=== PATIENT | male | born 1965 | race Caucasian/White ===

== ENCOUNTER 2025-07-06 07:21 | Inpatient (IN) | payer MEDICARE, MEDICAID, SELFPAY ==
[2025-07-06] VITALS (23 sets, daily range): BP systolic 91–143; BP diastolic 48–92; PULSE 93–140; RESP 16–22; TEMP 36.4–37.4; O2SAT 95–99; BMI 28.3
--- NOTE | 2025-07-06 07:43 | PD.EDABDPN ---
ED Abdominal Pain RME/HPI General Chief Complaint: Abdominal Pain Stated complaint: ABD PAIN Time seen by provider: 07/06/25 07:45 Arrival date/time: 07/06/25 07:21 RME / HPI RME / HPI narrative: DR. BROWN MAIN ED EVALUATION: 60 y/o male with Hx of Schizophrenia and Developmental Delay LUCILA from home presents to ED c/o sharp abdominal pain and constipation x 3 day. Per EMS, patient was tachycardic with BPM in the 140's. Denies nausea and vomiting. Patient is able to ambulate on his own, but starts breathing hard after a brief moment. Spoke with tufting creeler, Celia, and she reports patient began feeling unwell last night reporting one stool with fresh blood, but denying hematemesis. Patient is normally very vocal. Denies Hx of colonoscopy or history of abdominal surgeries. Patient is currently taking Zocor, Klonopin, Resperidone, Loratadine, and dulcolax. No allergies to medication reported. Patient also has a history of Lomas's Palsy, in addition to Schizophrenia and Developemental Delay. Per caregiver patient is at his baseline. Related Data Allergies Allergy/AdvReac Type Severity Reaction Status Date / Time No Known Allergies Allergy Verified 07/06/25 08:38 Review of Systems Review of Systems Systems Reviewed: All systems reviewed, normal except as documented ROS Unobtainable: unobtainable due to mental status Past Medical History Past Medical History PSYCHO/SOCIAL: Positive Schizophrenia OTHER HISTORY: Positive Developmental Delay Social History SMOKING STATUS: Never smoker ED Exam Narrative Physical exam: GEN. APPEARANCE: The patient is alert awake in no distress, lying down comfortably, does not look ill/toxic. Patient has good eye contact. Mentating at baseline. VITALS: All vitals were reviewed and the pulse ox is 97% on room air which is normal according to my interpretation. HEENT: Normocephalic, atraumatic. Pupils are equal and reactive. Oral mucosa is moist. Patent Nares NECK: Supple, nontender, no thyromegaly, no meningismus, no JVD CHEST: Symmetrical, atraumatic, and with equal expansion , Nontender on palpation no deformity and no crepitus. CARDIOVASCULAR: Heart regular rhythm no murmur or gallop rub or extra beats. LUNGS: Clear to auscultation bilaterally with symmetrical chest rise. No laboring tachypnea or wheezing. No intercostal subcostal retraction. No rales and no rhonchi. ABDOMEN: Soft, minimal distention, mild tenderness to palpation in all 4 quadrants, no rebound no guarding there are no abnormal masses palpated EXTREMITIES: Nontender. No edema. No cyanosis. Patient is able to move all 4 extremities well, with full ROM and good CSM. SKIN: Warm and dry, no jaundice or rashes noted. NEURO: Patient is alert, interactive, mentating at his baseline per his caregiver. Patient answers questions however inappropriately however does follow commands. This is his baseline. Moves all extremities. No cranial nerve deficits. PSYCHIATRIC: Patient is in normal mood and affect. Course Course Course Narrative: Sepsis alert initiated. Orders made at this time are congruent with ED Adult Sepsis Order List. Re-evaluation is to be completed. Quality Measures Possible source: GI tract/intra-abdominal Blood cultures ordered: yes Antibiotic ordered: Yes Pertinent labs: 07/06/25 07/06/25 10:11 14:09 Lactic Acid 7.3 H* mMol/L 5.5 H* mMol/L (0.4-2.0) (0.4-2.0) Procalcitonin 0.22 ng/ml (0.0-0.49) sepsis Orders Category Date Time Status Bedside Blood Glucose NOW Care 07/06/25 09:[address] Screening NOW Care 07/06/25 07:[address] Screening NOW Care 07/06/25 09:12 Completed Equity Structurer Q4H START 00 Care 07/06/25 09:14 Active EKG (ED ONLY) *Do not use* NOW Care 07/06/25 07:46 Completed Insert IV NOW Care 07/06/25 09:14 Active Strict Intake and Output Routine Care 07/06/25 09:14 Ordered Transfuse,blood/blood products NOW Care 07/06/25 09:13 Active Consult to Gastroenterology Stat Cons 07/06/25 14:[address] angio abdomen pelvis Stat Exams 07/06/25 09:12 Completed CXR [XR chest 1V] Stat Exams 07/06/25 07:46 Completed EKG (ED Only) Stat Exams 07/06/25 07:46 Draft Blood Culture (Lab) Stat Lab 07/06/25 10:11 Received CBC Stat Lab 07/06/25 08:31 Completed CMP [Comprehensive Metabolic Panel] Stat Lab 07/06/25 08:31 Completed Drug Screen,Urine Stat Lab 07/06/25 10:30 Completed Lactate (Lactic Acid) Stat Lab 07/06/25 10:11 Completed Lactic Acid, 3 HR Stat Lab 07/06/25 14:09 Completed Lipase Stat Lab 07/06/25 08:31 Completed Partial Thromboplastin Time Stat Lab 07/06/25 08:31 Completed Path Review Blood Smear Stat Lab 07/06/25 08:31 Completed Procalcitonin Stat Lab 07/06/25 10:11 Completed Prothrombin Time with INR Stat Lab 07/06/25 08:31 Completed Troponin I Stat Lab 07/06/25 08:31 Completed Type and Screen Stat Lab 07/06/25 10:11 Results UA, C/S IF [Urinalysis, C/S if Indicated] Stat Lab 07/06/25 10:30 Completed prbc [Red Blood Cells] Stat Lab 07/06/25 10:11 Results NA HERNANDEZ/NAHCO3/JOSE/PEG (Golytely) [Golytely] Med 07/06/25 14:26 Discontinued 4,000 ml PO X1 ONE Piper/Tazo Inj [Zosyn Inj] 4.5 gm Med 07/06/25 09:16 Discontinued Sodium Chloride 0.9% (Pop) [NS 0.9% mini bag] 100 ml IV X1 Ringers Lactated 1000 ml [Lactated Ringers] 1,000 ml Med 07/06/25 07:45 Discontinued IV 999 mls/hr Ringers Lactated 1000 ml [Lactated Ringers] 1,000 ml Med 07/06/25 14:29 Active IV 999 mls/hr Oxygen Delivery NOW RT 07/06/25 09:14 Active Vital Signs Vital signs: Vital Signs Temperature 98.7 F 07/06/25 07:33 Pulse Rate 129 H 07/06/25 07:33 Respiratory Rate 18 07/06/25 07:33 Blood Pressure 119/72 07/06/25 07:33 Pulse Oximetry (%) 99 07/06/25 07:33 Oxygen Delivery Method Room Air 07/06/25 07:33 Abdominal Pain MDM MDM Narrative MDM Narrative:: Scribe Attestation: I, Mariia Balderrama, am scribing for and in the presence of Dr. Brown. Provider Notation: Although this document has been carefully reviewed, there may still be some phonetic and other typographical errors. These errors are purely grammatical due to imperfections in the software program and should not be construed in any way to compromise the substance of the patient's medical care during this visit. Patient is a 60-year-old male with medical history notable for developmental delay, schizophrenia that send emergency department brought in by EMS for concerns for abdominal pain. Vital signs and exam as listed. Concern for ACS, arrhythmia, obstruction, perforation among others. Ordered labs, CT abdomen pelvis with contrast, EKG chest x-ray after medication for symptom relief. Labs with evidence of leukocytosis 28.9. Ordered sepsis order set, and broad-spectrum antibiotics. Concern for bacteremia. Also ordered a liter of fluid. Patient hemoglobin is 5.8. Concern that patient is bleeding do not have a prior hemoglobin for comparison. Ordered 2 units of blood. Will hold off on further IV crystalloid fluid resuscitation at this time given patient's low hemoglobin and concern for dilution. No significant acute electrolyte abnormalities. Patient lactic acid is 7.3 no transaminitis. Troponin not elevated. EKG with sinus tachycardia. Nonspecific T wave changes, not a cardiac alert. Chest x-ray unremarkable. I spoke with patient's caregiver at bedside, states that the patient had a couple episodes of bright red blood per rectum. This has never happened before. Patient is not take any blood thinners. CT abdomen and pelvis without any acute abnormalities, no evidence of bleed, bowel ischemia, abscess or other abnormalities. Patient lactic acid down trended however remains elevated, and findings. Ordered an additional liter of fluid until blood arrives. Discussed case with television production clerk Dr. Benavides, agrees with management, will consult on the patient. Requests that we start the patient on GoLytely. Discussed case with hospitalist service, kindly accepted patient for admission. Patient data External records reviewed:: [facility] previous records (No prior ED records available for review.) and EMS form Clinical information provided by:: EMS Social determinants that could affect healthcare access:: none Patient has the following chronic illnesses:: Schizophrenia, Developmental Delay How is presenting disease/condition affected by chronic disease/condition?: uneffected by Evaluation data The following diagnostics were reviewed and interpreted by me:: lab results, radiology exam(s) and EKG tracing(s) (EKG done at 0749, 134 bpm, normal intervals, non-specific T-wave changes, not a cardiac alert. - Interpreted by Dr. Iwona Brown.) Lab and/or radiology exams considered but not ordered:: None Interpretation Summary: RADIOLOGY Chest X-Ray: Findings: Mild prominence left ventricle Moderate elevation right hemidiaphragm. No pneumonia or pulmonary edema. The osseous structures are intact Impression: No pneumonia or pulmonary edema Abdomen/Pelvis CTA: Findings: No focal liver or splenic lesions. No gallstones. No pancreatic mass or peripancreatic edema. No extra hepatic biliary tract dilatation. No adrenal mass lesion. Significant scarring lateral margin right kidney No hydronephrosis or ureteral calculi. Aorta normal size. No pericecal inflammatory change. No ischemic bowel or diverticulitis. Prostatomegaly, AP dimension 3.8 cm Urinary bladder intact Large fat-containing inguinal hernias. Impression: No abdominal or pelvic abscess. Significant scarring lateral margin right kidney, no hydronephrosis or ureteral calculi. No CT findings of appendicitis bowel obstruction or diverticulitis No findings of ischemic bowel Medications / Prescriptions Medications or Prescriptions considered but not ordered:: None Medication administrations:: Medication Administration History Lactated Ringer's (Lactated Ringers) 1,000 mls @ 999 mls/hr IV .Q1H1M ONE Stop: 07/06/25 15:29 Discontinued Medications Lactated Ringer's (Lactated Ringers) 1,000 mls @ 999 mls/hr IV .Q1H1M ONE Stop: 07/06/25 08:45 Last Infusion: 07/06/25 09:51 Dose: Infused Documented By: Admin: 07/06/25 08:43 Dose: 999 mls/hr Documented By: BY Piperacillin Sod/Tazobactam (Sod 4.5 gm/ Sodium Chloride) 100 mls @ 200 mls/hr IV X1 STA Stop: 07/06/25 09:45 Last Infusion: 07/06/25 10:15 Dose: Infused Documented By: Admin: 07/06/25 09:43 Dose: 200 mls/hr Documented By: KATELYNN Polyethylene Glycol/Electrolytes (Na Hernandez/Nahco3/Jose/Peg (Golytely) 4,000 Ml Btl) 4,000 ml PO X1 ONE Stop: 07/06/25 14:27 See above if any. Consultations Consultation(s) initiated? (list below): Yes Consultation #1 (Physician, Specialty, Details): Dr. Benavides made aware of the patient?s HPI, PMHx, lab and/or radiology results. Discussed treatment plan. Dr. Benavides agrees and will scope the patient. Advises clear liquid diet and that patient is put on GoLYTELY. Will consult an admission to the hospitalist. Time: 14:23 Consultation #2 (Physician, Specialty, Details): Dr. sAh Nuñez made aware of the patient?s HPI, PMHx, lab and/or radiology results. Treatment plan was discussed. Will admit for further evaluation and management. Accepts patient for admission. Time: 14:26 Diagnosis Differential diagnosis abdominal pain: abdominal pain, acute appendicitis, calculus of kidney, constipation, diverticulitis, gastroenteritis, pancreatitis and small bowel obstruction Most likely diagnosis given after review of the tests above:: GI bleed, sepsis, symptomatic anemia Admission Indicated Admission indicated?: indicated Explain why admission is indicated or not indicated:: GI bleed Admission Request Was there a request for admission?: Yes Admission Attestation Admission request attestation: Discussed case with [] from Hospitalist service regarding admission. Discussed patients ED course, exam findings, labs, and radiology results. The Hospitalist [agrees,declines] to accept the patient for admission. Disposition Plan Disposition Plan: Admit Critical Care Time Critical Care Time Critical Care Time: Yes Total Critical Care Time (min.): 65 Attestation: ?I spent 65 minutes of critical care time with this patient not including reportable procedures. There was an acute impairment of an organ system with a high probability of imminent or life threatening deterioration in the patient's condition. Interventions and changes required in the course of therapy are located in the chart. Time involved was spent in direct patient care, reviewing ancillary data, old records, consulting with decision makers, EMS, other doctors, giving orders and documenting. Discharge Plan Plan Patient Disposition: Admit Acute Care w/in Hospital Prescriptions/Referrals Referrals: Delon Herman PA-C [Primary Care Provider] - In 1 week Problem List Clinical Impression: GI (gastrointestinal bleed), Sepsis, Acidosis, lactic Patient/Caregiver Discharge Instructions Print Language: Indonesian Stand Alone Forms: Michelle Award Info., Patient Portal Info Letter
--- NOTE | 2025-07-06 07:46 | EKG_ITS ---
[facility] Test Date: 2025-07-06 Pat Name: MITA GRANADOS Department: Room: - Gender: Male Hydrocrane Operator: : 1965 Requested By: Iwona Niño Order Number: [id number] Reading MD: Iwona Niño Measurements Intervals [place] Rate: 134 P: 89 MA: 141 QRS: 19 QRSD: 95 T: 4 QT: 331 QTc: 495 Interpretive Statements SINUS TACHYCARDIA INCOMPLETE RIGHT BUNDLE BRANCH BLOCK [90+ ms QRS DURATION, TERMINAL R IN V1/V2, 40+ ms S IN I/aVL/V4/V5/V6] NONSPECIFIC T-WAVE ABNORMALITY ABNORMAL RHYTHM ECG No previous ECG available for comparison /store/S0/[id number]/ecg/[id number].pdf
--- NOTE | 2025-07-06 07:46 | XR_ITS ---
Examination: PA chest single view Technique: Upright PA chest single view Date and time: July 06 thousand 25, 0757 hrs. Indications: Shortness of breath beginning 5 days ago. Findings: Mild prominence left ventricle Moderate elevation right hemidiaphragm. No pneumonia or pulmonary edema. The osseous structures are intact Impression: No pneumonia or pulmonary edema
--- NOTE | 2025-07-06 07:46 | PD.EDABDPN ---
ED Abdominal Pain RME/HPI General Chief Complaint: Abdominal Pain Stated complaint: ABD PAIN Time seen by provider: 07/06/25 07:45 Arrival date/time: 07/06/25 07:21 Related Data Allergies Allergy/AdvReac Type Severity Reaction Status Date / Time No Known Allergies Allergy Verified 07/06/25 08:38 Course Orders Category Date Time Status Bedside Blood Glucose NOW Care 07/06/25 09:[address] Screening NOW Care 07/06/25 07:[address] Screening NOW Care 07/06/25 09:12 Completed Telephone Exchange Operator Q4H START 00 Care 07/06/25 09:14 Active EKG (ED ONLY) *Do not use* NOW Care 07/06/25 07:46 Completed Insert IV NOW Care 07/06/25 09:14 Active Strict Intake and Output Routine Care 07/06/25 09:14 Ordered Transfuse,blood/blood products NOW Care 07/06/25 09:[address] angio abdomen pelvis Stat Exams 07/06/25 09:12 Ordered CXR [XR chest 1V] Stat Exams 07/06/25 07:46 Completed EKG (ED Only) Stat Exams 07/06/25 07:46 Draft Blood Culture (Lab) Stat Lab 07/06/25 10:11 Received CBC Stat Lab 07/06/25 08:31 Completed CMP [Comprehensive Metabolic Panel] Stat Lab 07/06/25 08:31 Completed Drug Screen,Urine Stat Lab 07/06/25 07:46 Ordered Lactate (Lactic Acid) Stat Lab 07/06/25 10:11 Results Lipase Stat Lab 07/06/25 08:31 Completed Partial Thromboplastin Time Stat Lab 07/06/25 08:31 Completed Path Review Blood Smear Stat Lab 07/06/25 08:31 Completed Procalcitonin Stat Lab 07/06/25 10:11 Received Prothrombin Time with INR Stat Lab 07/06/25 08:31 Completed Troponin I Stat Lab 07/06/25 08:31 Completed Type and Screen Stat Lab 07/06/25 10:11 Received UA, C/S IF [Urinalysis, C/S if Indicated] Stat Lab 07/06/25 07:46 Ordered prbc [Red Blood Cells] Stat Lab 07/06/25 10:11 Received Piper/Tazo Inj [Zosyn Inj] 4.5 gm Med 07/06/25 09:16 Discontinued Sodium Chloride 0.9% (Pop) [NS 0.9% mini bag] 100 ml IV X1 Ringers Lactated 1000 ml [Lactated Ringers] 1,000 ml Med 07/06/25 07:45 Discontinued IV 999 mls/hr Oxygen Delivery NOW RT 07/06/25 09:14 Active Vital Signs Vital signs: Vital Signs Temperature 98.7 F 07/06/25 07:33 Pulse Rate 129 H 07/06/25 07:33 Respiratory Rate 18 07/06/25 07:33 Blood Pressure 119/72 07/06/25 07:33 Pulse Oximetry (%) 99 07/06/25 07:33 Oxygen Delivery Method Room Air 07/06/25 07:33 Abdominal Pain MDM Medications / Prescriptions Medication administrations:: Medication Administration History Discontinued Medications Lactated Ringer's (Lactated Ringers) 1,000 mls @ 999 mls/hr IV .Q1H1M ONE Stop: 07/06/25 08:45 Last Infusion: 07/06/25 09:51 Dose: Infused Documented By: Admin: 07/06/25 08:43 Dose: 999 mls/hr Documented By: BY Piperacillin Sod/Tazobactam (Sod 4.5 gm/ Sodium Chloride) 100 mls @ 200 mls/hr IV X1 STA Stop: 07/06/25 09:45 Last Admin: 07/06/25 09:43 Dose: 200 mls/hr Documented By: KATELYNN Discharge Plan Prescriptions/Referrals Referrals: Delon Herman PA-C [Primary Care Provider] - In 1 week Patient/Caregiver Discharge Instructions Print Language: Lao
[2025-07-06] MEDS: RINGERS LACTATED 1000 ML 1,000 ML 999 ML IV ×2 (08:43→14:43)
[2025-07-06 08:45] LABS: Basophils # (Auto) 0.1 Thou/mm3 (0.0-0.2); Basophils % (Auto) 0 % (0-2.5); Eosinophils # (Auto) 0.1 Thou/mm3 (0.0-0.5); Eosinophils % (Auto) 0 % (0-10); Immature Granulocytes Auto 0.89 Thou/mm3 (0.00-0.00); Lymphocytes # (Auto) 5.9 Thou/mm3 (1.0-4.8); Lymphocytes % (Auto) 21 % (10-50); Mean Corpuscular HGB Conc 33.0 g/dl (31.0-37.0); Mean Corpuscular Hemoglobin 30.1 pg (25.0-35.0); Mean Corpuscular Volume 91 fL (80-100); Monocytes # (Auto) 2.3 Thou/mm3 (0.0-0.8); Monocytes % (Auto) 8 % (0-12); Neutrophils # (Auto) 19.6 Thou/mm3 (1.8-7.7); Neutrophils % (Auto) 68 % (37-80); Nucleated Red Blood Cell # 0.65 Thou/mm3 (0.00-0.00); Nucleated Red Blood Cell % 2 /100 WBC (0); Platelet Count 188 Thou/mm3 (140-440); RDW Standard Deviation 46.0 fL (35.1-43.9); Red Blood Count 1.93 Miln/mm3 (4.50-5.90); White Blood Count 28.9 Thou/mm3 (3.8-10.6)
[2025-07-06 09:07] LABS: Alanine Aminotransferase 15 U/L (10-49); Albumin, Serum 3.4 gm/dL (3.5-5.0); Albumin/Globulin Ratio 2.0 (1.2-2.2); Alkaline Phosphatase 35 U/L (46-116); Anion Gap 16 (7-16); Aspartate Amino Transferase 13 U/L (0-34); BUN/Creatinine Ratio 23 Ratio (12-20); Bilirubin,Total 0.2 mg/dL (0.3-1.2); Blood Urea Nitrogen 28 mg/dL (9-23); Calcium 8.7 mg/dL (8.3-10.6); Calcium (Corrected) 9.2 mg/dL (8.5-10.1); Carbon Dioxide 21.2 mMol/L (20.0-31.0); Chloride 106 mMol/L (98-107); Creatinine (Component) 1.2 mg/dL (0.6-1.3); Globulin 1.7 gm/dL (2.3-3.5); Glucose 296 mg/dL (74-106); Lipase 26 U/L (12-53); Osmolality,Calculated 301 (275-295); Potassium 4.2 mMol/L (3.4-5.1); Sodium 143 mMol/L (136-145); Total Protein 5.1 gm/dL (5.7-8.2); Troponin I < 0.020 ng/mL (0.0-0.045); eGFR > 60 See Note
[2025-07-06 09:09] LABS: Hematocrit 17.6 % (41.0-53.0); Hemoglobin 5.8 g/dL (13.5-16.0)
--- NOTE | 2025-07-06 09:12 | XR_ITS ---
Examination: CTA abdomen, with intravenous contrast. CTA pelvis, with intravenous contrast. 2-D sagittal and coronal reconstructions. 3-D reconstructions. Date and time of exam: July 06, 2025 11:34 AM Indications: Sepsis alert today with generalized abdominal pain CTDI vol (mgy) 10 DLP (MGycm) : 411 Technique: Multiple CTA images, 2.0 mm slice thickness, obtained chest, abdomen, pelvis, with the high-resolution 64 slice scanner. 100 cc Isovue-370. is administered intravenously. Sagittal and coronal 2-D reconstructions are obtained. 3-D reconstructions, angiographic images are obtained. 3-D postprocessing, including vascular maximum intensity projections. Low dose protocols were performed. One or more of the following dose reduction techniques were used; automated exposure control, adjustment of the mA and/or KV according to patient size, use of iterative reconstruction technique. Findings: No focal liver or splenic lesions. No gallstones. No pancreatic mass or peripancreatic edema. No extra hepatic biliary tract dilatation. No adrenal mass lesion. Significant scarring lateral margin right kidney No hydronephrosis or ureteral calculi. Aorta normal size. No pericecal inflammatory change. No ischemic bowel or diverticulitis. Prostatomegaly, AP dimension 3.8 cm Urinary bladder intact Large fat-containing inguinal hernias. Impression: No abdominal or pelvic abscess. Significant scarring lateral margin right kidney, no hydronephrosis or ureteral calculi. No CT findings of appendicitis bowel obstruction or diverticulitis No findings of ischemic bowel
[2025-07-06 09:23] LABS: Path Review Blood Smear Sent to Pathologist
[2025-07-06] MEDS: PIPER/TAZO INJ 4.5 GM in SODIUM CHLORIDE 0.9% (POP) 100 ML IV (09:43)
[2025-07-06 10:20] LABS: INR 1.1 (0.9-1.3); Partial Thromboplastin Time 20.0 Seconds (22.0-36.0); Prothrombin Time 12.0 Seconds (9.0-12.2)
[2025-07-06 10:31] LABS: Lactate (Lactic Acid) 7.3 mMol/L (0.4-2.0)
--- NOTE | 2025-07-06 10:47 | PC.NURSE ---
patient box printer brought in a copy of a medical / dental consent, copy placed in chart, however states she still needs to make a phone call to make shure if there is any thing else she needs to do before she consents to the blood transfussion
[2025-07-06 10:48] LABS: Collection Type, Urine Clean Catch
--- NOTE | 2025-07-06 10:50 | PC.NURSE ---
notified of patient lactic results '
[2025-07-06 10:54] LABS: Procalcitonin 0.22 ng/ml (0.0-0.49)
[2025-07-06 10:56] LABS: Bilirubin,Urine Negative (Negative); Blood,Urine Negative (Negative); Clarity,Urine Clear (Clear/Hazy); Color,Urine Colorless (Lt Yel-Yel); Culture Indicated,Urine Not Indicated; Glucose, Urine 3+ (Negative); Ketones,Urine Trace (Negative); Leukocyte Esterase,Urine Negative (Negative); Nitrite,Urine Negative (Negative); PH,Urine 5.5 (5.0-7.0); Protein,Urine Negative (Neg - Trace); RBC,Urine 2 /hpf (0-3); Specific Gravity,Urine 1.021 (1.001-1.035); Squamous Epithelial Cell,Urine < 1 /hpf (0-5); Urobilinogen,Urine Negative mg/dL (0.0-1.0); WBC,Urine 2 /hpf (0-5)
--- NOTE | 2025-07-06 12:08 | PC.NURSE ---
patient noted to have tonic clonic seizure @ 1004 patient assisted to left side , suctioned and MD notified , patient placed on oxygen ,
[2025-07-06 12:09] LABS: Amphetamine/Methamp Scrn,U Negative (Negative); Barbiturate Screen,Urine Negative (Negative); Benzodiazepines Screen,Urine Negative (Negative); Benzoylecgonine Screen, Ur Negative (Negative); Fentanyl Screen,Urine Negative (Negative); Opiate Screen,Urine Negative (Negative); THC Screen,Urine Negative (Negative)
[2025-07-06 13:16] LABS: Reflex Lactate? Y
--- NOTE | 2025-07-06 13:27 | PC.NURSE ---
patient is in bed resting , denies any pain , no noted facial grimacing at this time currently recieving blood transfusion
[2025-07-06 14:18] LABS: Lactic Acid, 3 HR 5.5 mMol/L (0.4-2.0)
--- NOTE | 2025-07-06 15:05 | ESHP_ITS ---
<Statement entered by Kaylee Starks MD - 07/11/25 07:15> I reviewed above note and agree with findings and plans. I have also personally examined the patient with medicine team and went over assessment and plan with medical team including audit intern and resident physician. <Statement entered by Florentino Nuñez MD - 07/06/25 17:05> Ton Matias is a 60-year-old male with past medical history of developmental delay who lives at a [facility], schizophrenia, Lomas's palsy, abdominal hernia who is admitted for melanotic stools. GI consulted and will plan for EGD likely tomorrow. Initial hemoglobin of 5.8 and will be transfused 2 units PRBC in the ED. Lactic acidosis improved after IVF but will continue to trend and started on IVF. Also noted to be hyperglycemic, A1c ordered and on SSI with every 6 hours glucose checks. Restarted home medications for schizophrenia and depression/anxiety. ----- Note reviewed and agree with care plan as documented. Please refer to the note below for further details. Plan discussed with attending physician Dr. Tereza Nuñez MD PGY-2 Internal Medicine Documentation for date of: 07/06/25 HPI History of Present Illness Chief complaint: Abdominal pain, Blood in stool History of present illness: 60 year old male with past medical history of schizophrenia, developmental delay, Lomas's palsy and abdominal hernia, BIBA from a [facility] for sharp abdominal pain and constipation for 3 days. Per EMS, patient was tachycardic with HR in the 140s. Per the hide shaker (Celia), patient started feeling unwell yesterday evening and had one stool with melanic stool, denying hematemesis. ED course: - WBC: 28.9 - HgB 5.8, Hc 17.6, transfused 2 units prbc - Lactic acid 7.3 on arrival, post fluids 5.5. - Fingerstick blood glucose - 296 - Blood cultures pending - LR 2L bolus - Zosyn 4.5 gm - Chest xray: No signs of pneumonia or pulmonary edema, mild prominance of left ventricle, moderate elevation right hemidiaphragm - CT angio abdomen/pelvis: No abdominal or pelvic abscess, significant lateral margin right kidney, no signs of appendicitis, bowel obstruction, diverticulitis, or ischemic bowel. PMH: Schizophrenia, developmental delay, Lomas's Palsy, abdominal hernia PSHx: None Medications: Zocor, Klonopin, Resperidone, Loratadine, and dulcolax Allergies: none Social: patient is developmentally delayed, lives at a [facility], caretakers Celia and Mi. Code: Inventory Specialist Mi at the bedside reports the code status to be Full. Exam Vital Signs Temp Pulse Resp BP Pulse Ox O2 Del Method 99.4 F 116 H 18 102/71 95 Room Air 07/06/25 14:00 07/06/25 14:52 07/06/25 14:52 07/06/25 14:52 07/06/25 14:52 07/06/25 14:52 Narrative Exam General: Patient is fully alert and but not fully oriented (but at baseline, patient has developmental delay). In no acute distress. Cardio: RRR, no murmurs, gallops or rubs appreciated. Resp: Normal lung sounds, no rales or wheezing auscultated. MSK/ Extremities: No muscle or joint pain on any movement. No bruising or skin changes visible. No presence of trace or pitting edema in lower extremities bilaterally, dorsalis pedis pulses +2 bilaterally GI: Mild abdominal distension, normal bowel sounds. No abdominal tenderness in any quadrants. Neuro: No focal motor or sensory deficits in the UE or LE bilat Psych: Judgment thought and behavior hindered due to developmental delay. Good affect. Cooperative Results: Labs 07/06/25 08:31 07/06/25 08:31 Labs: Short CBC 07/06/25 Range/Units 08:31 WBC 28.9 H (3.8-10.6) Thou/mm3 Hgb 5.8 L* (13.5-16.0) g/dL Hct 17.6 L* (41.0-53.0) % Plt Count 188 (140-440) Thou/mm3 BMP 07/06/25 08:31 Sodium 143 Potassium 4.2 Chloride 106 Carbon Dioxide 21.2 BUN 28 H Creatinine 1.2 Glucose 296 H Calcium 8.7 Cardiac Enzymes 07/06/25 Range/Units 08:31 Troponin I < 0.020 (0.0-0.045) ng/mL Liver Function 07/06/25 Range/Units 08:31 Total Bilirubin 0.2 L (0.3-1.2) mg/dL AST 13 (0-34) U/L ALT 15 (10-49) U/L Alkaline Phosphatase 35 L (46-116) U/L Albumin 3.4 L (3.5-5.0) gm/dL Urine 07/06/25 Range/Units 10:30 Urine Color Colorless A (Lt Yel-Yel) Urine Clarity Clear (Clear/Hazy) Urine pH 5.5 (5.0-7.0) Ur Specific [place] 1.021 (1.001-1.035) Urine Protein Negative (Neg - Trace) Urine Glucose (UA) 3+ A (Negative) Quality Measures Quality Measures sepsis Current suspected stage: sepsis Possible source: GI tract/intra-abdominal Blood cultures ordered: yes Antibiotic ordered: Yes Medications Home Medications and Allergies Home Medications ?Medication ?Instructions ?Recorded ?Confirmed ?Type clonazepam 1 mg tablet 1 mg PO TID 07/06/25 5 History docusate sodium 250 mg capsule mg PO DAILY 07/06/25 H istory fluvoxamine 100 mg tablet 100 mg PO BID 07/06/2507/06 History loratadine 10 mg tablet (Allergy mg 07/06/25 History Relief (loratadine)) risperidone 1 mg/mL oral solution 1 mg PO BID 07/06/25 07/06/25 History (Risperdal) simvastatin 10 mg tablet 10 mg PO QPM 07/06/25 History Allergies Allergy/AdvReac Type Severity Reaction Status Date / Time No Known Allergies Allergy Verified 07/06/25 08:38 Visit Medications Lactated Ringer's (Lactated Ringers) 1,000 mls @ 999 mls/hr IV .Q1H1M ONE Stop: 07/06/25 15:29 Last Admin: 07/06/25 14:43 Dose: 999 mls/hr Discontinued Medications Lactated Ringer's (Lactated Ringers) 1,000 mls @ 999 mls/hr IV .Q1H1M ONE Stop: 07/06/25 08:45 Last Infusion: 07/06/25 09:51 Dose: Infused Piperacillin Sod/Tazobactam (Sod 4.5 gm/ Sodium Chloride) 100 mls @ 200 mls/hr IV X1 STA Stop: 07/06/25 09:45 Last Infusion: 07/06/25 10:15 Dose: Infused Polyethylene Glycol/Electrolytes (Na Jj/Nahco3/Rio/Peg (Golytely) 4,000 Ml Btl) 4,000 ml PO X1 ONE Stop: 07/06/25 14:27 Assessment & Plan Plan 60 y/o male with Hx of Schizophrenia and Developmental Delay, presented with abdominal pain, constipation, and melena, admitted for acute blood loss anemia secondary to upper GI bleed. #Acute blood loss anemia secondary to upper GI bleed - Patient had one known episode of melena on 07/05/25 - Hgb of 5.8 on arrival - BUN 28 on arrival - Lactic acid 7.3 on arrival -> 5.5 after 2L LR - 2 units prbc transfused Plan: - GI consulted - Pending EGD, patient NPO - Protonix 40 BID - Zofran Q6H PRN - Will check post tranfusion H and H - Monitor daily CBC, transfuse if hemoglobin <7 or if symptoms of anemia develop - Trend lactate - Maintenance fluids LR 75 ml/hr #Leukocytosis - Likely reactive to GI bleed - WBC 28.9 on presentation. - Patient is afebrile, HR 107 Plan - Monitor daily CBC - No signs of infection at this moment, will monitor and start antibiotics if symptoms develop. #Hyperglycemia - Patient presented with fingerstick blood glucose of 296 mg/dL - Urine 3+ glucose - Potential undiagnosed type II diabetes mellitus Plan: - Patient placed on sliding scale - Fingerstick glucose Q6H - A1c ordered. #Schizophrenia - Patient has a history of schizophrenia - Cont home risperidone 1 mg PO BID - Monitor for symptoms #Constipation - 3 day history of constipation - Monitor and PRN miralax #Depression #Anxiety - Cont home medications clonazpam 1mg TID, fluvoxamine 100 mg PO BID Health Maintenance: Code Status: Full DVT Prophylaxis: SCDs GI Prophylaxis: Protonix Diet: NPO, pending EGD Marinelli: None Lines: PIV Supplemental O2: None Disposition: Med Surg, pending workup for GI bleed Patient seen and care discussed with my attending physician, Dr. Starks and my senior resident Dr. Ash Vazquez, OMS-IV
--- NOTE | 2025-07-06 15:51 | PC.NURSE ---
pharmacy called and is requesting fluvoxamine 100mg med from home , due to medication not being available at this time, family informed and will bring bubble pack from home
--- NOTE | 2025-07-06 16:16 | PC.NURSE ---
DR Benavides at bedside @ 0565 speaking to patient and family
--- NOTE | 2025-07-06 16:17 | PC.NURSE ---
recieved a call from ETHAN SAAB that he spoke to DR Moralez and patient is going to have a EGD tomorow , does not need to take the golytly today
[2025-07-06] MEDS: RINGERS LACTATED 1000 ML 1,000 ML 75 ML IV (16:22)
--- NOTE | 2025-07-06 16:43 | PC.NURSE ---
recieved call from DR Benavides , and patient is ok to have clear liquids until midnight , will have EGD tomorow
--- NOTE | 2025-07-06 16:46 | PD.IMCONS ---
HPI Data of Consult Requesting Physician: Kaylee Starks MD Primary Care Provider: Delon Herman PA-C Consult Narrative Reason for consult: Hematochezia History of present illness: 60 years old male came into the emergency room with multiple episodes of hematochezia cc:: cc: Kaylee Starks MD Review of Systems Review of Systems Systems Reviewed: All systems reviewed, normal except as documented Past Medical History Surgical History OTHER SURGICAL HX: Schizoaffective disorder Hyperlipidemia Meds Home Medications and Allergies Home Medications ?Medication ?Instructions ?Recorded ?Confirmed ?Type clonazepam 1 mg tablet 1 mg PO TID 07/06/25 07/06/25 History docusate sodium 250 mg capsule mg PO DAILY 07/06/25 History fluvoxamine 100 mg tablet 100 mg PO BID 07/06/25 07/06/25 History loratadine 10 mg tablet (Allergy mg 07/06/25 History Relief (loratadine)) risperidone 1 mg/mL oral solution 1 mg PO BID 07/06/25 07/06/25 History (Risperdal) simvastatin 10 mg tablet 10 mg PO QPM 07/06/25 07/06/25 History Allergies Allergy/AdvReac Type Severity Reaction Status Date / Time No Known Allergies Allergy Verified 07/06/25 08:38 Exam Vital Signs Temp Pulse Resp BP Pulse Ox O2 Del Method 99.3 F 107 H 18 123/69 98 Room Air 07/06/25 15:43 07/06/25 15:43 07/06/25 15:43 07/06/25 15:43 07/06/25 15:14 07/06/25 15:14 Constitutional Comments: Alert oriented Routine Respiratory Exam Comments: Normal to auscultation Routine Abdominal Exam Comments: Soft nontender Results Labs 07/06/25 08:31 07/06/25 08:31 Labs: Short CBC 07/06/25 Range/Units 08:31 WBC 28.9 H (3.8-10.6) Thou/mm3 Hgb 5.8 L* (13.5-16.0) g/dL Hct 17.6 L* (41.0-53.0) % Plt Count 188 (140-440) Thou/mm3 BMP 07/06/25 08:31 Sodium 143 Potassium 4.2 Chloride 106 Carbon Dioxide 21.2 BUN 28 H Creatinine 1.2 Glucose 296 H Calcium 8.7 Cardiac Enzymes 07/06/25 Range/Units 08:31 Troponin I < 0.020 (0.0-0.045) ng/mL Liver Function 07/06/25 Range/Units 08:31 Total Bilirubin 0.2 L (0.3-1.2) mg/dL AST 13 (0-34) U/L ALT 15 (10-49) U/L Alkaline Phosphatase 35 L (46-116) U/L Albumin 3.4 L (3.5-5.0) gm/dL Urine 07/06/25 Range/Units 10:30 Urine Color Colorless A (Lt Yel-Yel) Urine Clarity Clear (Clear/Hazy) Urine pH 5.5 (5.0-7.0) Ur Specific [place] 1.021 (1.001-1.035) Urine Protein Negative (Neg - Trace) Urine Glucose (UA) 3+ A (Negative) Assessment and Plan Additional Assessment & Plan Additional Plan: Hematochezia Plan clear liquid diet n.p.o. at midnight tonight except p.o. meds Consent for fiberoptic esophagogastroduodenoscopy with possible biopsy possible therapeutic intervention under intravenous moderate sedation If EGD negative we will consider doing a fibrotic colonoscopy prior to discharge Serial CBC IV Protonix Thank you very much for the opportunity to participate in the care of this
--- NOTE | 2025-07-06 17:29 | PC.CC ---
Polly Ton. is a 60-year-old male admitted for GI Bleed. Online Journalist made contact with Pt at bedside to complete initial and discuss discharge disposition. Caregiver Mi Jean [phone] was bedside and provided information.Role and reason for the contact was explained to Pt. Demographic information was verified. Caregiver identify self Mi Jean [phone] and Celia Jaen [phone] as patients surrogate decision maker. Per caregiver Pt is independent with all ADLs. Pt does not utilize no DME. Pt?s choice of pharmacy is [facility] in [place], [place]. PCP is Delon Herman in [facility]. At time of discharge patient will return home with caregivers and caregivers will provide transportation. Discharge Plan: Home with Caregivers Next of Kin: Delon Herman in [facility] PCP:Delon Herman in [facility]
--- NOTE | 2025-07-06 17:46 | PC.NURSE ---
3 days worth of medications given to pharmacist Olivia
--- NOTE | 2025-07-06 18:11 | PC.NURSE ---
medication recived from pharmacist for tonight dose of fluoxamine , medication placed in green box in med room
[2025-07-06] MEDS: FLUVOXAMINE 100 MG PO (20:09)
[2025-07-06 23:14] LABS: Lactate (Lactic Acid) 2.0 mMol/L (0.4-2.0)
[2025-07-07] VITALS (15 sets, daily range): BP systolic 98–135; BP diastolic 72–93; PULSE 79–131; RESP 12–21; TEMP 36.4–37.4; O2SAT 92–100
[2025-07-07 00:06] LABS: Hematocrit 23.2 % (41.0-53.0)
[2025-07-07 00:07] LABS: Hemoglobin 8.0 g/dL (13.5-16.0)
[2025-07-07] MEDS: RINGERS LACTATED 1000 ML 1,000 ML 75 ML IV ×2 (05:46→21:47)
[2025-07-07 06:10] LABS: Basophils # (Auto) 0.1 Thou/mm3 (0.0-0.2); Basophils % (Auto) 0 % (0-2.5); Eosinophils # (Auto) 0.1 Thou/mm3 (0.0-0.5); Eosinophils % (Auto) 0 % (0-10); Hematocrit 22.7 % (41.0-53.0); Immature Granulocytes Auto 0.48 Thou/mm3 (0.00-0.00); Lymphocytes # (Auto) 3.4 Thou/mm3 (1.0-4.8); Lymphocytes % (Auto) 18 % (10-50); Mean Corpuscular HGB Conc 33.9 g/dl (31.0-37.0); Mean Corpuscular Hemoglobin 30.9 pg (25.0-35.0); Mean Corpuscular Volume 91 fL (80-100); Monocytes # (Auto) 1.4 Thou/mm3 (0.0-0.8); Monocytes % (Auto) 7 % (0-12); Neutrophils # (Auto) 14.0 Thou/mm3 (1.8-7.7); Neutrophils % (Auto) 72 % (37-80); Nucleated Red Blood Cell # 0.43 Thou/mm3 (0.00-0.00); Nucleated Red Blood Cell % 2 /100 WBC (0); Platelet Count 143 Thou/mm3 (140-440); RDW Standard Deviation 46.4 fL (35.1-43.9); Red Blood Count 2.49 Miln/mm3 (4.50-5.90); White Blood Count 19.4 Thou/mm3 (3.8-10.6)
[2025-07-07 06:11] LABS: Hemoglobin 7.7 g/dL (13.5-16.0)
[2025-07-07 06:38] LABS: Alanine Aminotransferase 15 U/L (10-49); Albumin, Serum 3.5 gm/dL (3.5-5.0); Albumin/Globulin Ratio 1.9 (1.2-2.2); Alkaline Phosphatase 34 U/L (46-116); Anion Gap 11 (7-16); Aspartate Amino Transferase 20 U/L (0-34); BUN/Creatinine Ratio 22 Ratio (12-20); Bilirubin,Total 0.3 mg/dL (0.3-1.2); Blood Urea Nitrogen 20 mg/dL (9-23); Calcium 8.5 mg/dL (8.3-10.6); Calcium (Corrected) 8.9 mg/dL (8.5-10.1); Carbon Dioxide 25.9 mMol/L (20.0-31.0); Chloride 106 mMol/L (98-107); Creatinine (Component) 0.9 mg/dL (0.6-1.3); Estimated Creatinine Clearance 84.7 mL/min (>60); Globulin 1.8 gm/dL (2.3-3.5); Glucose 144 mg/dL (74-106); Magnesium 1.9 mg/dL (1.6-2.6); Osmolality,Calculated 290 (275-295); Phosphorous 2.4 mg/dL (2.4-5.1); Potassium 3.8 mMol/L (3.4-5.1); Sodium 143 mMol/L (136-145); Total Protein 5.3 gm/dL (5.7-8.2); eGFR > 60 See Note
[2025-07-07] MEDS: FLUVOXAMINE 100 MG PO ×2 (10:00→21:34)
--- NOTE | 2025-07-07 13:36 | ESPR_ITS ---
<Statement entered by Kaylee Starks MD - 07/11/25 14:17> I reviewed above note and agree with findings and plans. I have also personally examined the patient with medicine team and went over assessment and plan with medical team including technical internship and resident physician. <Statement entered by Augustin Freeman MD - 07/08/25 07:57> Patient examined and case discussed with the team including attending physician. Note reviewed, I agree with the care plan as documented. Please refer to the note below for further details. - Augustin Freeman MD, PGY 3 Disclaimer: The document may contain phonetic/typographic errors due to voice recognition software. These errors are purely due to imperfections in the software program. Documentation for date of: 07/07/25 Subjective Subjective Interval history: No overnight events. Patient resting comfortably in bed. Denies any new pain. White count trending downward. H&H stable. Lactic acidosis resolving. BUN downtrending. GI plans for EGD today. Exam Vital Signs Temp Pulse Resp BP Pulse Ox O2 Del Method 97.5 F 112 H 19 129/81 96 Room Air 07/07/25 07:27 07/07/25 07:27 07/07/25 07:27 07/07/25 07:27 07/07/25 07:27 07/07/25 07:27 Narrative Exam General: One-word answers, confused. Awake and in no acute distress. Conversational and non-toxic appearing. Neurologic: GCS 15. Alert and oriented x3, no gross neurological deficit, and patient able to move all 4 extremities. HEENT: Normocephalic, atraumatic, mucous membranes moist. Pupils reactive to light. Heart: Tachycardic, regular rhythm, normal S1 and S2, no murmurs. Lungs: Clear to auscultation bilaterally with no wheezing or crackles. Abdomen: Soft, nondistended, nontender, positive bowel sounds. No guarding or rebound tenderness. Extremities: No edema. 2+ radial and dorsalis pedis pulses bilaterally. Skin: Warm. Dry. No rash or ecchymoses. Objective Labs 07/07/25 05:35 07/07/25 05:35 Labs: Laboratory Results - last 24 hr 07/06/25 07/06/25 07/06/25 10:11 14:09 23:06 WBC RBC Hgb 8.0 L D Hct 23.2 L MCV MCH MCHC RDW Std Deviation Plt Count Neut % (Auto) Lymph % (Auto) Lam[place] % (Auto) Eos % (Auto) Baso % (Auto) Neut # (Auto) Lymph # (Auto) Lamar # (Auto) Eos # (Auto) Baso # (Auto) Immature Gran # (Auto) Absolute Nucleated RBC Immature Gran % Nucleated RBC % Sodium Potassium Chloride Carbon Dioxide Anion Gap BUN Creatinine Estim Creat Clear Calc eGFR BUN/Creatinine Ratio Glucose Estimated Ave Glu mg/dL Cancelled Hemoglobin A1c Cancelled Calculated Osmolality Lactic Acid 5.5 H* 2.0 Calcium Corrected Calcium Phosphorus Magnesium Total Bilirubin AST ALT Alkaline Phosphatase Total Protein Albumin Globulin Albumin/Globulin Ratio Blood Type A Positive Antibody Screen NEGATIVE Crossmatch See Detail Blood Bank Wristband ID Yes 07/07/25 05:35 WBC 19.4 H D RBC 2.49 L Hgb 7.7 L Hct 22.7 L MCV 91 MCH 30.9 MCHC 33.9 RDW Std Deviation 46.4 H Plt Count 143 D Neut % (Auto) 72 Lymph % (Auto) 18 Lamar % (Auto) 7 Eos % (Auto) 0 Baso % (Auto) 0 Neut # (Auto) 14.0 H Lymph # (Auto) 3.4 Lamar # (Auto) 1.4 H Eos # (Auto) 0.1 Baso # (Auto) 0.1 Immature Gran # (Auto) 0.48 H Absolute Nucleated RBC 0.43 H Immature Gran % 3 H Nucleated RBC % 2 H Sodium 143 Potassium 3.8 Chloride 106 Carbon Dioxide 25.9 Anion Gap 11 BUN 20 Creatinine 0.9 Estim Creat Clear Calc 84.7 eGFR > 60 BUN/Creatinine Ratio 22 H Glucose [address] Glu mg/dL Hemoglobin A1c Calculated Osmolality 290 Lactic Acid Calcium 8.5 Corrected Calcium 8.9 Phosphorus 2.4 Magnesium 1.9 Total Bilirubin 0.3 AST 20 ALT 15 Alkaline Phosphatase 34 L Total Protein 5.3 L Albumin 3.5 Globulin 1.8 L Albumin/Globulin Ratio 1.9 Blood Type Antibody Screen Crossmatch Blood Bank Wristband ID Quality Measures Quality Measures sepsis Current suspected stage: ruled out Possible source: GI tract/intra- abdominal Blood cultures ordered: no Antibiotic ordered: No Assessment & Plan Assessment Current Active Medications: Generic Name Dose Route Start Last Admin Trade Name Freq PRN Reason Stop Dose Admin Acetaminophen 650 mg 07/06/25 15:40 Acetaminophen 325 Mg Tablet PO 08/05/25 15:39 Q6H PRN PAIN OR FEVER > 100.4 Clonazepam 1 mg 07/07/25 06:00 07/07/25 05:35 Clonazepam 0.5 Mg Tablet PO 07/12/25 05:59 1 mg TID RHINA Administration Fluvoxamine 100 Mg 0 ea 07/06/25 21:00 07/07/25 10:00 Tablet PO 08/05/25 20:59 1 tablet BID RHINA Administration Dextrose 25 ml 07/06/25 15:47 Dextrose 50%-Water Inj 50 Ml Syringe IV 08/05/25 15:46 Q15MIN PRN BG 50-70 responsive npo pt Dextrose 50 ml 07/06/25 15:47 Dextrose 50%-Water Inj 50 Ml Syringe IV 08/05/25 15:46 Q15MIN PRN BG <50 OR BG <70 & pt unresponsive Glucagon 1 mg 07/06/25 15:47 Glucagon Inj 1 Mg Vial IM Q15MIN PRN BG <70, and no IV access Lactated Ringer's 1,000 mls @ 75 mls/hr 07/06/25 15:45 07/07/25 05:46 Lactated Ringers IV 08/05/25 15:44 75 mls/hr .[id number] RHINA Administration Insulin Human Lispro 0 unit 07/06/25 18:00 07/07/25 11:57 Insulin Lispro (Admelog) 1 Unit/0.01 Ml Unit SC 08/05/25 17:59 Not Given Q6HR RHINA Protocol Ondansetron HCl 4 mg 07/06/25 15:40 Ondansetron Inj 2 Mg/Ml Inj 2 Ml IVP 08/05/25 15:39 Q6H PRN NAUSEA OR VOMITING Protocol Pantoprazole Sodium 40 mg 07/06/25 21:00 07/07/25 08:31 Pantoprazole Inj 40 Mg Vial IVP 08/05/25 20:59 40 mg Q12HR RHINA Administration Risperidone 1 mg 07/06/25 21:00 07/07/25 08:32 Risperidone 1 Mg Tablet PO 08/05/25 20:59 1 mg BID RHINA Administration Plan 60 y/o male with Hx of Schizophrenia and Developmental Delay, presented with abdominal pain, constipation, and melena, admitted for acute blood loss anemia secondary to upper GI bleed. #Acute blood loss anemia secondary to upper GI bleed * Patient had one known episode of melena on 07/05/25 * Hgb of 5.8 on arrival received 2 units of PRBCs, posttransfusion hemoglobin 8.0, most recently 7.7 * BUN 28 on arrival, down trended to 20 * Lactic acid 7.3 on arrival -> 5.5 after 2L LR, downtrended to 2.0 Plan: * GI consulted, EGD planned for 07/07/2025 * Continue Protonix 40 BID * Continue Zofran Q6H PRN * Trend H&H * Monitor daily CBC, transfuse if hemoglobin <7 or if symptoms of anemia develop * Maintenance fluids LR 75 ml/hr #Reactive leukocytosis #Reflex tachycardia secondary to anemia * Sepsis ruled out * Likely reactive to GI bleed * WBC 28.9 on presentation, downtrending, 19.4 on 07/07/2025 * Patient is afebrile, HR 112 * Tachycardia likely in the presence of acute anemia due to GI bleed * Hemoglobin was 5.8, up trended to 8.0, down trended to 7.7 Plan * Monitor daily CBC * No signs of infection at this moment, will monitor and start antibiotics if symptoms develop. #Hyperglycemia * Patient presented with fingerstick blood glucose of 296 mg/dL * Urine 3+ glucose * Potential undiagnosed type II diabetes mellitus Plan: * Continue sliding scale * Fingerstick glucose Q6H * A1c ordered. #Schizophrenia * Patient has a history of schizophrenia Plan: * Cont home risperidone 1 mg PO BID * Monitor for symptoms #Constipation * 4 day history of no bowel movement * Consider due to n.p.o. status Plan: * Monitor and PRN miralax #Depression #Anxiety * Per patient history Plan: * Cont home medications clonazpam 1mg TID, fluvoxamine 100 mg PO BID Health Maintenance: Code Status: Full DVT Prophylaxis: SCDs GI Prophylaxis: Protonix Diet: NPO with meds allowed, pending EGD Marinelli: None Lines: PIV Supplemental O2: None Disposition: EGD today with GI. Patient was seen and discussed with my attending physician Dr. Tereza BUTCHER and my senior resident Dr. Augustin Freeman MD PGY-3. Connor Loco DO PGY-1.
--- NOTE | 2025-07-07 15:35 | SUR.PHASEI ---
1535 Patient arrived to recovery sleeping comfortably in [facility] able to arouse with verbal prompting then drifts back to sleep, on oxygen 2L via nasal cannula, breathing unlabored, vital signs stable, denies pain and nausea, report received Ny GONZALES
--- NOTE | 2025-07-07 16:12 | SUR.PHASEI ---
1611 Report given to Nata GONZALES, patient meets discharge criteria from recovery, awake and alert, breathing unlabored, vital signs stable, denies pain, ate two jello; denies nausea 1612 Patient transported via gurney to room 275 without incident, patient able to ambulate from gurney to bed with stand-by assist, patient had loose black, tarry stool and scant amount of blood noted to pad on bed, Nata GONZALES promptly in patients room stated this has been occurring and MD is aware of stool, assisted with cleaning patient; new gown and pericare provided, patient resting comfortably in bed with call light in reach and Nata RN at bedside when this tech writer left patients room.
[2025-07-07] MEDS: NA SU/NAHCO3/KC/PEG (Golytely) 4,000 ML BTL 4000 ML PO (17:08)
[2025-07-07] MEDS: POLYETHYLENE GLYCOL 17 GM PACKET PO (17:43)
[2025-07-08] VITALS (8 sets, daily range): BP systolic 111–165; BP diastolic 84–102; PULSE 119–130; RESP 13–28; TEMP 36.2–37.6; O2SAT 92–98
[2025-07-08 05:48] LABS: Basophils # (Auto) 0.1 Thou/mm3 (0.0-0.2); Basophils % (Auto) 0 % (0-2.5); Eosinophils # (Auto) 0.1 Thou/mm3 (0.0-0.5); Eosinophils % (Auto) 1 % (0-10); Hematocrit 22.3 % (41.0-53.0); Immature Granulocytes Auto 0.28 Thou/mm3 (0.00-0.00); Lymphocytes # (Auto) 2.1 Thou/mm3 (1.0-4.8); Lymphocytes % (Auto) 14 % (10-50); Mean Corpuscular HGB Conc 33.2 g/dl (31.0-37.0); Mean Corpuscular Hemoglobin 31.1 pg (25.0-35.0); Mean Corpuscular Volume 94 fL (80-100); Monocytes # (Auto) 1.1 Thou/mm3 (0.0-0.8); Monocytes % (Auto) 8 % (0-12); Neutrophils # (Auto) 11.1 Thou/mm3 (1.8-7.7); Neutrophils % (Auto) 75 % (37-80); Nucleated Red Blood Cell # 0.29 Thou/mm3 (0.00-0.00); Nucleated Red Blood Cell % 2 /100 WBC (0); Platelet Count 148 Thou/mm3 (140-440); RDW Standard Deviation 49.3 fL (35.1-43.9); Red Blood Count 2.38 Miln/mm3 (4.50-5.90); White Blood Count 14.7 Thou/mm3 (3.8-10.6)
[2025-07-08 05:59] LABS: Alanine Aminotransferase 16 U/L (10-49); Albumin, Serum 3.5 gm/dL (3.5-5.0); Albumin/Globulin Ratio 2.2 (1.2-2.2); Alkaline Phosphatase 37 U/L (46-116); Anion Gap 13 (7-16); Aspartate Amino Transferase 26 U/L (0-34); BUN/Creatinine Ratio 17 Ratio (12-20); Bilirubin,Total 0.3 mg/dL (0.3-1.2); Blood Urea Nitrogen 17 mg/dL (9-23); Calcium 8.4 mg/dL (8.3-10.6); Calcium (Corrected) 8.8 mg/dL (8.5-10.1); Carbon Dioxide 26.5 mMol/L (20.0-31.0); Chloride 105 mMol/L (98-107); Creatinine (Component) 1.0 mg/dL (0.6-1.3); Estimated Creatinine Clearance 75.2 mL/min (>60); Globulin 1.6 gm/dL (2.3-3.5); Glucose 126 mg/dL (74-106); Osmolality,Calculated 290 (275-295); Potassium 3.4 mMol/L (3.4-5.1); Sodium 144 mMol/L (136-145); Total Protein 5.1 gm/dL (5.7-8.2); eGFR > 60 See Note
[2025-07-08 06:14] LABS: Hemoglobin 7.4 g/dL (13.5-16.0)
[2025-07-08] MEDS: NA SU/NAHCO3/KC/PEG (Golytely) 4,000 ML BTL 4000 ML PO (06:38)
[2025-07-08] MEDS: RINGERS LACTATED 1000 ML 1,000 ML 75 ML IV ×2 (08:22→22:06)
[2025-07-08] MEDS: FLUVOXAMINE 100 MG PO ×2 (10:42→23:42)
--- NOTE | 2025-07-08 11:00 | EKG_ITS ---
[facility] Test Date: 2025-07-08 Pat Name: MITA GRANADOS [facility] Gender: Male Countersinker Balance Screw Hole: KORY : 1965 Requested By: Augustin Freeman Order Number: [id number] Reading MD: Augustin Freeman Measurements Intervals [place] Rate: 115 P: 169 MN: 237 QRS: -2 QRSD: 100 T: -5 QT: 360 QTc: 499 Interpretive Statements ECTOPIC ATRIAL TACHYCARDIA WITH FIRST DEGREE AV BLOCK LOW QRS VOLTAGE IN PRECORDIAL LEADS INCOMPLETE RIGHT BUNDLE BRANCH BLOCK MODERATE ST DEPRESSION Compared to ECG 07/06/2025 07:49:38 First degree AV block now present Low QRS voltage now present ST (T wave) deviation now present Sinus tachycardia no longer present T-wave abnormality no longer present /store/S0/[id number].pdf
[2025-07-08 11:46] LABS: Misc Send Out* See Sep Rpt
[2025-07-08 12:25] LABS: Thyroid Stimulating Hormone 5.97 uIU/mL (0.55-4.78)
[2025-07-08] MEDS: INSULIN LISPRO (AdmeLOG) 1 UNIT/0.01 ML UNIT SC (12:29)
--- NOTE | 2025-07-08 14:41 | EKG_ITS ---
[facility] Test Date: 2025-07-08 Pat Name: MITA GRANADOS [facility] Computer Help Desk Specialist: HUYEN : 1965 Requested By: Connor Loco Order Number: [id number] Reading MD: Connor Loco Measurements Intervals [place] Rate: 130 P: 141 [place]: 188 QRS: 19 QRSD: 104 T: -9 QT: 364 QTc: 537 Interpretive Statements ECTOPIC ATRIAL TACHYCARDIA INCOMPLETE RIGHT BUNDLE BRANCH BLOCK INFERIOR MYOCARDIAL INFARCTION , OF INDETERMINATE AGE MODERATE T-WAVE ABNORMALITY, CONSIDER ANTERIOR ISCHEMIA Compared to ECG 07/08/2025 11:19:28 Myocardial infarct finding now present T-wave abnormality now present Possible ischemia now present First degree AV block no longer present ST (T wave) deviation no longer present /store/S0/[id number].pdf
--- NOTE | 2025-07-08 14:41 | XR_ITS ---
Examination: Abdomen AP single view Technique: AP portable supine abdomen, single view Exam date and time: July 08, 2025 1541 hours INDICATIONS: Post orogastric tube placement FINDINGS: No orogastric tube visualized Moderate colonic ileus, mild small bowel ileus No obstruction No free air IMPRESSION: Moderate colonic ileus, mild small bowel ileus
--- NOTE | 2025-07-08 15:06 | EVENTNT_ITS ---
Documentation for date of: 07/08/25 Event Note Event Note: Rapid response was called at about 1430 for tachypnea, diaphoresis, and increased work of breathing. The patient had a distended and tender abdomen on exam. His last bowel movement was at 10:00 this morning. He is currently p repping for a colonoscopy today with [place]. An NG tube was placed, confirmed on x-ray, and Dr. Benavides is aware. Pending read by radiology. If an SBO is present then will consider bowel series. The patient was seen and discussed with my senior resident Dr. Ash BUTCHER PGY-2. Connor Loco DO PGY-1
--- NOTE | 2025-07-08 16:22 | XR_ITS ---
Examination: AP chest single view Technique: AP portable upright chest single view Date and time: July 08, 2025, 1630 hrs., Comparison July 06, 2025, July 08, 2025 Indications: Post orogastric tube placement Findings: Orogastric tube tip distal stomach satisfactory position Air distended bowel Mild to moderate enlargement left ventricle Prominent elevation right hemidiaphragm Impression: Orogastric tube tip in the stomach satisfactory position
--- NOTE | 2025-07-08 17:05 | ESPR_ITS ---
<Statement entered by Kaylee Starks MD - 07/11/25 14:18> I reviewed above note and agree with findings and plans. I have also personally examined the patient with medicine team and went over assessment and plan with medical team including internal sales engineer and resident physician. <Statement entered by Florentino Nuñez MD - 07/08/25 17:54> No acute overnight events. Howeve, rapid response called in early afternoon for increased work of breathing, diaphoresis, and abdominal pain. BP elevated in 160s and EKG showed sinus tachycardia. Exam was tender to palpation and firm so NG tube was placed and patient had small episode of emesis during placement. KUB ordered for further evaluation and GI informed, appreciate recommendations. Otherwise, pending colonoscopy for further evaluation of GI bleed. ----- Note reviewed and agree with care plan as documented. Please refer to the note below for further details. Plan discussed with attending physician Dr. Tereza Nuñez MD PGY-2 Internal Medicine Documentation for date of: 07/08/25 Subjective Subjective Interval history: Patient had EGD yesterday. Patient on GoLytely prep for colonoscopy today. Patient had a distended and tender abdomen on exam in a.m. Rapid response was called in the afternoon due to tachypnea, diaphoresis. Abdomen was still distended on exam. An NG tube was placed and Gastrografin study ordered for suspicion of SBO. KUB x-ray showed moderate colonic ileus, mild small bowel ileus with no obstruction per radiology. Will follow-up results of Gastrografin. Dr. Benavides is aware. Exam Vital Signs Temp Pulse Resp BP Pulse Ox O2 Del Method O2 Flow Rate 97.7 F 125 H 28 H 161/102 H 98 Nasal Cannula 2 07/08/25 12:00 07/08/25 15:34 07/08/25 15:34 07/08/25 15:34 07/08/25 15:34 07/08/25 12:00 07/08/25 15:34 Narrative Exam General: Confused. Uncomfortable. Tachypneic. Diaphoretic. Neurologic: GCS 15. Alert and oriented x3, no gross neurological deficit, and patient able to move all 4 extremities. HEENT: Normocephalic, atraumatic, mucous membranes moist. Pupils reactive to light. Heart: Tachycardic, regular rhythm, normal S1 and S2, no murmurs. Lungs: Satting at 98% on 2 L nasal cannula. Clear to auscultation bilaterally with no wheezing or crackles. Abdomen: Distended, diffuse tenderness to palpation. Extremities: No edema. 2+ radial and dorsalis pedis pulses bilaterally. Skin: Warm. Dry. No rash or ecchymoses. Objective Labs 07/08/25 04:16 07/08/25 04:16 Labs: Laboratory Results - last 24 hr 07/08/25 04:16 WBC 14.7 H RBC 2.38 L Hgb 7.4 L Hct 22.3 L MCV 94 MCH 31.1 MCHC 33.2 RDW Std Deviation 49.3 H Plt Count 148 Neut % (Auto) 75 Lymph % (Auto) 14 [place] % (Auto) 8 Eos % (Auto) 1 Baso % (Auto) 0 Neut # (Auto) 11.1 H Lymph # (Auto) 2.1 [place] # (Auto) 1.1 H Eos # (Auto) 0.1 Baso # (Auto) 0.1 Immature Gran # (Auto) 0.28 H Absolute Nucleated RBC 0.29 H Immature Gran % 2 H Nucleated RBC % 2 H Sodium 144 Potassium 3.4 Chloride 105 Carbon Dioxide 26.5 Anion Gap 13 BUN 17 Creatinine 1.0 Estim Creat Clear Calc 75.2 eGFR > 60 BUN/Creatinine Ratio 17 Glucose 126 H Calculated Osmolality 290 Calcium 8.4 Corrected Calcium 8.8 Total Bilirubin 0.3 AST 26 ALT 16 Alkaline Phosphatase 37 L Total Protein 5.1 L Albumin 3.5 Globulin 1.6 L Albumin/Globulin Ratio 2.2 TSH 5.97 H Quality Measures Quality Measures sepsis Current suspected stage: ruled out Possible source: GI tract/intra- abdominal Blood cultures ordered: no Antibiotic ordered: No Assessment & Plan Assessment Current Active Medications: Generic Name Dose Route Start Last Admin Trade Name Freq PRN Reason Stop Dose Admin Acetaminophen 1,000 mg 07/07/25 15:20 Acetaminophen 500 Mg Tablet PO 08/05/25 15:39 Q6H PRN PAIN OR FEVER > 99.9 Clonazepam 1 mg 07/07/25 06:00 07/08/25 14:17 Clonazepam 0.5 Mg Tablet PO 07/12/25 05:59 1 mg TID RHINA Administration Fluvoxamine 100 Mg 0 ea 07/06/25 21:00 07/08/25 10:42 Tablet PO 08/05/25 20:59 1 tablet BID RHINA Administration Dextrose 50 ml 07/06/25 15:47 Dextrose 50%-Water Inj 50 Ml Syringe IV 08/05/25 15:46 Q15MIN PRN BG <50 OR BG <70 & pt unresponsive Glucagon 1 mg 07/06/25 15:47 Glucagon Inj 1 Mg Vial IM Q15MIN PRN BG <70, and no IV access Lactated Ringer's 1,000 mls @ 75 mls/hr 07/06/25 15:45 07/08/25 08:22 Lactated Ringers IV 08/05/25 15:44 75 mls/hr .[id number] RHINA Administration Insulin Human Lispro 0 unit 07/06/25 18:00 07/08/25 12:29 Insulin Lispro (Admelog) 1 Unit/0.01 Ml Unit SC 08/05/25 17:59 1 unit Q6HR RHINA Administration Protocol Ondansetron HCl 4 mg 07/06/25 15:40 Ondansetron Inj 2 Mg/Ml Inj 2 Ml IVP 08/05/25 15:39 Q6H PRN NAUSEA OR VOMITING Protocol Pantoprazole Sodium 40 mg 07/06/25 21:00 07/08/25 08:18 Pantoprazole Inj 40 Mg Vial IVP 08/05/25 20:59 40 mg Q12HR RHINA Administration Polyethylene Glycol/Electrolytes 4,000 ml 07/07/25 15:31 07/08/25 06:38 Na Jj/Nahco3/Rio/Peg (Golytely) 4,000 Ml Btl PO 08/06/25 15:30 4,000 ml PRN PRN Administration SEE COMMENTS Risperidone 1 mg 07/06/25 21:00 07/08/25 08:18 Risperidone 1 Mg Tablet PO 08/05/25 20:59 1 mg On Hold: 07/08/25 14:57 BID RHINA Administration Comment: PER MD CHAZ Madrigal 60 y/o male with Hx of Schizophrenia and Developmental Delay, presented with abdominal pain, constipation, and melena, admitted for acute blood loss anemia secondary to upper GI bleed. #Acute blood loss anemia secondary to upper GI bleed * Patient had one known episode of melena on 07/05/25 * Hgb of 5.8 on arrival received 2 units of PRBCs, posttransfusion hemoglobin 8.0, most recently 7.4, stable * BUN 28 on arrival, down trended * Lactic acid 7.3 on arrival -> 5.5 after 2L LR, downtrended to 2.0 * EGD on 07/08/2025 showed a few small nonbleeding erosions at the gastroesophageal junction, there was patchy mildly erythematous mucosa without bleeding in the gastric antrum, the duodenum was normal Plan: * GI consulted, patient on GoLytely, colonoscopy planned for 07/08/2025 * Continue Protonix 40 BID * Continue Zofran Q6H PRN * Trend H&H * Monitor daily CBC, transfuse if hemoglobin <7 or if symptoms of anemia develop * Maintenance fluids LR 75 ml/hr #Small bowel obstruction * Rapid response called at about 2:30 PM on 07/08/2025 due to tachypnea, diaphoresis, and distended bowel * The patient's last bowel movement was at 10:00 this morning * He was prepping for colonoscopy today with GoLytely * An NG tube was placed and set to intermittent suction * KUB x-ray showed moderate colonic ileus, mild small bowel ileus, no obstruction, and no free air Plan: * Gastrografin study ordered * Follow-up with GI #Reactive leukocytosis #Reflex tachycardia secondary to anemia * Sepsis ruled out * Likely reactive to GI bleed * WBC 28.9 on presentation, downtrending * Patient is afebrile * Tachycardia likely in the presence of acute anemia due to GI bleed * Hemoglobin in the 7s, stable Plan * Monitor daily CBC * No signs of infection at this moment, will monitor and start antibiotics if symptoms develop. #Hyperglycemia * Patient presented with fingerstick blood glucose of 296 mg/dL * Urine 3+ glucose * Potential undiagnosed type II diabetes mellitus Plan: * Continue sliding scale * Fingerstick glucose Q6H * A1c ordered. #Schizophrenia * Patient has a history of schizophrenia Plan: * Hold home risperidone 1 mg PO BID * Monitor for symptoms #Constipation * 4 day history of no bowel movement * Consider due to n.p.o. status Plan: * Monitor and PRN miralax #Depression #Anxiety * Per patient history Plan: * Cont home clonazpam 1mg TID * Hold fluvoxamine 100 mg PO BID #Elevated TSH * TSH 5.97 Plan: * Follow-up free T4 morning of 07/08/2025 Health Maintenance: Code Status: Full DVT Prophylaxis: SCDs GI Prophylaxis: Protonix Diet: NPO, pending Gastrografin Marinelli: None Lines: PIV, NG tube Supplemental O2: 2 L nasal cannula Disposition: NG tube placed, Gastrografin ordered in the presence of suspicion for small bowel obstruction. Will follow-up with GI. Patient was seen and discussed with my attending physician Dr. Tereza BUTCHER and my senior resident Dr. Savannah BUTCHER PGY-2. Connor Loco DO PGY-1.
[2025-07-08] MEDS: LIDOCAINE 5% 1 PATCH TOP (17:12)
--- NOTE | 2025-07-08 18:18 | ECHO_ITS ---
Transthoracic Echo Report Ht (in): 65 Wt (lb): 165 Exam Location: Echo Lab Status: Inpatient Console Operator: Lashawn Sandoval Indications: Procedure Performed: BP: 128 / 91 HR: 121 MEASUREMENTS (Male / Female) Normal Values 2D ECHO LV Diastolic Diameter PLAX 4.8 cm 4.2 - 5.9 / 3.9 - 5.3 cm LV Systolic Diameter PLAX 3.1 cm IVS Diastolic Thickness 1.0 cm 0.6 - 1.0 / 0.6 - 0.9 cm LVPW Diastolic Thickness 1.1 cm 0.6 - 1.0 / 0.6 - 0.9 cm LV Relative Wall Thickness 0.4 LVOT Diameter 2.0 cm LA Volume Index 18.4 cm?/m? 16 - 28 cm?/m? Ascending Aorta Diameter 2.7 cm DOPPLER AV Peak Velocity 173.0 cm/s AV Peak Gradient 12.0 mmHg AV Mean Gradient 6.0 mmHg AV Velocity Time Integral 24.6 cm LVOT Peak Velocity 142.0 cm/s LVOT Peak Gradient 8.1 mmHg LVOT Velocity Time Integral 23.9 cm LVOT Cardiac Index 4856.5 cm?/min?m? AV Area Cont Eq vti 3.1 cm? AV Area Cont Eq pk 2.6 cm? MV Area PHT 8.8 cm? Mitral E Point Velocity 85.4 cm/s Mitral A Point Velocity 112.0 cm/s Mitral E to A Ratio 0.8 TR Peak Velocity 178.0 cm/s TR Peak Gradient 12.7 mmHg PV Peak Velocity 118.0 cm/s PV Peak Gradient 5.6 mmHg FINDINGS Left Ventricle Heart Rate more than 115 bpm Normal left ventricular size, wall thickness, systolic function with no obvious regional wall motion abnormalities. There is grade I diastolic dysfunction of the left ventricle (impaired relaxation pattern). . The ejection fraction is visually estimated at 55-60%. Right Ventricle The right ventricle is normal in size and systolic function. Left Atrium The left atrium is normal by two-dimensional, color flow and Doppler imaging with no structural abnormalities, no thrombus formation present. Right Atrium The right atrium is normal by two-dimensional imaging, color flow and Doppler imaging with no structural abnormalities, no thrombus formation present. Atrial Septum The interatrial septum appears normal with no evidence of a shunt. Aorta The aorta is normal by two-dimensional, color flow and Doppler interrogation. Mitral Valve The mitral valve is normal by two-dimensional, color flow and Doppler interrogation.trace to mild mitral regurgitation. Aortic Valve The aortic valve is trileaflet and normal by two-dimensional, color flow and Doppler interrogation. There is no significant aortic valve regurgitation. Tricuspid Valve The tricuspid valve is normal by two-dimensional, color flow and Doppler interrogation. There is mild tricuspid valve regurgitation. Pulmonic Valve The pulmonic valve is not well visualized. There is no significant pulmonic valve regurgitation. Vessels The pulmonary artery appears normal. The inferior vena cava NWV Pericardium The pericardium is normal by two-dimensional imaging. There is no significant pericardial effusion. CONCLUSIONS Indication: Abnormal EKG, tachycardia-Q waves on EKG. tachycardia-and IVC not well-visualized heart Rate more than 115 bpm. Normal left ventricular size and function. Grade I diastolic dysfunction. EF estimated at 55-60% The right ventricle is normal in size and systolic function. Normal RVSP. Mild MR and TR. no pericardial effusion Subcostal view NWV or IVC Diego Rosas (Electronically Signed) Final Date: 10 July 2025 04:05
--- NOTE | 2025-07-08 19:09 | PD.RESCONSUL ---
HPI Data of Consult Requesting Physician: Kaylee Starks MD Admitting Provider: Kaylee Starks MD Attending Provider: Kaylee Starks MD Primary Care Provider: Delon Herman PA-C Consult Narrative Reason for consult: Tachycardia History of present illness: HPI: 60-year-old male patient known case of schizophrenia, hyperlipidemia, developmental delay, was brought from nursing home facility after he was started to experience abdominal pain few hours before presentation. Patient was unable to provide accurate history due to his chronic mental status, most of the history was taken from the caregiver Charu Jean. Patient pain continued to worsen over time after that he developed 1 episode of black tarry stool which was liquid. At the nursing home facility they checked his pulse oximeter and they noticed that his heart rate was elevated in the 140s. She reported that she noticed also he was tachypneic, however she denied any fever, chills, cough, sick contact, or seizures. At the ED patient was found to have heart rate of 129, blood pressure of 119/72 WBC of 28.9, hemoglobin 5.8, lactic acid 7.3, blood glucose of 296, patient was resuscitated with 2 L of fluid, and was given 2 units of blood. Chest x-ray was positive for prominent left ventricle with moderate elevation of the right Heema diaphragm, CT angio of the abdomen and pelvis was significant for Significant scarring lateral margin right kidney, no hydronephrosis or ureteral calculi. Today rapid response was called due to increased heart rate, diaphoresis and increased work of breathing. His last bowel movement was at 10 this morning as he was getting prepared for GoLytely. However it was stopped, abdominal x-ray was negative for SBO except for mild colonic and small intestine ileus. Primary team decided to keep the patient n.p.o. insert NG tube and put the patient on low intermittent suction. Cardiology team was consulted due to increased heart rate. EKG showed sinus tachycardia. No arrhythmia, no ischemic changes, and no signs of pericarditis PMH: As above Social hx: No drinking, smoking or drug Allergies: No known allergies cc:: cc: Kaylee Starks MD Exam Vital Signs Temp Pulse Resp BP Pulse Ox O2 Del Method O2 Flow Rate 99.7 F 130 H 20 111/86 H 92 L Nasal Cannula 2 07/08/25 16:00 07/08/25 16:00 07/08/25 16:00 07/08/25 16:00 07/08/25 16:00 07/08/25 16:00 07/08/25 16:00 Narrative Exam GEN: AOx0, able to answer small single word with answer HEENT: NC/AC, cerebellum, oral mucosa dry on nasal cannula, neck supple CVS: RRR, S1-S2, S3, no murmurs appreciated RESP: Coarse crepitations bilaterally more on the right GI: Abdomen is firm, distended, decreased bowel sounds MSK: able to move all 4 limbs, trace lower extremity edema SKIN: warm and clammy HOOKMAN: CN II-XII and Sensation grossly intact. Results Labs 07/23/25 04:48 07/23/25 04:48 Labs: Short CBC 07/08/25 Range/Units 04:16 WBC 14.7 H (3.8-10.6) Thou/mm3 Hgb 7.4 L (13.5-16.0) g/dL Hct 22.3 L (41.0-53.0) % Plt Count 148 (140-440) Thou/mm3 BMP 07/08/25 04:16 Sodium 144 Potassium 3.4 Chloride 105 Carbon Dioxide 26.5 BUN 17 Creatinine 1.0 Glucose 126 H Calcium 8.4 Liver Function 07/08/25 Range/Units 04:16 Total Bilirubin 0.3 (0.3-1.2) mg/dL AST 26 (0-34) U/L ALT 16 (10-49) U/L Alkaline Phosphatase 37 L (46-116) U/L Albumin 3.5 (3.5-5.0) gm/dL Quality Measures Quality Measures sepsis Current suspected stage: sepsis Possible source: GI tract/intra-abdominal Blood cultures ordered: no Antibiotic ordered: Yes Medications Home Medications and Allergies Home Medications ?Medication ?Instructions ?Recorded ?Confirmed ?Type clonazepam 1 mg tablet 1 mg PO TID 07/06/25 07/06/25 History docusate sodium 250 mg capsule 250 mg PO DAILY 07/06/25 07/06/25 History fluvoxamine 100 mg tablet 100 mg PO BID 07/06/25 07/06/25 History loratadine 10 mg tablet (Allergy 10 mg PO DAILY 07/06/25 07/07/25 History Relief (loratadine)) risperidone 1 mg/mL oral solution 1 mg PO BID 07/06/25 07/06/25 History (Risperdal) simvastatin 10 mg tablet 10 mg PO QPM 07/06/25 07/06/25 History Allergies Allergy/AdvReac Type Severity Reaction Status Date / Time No Known Allergies Allergy Verified 07/06/25 08:38 Visit Medications Acetaminophen (Acetaminophen 500 Mg Tablet) 1,000 mg PO Q6H PRN PRN Reason: PAIN OR FEVER > 99.9 Stop: 08/05/25 15:39 Clonazepam (Clonazepam 0.5 Mg Tablet) 1 mg PO TID [facility] Stop: 07/12/25 05:59 Last Admin: 07/08/25 14:17 Dose: 1 mg Fluvoxamine 100 Mg (Tablet) 0 ea PO BID [facility] Stop: 08/05/25 20:59 Last Admin: 07/08/25 10:42 Dose: 1 tablet Dextrose (Dextrose 50%-Water Inj 50 Ml Syringe) 50 ml IV Q15MIN PRN PRN Reason: BG <50 OR BG <70 & pt unresponsive Stop: 08/05/25 15:46 Glucagon (Glucagon Inj 1 Mg Vial) 1 mg IM Q15MIN PRN PRN Reason: BG <70, and no IV access Lactated Ringer's (Lactated Ringers) 1,000 mls @ 75 mls/hr IV .[id number] [facility] Stop: 08/05/25 15:44 Last Admin: 07/08/25 08:22 Dose: 75 mls/hr Insulin Human Lispro (Insulin Lispro (Admelog) 1 Unit/0.01 Ml Unit) 0 unit SC Q6HR RHINA; Protocol Stop: 08/05/25 17:59 Last Admin: 07/08/25 18:19 Dose: Not Given Ondansetron HCl (Ondansetron Inj 2 Mg/Ml Inj 2 Ml) 4 mg IVP Q6H PRN; Protocol PRN Reason: NAUSEA OR VOMITING Stop: 08/05/25 15:39 Pantoprazole Sodium (Pantoprazole Inj 40 Mg Vial) 40 mg IVP Q12HR [facility] Stop: 08/05/25 20:59 Last Admin: 07/08/25 08:18 Dose: 40 mg Polyethylene Glycol/Electrolytes (Na Jj/Nahco3/Rio/Peg (Golytely) 4,000 Ml Btl) 4,000 ml PO PRN PRN PRN Reason: SEE COMMENTS Stop: 08/06/25 15:30 Last Admin: 07/08/25 06:38 Dose: 4,000 ml Risperidone (Risperidone 1 Mg Tablet) 1 mg PO BID RHINA On Hold: 07/08/25 14:57 Comment: PER MD WARE Stop: 08/05/25 20:59 Last Admin: 07/08/25 08:18 Dose: 1 mg Discontinued Medications Acetaminophen (Acetaminophen 325 Mg Tablet) 650 mg PO Q6H PRN PRN Reason: PAIN OR FEVER > 100.4 Stop: 08/05/25 15:39 Benzocaine (Benzocaine 20% (Hurricaine) [place] 1 Dose) 0 dose TOP X1 ONE Stop: 07/07/25 15:08 Dextrose (Dextrose 50%-Water Inj 50 Ml Syringe) 25 ml IV Q15MIN PRN PRN Reason: BG 50-70 responsive npo pt Stop: 08/05/25 15:46 Diphenhydramine HCl (Diphenhydramine Inj 50 Mg/Ml Vial) 25 mg IVP [id number] PRN PRN Reason: MODERATE SEDATION Stop: 07/07/25 17:07 Fentanyl Citrate (Fentanyl Cit Inj 50 Mcg/Ml Amp 2ml) 50 mcg IVP Q2M PRN PRN Reason: MODERATE SEDATION Stop: 07/07/25 17:07 Lactated Ringer's (Lactated Ringers) 1,000 mls @ 999 mls/hr IV .Q1H1M ONE Stop: 07/06/25 08:45 Last Infusion: 07/06/25 09:51 Dose: Infused Piperacillin Sod/Tazobactam (Sod 4.5 gm/ Sodium Chloride) 100 mls @ 200 mls/hr IV X1 STA Stop: 07/06/25 09:45 Last Infusion: 07/06/25 10:15 Dose: Infused Lactated Ringer's (Lactated Ringers) 1,000 mls @ 999 mls/hr IV .Q1H1M ONE Stop: 07/06/25 15:29 Last Admin: 07/06/25 14:43 Dose: 999 mls/hr Sodium Chloride (Ns) 500 mls @ 20 mls/hr IV .Q24H ONE Stop: 07/08/25 15:06 Lidocaine (Lidocaine 5% 1 Patch) 1 patch TOP X1 ONE Stop: 07/08/25 14:48 Last Admin: 07/08/25 17:12 Dose: 1 patch Metoclopramide HCl (Metoclopramide Inj 5 Mg/Ml Vial 2 Ml) 10 mg IV Q6HR RHINA; Protocol Stop: 07/09/25 06:01 Midazolam HCl (Midazolam Inj 1 Mg/Ml Vial 2 Ml) 2 mg IVP Q2M PRN PRN Reason: Moderate Sedation Stop: 07/07/25 17:07 Non-Formulary Medication (Fluvoxamine) 100 mg PO BID RHINA Stop: 08/05/25 20:59 Polyethylene Glycol (Polyethylene Glycol 17 Gm Packet) 17 gm PO X1 ONE Stop: 07/07/25 16:07 Last Admin: 07/07/25 17:43 Dose: 17 gm Polyethylene Glycol/Electrolytes (Na Jj/Nahco3/Rio/Peg (Golytely) 4,000 Ml Btl) 4,000 ml PO X1 ONE Stop: 07/06/25 14:27 Polyethylene Glycol/Electrolytes (Na Jj/Nahco3/Rio/Peg (Golytely) 4,000 Ml Btl) 4,000 ml PO X1 ONE Stop: 07/07/25 15:35 Last Admin: 07/07/25 17:08 Dose: 4,000 ml Prochlorperazine Edisylate (Prochlorperazine Inj 5 Mg/Ml Vial 2 Ml) 10 mg IV Q6H PRN; Protocol PRN Reason: NAUSEA OR VOMITING Stop: 08/07/25 11:18 Assessment & Plan Plan Summary: 60-year-old male patient known case of schizophrenia, hyperlipidemia, developmental delay, was brought from nursing home facility after he was started to experience abdominal pain few hours before presentation. Patient was unable to provide accurate history due to his chronic mental status, most of the history was taken from the caregiver Charu Jean. Cardiology team was consulted due to tachycardia #Sinus tachycardia #ACS r/o Patient presented with acute abdominal pain, tachycardia, melena, patient was sweaty, pulse rate was 129, blood pressure was 119/65.on examination found to have S1-S2 and S3 He has trace lower edema, no elevated JVD Hemoglobin was 5.8. TSH was 5.8, Troponin was negative, chest x-ray showed left ventricular prominence, elevated right hemidiaphragm. EKG was done initially showed sinus tachycardia, repeat today during the rapid also showed sinus tachycardia with deep Q-wave on the leads, I, III and AVf. Patient most likely have secondary cause of his sinus tachycardia including but not limited to infection, pain, acute blood loss, less likely medication side effect such as serotonin syndrome Plan ? Free T4 AM draw ? Strict in and out ? Repeat troponin and BNP ? Treat underlying cause, patient may need reinsertion of NG tube output and low intermittent suction. ? Daily potassium and magnesium ? Replete electrolytes to keep potassium and magnesium above 4 and to respectively within normal range. ? Primary team ordered echo, follow-up on the results ? Strict in and out ? Stat BMP, troponin, BNP, H&H ? Reinsert G-tube and connected to low intermittent suction due to high risk of aspiration #Upper versus less likely lower GI bleed #Developmental delay #Questionable SBO #History of schizophrenia #Hyperglycemia #Depression #Acute blood loss Plan ? Follow-up with the primary team recommendation Thank you for your consultation please do not hesitate to reach out if you have any question or concern - Patient's plan and care discussed with my attending, Dr. Diego Santos MD Internal Medicine PGY-3 Attending Provider Attestation/Addendum I have personally seen and examined the patient separately on the above date of service and discussed the plan of care with the resident. I reviewed the resident Dr. Santos consultation progress note and agree with the resident findings and plan in the note above and have also edited the documentation to reflect my findings and plan. Diego Rosas M.D. Interventional Cardiology
--- NOTE | 2025-07-08 20:01 | XR_ITS ---
Examination: AP chest single view Technique one AP portable supine chest single view Date and time: July 08, 2025, 2100 hrs., Comparison 07/08/2025 1630 hrs. Indications: Reposition orogastric tube. Findings: The orogastric tube is coiled in stomach Air distended colon Moderate elevation right hemidiaphragm Moderate enlargement left ventricle Impression: The orogastric tube is coiled in stomach
[2025-07-08 20:29] LABS: Hematocrit 23.2 % (41.0-53.0)
[2025-07-08 20:34] LABS: Hemoglobin 7.9 g/dL (13.5-16.0)
[2025-07-08 20:51] LABS: Anion Gap 13 (7-16); BUN/Creatinine Ratio 17 Ratio (12-20); Blood Urea Nitrogen 17 mg/dL (9-23); Calcium 8.3 mg/dL (8.3-10.6); Carbon Dioxide 28.1 mMol/L (20.0-31.0); Chloride 101 mMol/L (98-107); Creatinine (Component) 1.0 mg/dL (0.6-1.3); Estimated Creatinine Clearance 75.2 mL/min (>60); Glucose 180 mg/dL (74-106); Osmolality,Calculated 289 (275-295); Potassium 3.1 mMol/L (3.4-5.1); Sodium 142 mMol/L (136-145); eGFR > 60 See Note
[2025-07-08 21:04] LABS: B-Type Natriuretic Peptide 40 pg/mL (0-100)
--- NOTE | 2025-07-08 21:10 | PD.IMPROG ---
Documentation for date of: 07/08/25 Subjective Subjective Interval history: Patient evaluated patient was scheduled for colonoscopy today but is not clear additional GoLytely recommended and procedure postponed to tomorrow Exam Vital Signs Temp Pulse Resp BP Pulse Ox O2 Del Method O2 Flow Rate 99.7 F 130 H 20 111/86 H 92 L Nasal Cannula 2 07/08/25 16:00 07/08/25 16:00 07/08/25 16:00 07/08/25 16:00 07/08/25 16:00 07/08/25 16:00 07/08/25 16:00 Objective Labs 07/08/25 20:03 07/08/25 20:03 Labs: Laboratory Results - last 24 hr 07/08/25 07/08/25 04:16 20:03 WBC 14.7 H RBC 2.38 L Hgb 7.4 L 7.9 L Hct 22.3 L 23.2 L MCV 94 MCH 31.1 MCHC 33.2 RDW Std Deviation 49.3 H Plt Count 148 Neut % (Auto) 75 Lymph % (Auto) 14 [place] % (Auto) 8 Eos % (Auto) 1 Baso % (Auto) 0 Neut # (Auto) 11.1 H Lymph # (Auto) 2.1 [place] # (Auto) 1.1 H Eos # (Auto) 0.1 Baso # (Auto) 0.1 Immature Gran # (Auto) 0.28 H Absolute Nucleated RBC 0.29 H Immature Gran % 2 H Nucleated RBC % 2 H Sodium 144 142 Potassium 3.4 3.1 L Chloride 105 101 Carbon Dioxide 26.5 28.1 Anion Gap 13 13 BUN 17 17 Creatinine 1.0 1.0 Estim Creat Clear Calc 75.2 75.2 eGFR > 60 > 60 BUN/Creatinine Ratio 17 17 Glucose 126 H 180 H D Calculated Osmolality 290 289 Calcium 8.4 8.3 Corrected Calcium 8.8 Total Bilirubin 0.3 AST 26 ALT 16 Alkaline Phosphatase 37 L B-Natriuretic Peptide 40 Total Protein 5.1 L Albumin 3.5 Globulin 1.6 L Albumin/Globulin Ratio 2.2 TSH 5.97 H Impressions Impression: Posthemorrhagic anemia Additional GoLytely Colonoscopy postponed to tomorrow Assessment & Plan A&P Narrative Hematochezia Plan clear liquid diet n.p.o. at midnight tonight except p.o. meds Consent for fiberoptic esophagogastroduodenoscopy with possible biopsy possible therapeutic intervention under intravenous moderate sedation If EGD negative we will consider doing a fibrotic colonoscopy prior to discharge Serial CBC IV Protonix Thank you very much for the opportunity to participate in the care of this Time Spent With Patient Time: Total time spent is greater than 50% in coordination of care (as documented) at patient's floor/unit and/or counseling patient:
--- NOTE | 2025-07-08 21:55 | XR_ITS ---
Examination: Abdomen AP single view Technique: AP portable supine abdomen, single view Exam date and time: July 09, 2025 10:10 PM Indications: Abdominal distention today. Findings: Prominent colonic ileus No small bowel obstruction pattern noted No free air identified Suspicious for distended urinary bladder Impression: Prominent colonic ileus
[2025-07-08] MEDS: POTASSIUM CHL 10 mEq IVPB 10 MEQ/100 ML BAG 100 MEQ IV ×2 (22:20→23:26)
[2025-07-08] MEDS: Magnesium Sulfate 2 GM Ivpb 2 GM/50 ML BAG IV (22:20)
[2025-07-09] VITALS (170 sets, daily range): BP systolic 79–214; BP diastolic 50–108; PULSE 48–132; RESP 0–150; TEMP 36.4–38.7; O2SAT 1–100; BMI 27.7
[2025-07-09] MEDS: INSULIN LISPRO (AdmeLOG) 1 UNIT/0.01 ML UNIT SC (00:53)
[2025-07-09] MEDS: POTASSIUM CHL 10 mEq IVPB 10 MEQ/100 ML BAG 100 MEQ IV ×2 (01:01→02:19)
[2025-07-09] MEDS: NA SU/NAHCO3/KC/PEG (Golytely) 4,000 ML BTL 4000 ML PO (03:03)
--- NOTE | 2025-07-09 03:15 | PC.NURSE ---
Patient was receiving oral administration of GolYTELY for bowel preparation. During intake, patient began to desaturate with oxygen saturation declining acutely into the low 40s. Patient?s lung sounds became wet and gurgling. Patient then became diaphoretic and exhibited decreased level of consciousness, though responded to noxious stimuli with palpable femoral pulse. Shortly thereafter, patient vomited a large amount of clear liquid. Rapid response was initiated and patient was promptly transferred to a higher level of care for further management.
[2025-07-09] MEDS: ETOMIDATE INJ 2 MG/ML VIAL 10 ML 22 MG IV (03:20)
[2025-07-09] MEDS: ROCURONIUM INJ 10 MG/ML VIAL 10 ML 75 MG IV (03:20)
--- NOTE | 2025-07-09 03:26 | XR_ITS ---
Examination: AP chest single view Technique: AP portable supine chest single view Date and time: July 09, 2025, 0326 hrs., Comparison 07/08/2025 Indications: Post orogastric tube placement, hypoxic respiratory failure postintubation. Findings: Mild enlargement cardiac contour with prominent vascular congestion. Suspicious for bilateral perihilar pneumonia. Orogastric tube tip body the stomach satisfactory position. Moderate elevation right hemidiaphragm. Endotracheal tube tip 5.7 cm above lucio. Impression: Bilateral perihilar pneumonia. Orogastric tube tip body of the stomach satisfactory position. Endotracheal tube tip 5.7 cm above lucio.
--- NOTE | 2025-07-09 03:29 | PD.RESEVENT ---
Documentation for date of: 07/09/25 Event Note Event Note: 03:08 RR was called for aspiration while administering GOLYTELY. Evidently, he received roughly 1L of Golytely after he suddenly started vomiting. Subsequently, he became unresponsive and was desalting for which RR was called. On arrival, he was being manually bagged, on max oxygen, satting in upper 80s. He was responsive to sternal rubs but not to verbal command. HR briefly decreased in 40s but returned to normal. Rapid sequence intubation was initiated and he was transferred to ICU immediately. Patient maintained a pulse throughout the event. No CPR was initiated. Continued on sedation and MV. ABG were ordered. Evidently he was at his normal baseline while receiving Golytely. Earlier today several attempts for NGT had failed as patient kept coughing up the NGT. He later refused another trial of NGT. Per last discussion, patient denied feeling nauseous. However, we had ordered aspiration precaution and head elevation 30 degrees which were in place. Patient seen and assessed under supervision of attending physician Dr.Alhalaibeh Barbara Phillips MD PGY-1, Internal Medicine Please note: this document was transcribed using voice recognition technology; minor inaccuracies may be present.
[2025-07-09] MEDS: PROPOFOL 1,000 MG IVPB 1,000 MG/100 ML VIAL 2.245 MG IV (03:45)
[2025-07-09] MEDS: fentaNYL 2,500 MCG/250 ML BAG 2,500 MCG/250 ML BAG IV (03:45)
--- NOTE | 2025-07-09 04:01 | PD.RESCONSUL ---
HPI Data of Consult Requesting Physician: Kaylee Starks MD Admitting Provider: Kaylee Starks MD Attending Provider: Kaylee Starks MD Primary Care Provider: Delon Herman PA-C Consult Narrative History of present illness: A 60-year-old male with a known history of schizophrenia, hyperlipidemia, and developmental delay was brought to the ED from his [place] [facility] due to acute abdominal pain that began a few hours prior to arrival. Due to his chronic cognitive and psychiatric baseline, the patient was unable to provide a reliable history. Most of the information was obtained from his caregiver, Charu Jean. According to the caregiver, the patient?s abdominal pain progressively worsened. He then had one episode of black, tarry, liquid stool (melena). Staff at the facility noted an elevated heart rate in the 140s and observed that he appeared tachypneic. She denied any associated fever, chills, cough, sick contacts, or seizures. ED Course: In the emergency department, the patient was found to be: Tachycardic: HR 129 bpm BP: 119/72 mmHg WBC: 28.9 (leukocytosis) Hemoglobin: 5.8 g/dL (significant anemia) Lactic Acid: 7.3 mmol/L (suggestive of tissue hypoperfusion) Blood Glucose: 296 mg/dL The patient was resuscitated with 2 liters of IV fluids and transfused with 2 units of packed red blood cells (PRBCs). Imaging: Chest X-ray: Prominent left ventricular silhouette and moderate elevation of the right hemidiaphragm. CT Angiogram (Abdomen & Pelvis):Significant scarring at the lateral margin of the right kidney.No hydronephrosis or ureteral calculi. Abdominal X-ray (after rapid response event): No evidence of small bowel obstruction (SBO); mild colonic and small bowel ileus noted. Patient was admitted for acute GI bleed treatment and management. During hospital stay EGD was not done which showed few small bleeding erosions on GE junction, patchy mild erythematous mucosa without bleeding was found in the gastric antrum. Per web art director recommendation patient started on clear liquid diet and GoLytely. However during hospital stay multiple rapid response was called due to diaphoresis and abdominal pain, patient was in acute distress, tachycardic NG tube placement had failed as patient kept coughing up the NG tube. Later patient was alert and oriented and refused another trial of NG tube placement per sign out. Patient started receiving GoLytely. Later today at around 3 AM rapid response was called, patient was found unresponsive, patient was vomited, most likely had aspiration pneumonia. Subsequently decision was made to intubate the patient for airway protection. cc:: cc: Kaylee Starks MD Review of Systems Review of Systems ROS Unobtainable: unobtainable due to mental status Exam Vital Signs Temp Pulse Resp BP Pulse Ox O2 Del Method O2 Flow Rate 97.6 F 125 H 22 H 127/99 H 98 Nasal Cannula 2 07/09/25 03:43 07/09/25 03:43 07/09/25 03:43 07/09/25 03:43 07/09/25 03:43 07/08/25 23:28 07/09/25 03:43 FiO2 100 07/09/25 03:29 Narrative Exam GENERAL:intubated, chemically sedated HEENT: Head AT/ NC. Mucous membranes moist. NECK: Supple, no lymphadenopathy, no carotid bruits. CARDIOVASCULAR: RRR. No pitting edema of bilateral LEs. RESPIRATORY: Mechanically ventilated GASTROINTESTINAL: Abdomen soft, non tender no palpable masses. Bowel sounds present in all 4 quadrants. MUSCULOSKELETAL:? No cyanosis or edema, no visible joint swelling. NEUROLOGICAL: Unobtainable as patient is chemically sedated Results Labs 07/13/25 05:29 07/13/25 05:29 Labs: Short CBC 07/08/25 07/08/25 Range/Units 04:16 20:03 WBC 14.7 H (3.8-10.6) Thou/mm3 Hgb 7.4 L 7.9 L (13.5-16.0) g/dL Hct 22.3 L 23.2 L (41.0-53.0) % Plt Count 148 (140-440) Thou/mm3 BMP 07/08/25 07/08/25 04:16 20:03 Sodium 144 142 Potassium 3.4 3.1 L Chloride 105 101 Carbon Dioxide 26.5 28.1 BUN 17 17 Creatinine 1.0 1.0 Glucose 126 H 180 H D Calcium 8.4 8.3 Liver Function 07/08/25 Range/Units 04:16 Total Bilirubin 0.3 (0.3-1.2) mg/dL AST 26 (0-34) U/L ALT 16 (10-49) U/L Alkaline Phosphatase 37 L (46-116) U/L Albumin 3.5 (3.5-5.0) gm/dL Quality Measures Quality Measures sepsis Current suspected stage: sepsis Possible source: GI tract/intra-abdominal Blood cultures ordered: no Antibiotic ordered: Yes Medications Home Medications and Allergies Home Medications ?Medication ?Instructions ?Recorded ?Confirmed ?Type clonazepam 1 mg tablet 1 mg PO TID 07/06/25 07/06/25 History docusate sodium 250 mg capsule 250 mg PO DAILY 07/06/25 07/06/25 History fluvoxamine 100 mg tablet 100 mg PO BID 07/06/25 07/06/25 History loratadine 10 mg tablet (Allergy 10 mg PO DAILY 07/06/25 07/07/25 History Relief (loratadine)) risperidone 1 mg/mL oral solution 1 mg PO BID 07/06/25 07/06/25 History (Risperdal) simvastatin 10 mg tablet 10 mg PO QPM 07/06/25 07/06/25 History Allergies Allergy/AdvReac Type Severity Reaction Status Date / Time No Known Allergies Allergy Verified 07/06/25 08:38 Visit Medications Acetaminophen (Acetaminophen 500 Mg Tablet) 1,000 mg PO Q6H PRN PRN Reason: PAIN OR FEVER > 99.9 Stop: 08/05/25 15:39 Clonazepam (Clonazepam 0.5 Mg Tablet) 1 mg PO TID [facility] Stop: 07/12/25 05:59 Last Admin: 07/08/25 22:06 Dose: 1 mg Fluvoxamine 100 Mg (Tablet) 0 ea PO BID [facility] Stop: 08/05/25 20:59 Last Admin: 07/08/25 23:42 Dose: 1 tablet Dextrose (Dextrose 50%-Water Inj 50 Ml Syringe) 50 ml IV Q15MIN PRN PRN Reason: BG <50 OR BG <70 & pt unresponsive Stop: 08/05/25 15:46 Glucagon (Glucagon Inj 1 Mg Vial) 1 mg IM Q15MIN PRN PRN Reason: BG <70, and no IV access Lactated Ringer's (Lactated Ringers) 1,000 mls @ 75 mls/hr IV .[id number] [facility] Stop: 08/05/25 15:44 Last Admin: 07/08/25 22:06 Dose: 75 mls/hr Fentanyl Citrate (Sublimaze Inj 2,500 Mcg/250 Ml Bag) 2,500 mcg in 250 mls @ 2.5 mls/hr IV .Q24H PRN; Protocol PRN Reason: PER PROTOCOL Stop: 07/14/25 03:28 Propofol (Diprivan Ivpb) 1,000 mg in 100 mls @ 2.245 mls/hr IV .Q24H PRN; Protocol PRN Reason: PER PROTOCOL Stop: 08/08/25 03:28 Ceftriaxone Sodium/Dextrose (Rocephin/D5w 1gm Iv Premix) 1 gm in 50 mls @ 100 mls/hr IV QDAY [facility]INA Stop: 07/16/25 03:40 Insulin Human Lispro (Insulin Lispro (Admelog) 1 Unit/0.01 Ml Unit) 0 unit SC Q6HR [facility]INA; Protocol Stop: 08/05/25 17:59 Last Admin: 07/09/25 00:53 Dose: 2 unit Ondansetron HCl (Ondansetron Inj 2 Mg/Ml Inj 2 Ml) 4 mg IVP Q6H PRN; Protocol PRN Reason: NAUSEA OR VOMITING Stop: 08/05/25 15:39 Pantoprazole Sodium (Pantoprazole Inj 40 Mg Vial) 40 mg IVP Q12HR [facility] Stop: 08/05/25 20:59 Last Admin: 07/08/25 22:07 Dose: 40 mg Polyethylene Glycol/Electrolytes (Na Jj/Nahco3/Rio/Peg (Golytely) 4,000 Ml Btl) 4,000 ml PO PRN PRN PRN Reason: SEE COMMENTS Stop: 08/06/25 15:30 Last Admin: 07/09/25 03:03 Dose: 4,000 ml Risperidone (Risperidone 1 Mg Tablet) 1 mg PO BID RHINA On Hold: 07/08/25 14:57 Comment: PER MD WARE Stop: 08/05/25 20:59 Last Admin: 07/08/25 08:18 Dose: 1 mg Discontinued Medications Acetaminophen (Acetaminophen 325 Mg Tablet) 650 mg PO Q6H PRN PRN Reason: PAIN OR FEVER > 100.4 Stop: 08/05/25 15:39 Benzocaine (Benzocaine 20% (Hurricaine) [place] 1 Dose) 0 dose TOP X1 ONE Stop: 07/07/25 15:08 Last Admin: 07/08/25 23:16 Dose: Not Given Dextrose (Dextrose 50%-Water Inj 50 Ml Syringe) 25 ml IV Q15MIN PRN PRN Reason: BG 50-70 responsive npo pt Stop: 08/05/25 15:46 Diphenhydramine HCl (Diphenhydramine Inj 50 Mg/Ml Vial) 25 mg IVP PRNMRX1 PRN PRN Reason: MODERATE SEDATION Stop: 07/07/25 17:07 Etomidate (Etomidate Inj 2 Mg/Ml Vial 10 Ml) 22 mg 0.3 mg/kg (22 mg) IV X1 ONE Stop: 07/09/25 03:19 Fentanyl Citrate (Fentanyl Cit Inj 50 Mcg/Ml Amp 2ml) 50 mcg IVP Q2M PRN PRN Reason: MODERATE SEDATION Stop: 07/07/25 17:07 Lactated Ringer's (Lactated Ringers) 1,000 mls @ 999 mls/hr IV .Q1H1M ONE Stop: 07/06/25 08:45 Last Infusion: 07/06/25 09:51 Dose: Infused Piperacillin Sod/Tazobactam (Sod 4.5 gm/ Sodium Chloride) 100 mls @ 200 mls/hr IV X1 STA Stop: 07/06/25 09:45 Last Infusion: 07/06/25 10:15 Dose: Infused Lactated Ringer's (Lactated Ringers) 1,000 mls @ 999 mls/hr IV .Q1H1M ONE Stop: 07/06/25 15:29 Last Admin: 07/06/25 14:43 Dose: 999 mls/hr Sodium Chloride (Ns) 500 mls @ 20 mls/hr IV .Q24H ONE Stop: 07/08/25 15:06 Last Admin: 07/08/25 23:17 Dose: Not Given Magnesium Sulfate (Magnesium Sulfate Ivpb) 2 gm in 50 mls @ 25 mls/hr IV X1 ONE Stop: 07/08/25 23:48 Last Admin: 07/08/25 22:20 Dose: 25 mls/hr Potassium Chloride (Kcl Ivpb) 10 meq in 100 mls @ 100 mls/hr IV Q1H RHINA Stop: 07/09/25 01:59 Last Admin: 07/09/25 02:19 Dose: 100 mls/hr Lidocaine (Lidocaine 5% 1 Patch) 1 patch TOP X1 ONE Stop: 07/08/25 14:48 Last Admin: 07/08/25 17:12 Dose: 1 patch Metoclopramide HCl (Metoclopramide Inj 5 Mg/Ml Vial 2 Ml) 10 mg IV Q6HR RHINA; Protocol Stop: 07/09/25 06:01 Last Admin: 07/08/25 23:17 Dose: Not Given Midazolam HCl (Midazolam Inj 1 Mg/Ml Vial 2 Ml) 2 mg IVP Q2M PRN PRN Reason: Moderate Sedation Stop: 07/07/25 17:07 Non-Formulary Medication (Fluvoxamine) 100 mg PO BID RHINA Stop: 08/05/25 20:59 Polyethylene Glycol (Polyethylene Glycol 17 Gm Packet) 17 gm PO X1 ONE Stop: 07/07/25 16:07 Last Admin: 07/07/25 17:43 Dose: 17 gm Polyethylene Glycol/Electrolytes (Na Jj/Nahco3/Rio/Peg (Golytely) 4,000 Ml Btl) 4,000 ml PO X1 ONE Stop: 07/06/25 14:27 Last Admin: 07/09/25 00:08 Dose: Not Given Polyethylene Glycol/Electrolytes (Na Jj/Nahco3/Rio/Peg (Golytely) 4,000 Ml Btl) 4,000 ml PO X1 ONE Stop: 07/07/25 15:35 Last Admin: 07/07/25 17:08 Dose: 4,000 ml Potassium Chloride (Potassium Chloride 20 Meq Tabcr) 40 meq PO X1 ONE Stop: 07/08/25 21:50 Last Admin: 07/08/25 22:22 Dose: 40 meq Prochlorperazine Edisylate (Prochlorperazine Inj 5 Mg/Ml Vial 2 Ml) 10 mg IV Q6H PRN; Protocol PRN Reason: NAUSEA OR VOMITING Stop: 08/07/25 11:18 Rocuronium [place] (Rocuronium Inj 10 Mg/Ml Vial 10 Ml) 75 mg 1 mg/kg (75 mg) IV X1 ONE Stop: 07/09/25 03:19 Sodium Chloride (Sodium Chloride Rt 10% 15 Ml Nebu) 5 ml INH X1 ONE Stop: 07/09/25 03:28 Assessment & Plan Plan 60-year-old male with past medical history of schizophrenia, hyperlipidemia, developmental delay was admitted initially for GI bleed, however hospital course was complicated with acute encephalophaty 2/2 aspiration leading to 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 #Acute encephalopathy likely due to hypoxia secondary from aspiration event versus multifactorial Patient found unresponsive, following a significant vomiting episode with suspected aspiration No prior signs of hepatic, uremic or metabolic encephalopathy -Continue sedation with fentanyl and propofol -Monitor neurological status daily - Head CT if any focal findings or if no improvement over the next 24 hours - Consider EEG if there is a concern for seizure or persistent altered mental status #History of schizophrenia #History of depression #History of anxiety -Will resume home medication once patient is more stable CVS #Reflex tachycardia secondary to anemia -EKG showed sinus tachycardia -Treat underlying anemia -Cardiology is on board, recommendations appreciated Respiratory #Respiratory failure/airway protection #Acute hypercapnic respiratory failure #Suspected aspiration pneumonia Chest x-ray did not showed possible aspiration or pneumonia -Continue mechanical ventilation with safe settings -Follow-up with ABG, adjust vent setting accordingly -Continue ceftriaxone, consider broad-spectrum antibiotics if no improvement - Follow-up with the cultures - Monitor for WBC, temperature and lactate GI #GI bleed/anemia #Hematochezia EGD completed, showed no active bleeding GI is on board and recommended GoLytely bowel prep, plan was to do colonoscopy by tomorrow Patient had 1 large episode of bloody stool -Follow-up with H&H -Transfuse if hemoglobin less than 7 Renal #Lactic acidosis #Electrolyte disbalance - IV maintenance - Trend lactic acid - Monitor electrolytes and replace as needed Endocrinology #Hyperglycemia -Insulin sliding scale -Follow-up with A1c #subclinical hypothyroidism hematology #Acute blood loss anemia -Monitor H&H, transfuse if hemoglobin less than 7 ID #Possible aspiration pneumonia #Sepsis secondary to above Lactic acid was elevated - Continue antibiotics - Daily chest x-ray to assess any improvement - Follow-up with cultures - IV maintenance, trend lactic acid Disposition:ICU DVT prophylaxis: SCDs GI prophylaxis: PPI Diet: NPO Lines: PIV CODE STATUS:Full code Patient care was discussed with attending physician Dr. Kari Walsh MD PGY-3 I have carefully reviewed this document. Due to imperfections in the voice software, there could be grammatical errors including phonetic/typographic errors. This in no way compromises the medical care the patient is receiving Attending Provider Attestation/Addendum After examination of the patient and review of the clinical data I feel that this patient needs admission to the hospital for further treatment/evaluation. TOTAL CC TIME: 60 MIN TOTAL TIME: 60 Minutes of direct medical management and planning of care. I Rose Washington MD, attest that I was physically present for bailey portions of evaluation, and examined patient, labs and imagings and plan of care were discussed with IM residents team, and I agree with the findings and plans documented above.
[2025-07-09 04:13] LABS: Lactate (Lactic Acid) 3.4 mMol/L (0.4-2.0)
[2025-07-09 04:17] LABS: Base Excess 1 (-3-3); HCO3 28 mEq/L (20-26); Inspired Oxygen, FIO2 21 %; O2 Saturation 96 % (91-98); PCO2 57 mmHg (32.0-48.0); PO2 86 mmHg (83-108); pH, Arterial 7.29 (7.35-7.45)
--- NOTE | 2025-07-09 04:17 | PC.NURSE ---
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 yankauer suction used and started bagging with ambu bag, defibrillation pads placed. pt transferred to ICU for intubation.
[2025-07-09 04:18] LABS: Allen Test Performed/OK; Puncture Site Right Radial
[2025-07-09 04:18] LABS: Basophils # (Auto) 0.0 Thou/mm3 (0.0-0.2); Basophils % (Auto) 0 % (0-2.5); Eosinophils # (Auto) 0.0 Thou/mm3 (0.0-0.5); Eosinophils % (Auto) 0 % (0-10); Hematocrit 22.5 % (41.0-53.0); Immature Granulocytes Auto 0.08 Thou/mm3 (0.00-0.00); Lymphocytes # (Auto) 1.1 Thou/mm3 (1.0-4.8); Lymphocytes % (Auto) 11 % (10-50); Mean Corpuscular HGB Conc 33.3 g/dl (31.0-37.0); Mean Corpuscular Hemoglobin 31.0 pg (25.0-35.0); Mean Corpuscular Volume 93 fL (80-100); Monocytes # (Auto) 0.6 Thou/mm3 (0.0-0.8); Monocytes % (Auto) 6 % (0-12); Neutrophils # (Auto) 8.7 Thou/mm3 (1.8-7.7); Neutrophils % (Auto) 83 % (37-80); Nucleated Red Blood Cell # 0.27 Thou/mm3 (0.00-0.00); Nucleated Red Blood Cell % 3 /100 WBC (0); Platelet Count 203 Thou/mm3 (140-440); RDW Standard Deviation 50.1 fL (35.1-43.9); Red Blood Count 2.42 Miln/mm3 (4.50-5.90); White Blood Count 10.5 Thou/mm3 (3.8-10.6)
[2025-07-09 04:21] LABS: Hemoglobin 7.5 g/dL (13.5-16.0)
[2025-07-09 04:33] LABS: Anion Gap 15 (7-16); BUN/Creatinine Ratio 19 Ratio (12-20); Blood Urea Nitrogen 19 mg/dL (9-23); Calcium 7.8 mg/dL (8.3-10.6); Carbon Dioxide 26.8 mMol/L (20.0-31.0); Chloride 100 mMol/L (98-107); Creatinine (Component) 1.0 mg/dL (0.6-1.3); Estimated Creatinine Clearance 75.2 mL/min (>60); Glucose 222 mg/dL (74-106); Osmolality,Calculated 292 (275-295); Potassium 3.6 mMol/L (3.4-5.1); Sodium 142 mMol/L (136-145); eGFR > 60 See Note
[2025-07-09] MEDS: cefTRIAXone/D5w 1gm IV premix 1 GM/50 ML BAG IV ×2 (04:35→08:25)
[2025-07-09 04:38] LABS: Alanine Aminotransferase 22 U/L (10-49); Albumin, Serum 3.7 gm/dL (3.5-5.0); Albumin/Globulin Ratio 1.9 (1.2-2.2); Alkaline Phosphatase 40 U/L (46-116); Anion Gap 14 (7-16); Aspartate Amino Transferase 41 U/L (0-34); BUN/Creatinine Ratio 16 Ratio (12-20); Bilirubin,Total 0.5 mg/dL (0.3-1.2); Blood Urea Nitrogen 16 mg/dL (9-23); Calcium 7.8 mg/dL (8.3-10.6); Calcium (Corrected) 8.0 mg/dL (8.5-10.1); Carbon Dioxide 24.8 mMol/L (20.0-31.0); Chloride 101 mMol/L (98-107); Creatinine (Component) 1.0 mg/dL (0.6-1.3); Estimated Creatinine Clearance 75.2 mL/min (>60); Free T4 (Free Thyroxine) 1.08 ng/dL (0.89-1.76); Globulin 2.0 gm/dL (2.3-3.5); Glucose 223 mg/dL (74-106); Magnesium 2.2 mg/dL (1.6-2.6); Osmolality,Calculated 287 (275-295); Phosphorous 5.3 mg/dL (2.4-5.1); Potassium 3.6 mMol/L (3.4-5.1); Sodium 140 mMol/L (136-145); Total Protein 5.7 gm/dL (5.7-8.2); eGFR > 60 See Note
--- NOTE | 2025-07-09 05:00 | EKG_ITS ---
[facility] Test Date: 2025-07-09 Pat Name: MITA GRANADOS [facility] Male Doctor Podiatric Medicine: HUYEN : 1965 Requested By: Abhijit Santos Order Number: [id number] Reading MD: Abhijit Santos Measurements Intervals [place] Rate: 110 P: 50 DE: 146 QRS: 29 QRSD: 107 T: 33 QT: 359 QTc: 487 Interpretive Statements SINUS TACHYCARDIA INCOMPLETE RIGHT BUNDLE BRANCH BLOCK NONSPECIFIC T-WAVE ABNORMALITY ABNORMAL RHYTHM ECG Compared to ECG 07/08/2025 14:45:20 Myocardial infarct finding no longer present Possible ischemia no longer present T-wave abnormality still present /store/S0/[id number].pdf
--- NOTE | 2025-07-09 05:16 | PC.RT ---
Assisted MD with intubation. Patient intubated at 0320 with a 7.5 ETT at 23cm to the teeth for airway protection. Positive color change on EtCO2 with bilateral breath sounds heard throughout. Patient placed on Ventilator with settings as charted with alarms on and audible.
[2025-07-09] MEDS: RINGERS LACTATED 500 ML 500 ML 999 ML IV (05:52)
[2025-07-09] MEDS: RINGERS LACTATED 1000 ML 1,000 ML 100 ML IV ×2 (05:53→15:59)
--- NOTE | 2025-07-09 05:53 | XR_ITS ---
Examination: AP chest single view Technique one AP portable semiupright chest single view Date and time: July 09, 2025, 0600 hrs., Comparison 07/09/2025. Indications: O2 desaturation hypoxia today, postintubation Findings: Normal heart size Prominent vascular congestion. Perihilar pneumonia. Orogastric tube tip distal stomach satisfactory position. Endotracheal tube tip 4.7 cm above lucio. Impression: Moderate vascular congestion. Bilateral perihilar pneumonia, consider aspiration pneumonia
[2025-07-09 07:09] LABS: Reflex Lactate? Y
--- NOTE | 2025-07-09 07:12 | ESPR_ITS ---
<Statement entered by Kvein Carlson MD - 07/12/25 07:38> Senior Resident Attestation: I supervised/discussed management plan with credit intern physician Dr. Rivera, and was involved in the care of this patient. I personally saw and examined the patient and discussed the assessment and plan with the entire medicine team, including my attending. I agree with the assessment and plan as documented. Patient's care was discussed with attending physician, Dr. Campebll. Kevin Carlson MD PGY-3. Documentation for date of: 07/09/25 Subjective Subjective Interval history: A 60-year-old male with a known history of schizophrenia, hyperlipidemia, and developmental delay was brought to the ED from his halfway due to acute abdominal pain that began a few hours prior to arrival. Due to his chronic cognitive and psychiatric baseline, the patient was unable to provide a reliable history. Most of the information was obtained from his caregiver, Charu Jean. According to the caregiver, the patient?s abdominal pain progressively worsened. He then had one episode of black, tarry, liquid stool (melena). Staff at the facility noted an elevated heart rate in the 140s and observed that he appeared tachypneic. She denied any associated fever, chills, cough, sick contacts, or seizures. ED Course: In the emergency department, the patient was found to be: Tachycardic: HR 129 bpm BP: 119/72 mmHg WBC: 28.9 (leukocytosis) Hemoglobin: 5.8 g/dL (significant anemia) Lactic Acid: 7.3 mmol/L (suggestive of tissue hypoperfusion) Blood Glucose: 296 mg/dL The patient was resuscitated with 2 liters of IV fluids and transfused with 2 units of packed red blood cells (PRBCs). Imaging: Chest X-ray: Prominent left ventricular silhouette and moderate elevation of the right hemidiaphragm. CT Angiogram (Abdomen & Pelvis):Significant scarring at the lateral margin of the right kidney.No hydronephrosis or ureteral calculi. Abdominal X-ray (after rapid response event): No evidence of small bowel obstruction (SBO); mild colonic and small bowel ileus noted. Patient was admitted for acute GI bleed treatment and management. During hospital stay EGD was not done which showed few small bleeding erosions on GE junction, patchy mild erythematous mucosa without bleeding was found in the gastric antrum. Per tiger machine operator recommendation patient started on clear liquid diet and GoLytely. However during hospital stay multiple rapid response was called due to diaphoresis and abdominal pain, patient was in acute distress, tachycardic NG tube placement had failed as patient kept coughing up the NG tube. Later patient was alert and oriented and refused another trial of NG tube placement per sign out. Patient started receiving GoLytely. Later today at around 3 AM rapid response was called, patient was found unresponsive, patient was vomited, most likely had aspiration pneumonia. Subsequently decision was made to intubate the patient for airway protection. Interval History 07/09/2025: Patient was examined at bedside; they remain intubated with sporadic episodes of shivering/shaking noted. On physical exam, patient's abdomen seems somewhat distended with hypoactive bowel sounds (though , who was present at the time, seems to think the patient appear less distended today than yesterday). Current plan is to support patient's respiratory processes by scheduling Duoneb q4HR while conducting daily SATs. Due to lack of lobar consolidation seen on CXR, patient is likely not experiencing any current pneumonia and can have their IV ceftriaxone discontinued. Patient's lactic acid up-trended from 3.4 to 4.3 this morning (most likely hypovolemic 2/2 dehydration in nature), will do further work-up and infuse w/ bolus in the meantime (and trend lactic acid). Patient apparently also had another episode of bloody BM last night; will consult GI regarding their plans for this moving forward. Exam Vital Signs Temp Pulse Resp BP Pulse Ox O2 Del Method O2 Flow Rate 97.6 F 108 H 22 H 109/66 92 L Nasal Cannula 2 07/09/25 03:43 07/09/25 06:45 07/09/25 03:43 07/09/25 06:45 07/09/25 06:45 07/08/25 23:28 07/09/25 03:43 FiO2 100 07/09/25 06:22 Narrative Exam GENERAL: Intubated, chemically sedated HEENT: Head AT/ NC. Mucous membranes moist. NECK: Supple, no lymphadenopathy, no carotid bruits. CARDIOVASCULAR: RRR. No pitting edema of bilateral LEs. RESPIRATORY: Mechanically ventilated GASTROINTESTINAL: Abdomen appears distended. Hypoactive bowel sounds. Abdomen soft with no palpable masses. MUSCULOSKELETAL:? No cyanosis or edema, no visible joint swelling. NEUROLOGICAL: Unobtainable as patient is chemically sedated Objective Labs 07/15/25 05:03 07/14/25 05:21 Labs: Laboratory Results - last 24 hr 07/08/25 07/08/25 07/09/25 04:16 20:03 04:00 WBC 10.5 RBC 2.42 L Hgb 7.9 L 7.5 L Hct 23.2 L MCV MCH MCHC RDW Std Deviation Plt Count Neut % (Auto) Lymph % (Auto) [place] % (Auto) Eos % (Auto) Baso % (Auto) Neut # (Auto) Lymph # (Auto) [place] # (Auto) Eos # (Auto) Baso # (Auto) Immature Gran # (Auto) Absolute Nucleated RBC Immature Gran % Nucleated RBC % Puncture Site ABG pH ABG pCO2 ABG pO2 ABG HCO3 ABG O2 Saturation ABG Base Excess FiO2 Sodium 142 Potassium 3.1 L Chloride 101 Carbon Dioxide 28.1 Anion Gap 13 BUN 17 Creatinine 1.0 Estim Creat Clear Calc 75.2 eGFR > 60 BUN/Creatinine Ratio 17 Glucose 180 H D Calculated Osmolality 289 Lactic Acid Calcium 8.3 Corrected Calcium Phosphorus Magnesium Total Bilirubin AST ALT Alkaline Phosphatase B-Natriuretic Peptide 40 Total Protein Albumin Globulin Albumin/Globulin Ratio TSH 5.97 H Free T4 Blood Type Antibody Screen Crossmatch Blood Bank Wristband ID 07/09/25 07/09/25 07/09/25 04:00 04:00 04:00 WBC RBC Hgb 7.5 L Hct 22.5 L 22.5 L MCV 93 MCH 31.0 MCHC 33.3 RDW Std Deviation 50.1 H Plt Count 203 D Neut % (Auto) 83 H Lymph % (Auto) 11 [place] % (Auto) 6 Eos % (Auto) 0 Baso % (Auto) 0 Neut # (Auto) 8.7 H Lymph # (Auto) 1.1 [place] # (Auto) 0.6 Eos # (Auto) 0.0 Baso # (Auto) 0.0 Immature Gran # (Auto) 0.08 H Absolute Nucleated RBC 0.27 H Immature Gran % 1 H Nucleated RBC % 3 H Puncture Site ABG pH ABG pCO2 ABG pO2 ABG HCO3 ABG O2 Saturation ABG Base Excess FiO2 Sodium 140 142 Potassium 3.6 D Chloride Carbon Dioxide Anion Gap BUN Creatinine Estim Creat Clear Calc eGFR BUN/Creatinine Ratio Glucose Calculated Osmolality Lactic Acid Calcium Corrected Calcium Phosphorus Magnesium Total Bilirubin AST ALT Alkaline Phosphatase B-Natriuretic Peptide Total Protein Albumin Globulin Albumin/Globulin Ratio TSH Free T4 Blood Type Antibody Screen Crossgatch Blood Bank Wristband ID 07/09/25 07/09/25 07/09/25 04:00 04:00 04:00 WBC RBC Hgb Hct MCV MCH MCHC RDW Std Deviation Plt Count Neut % (Auto) Lymph % (Auto) [place] % (Auto) Eos % (Auto) Baso % (Auto) Neut # (Auto) Lymph # (Auto) [place] # (Auto) Eos # (Auto) Baso # (Auto) Immature Gran # (Auto) Absolute Nucleated RBC Immature Gran % Nucleated RBC % Puncture Site ABG pH ABG pCO2 ABG pO2 ABG HCO3 ABG O2 Saturation ABG Base Excess FiO2 Sodium Potassium 3.6 Chloride 101 100 Carbon Dioxide 24.8 26.8 Anion Gap 14 BUN Creatinine Estim Creat Clear Calc eGFR BUN/Creatinine Ratio Glucose Calculated Osmolality Lactic Acid Calcium Corrected Calcium Phosphorus Magnesium Total Bilirubin AST ALT Alkaline Phosphatase B-Natriuretic Peptide Total Protein Albumin Globulin Albumin/Globulin Ratio TSH Free T4 Blood Type Antibody Screen [facility] Blood Bank Wristband ID 07/09/25 07/09/25 07/09/25 04:00 04:00 04:00 WBC RBC Hgb Hct MCV MCH MCHC RDW Std Deviation Plt Count Neut % (Auto) Lymph % (Auto) [place] % (Auto) Eos % (Auto) Baso % (Auto) Neut # (Auto) Lymph # (Auto) [place] # (Auto) Eos # (Auto) Baso # (Auto) Immature Gran # (Auto) Absolute Nucleated RBC Immature Gran % Nucleated RBC % Puncture Site ABG pH ABG pCO2 ABG pO2 ABG HCO3 ABG O2 Saturation ABG Base Excess FiO2 Sodium Potassium Chloride Carbon Dioxide Anion Gap 15 BUN 16 19 Creatinine 1.0 1.0 Estim Creat Clear Calc 75.2 eGFR BUN/Creatinine Ratio Glucose Calculated Osmolality Lactic Acid Calcium Corrected Calcium Phosphorus Magnesium Total Bilirubin AST ALT Alkaline Phosphatase B-Natriuretic Peptide Total Protein Albumin Globulin Albumin/Globulin Ratio TSH Free T4 Blood Type Antibody Screen Crossgatch Blood Bank Wristband ID 07/09/25 07/09/25 07/09/25 04:00 04:00 04:00 WBC RBC Hgb Hct MCV MCH MCHC RDW Std Deviation Plt Count Neut % (Auto) Lymph % (Auto) [place] % (Auto) Eos % (Auto) Baso % (Auto) Neut # (Auto) Lymph # (Auto) [place] # (Auto) Eos # (Auto) Baso # (Auto) Immature Gran # (Auto) Absolute Nucleated RBC Immature Gran % Nucleated RBC % Puncture Site ABG pH ABG pCO2 ABG pO2 ABG HCO3 ABG O2 Saturation ABG Base Excess FiO2 Sodium Potassium Chloride Carbon Dioxide Anion Gap BUN Creatinine Estim Creat Clear Calc 75.2 eGFR > 60 > 60 BUN/Creatinine Ratio 16 19 Glucose 223 H Calculated Osmolality Lactic Acid Calcium Corrected Calcium Phosphorus Magnesium Total Bilirubin AST ALT Alkaline Phosphatase B-Natriuretic Peptide Total Protein Albumin Globulin Albumin/Globulin Ratio TSH Free T4 Blood Type Antibody Screen Crossmatch Blood Bank Wristband ID 07/09/25 07/09/25 07/09/25 04:00 04:00 04:00 WBC RBC Hgb Hct MCV MCH MCHC RDW Std Deviation Plt Count Neut % (Auto) Lymph % (Auto) [place] % (Auto) Eos % (Auto) Baso % (Auto) Neut # (Auto) Lymph # (Auto) [place] # (Auto) Eos # (Auto) Baso # (Auto) Immature Gran # (Auto) Absolute Nucleated RBC Immature Gran % Nucleated RBC % Puncture Site ABG pH ABG pCO2 ABG pO2 ABG HCO3 ABG O2 Saturation ABG Base Excess FiO2 Sodium Potassium Chloride Carbon Dioxide Anion Gap BUN Creatinine Estim Creat Clear Calc eGFR BUN/Creatinine Ratio Glucose 222 H Calculated Osmolality 287 292 Lactic Acid 3.4 H Calcium 7.8 L 7.8 L Corrected Calcium 8.0 L Phosphorus 5.3 H Magnesium 2.2 Total Bilirubin 0.5 AST 41 H ALT 22 Alkaline Phosphatase 40 L B-Natriuretic Peptide Total Protein 5.7 Albumin 3.7 Globulin 2.0 L Albumin/Globulin Ratio 1.9 TSH Free T4 1.08 Blood Type A Positive Antibody Screen NEGATIVE Crossmatch See Detail Blood Bank Wristband ID Yes 07/09/25 04:04 WBC RBC Hgb Hct MCV MCH MCHC RDW Std Deviation Plt Count Neut % (Auto) Lymph % (Auto) [place] % (Auto) Eos % (Auto) Baso % (Auto) Neut # (Auto) Lymph # (Auto) [place] # (Auto) Eos # (Auto) Baso # (Auto) Immature Gran # (Auto) Absolute Nucleated RBC Immature Gran % Nucleated RBC % Puncture Site Right Radial ABG pH 7.29 L ABG pCO2 57 H ABG pO2 86 ABG HCO3 28 H ABG O2 Saturation 96 ABG Base Excess 1 FiO2 21 Sodium Potassium Chloride Carbon Dioxide Anion Gap BUN Creatinine Estim Creat Clear Calc eGFR BUN/Creatinine Ratio Glucose Calculated Osmolality Lactic Acid Calcium Corrected Calcium Phosphorus Magnesium Total Bilirubin AST ALT Alkaline Phosphatase B-Natriuretic Peptide Total Protein Albumin Globulin Albumin/Globulin Ratio TSH Free T4 Blood Type Antibody Screen Crossmatch Blood Bank Wristband ID ABG Interpretation ABG results: 07/09/25 04:04 ABG pH 7.29 L ABG pCO2 57 H ABG pO2 86 ABG HCO3 28 H ABG O2 Saturation 96 ABG Base Excess 1 Quality Measures Quality Measures sepsis Current suspected stage: ruled out Possible source: GI tract/intra- abdominal Blood cultures ordered: no Antibiotic ordered: No Assessment & Plan Assessment Current Active Medications: Generic Name Dose Route Start Last Admin Trade Name Freq PRN Reason Stop Dose Admin Acetaminophen 1,000 mg 07/07/25 15:20 Acetaminophen 500 Mg Tablet PO 08/05/25 15:39 Q6H PRN PAIN OR FEVER > 99.9 Clonazepam 1 mg 07/07/25 06:00 07/09/25 05:25 Clonazepam 0.5 Mg Tablet PO 07/12/25 05:59 1 mg TID RHINA Administration Fluvoxamine 100 Mg 0 ea 07/06/25 21:00 07/08/25 23:42 Tablet PO 08/05/25 20:59 1 tablet BID RHINA Administration Dextrose 50 ml 07/06/25 15:47 Dextrose 50%-Water Inj 50 Ml Syringe IV 08/05/25 15:46 Q15MIN PRN BG <50 OR BG <70 & pt unresponsive Glucagon 1 mg 07/06/25 15:47 Glucagon Inj 1 Mg Vial IM Q15MIN PRN BG <70, and no IV access Fentanyl Citrate 2,500 mcg in 250 mls @ 2.5 mls/hr 07/09/25 03:29 07/09/25 06:05 Sublimaze Inj 2,500 Mcg/250 Ml Bag IV 07/14/25 03:28 125 mcg/hr .Q24H PRN 12.5 mls/hr PER PROTOCOL Titration Protocol 25 MCG/HR Propofol 1,000 mg in 100 mls @ 2.245 mls/hr 07/09/25 03:29 07/09/25 06:00 Diprivan Ivpb IV 08/08/25 03:28 40 mcg/kg/min .Q24H PRN 17.962 mls/hr PER PROTOCOL Titration Protocol 5 MCG/KG/MIN Ceftriaxone Sodium/Dextrose 1 gm in 50 mls @ 100 mls/hr 07/09/25 03:41 07/09/25 05:05 Rocephin/D5w 1gm Iv Premix IV 07/16/25 03:40 Infused QDAY RHINA Infusion Lactated Ringer's 1,000 mls @ 100 mls/hr 07/09/25 05:25 07/09/25 05:53 Lactated Ringers IV 08/08/25 05:24 100 mls/hr .Q10H RHINA Administration Insulin Human Lispro 0 unit 07/06/25 18:00 07/09/25 05:20 Insulin Lispro (Admelog) 1 Unit/0.01 Ml Unit SC 08/05/25 17:59 Not Given Q6HR RHINA Protocol Ondansetron HCl 4 mg 07/06/25 15:40 Ondansetron Inj 2 Mg/Ml Inj 2 Ml IVP 08/05/25 15:39 Q6H PRN NAUSEA OR VOMITING Protocol Pantoprazole Sodium 40 mg 07/06/25 21:00 07/08/25 22:07 Pantoprazole Inj 40 Mg Vial IVP 08/05/25 20:59 40 mg Q12HR RHINA Administration Polyethylene Glycol/Electrolytes 4,000 ml 07/07/25 15:31 07/09/25 03:03 Na Jj/Nahco3/[place] (Golytely) 4,000 Ml Btl PO 08/06/25 15:30 4,000 ml PRN PRN Administration SEE COMMENTS Risperidone 1 mg 07/06/25 21:00 07/08/25 08:18 Risperidone 1 Mg Tablet PO 08/05/25 20:59 1 mg On Hold: 07/08/25 14:57 BID RHINA Administration Comment: PER MD CHAZ Madrigal 60-year-old male with past medical history of schizophrenia, hyperlipidemia, developmental delay was admitted initially for GI bleed, however hospital course was complicated with acute encephalopathy 2/2 aspiration leading to intubation for airway protection. Patient was examined at bedside today; they remain intubated with sporadic episodes of shivering/shaking noted. On physical exam, patient's abdomen seems somewhat distended with hypoactive bowel sounds (though , who was present at the time, seems to think the patient appear less distended today than yesterday). Current plan is to support patient's respiratory processes by scheduling Duoneb q4HR while conducting daily SATs. Due to lack of lobar consolidation seen on CXR, patient is likely not experiencing any current pneumonia and can have their IV ceftriaxone discontinued. Patient's lactic acid up-trended from 3.4 to 4.3 this morning (most likely hypovolemic 2/2 dehydration in nature), will do further work-up and infuse w/ bolus in the meantime (and trend lactic acid). Patient apparently also had another episode of bloody BM last night; will consult GI regarding their plans for this moving forward. ASSIGNER #Chemical sedation Previously being sedated with fentanyl and propofol -Daily SATs -Maintain RAAS of -2 -Consider using Precedex instead of fentanyl due to issues regarding GI dysmotility #History of schizophrenia #History of depression #History of anxiety -Will resume home medication once patient is more stable CVS #Reflex tachycardia 2/2 anemia -Treat underlying anemia Respiratory #Respiratory failure/airway protection #Acute hypercapnic respiratory failure #Aspiration event CXR didn't seem to show any lobar consolidation nor other findings that might be suggestive of aspiration pneumonia Currently suspect that patient's respiratory failure was due to his aspiration of GoLytely Patient is exhibiting elevated peak pressures at this time -Continue mechanical ventilation with safe settings -Start INH Duonebs q4HR scheduled -Follow-up with ABG, adjust vent setting accordingly -Discontinued IV ceftriaxone due to low suspicion for pneumonia -Follow-up with the cultures -Consider cuff link to assess for laryngeal edema -Monitor for WBC, temperature and lactate GI #GI bleed/anemia #Hematochezia Upper endoscopy completed, showed no active bleeding Patient had 1 large episode of bloody stool yesterday, Hgb has been stable for the past couple of days -Per GI, patient will be restarted on GoLytely in anticipation for lower endoscopy tomorrow -Follow-up with H&H -Transfuse if hemoglobin less than 7 #Colonic ileus 07/08 abdominal XR showed prominent colonic ileus as well as suspicious findings for distention of the urinary bladder but was negative for SBO or free air On physical exam today, patient's abdomen appears distended with hypoactive bowel sounds but , who was present at the time, says that the abdomen appears less distended than it did when he was admitted and that he's had a BM recently (last night) -Nasogastric decompression with light intermittent suction -Consider an enema for possible disimpaction -Minimize the use of opiates for pain management due to side effect profile -Per GI, patient will be restarted on GoLytely in anticipation for lower endoscopy tomorrow Renal #Lactic acidosis #Electrolyte derangement Lactic acid uptrended today from 3.4 to 4.3, currently suspect 2/2 dehydration -0.5 L IV LR bolus given x2 -IV LR maintenance fluid @ 100 mL/hr -Trend lactic acid -Monitor electrolytes and replace as needed Endocrinology #Hyperglycemia Today's glucose 222 -Insulin sliding scale -Follow-up with A1c #Subclinical hypothyroidism 07/08 TSH was 5.97, slightly high 07/09 free T4 was 1.08, WNL Hematology #Acute blood loss anemia Hgb has recently been stable around 7-8 -Monitor H&H, transfuse if hemoglobin less than 7 -Per GI, patient will be restarted on GoLytely in anticipation for lower endoscopy tomorrow (locate source of bleeding) -Continue IV Protonix q12HR for GI prophylaxis ID No active issues Disposition: ICU due to intubated status DVT prophylaxis: SCDs (bleeding risk) GI prophylaxis: IV Protonix q12HR Diet: NPO Lines: PIV CODE STATUS:Full code Patient care was discussed with attending physician, Dr. Campbell. Vikas Rivera DO Internal Medicine, PGY-1 Attending Provider Attestation/Addendum Patient seen and examined with the above resident, Vikas Rivera DO. I agree with the findings, assessment, and plan of care as documented except for any differences below. Patient with need for colonoscopy for probable lower GI bleed. However aspirated Golytely. Hold antibiotics as may just be chemical pneumonitis for now. Tolerates sedation holiday and SBT. However to facilitate colonoscopy, will leave ETT in place for additional 24 hours. Wean FiO2 and PEEP as tolerated in next 24 hours. Complete bowel prep now with NG in place. Patient otherwise remains hemodynamically stale. Maintain euvolemia and monitor UOP. There was question of ileus by imaging but patient had BM last night and will assess after bowel prep completed. Total critical care time: I personally spent 45 minutes for review of physiologic parameters, directing plan of care, and coordination of care with other subspecialities. This is exclusive of time spent teaching housestaff or performing any separate billable procedures. Patient remains at significant risk for further morbidity and mortality warranting close monitoring and care only available in the ICU. Critical care services required for aspiration pneumonitis/ pneumonia, acute hypoxic respiratory failure, colonic ileus, lower GI bleed.
[2025-07-09 07:59] LABS: Lactate (Lactic Acid) 3.4 mMol/L (0.4-2.0)
--- NOTE | 2025-07-09 08:12 | PD.RESPROC ---
PROCEDURES: Procedure Date / Time 07/09/25 0812 Intubation Indication(s): acute Resp Failure and inability to protect airway Time out done, and the following verified: correct patient, side and site, procedure, patient position and implants and/or equipment Sedative: etomidate Mg given: 25 Paralytic: rocuronium Mg given: 75 Laryngoscope: fiber optic video scope Assist device used: fiber optic device ET tube size: 7.5 ET tube uncuffed: Yes Tube secured depth (cm): 23 Tube secured location: lips Tube placement confirmation: visualized tube passing through cords, equal breath sounds bilaterally and confirmation by capnometry Patient tolerated procedure: well EBL(ml): 0 Intubation complications: none
[2025-07-09 08:25] LABS: Anion Gap 13 (7-16); BUN/Creatinine Ratio 17 Ratio (12-20); Blood Urea Nitrogen 17 mg/dL (9-23); Calcium 7.8 mg/dL (8.3-10.6); Carbon Dioxide 26.5 mMol/L (20.0-31.0); Chloride 103 mMol/L (98-107); Creatinine (Component) 1.0 mg/dL (0.6-1.3); Estimated Creatinine Clearance 75.5 mL/min (>60); Glucose 163 mg/dL (74-106); Osmolality,Calculated 288 (275-295); Potassium 3.3 mMol/L (3.4-5.1); Sodium 142 mMol/L (136-145); eGFR > 60 See Note
--- NOTE | 2025-07-09 08:44 | PD.RESPRO ---
Documentation for date of: 07/09/25 Subjective Subjective Interval history: Patient was examined at bedside. Patient yesterday had an aspiration episode and was upgraded to the ICU after he was intubated to protect his airways. Yesterday the nursing team tried multiple times to place NG tube and put the patient in low intermittent suction however there were and successful. Last night patient had an episode of vomiting, rapid response was called and decision was made to intubate the patient upgrade to the ICU. We have the telemonitoring for the past 24-hour was negative for any arrhythmias and it only showed sinus tachycardia Exam Vital Signs Temp Pulse Resp BP Pulse Ox O2 Del Method O2 Flow Rate 97.6 F 102 H 22 H 105/68 91 L Nasal Cannula 2 07/09/25 03:43 07/09/25 07:10 07/09/25 03:43 07/09/25 07:10 07/09/25 07:10 07/08/25 23:28 07/09/25 03:43 FiO2 100 07/09/25 06:22 Narrative Exam GEN: Intubated RASS score of -2, pupils equal and reactive, has some shivering episodes HEENT: NC/AC, cerebellum, oral mucosa dry, neck supple CVS: RRR, S1-S2, S3, no murmurs appreciated RESP: Coarse crepitations bilaterally more on the right GI: Abdomen is firm, distended, presents bowel sounds MSK: trace lower extremity edema SKIN: warm and clammy [employer]LECT[employer] SALES [employer] SERV[employer] TECHNICIAN: Unable to assess due to patient condition. Objective Labs 07/23/25 04:48 07/23/25 04:48 Labs: Laboratory Results - last 24 hr 07/08/25 07/08/25 07/09/25 04:16 20:03 04:00 WBC 10.5 RBC 2.42 L Hgb 7.9 L 7.5 L Hct 23.2 L MCV MCH MCHC RDW Std Deviation Plt Count Neut % (Auto) Lymph % (Auto) Hickman % (Auto) Eos % (Auto) Baso % (Auto) Neut # (Auto) Lymph # (Auto) Hickman # (Auto) Eos # (Auto) Baso # (Auto) Immature Gran # (Auto) Absolute Nucleated RBC Immature Gran % Nucleated RBC % Puncture Site ABG pH ABG pCO2 ABG pO2 ABG HCO3 ABG O2 Saturation ABG Base Excess FiO2 Sodium 142 Potassium 3.1 L Chloride 101 Carbon Dioxide 28.1 Anion Gap 13 BUN 17 Creatinine 1.0 Estim Creat Clear Calc 75.2 eGFR > 60 BUN/Creatinine Ratio 17 Glucose 180 H D Calculated Osmolality 289 Lactic Acid Calcium 8.3 Corrected Calcium Phosphorus Magnesium Total Bilirubin AST ALT Alkaline Phosphatase B-Natriuretic Peptide 40 Total Protein Albumin Globulin Albumin/Globulin Ratio TSH 5.97 H Free T4 Blood Type Antibody Screen [facility] Blood Bank Wristband ID 07/09/25 07/09/25 07/09/25 04:00 04:00 04:00 WBC RBC Hgb 7.5 L Hct 22.5 L 22.5 L MCV 93 MCH 31.0 MCHC 33.3 RDW Std Deviation 50.1 H Plt Count 203 D Neut % (Auto) 83 H Lymph % (Auto) 11 Hickman % (Auto) 6 Eos % (Auto) 0 Baso % (Auto) 0 Neut # (Auto) 8.7 H Lymph # (Auto) 1.1 Hickman # (Auto) 0.6 Eos # (Auto) 0.0 Baso # (Auto) 0.0 Immature Gran # (Auto) 0.08 H Absolute Nucleated RBC 0.27 H Immature Gran % 1 H Nucleated RBC % 3 H Puncture Site ABG pH ABG pCO2 ABG pO2 ABG HCO3 ABG O2 Saturation ABG Base Excess FiO2 Sodium 140 142 Potassium 3.6 D Chloride Carbon Dioxide Anion Gap BUN Creatinine Estim Creat Clear Calc eGFR BUN/Creatinine Ratio Glucose Calculated Osmolality Lactic Acid Calcium Corrected Calcium Phosphorus Magnesium Total Bilirubin AST ALT Alkaline Phosphatase B-Natriuretic Peptide Total Protein Albumin Globulin Albumin/Globulin Ratio TSH Free T4 Blood Type Antibody Screen [facility] Blood Bank Wristband ID 07/09/25 07/09/25 07/09/25 04:00 04:00 04:00 WBC RBC Hgb Hct MCV MCH MCHC RDW Std Deviation Plt Count Neut % (Auto) Lymph % (Auto) Hickman % (Auto) Eos % (Auto) Baso % (Auto) Neut # (Auto) Lymph # (Auto) Hickman # (Auto) Eos # (Auto) Baso # (Auto) Immature Gran # (Auto) Absolute Nucleated RBC Immature Gran % Nucleated RBC % Puncture Site ABG pH ABG pCO2 ABG pO2 ABG HCO3 ABG O2 Saturation ABG Base Excess FiO2 Sodium Potassium 3.6 Chloride 101 100 Carbon Dioxide 24.8 26.8 Anion Gap 14 BUN Creatinine Estim Creat Clear Calc eGFR BUN/Creatinine Ratio Glucose Calculated Osmolality Lactic Acid Calcium Corrected Calcium Phosphorus Magnesium Total Bilirubin AST ALT Alkaline Phosphatase B-Natriuretic Peptide Total Protein Albumin Globulin Albumin/Globulin Ratio TSH Free T4 Blood Type Antibody Screen [facility] Blood Bank Wristband ID 07/09/25 07/09/25 07/09/25 04:00 04:00 04:00 WBC RBC Hgb Hct MCV MCH MCHC RDW Std Deviation Plt Count Neut % (Auto) Lymph % (Auto) Hickman % (Auto) Eos % (Auto) Baso % (Auto) Neut # (Auto) Lymph # (Auto) Hickman # (Auto) Eos # (Auto) Baso # (Auto) Immature Gran # (Auto) Absolute Nucleated RBC Immature Gran % Nucleated RBC % Puncture Site ABG pH ABG pCO2 ABG pO2 ABG HCO3 ABG O2 Saturation ABG Base Excess FiO2 Sodium Potassium Chloride Carbon Dioxide Anion Gap 15 BUN 16 19 Creatinine 1.0 1.0 Estim Creat Clear Calc 75.2 eGFR BUN/Creatinine Ratio Glucose Calculated Osmolality Lactic Acid Calcium Corrected Calcium Phosphorus Magnesium Total Bilirubin AST ALT Alkaline Phosphatase B-Natriuretic Peptide Total Protein Albumin Globulin Albumin/Globulin Ratio TSH Free T4 Blood Type [facility] 07/09/25 07/09/25 07/09/25 04:00 04:00 04:00 WBC RBC Hgb Hct MCV MCH MCHC RDW Std Deviation Plt Count Neut % (Auto) Lymph % (Auto) Hickman % (Auto) Eos % (Auto) Baso % (Auto) Neut # (Auto) Lymph # (Auto) Hickman # (Auto) Eos # (Auto) Baso # (Auto) Immature Gran # (Auto) Absolute Nucleated RBC Immature Gran % Nucleated RBC % Puncture Site ABG pH ABG pCO2 ABG pO2 ABG HCO3 ABG O2 Saturation ABG Base Excess FiO2 Sodium Potassium Chloride Carbon Dioxide Anion Gap BUN Creatinine Estim Creat Clear Calc 75.2 eGFR > 60 > 60 BUN/Creatinine Ratio 16 19 Glucose 223 H Calculated Osmolality Lactic Acid Calcium Corrected Calcium Phosphorus Magnesium Total Bilirubin AST ALT Alkaline Phosphatase B-Natriuretic Peptide Total Protein Albumin Globulin Albumin/Globulin Ratio TSH Free T4 Blood Type Antibody Screen [facility] Blood Bank Wristband ID 07/09/25 07/09/25 07/09/25 04:00 04:00 04:00 WBC RBC Hgb Hct MCV MCH MCHC RDW Std Deviation Plt Count Neut % (Auto) Lymph % (Auto) Hickman % (Auto) Eos % (Auto) Baso % (Auto) Neut # (Auto) Lymph # (Auto) Hickman # (Auto) Eos # (Auto) Baso # (Auto) Immature Gran # (Auto) Absolute Nucleated RBC Immature Gran % Nucleated RBC % Puncture Site ABG pH ABG pCO2 ABG pO2 ABG HCO3 ABG O2 Saturation ABG Base Excess FiO2 Sodium Potassium Chloride Carbon Dioxide Anion Gap BUN Creatinine Estim Creat Clear Calc eGFR BUN/Creatinine Ratio Glucose 222 H Calculated Osmolality 287 292 Lactic Acid 3.4 H Calcium 7.8 L 7.8 L Corrected Calcium 8.0 L Phosphorus 5.3 H Magnesium 2.2 Total Bilirubin 0.5 AST 41 H ALT 22 Alkaline Phosphatase 40 L B-Natriuretic Peptide Total Protein 5.7 Albumin 3.7 Globulin 2.0 L Albumin/Globulin Ratio 1.9 TSH Free T4 1.08 Blood Type A Positive Antibody Screen NEGATIVE Crossmatch See Detail Blood Bank Wristband ID Yes 07/09/25 07/09/25 04:04 07:32 WBC RBC Hgb Hct MCV MCH MCHC RDW Std Deviation Plt Count Neut % (Auto) Lymph % (Auto) Hickman % (Auto) Eos % (Auto) Baso % (Auto) Neut # (Auto) Lymph # (Auto) Hickman # (Auto) Eos # (Auto) Baso # (Auto) Immature Gran # (Auto) Absolute Nucleated RBC Immature Gran % Nucleated RBC % Puncture Site Right Radial ABG pH 7.29 L ABG pCO2 57 H ABG pO2 86 ABG HCO3 28 H ABG O2 Saturation 96 ABG Base Excess 1 FiO2 21 Sodium 142 Potassium 3.3 L Chloride 103 Carbon Dioxide 26.5 Anion Gap 13 BUN 17 Creatinine 1.0 Estim Creat Clear Calc 75.5 eGFR > 60 BUN/Creatinine Ratio 17 Glucose 163 H D Calculated Osmolality 288 Lactic Acid 3.4 H Calcium 7.8 L Corrected Calcium Phosphorus Magnesium Total Bilirubin AST ALT Alkaline Phosphatase B-Natriuretic Peptide Total Protein Albumin Globulin Albumin/Globulin Ratio TSH Free T4 Blood Type Antibody Screen [facility] Blood Bank Wristband ID ABG Interpretation ABG results: 07/09/25 04:04 ABG pH 7.29 L ABG pCO2 57 H ABG pO2 86 ABG HCO3 28 H ABG O2 Saturation 96 ABG Base Excess 1 Quality Measures Quality Measures sepsis Current suspected stage: sepsis Possible source: GI tract/intra-abdominal Blood cultures ordered: no Antibiotic ordered: Yes Assessment & Plan Assessment Current Active Medications: Generic Name Dose Route Start Last Admin Trade Name Marco Antonio PRN Reason Stop Dose Admin Acetaminophen 1,000 mg 07/07/25 15:20 Acetaminophen 500 Mg Tablet PO 08/05/25 15:39 Q6H PRN PAIN OR FEVER > 99.9 Clonazepam 1 mg 07/07/25 06:00 07/09/25 05:25 Clonazepam 0.5 Mg Tablet PO 07/12/25 05:59 1 mg TID RHINA Administration Fluvoxamine 100 Mg 0 ea 07/06/25 21:00 07/08/25 23:42 Tablet PO 08/05/25 20:59 1 tablet BID RHINA Administration Dextrose 50 ml 07/06/25 15:47 Dextrose 50%-Water Inj 50 Ml Syringe IV 08/05/25 15:46 Q15MIN PRN BG <50 OR BG <70 & pt unresponsive Glucagon 1 mg 07/06/25 15:47 Glucagon Inj 1 Mg Vial IM Q15MIN PRN BG <70, and no IV access Fentanyl Citrate 2,500 mcg in 250 mls @ 2.5 mls/hr 07/09/25 03:29 07/09/25 06:05 Sublimaze Inj 2,500 Mcg/250 Ml Bag IV 07/14/25 03:28 125 mcg/hr .Q24H PRN 12.5 mls/hr PER PROTOCOL Titration Protocol 25 MCG/HR Propofol 1,000 mg in 100 mls @ 2.245 mls/hr 07/09/25 03:29 07/09/25 06:00 Diprivan Ivpb IV 08/08/25 03:28 40 mcg/kg/min .Q24H PRN 17.962 mls/hr PER PROTOCOL Titration Protocol 5 MCG/KG/MIN Ceftriaxone Sodium/Dextrose 1 gm in 50 mls @ 100 mls/hr 07/09/25 03:41 07/09/25 05:05 Rocephin/D5w 1gm Iv Premix IV 07/16/25 03:40 Infused QDAY RHINA Infusion Lactated Ringer's 1,000 mls @ 100 mls/hr 07/09/25 05:25 07/09/25 05:53 Lactated Ringers IV 08/08/25 05:24 100 mls/hr .Q10H RHINA Administration Insulin Human Lispro 0 unit 07/06/25 18:00 07/09/25 05:20 Insulin Lispro (Admelog) 1 Unit/0.01 Ml Unit SC 08/05/25 17:59 Not Given Q6HR RHINA Protocol Ondansetron HCl 4 mg 07/06/25 15:40 Ondansetron Inj 2 Mg/Ml Inj 2 Ml IVP 08/05/25 15:39 Q6H PRN NAUSEA OR VOMITING Protocol Pantoprazole Sodium 40 mg 07/06/25 21:00 07/08/25 22:07 Pantoprazole Inj 40 Mg Vial IVP 08/05/25 20:59 40 mg Q12HR RHINA Administration Polyethylene Glycol/Electrolytes 4,000 ml 07/07/25 15:31 07/09/25 03:03 Na Jj/Nahco3/Rio/Peg (Golytely) 4,000 Ml Btl PO 08/06/25 15:30 4,000 ml PRN PRN Administration SEE COMMENTS Risperidone 1 mg 07/06/25 21:00 07/08/25 08:18 Risperidone 1 Mg Tablet PO 08/05/25 20:59 1 mg On Hold: 07/08/25 14:57 BID RHINA Administration Comment: PER MD WARE Plan Summary: 60-year-old male patient known case of schizophrenia, hyperlipidemia, developmental delay, was brought from nursing home facility after he was started to experience abdominal pain few hours before presentation. Patient was unable to provide accurate history due to his chronic mental status, most of the history was taken from the caregiver Charu Jean. Cardiology team was consulted due to tachycardia #Sinus tachycardia #ACS r/o Patient presented with acute abdominal pain, tachycardia, melena, patient was sweaty, pulse rate was 129, blood pressure was 119/65.on examination found to have S1-S2 and S3 He has trace lower edema, no elevated JVD Hemoglobin was 5.8. TSH was 5.8, Troponin was negative, chest x-ray showed left ventricular prominence, elevated right hemidiaphragm. EKG was done initially showed sinus tachycardia, repeat today during the rapid also showed sinus tachycardia with deep Q-wave on the leads, I, III and AVf. Patient most likely have secondary cause of his sinus tachycardia including but not limited to infection, pain, acute blood loss, less likely medication side effect such as serotonin syndrome 07/09/2025, patient had an episode of aspiration, he was intubated and upgraded to the ICU. BNP came back normal, echo still pending, telemonitoring was reviewed for the past 24-hour was negative for any arrhythmias and it only showed sinus tachycardia Plan ? Strict in and out ? Treat underlying cause, patient might be having SBO versus perforated viscus, or sepsis ? Daily potassium and magnesium ? Replete electrolytes to keep potassium and magnesium above 4 and to respectively within normal range. ? Primary team ordered echo, follow-up on the results ? Strict in and out ? Keep G-tube and connected to low intermittent suction due to high risk of aspiration #Upper versus less likely lower GI bleed #Developmental delay #Questionable SBO #History of schizophrenia #Hyperglycemia #Depression #Acute blood loss Plan ? Follow-up with the primary team recommendation Thank you for your consultation please do not hesitate to reach out if you have any question or concern - Patient's plan and care discussed with my attending, Dr. Diego Santos MD Internal Medicine PGY-3 Attending Provider Attestation/Addendum I have personally seen and examined the patient separately on the above date of service and discussed the plan of care with the resident. I reviewed the resident Dr. Santos consultation progress note and agree with the resident findings and plan in the note above and have also edited the documentation to reflect my findings and plan. Diego Rosas M.D. Interventional Cardiology
[2025-07-09 09:55] LABS: Basophils # (Auto) 0.0 Thou/mm3 (0.0-0.2); Basophils % (Auto) 0 % (0-2.5); Eosinophils # (Auto) 0.1 Thou/mm3 (0.0-0.5); Eosinophils % (Auto) 2 % (0-10); Hematocrit 23.4 % (41.0-53.0); Immature Granulocytes Auto 0.02 Thou/mm3 (0.00-0.00); Lymphocytes # (Auto) 0.7 Thou/mm3 (1.0-4.8); Lymphocytes % (Auto) 28 % (10-50); Mean Corpuscular HGB Conc 32.9 g/dl (31.0-37.0); Mean Corpuscular Hemoglobin 30.4 pg (25.0-35.0); Mean Corpuscular Volume 93 fL (80-100); Monocytes # (Auto) 0.1 Thou/mm3 (0.0-0.8); Monocytes % (Auto) 6 % (0-12); Neutrophils # (Auto) 1.5 Thou/mm3 (1.8-7.7); Neutrophils % (Auto) 63 % (37-80); Nucleated Red Blood Cell # 0.21 Thou/mm3 (0.00-0.00); Nucleated Red Blood Cell % 9 /100 WBC (0); Platelet Count 157 Thou/mm3 (140-440); RDW Standard Deviation 49.9 fL (35.1-43.9); Red Blood Count 2.53 Miln/mm3 (4.50-5.90); White Blood Count 2.3 Thou/mm3 (3.8-10.6)
[2025-07-09 09:56] LABS: Lactate (Lactic Acid) 4.3 mMol/L (0.4-2.0)
--- NOTE | 2025-07-09 09:58 | XR_ITS ---
Examination: AP chest single view TECHNIQUE: AP portable upright chest single view Date and time: July 09, 2025, 1010 hours, comparison July 09, 2025 0600 hours INDICATIONS: Orogastric tube reposition. FINDINGS: Orogastric tube satisfactory position Prominent bilateral perihilar pneumonia. Minor prominence of ventricle. Endotracheal tube tip 3.8 cm above lucio IMPRESSION: Prominent bilateral perihilar pneumonia
[2025-07-09 10:01] LABS: Hemoglobin 7.7 g/dL (13.5-16.0)
[2025-07-09] MEDS: ALBUTEROL/IPRATROPIUM (Duoneb) RT SOL 3 ML NEBU INH ×4 (10:08→23:05)
[2025-07-09] MEDS: PROPOFOL 1,000 MG IVPB 1,000 MG/100 ML VIAL 15.717 MG IV (10:32)
[2025-07-09] MEDS: RINGERS LACTATED 1000 ML 500 ML 999 ML IV (10:38)
[2025-07-09 10:56] LABS: Reflex Lactate? Y
[2025-07-09 11:48] LABS: Lactic Acid, 3 HR 4.1 mMol/L (0.4-2.0)
[2025-07-09 12:49] LABS: Reflex Lactate? Y
--- NOTE | 2025-07-09 13:51 | PD.RESPRO ---
Documentation for date of: 07/09/25 Exam Vital Signs Temp Pulse Resp BP Pulse Ox O2 Del Method O2 Flow Rate 97.5 F 132 H 24 H 128/91 H 96 Mechanical Ventilation 2 07/09/25 08:00 07/09/25 11:30 07/09/25 10:24 07/09/25 11:30 07/09/25 11:30 07/09/25 08:00 07/09/25 03:43 FiO2 100 07/09/25 10:24 Objective Labs 07/09/25 09:42 07/09/25 07:32 Labs: Laboratory Results - last 24 hr 07/08/25 07/09/25 07/09/25 20:03 04:00 04:00 WBC 10.5 RBC 2.42 L Hgb 7.9 L 7.5 L 7.5 L Hct 23.2 L 22.5 L MCV MCH MCHC RDW Std Deviation Plt Count Neut % (Auto) Lymph % (Auto) Conway % (Auto) Eos % (Auto) Baso % (Auto) Neut # (Auto) Lymph # (Auto) Conway # (Auto) Eos # (Auto) Baso # (Auto) Immature Gran # (Auto) Absolute Nucleated RBC Immature Gran % Nucleated RBC % Puncture Site ABG pH ABG pCO2 ABG pO2 ABG HCO3 ABG O2 Saturation ABG Base Excess FiO2 Sodium 142 Potassium 3.1 L Chloride 101 Carbon Dioxide 28.1 Anion Gap 13 BUN 17 Creatinine 1.0 Estim Creat Clear Calc 75.2 eGFR > 60 BUN/Creatinine Ratio 17 Glucose 180 H D Calculated Osmolality 289 Lactic Acid Calcium 8.3 Corrected Calcium Phosphorus Magnesium Total Bilirubin AST ALT Alkaline Phosphatase B-Natriuretic Peptide 40 Total Protein Albumin Globulin Albumin/Globulin Ratio Free T4 Blood Type Antibody Screen Crossmatch Blood Bank Wristband ID 07/09/25 07/09/25 07/09/25 04:00 04:00 04:00 WBC RBC Hgb Hct 22.5 L MCV 93 MCH 31.0 MCHC 33.3 RDW Std Deviation 50.1 H Plt Count 203 D Neut % (Auto) 83 H Lymph % (Auto) 11 Conway % (Auto) 6 Eos % (Auto) 0 Baso % (Auto) 0 Neut # (Auto) 8.7 H Lymph # (Auto) 1.1 Conway # (Auto) 0.6 Eos # (Auto) 0.0 Baso # (Auto) 0.0 Immature Gran # (Auto) 0.08 H Absolute Nucleated RBC 0.27 H Immature Gran % 1 H Nucleated RBC % 3 H Puncture Site ABG pH ABG pCO2 ABG pO2 ABG HCO3 ABG O2 Saturation ABG Base Excess FiO2 Sodium 140 142 Potassium 3.6 D 3.6 Chloride 101 Carbon Dioxide Anion Gap BUN Creatinine Estim Creat Clear Calc eGFR BUN/Creatinine Ratio Glucose Calculated Osmolality Lactic Acid Calcium Corrected Calcium Phosphorus Magnesium Total Bilirubin AST ALT Alkaline Phosphatase B-Natriuretic Peptide Total Protein Albumin Globulin Albumin/Globulin Ratio Free T4 Blood Type Antibody Screen [facility] Blood Bank Wristband ID 07/09/25 07/09/25 07/09/25 04:00 04:00 04:00 WBC RBC Hgb Hct MCV MCH MCHC RDW Std Deviation Plt Count Neut % (Auto) Lymph % (Auto) Conway % (Auto) Eos % (Auto) Baso % (Auto) Neut # (Auto) Lymph # (Auto) Conway # (Auto) Eos # (Auto) Baso # (Auto) Immature Gran # (Auto) Absolute Nucleated RBC Immature Gran % Nucleated RBC % Puncture Site ABG pH ABG pCO2 ABG pO2 ABG HCO3 ABG O2 Saturation ABG Base Excess FiO2 Sodium Potassium Chloride 100 Carbon Dioxide 24.8 26.8 Anion Gap 14 15 BUN 16 Creatinine Estim Creat Clear Calc eGFR BUN/Creatinine Ratio Glucose Calculated Osmolality Lactic Acid Calcium Corrected Calcium Phosphorus Magnesium Total Bilirubin AST ALT Alkaline Phosphatase B-Natriuretic Peptide Total Protein Albumin Globulin Albumin/Globulin Ratio Free T4 Blood Type Antibody Screen [facility] Blood Bank Wristband ID 07/09/25 07/09/25 07/09/25 04:00 04:00 04:00 WBC RBC Hgb Hct MCV MCH MCHC RDW Std Deviation Plt Count Neut % (Auto) Lymph % (Auto) Conway % (Auto) Eos % (Auto) Baso % (Auto) Neut # (Auto) Lymph # (Auto) [place] # (Auto) Eos # (Auto) Baso # (Auto) Immature Gran # (Auto) Absolute Nucleated RBC Immature Gran % Nucleated RBC % Puncture Site ABG pH ABG pCO2 ABG pO2 ABG HCO3 ABG O2 Saturation ABG Base Excess FiO2 Sodium Potassium Chloride Carbon Dioxide Anion Gap BUN 19 Creatinine 1.0 1.0 Estim Creat Clear Calc 75.2 75.2 eGFR > 60 BUN/Creatinine Ratio Glucose Calculated Osmolality Lactic Acid Calcium Corrected Calcium Phosphorus Magnesium Total Bilirubin AST ALT Alkaline Phosphatase B-Natriuretic Peptide Total Protein Albumin Globulin Albumin/Globulin Ratio Free T4 Blood Type Antibody Screen Crossmatch Blood Bank Wristband ID 07/09/25 07/09/25 07/09/25 04:00 04:00 04:00 WBC RBC Hgb Hct MCV MCH MCHC RDW Std Deviation Plt Count Neut % (Auto) Lymph % (Auto) Conway % (Auto) Eos % (Auto) Baso % (Auto) Neut # (Auto) Lymph # (Auto) [place] # (Auto) Eos # (Auto) Baso # (Auto) Immature Gran # (Auto) Absolute Nucleated RBC Immature Gran % Nucleated RBC % Puncture Site ABG pH ABG pCO2 ABG pO2 ABG HCO3 ABG O2 Saturation ABG Base Excess FiO2 Sodium Potassium Chloride Carbon Dioxide Anion Gap BUN Creatinine Estim Creat Clear Calc eGFR > 60 BUN/Creatinine Ratio 16 19 Glucose 223 H 222 H Calculated Osmolality 287 Lactic Acid Calcium Corrected Calcium Phosphorus Magnesium Total Bilirubin AST ALT Alkaline Phosphatase B-Natriuretic Peptide Total Protein Albumin Globulin Albumin/Globulin Ratio Free T4 Blood Type Antibody Screen Crossmatch Blood Bank Wristband ID 07/09/25 07/09/25 07/09/25 04:00 04:00 04:04 WBC RBC Hgb Hct MCV MCH MCHC RDW Std Deviation Plt Count Neut % (Auto) Lymph % (Auto) Conway % (Auto) Eos % (Auto) Baso % (Auto) Neut # (Auto) Lymph # (Auto) [place] # (Auto) Eos # (Auto) Baso # (Auto) Immature Gran # (Auto) Absolute Nucleated RBC Immature Gran % Nucleated RBC % Puncture Site Right Radial ABG pH 7.29 L ABG pCO2 57 H ABG pO2 86 ABG HCO3 28 H ABG O2 Saturation 96 ABG Base Excess 1 FiO2 21 Sodium Potassium Chloride Carbon Dioxide Anion Gap BUN Creatinine Estim Creat Clear Calc eGFR BUN/Creatinine Ratio Glucose Calculated Osmolality 292 Lactic Acid 3.4 H Calcium 7.8 L 7.8 L Corrected Calcium 8.0 L Phosphorus 5.3 H Magnesium 2.2 Total Bilirubin 0.5 AST 41 H ALT 22 Alkaline Phosphatase 40 L B-Natriuretic Peptide Total Protein 5.7 Albumin 3.7 Globulin 2.0 L Albumin/Globulin Ratio 1.9 Free T4 1.08 Blood Type A Positive Antibody Screen NEGATIVE Crossmatch See Detail Blood Bank Wristband ID Yes 07/09/25 07/09/25 07/09/25 07:32 09:42 11:31 WBC 2.3 L D RBC 2.53 L Hgb 7.7 L Hct 23.4 L MCV 93 MCH 30.4 MCHC 32.9 RDW Std Deviation 49.9 H Plt Count 157 D Neut % (Auto) 63 Lymph % (Auto) 28 Conway % (Auto) 6 Eos % (Auto) 2 Baso % (Auto) 0 Neut # (Auto) 1.5 L Lymph # (Auto) 0.7 L [place] # (Auto) 0.1 Eos # (Auto) 0.1 Baso # (Auto) 0.0 Immature Gran # (Auto) 0.02 H Absolute Nucleated RBC 0.21 H Immature Gran % 1 H Nucleated RBC % 9 H Puncture Site ABG pH ABG pCO2 ABG pO2 ABG HCO3 ABG O2 Saturation ABG Base Excess FiO2 Sodium 142 Potassium 3.3 L Chloride 103 Carbon Dioxide 26.5 Anion Gap 13 BUN 17 Creatinine 1.0 Estim Creat Clear Calc 75.5 eGFR > 60 BUN/Creatinine Ratio 17 Glucose 163 H D Calculated Osmolality 288 Lactic Acid 3.4 H 4.3 H* 4.1 H* Calcium 7.8 L Corrected Calcium Phosphorus Magnesium Total Bilirubin AST ALT Alkaline Phosphatase B-Natriuretic Peptide Total Protein Albumin Globulin Albumin/Globulin Ratio Free T4 Blood Type Antibody Screen Crossmatch Blood Bank Wristband ID ABG Interpretation ABG results: 07/09/25 04:04 ABG pH 7.29 L ABG pCO2 57 H ABG pO2 86 ABG HCO3 28 H ABG O2 Saturation 96 ABG Base Excess 1 Quality Measures Quality Measures sepsis Possible source: GI tract/intra-abdominal Blood cultures ordered: no Assessment & Plan Assessment Current Active Medications: Generic Name Dose Route Start Last Admin Trade Name Freq PRN Reason Stop Dose Admin Acetaminophen 1,000 mg 07/07/25 15:20 Acetaminophen 500 Mg Tablet PO 08/05/25 15:39 On Hold: 07/09/25 11:11 Q6H PRN PAIN OR FEVER > 99.9 Acetaminophen 1,000 mg 07/09/25 12:02 Acetaminophen Flavia 325 Mg/10 Ml Udc GT 08/08/25 11:59 Q6HR PRN PAIN 1-3 OR FEVER > 101 Albuterol/Ipratropium 3 ml 07/09/25 09:32 07/09/25 10:08 Albuterol/Ipratropium (Duoneb) Rt Flavia 3 Ml Nebu INH 08/08/25 09:31 3 ml Q4HRRT RHINA Administration Clonazepam 1 mg 07/07/25 06:00 07/09/25 05:25 Clonazepam 0.5 Mg Tablet PO 07/12/25 05:59 1 mg TID RHINA Administration Fluvoxamine 100 Mg 0 ea 07/06/25 21:00 07/09/25 10:03 Tablet PO 08/05/25 20:59 Not Given BID RHINA Dextrose 50 ml 07/06/25 15:47 Dextrose 50%-Water Inj 50 Ml Syringe IV 08/05/25 15:46 Q15MIN PRN BG <50 OR BG <70 & pt unresponsive Glucagon 1 mg 07/06/25 15:47 Glucagon Inj 1 Mg Vial IM Q15MIN PRN BG <70, and no IV access Fentanyl Citrate 2,500 mcg in 250 mls @ 2.5 mls/hr 07/09/25 03:29 07/09/25 08:50 Sublimaze Inj 2,500 Mcg/250 Ml Bag IV 07/14/25 03:28 225 mcg/hr .Q24H PRN 22.5 mls/hr PER PROTOCOL Titration Protocol 25 MCG/HR Propofol 1,000 mg in 100 mls @ 2.245 mls/hr 07/09/25 03:29 07/09/25 10:32 Diprivan Ivpb IV 08/08/25 03:28 35 mcg/kg/min .Q24H PRN 15.717 mls/hr PER PROTOCOL Administration Protocol 5 MCG/KG/MIN Lactated Ringer's 1,000 mls @ 100 mls/hr 07/09/25 05:25 07/09/25 05:53 Lactated Ringers IV 08/08/25 05:24 100 mls/hr .Q10H RHINA Administration Insulin Human Lispro 0 unit 07/06/25 18:00 07/09/25 12:13 Insulin Lispro (Admelog) 1 Unit/0.01 Ml Unit SC 08/05/25 17:59 Not Given Q6HR RHINA Protocol Ondansetron HCl 4 mg 07/06/25 15:40 Ondansetron Inj 2 Mg/Ml Inj 2 Ml IVP 08/05/25 15:39 Q6H PRN NAUSEA OR VOMITING Protocol Pantoprazole Sodium 40 mg 07/06/25 21:00 07/09/25 08:25 Pantoprazole Inj 40 Mg Vial IVP 08/05/25 20:59 40 mg Q12HR RHINA Administration Polyethylene Glycol/Electrolytes 4,000 ml 07/07/25 15:31 07/09/25 03:03 Na Jj/Nahco3/Rio/Peg (Golytely) 4,000 Ml Btl PO 08/06/25 15:30 4,000 ml PRN PRN Administration SEE COMMENTS Risperidone 1 mg 07/06/25 21:00 07/08/25 08:18 Risperidone 1 Mg Tablet PO 08/05/25 20:59 1 mg On Hold: 07/08/25 14:57 BID RHINA Administration Comment: PER MD WARE
[2025-07-09 14:15] LABS: Lactate (Lactic Acid) 4.0 mMol/L (0.4-2.0)
--- NOTE | 2025-07-09 15:02 | PC.SS ---
Update: Patient is intubated. Patient is not sedated. Patient is not receiving pressor support. NG tube in place. Feedings on hold. Patient is afebrile. Receiving IV antibiotics. Dr. Benavides consulting. Cardiology consulting.
[2025-07-09] MEDS: NA SU/NAHCO3/KC/PEG (Golytely) 4,000 ML BTL 4000 ML GT (15:59)
[2025-07-09] MEDS: ACETAMINOPHEN SOL 325 MG/10 ML UDC 1000 MG GT ×2 (16:07→20:22)
--- NOTE | 2025-07-09 16:36 | PC.DIETICIAN ---
Nutrition prescription If EN is indicated, consider: Vital 1.2 at 20 ml/hr via OG/NG/PEG tube by pump. Advance 10 ml every 8 hrs to goal rate of 60 ml/hr x 24 hrs. If no IV fluids, water flushes of 25 ml/hr (or per MD).
[2025-07-09] MEDS: DEXMEDETOMIDINE 400 MCG IVPB 400 MCG/100 ML BAG IV (17:03)
[2025-07-09 17:04] LABS: Reflex Lactate? Y
[2025-07-09] MEDS: RINGERS LACTATED 1000 ML 1,000 ML 999 ML IV (17:04)
[2025-07-09 17:28] LABS: Lactic Acid, 3 HR 3.0 mMol/L (0.4-2.0)
--- NOTE | 2025-07-09 22:18 | PD.IMPROG ---
Documentation for date of: 07/09/25 Subjective Subjective Interval history: Patient evaluated In the ICU intubated working diagnosis he may have aspirated Exam Vital Signs Temp Pulse Resp BP Pulse Ox O2 Del Method O2 Flow Rate 99.7 F 119 H 26 H 115/67 95 Mechanical Ventilation 45 07/09/25 21:01 07/09/25 21:30 07/09/25 19:57 07/09/25 21:30 07/09/25 21:30 07/09/25 20:00 07/09/25 20:00 FiO2 40 07/09/25 20:00 Objective Labs 07/09/25 09:42 07/09/25 07:32 Labs: Laboratory Results - last 24 hr 07/09/25 07/09/25 07/09/25 04:00 04:00 04:00 WBC 10.5 RBC 2.42 L Hgb 7.5 L 7.5 L Hct 22.5 L 22.5 L MCV 93 MCH 31.0 MCHC 33.3 RDW Std Deviation 50.1 H Plt Count 203 D Neut % (Auto) 83 H Lymph % (Auto) 11 [place] % (Auto) 6 Eos % (Auto) 0 Baso % (Auto) 0 Neut # (Auto) 8.7 H Lymph # (Auto) 1.1 [place] # (Auto) 0.6 Eos # (Auto) 0.0 Baso # (Auto) 0.0 Immature Gran # (Auto) 0.08 H Absolute Nucleated RBC 0.27 H Immature Gran % 1 H Nucleated RBC % 3 H Puncture Site ABG pH ABG pCO2 ABG pO2 ABG HCO3 ABG O2 Saturation ABG Base Excess FiO2 Sodium 140 Potassium Chloride Carbon Dioxide Anion Gap BUN Creatinine Estim Creat Clear Calc eGFR BUN/Creatinine Ratio Glucose Calculated Osmolality Lactic Acid Calcium Corrected Calcium Phosphorus Magnesium Total Bilirubin AST ALT Alkaline Phosphatase Total Protein Albumin Globulin Albumin/Globulin Ratio Free T4 Blood Type Antibody Screen Crossmatch Blood Bank Wristband ID 07/09/25 07/09/25 07/09/25 04:00 04:00 04:00 WBC RBC Hgb Hct MCV MCH MCHC RDW Std Deviation Plt Count Neut % (Auto) Lymph % (Auto) [place] % (Auto) Eos % (Auto) Baso % (Auto) Neut # (Auto) Lymph # (Auto) [place] # (Auto) Eos # (Auto) Baso # (Auto) Immature Gran # (Auto) Absolute Nucleated RBC Immature Gran % Nucleated RBC % Puncture Site ABG pH ABG pCO2 ABG pO2 ABG HCO3 ABG O2 Saturation ABG Base Excess FiO2 Sodium 142 Potassium 3.6 D 3.6 Chloride 101 100 Carbon Dioxide 24.8 Anion Gap BUN Creatinine Estim Creat Clear Calc eGFR BUN/Creatinine Ratio Glucose Calculated Osmolality Lactic Acid Calcium Corrected Calcium Phosphorus Magnesium Total Bilirubin AST ALT Alkaline Phosphatase Total Protein Albumin Globulin Albumin/Globulin Ratio Free T4 Blood Type Antibody Screen [place] Blood Bank Wristband ID 07/09/25 07/09/25 07/09/25 04:00 04:00 04:00 WBC RBC Hgb Hct MCV MCH MCHC RDW Std Deviation Plt Count Neut % (Auto) Lymph % (Auto) [place] % (Auto) Eos % (Auto) Baso % (Auto) Neut # (Auto) Lymph # (Auto) [place] # (Auto) Eos # (Auto) Baso # (Auto) Immature Gran # (Auto) Absolute Nucleated RBC Immature Gran % Nucleated RBC % Puncture Site ABG pH ABG pCO2 ABG pO2 ABG HCO3 ABG O2 Saturation ABG Base Excess FiO2 Sodium Potassium Chloride Carbon Dioxide 26.8 Anion Gap 14 15 BUN 16 19 Creatinine 1.0 Estim Creat Clear Calc eGFR BUN/Creatinine Ratio Glucose Calculated Osmolality Lactic Acid Calcium Corrected Calcium Phosphorus Magnesium Total Bilirubin AST ALT Alkaline Phosphatase Total Protein Albumin Globulin Albumin/Globulin Ratio Free T4 Blood Type Antibody Screen [facility] Blood [facility] Wristband ID 07/09/25 07/09/25 07/09/25 04:00 04:00 04:00 WBC RBC Hgb Hct MCV MCH MCHC RDW Std Deviation Plt Count Neut % (Auto) Lymph % (Auto) [place] % (Auto) Eos % (Auto) Baso % (Auto) Neut # (Auto) Lymph # (Auto) [place] # (Auto) Eos # (Auto) Baso # (Auto) Immature Gran # (Auto) Absolute Nucleated RBC Immature Gran % Nucleated RBC % Puncture Site ABG pH ABG pCO2 ABG pO2 ABG HCO3 ABG O2 Saturation ABG Base Excess FiO2 Sodium Potassium Chloride Carbon Dioxide Anion Gap BUN Creatinine 1.0 Estim Creat Clear Calc 75.2 75.2 eGFR > 60 > 60 BUN/Creatinine Ratio 16 Glucose Calculated Osmolality Lactic Acid Calcium Corrected Calcium Phosphorus Magnesium Total Bilirubin AST ALT Alkaline Phosphatase Total Protein Albumin Globulin Albumin/Globulin Ratio Free T4 Blood Type Antibody Screen [place] Blood Bank Wristband ID 07/09/25 07/09/25 07/09/25 04:00 04:00 04:00 WBC RBC Hgb Hct MCV MCH MCHC RDW Std Deviation Plt Count Neut % (Auto) Lymph % (Auto) [place] % (Auto) Eos % (Auto) Baso % (Auto) Neut # (Auto) Lymph # (Auto) [place] # (Auto) Eos # (Auto) Baso # (Auto) Immature Gran # (Auto) Absolute Nucleated RBC Immature Gran % Nucleated RBC % Puncture Site ABG pH ABG pCO2 ABG pO2 ABG HCO3 ABG O2 Saturation ABG Base Excess FiO2 Sodium Potassium Chloride Carbon Dioxide Anion Gap BUN Creatinine Estim Creat Clear Calc eGFR BUN/Creatinine Ratio 19 Glucose 223 H 222 H Calculated Osmolality 287 292 Lactic Acid 3.4 H Calcium 7.8 L Corrected Calcium Phosphorus Magnesium Total Bilirubin AST ALT Alkaline Phosphatase Total Protein Albumin Globulin Albumin/Globulin Ratio Free T4 Blood Type Antibody Screen Crossmatch Blood Bank Wristband ID 07/09/25 07/09/25 07/09/25 04:00 04:04 07:32 WBC RBC Hgb Hct MCV MCH MCHC RDW Std Deviation Plt Count Neut % (Auto) Lymph % (Auto) [place] % (Auto) Eos % (Auto) Baso % (Auto) Neut # (Auto) Lymph # (Auto) [place] # (Auto) Eos # (Auto) Baso # (Auto) Immature Gran # (Auto) Absolute Nucleated RBC Immature Gran % Nucleated RBC % Puncture Site Right Radial ABG pH 7.29 L ABG pCO2 57 H ABG pO2 86 ABG HCO3 28 H ABG O2 Saturation 96 ABG Base Excess 1 FiO2 21 Sodium 142 Potassium 3.3 L Chloride 103 Carbon Dioxide 26.5 Anion Gap 13 BUN 17 Creatinine 1.0 Estim Creat Clear Calc 75.5 eGFR > 60 BUN/Creatinine Ratio 17 Glucose 163 H D Calculated Osmolality 288 Lactic Acid 3.4 H Calcium 7.8 L 7.8 L Corrected Calcium 8.0 L Phosphorus 5.3 H Magnesium 2.2 Total Bilirubin 0.5 AST 41 H ALT 22 Alkaline Phosphatase 40 L Total Protein 5.7 Albumin 3.7 Globulin 2.0 L Albumin/Globulin Ratio 1.9 Free T4 1.08 Blood Type A Positive Antibody Screen NEGATIVE Crossmatch See Detail Blood Bank Wristband ID Yes 07/09/25 07/09/25 07/09/25 09:42 11:31 13:48 WBC 2.3 L D RBC 2.53 L Hgb 7.7 L Hct 23.4 L MCV 93 MCH 30.4 MCHC 32.9 RDW Std Deviation 49.9 H Plt Count 157 D Neut % (Auto) 63 Lymph % (Auto) 28 [place] % (Auto) 6 Eos % (Auto) 2 Baso % (Auto) 0 Neut # (Auto) 1.5 L Lymph # (Auto) 0.7 L [place] # (Auto) 0.1 Eos # (Auto) 0.1 Baso # (Auto) 0.0 Immature Gran # (Auto) 0.02 H Absolute Nucleated RBC 0.21 H Immature Gran % 1 H Nucleated RBC % 9 H Puncture Site ABG pH ABG pCO2 ABG pO2 ABG HCO3 ABG O2 Saturation ABG Base Excess FiO2 Sodium Potassium Chloride Carbon Dioxide Anion Gap BUN Creatinine Estim Creat Clear Calc eGFR BUN/Creatinine Ratio Glucose Calculated Osmolality Lactic Acid 4.3 H* 4.1 H* 4.0 H Calcium Corrected Calcium Phosphorus Magnesium Total Bilirubin AST ALT Alkaline Phosphatase Total Protein Albumin Globulin Albumin/Globulin Ratio Free T4 Blood Type Antibody Screen Crossmatch Blood Bank Wristband ID 07/09/25 17:20 WBC RBC Hgb Hct MCV MCH MCHC RDW Std Deviation Plt Count Neut % (Auto) Lymph % (Auto) [place] % (Auto) Eos % (Auto) Baso % (Auto) Neut # (Auto) Lymph # (Auto) [place] # (Auto) Eos # (Auto) Baso # (Auto) Immature Gran # (Auto) Absolute Nucleated RBC Immature Gran % Nucleated RBC % Puncture Site ABG pH ABG pCO2 ABG pO2 ABG HCO3 ABG O2 Saturation ABG Base Excess FiO2 Sodium Potassium Chloride Carbon Dioxide Anion Gap BUN Creatinine Estim Creat Clear Calc eGFR BUN/Creatinine Ratio Glucose Calculated Osmolality Lactic Acid 3.0 H Calcium Corrected Calcium Phosphorus Magnesium Total Bilirubin AST ALT Alkaline Phosphatase Total Protein Albumin Globulin Albumin/Globulin Ratio Free T4 Blood Type Antibody Screen Crossmatch Blood Bank Wristband ID Impressions Impression: GI bleed Continue the prep through the NGT and colonoscopy while patient is intubated tomorrow ABG Interpretation ABG results: 07/09/25 04:04 ABG pH 7.29 L ABG pCO2 57 H ABG pO2 86 ABG HCO3 28 H ABG O2 Saturation 96 ABG Base Excess 1 Assessment & Plan A&P Narrative Hematochezia Plan clear liquid diet n.p.o. at midnight tonight except p.o. meds Consent for fiberoptic esophagogastroduodenoscopy with possible biopsy possible therapeutic intervention under intravenous moderate sedation If EGD negative we will consider doing a fibrotic colonoscopy prior to discharge Serial CBC IV Protonix Thank you very much for the opportunity to participate in the care of this Time Spent With Patient Time: Total time spent is greater than 50% in coordination of care (as documented) at patient's floor/unit and/or counseling patient:
[2025-07-10] VITALS (54 sets, daily range): BP systolic 94–141; BP diastolic 57–90; PULSE 97–126; RESP 16–28; TEMP 35.9–37.7; O2SAT 78–100
[2025-07-10] MEDS: ACETAMINOPHEN SOL 325 MG/10 ML UDC 1000 MG GT ×2 (00:07→05:19)
[2025-07-10] MEDS: ALBUTEROL/IPRATROPIUM (Duoneb) RT SOL 3 ML NEBU INH ×6 (03:56→22:33)
[2025-07-10] MEDS: INSULIN LISPRO (AdmeLOG) 1 UNIT/0.01 ML UNIT SC (05:19)
[2025-07-10 05:55] LABS: Basophils # (Auto) 0.0 Thou/mm3 (0.0-0.2); Basophils % (Auto) 0 % (0-2.5); Eosinophils # (Auto) 0.0 Thou/mm3 (0.0-0.5); Eosinophils % (Auto) 0 % (0-10); Immature Granulocytes Auto 0.17 Thou/mm3 (0.00-0.00); Lymphocytes # (Auto) 0.6 Thou/mm3 (1.0-4.8); Lymphocytes % (Auto) 7 % (10-50); Mean Corpuscular HGB Conc 32.3 g/dl (31.0-37.0); Mean Corpuscular Hemoglobin 30.1 pg (25.0-35.0); Mean Corpuscular Volume 93 fL (80-100); Monocytes # (Auto) 0.4 Thou/mm3 (0.0-0.8); Monocytes % (Auto) 4 % (0-12); Neutrophils # (Auto) 8.5 Thou/mm3 (1.8-7.7); Neutrophils % (Auto) 88 % (37-80); Nucleated Red Blood Cell # 0.05 Thou/mm3 (0.00-0.00); Nucleated Red Blood Cell % 1 /100 WBC (0); Platelet Count 149 Thou/mm3 (140-440); RDW Standard Deviation 51.5 fL (35.1-43.9); Red Blood Count 2.09 Miln/mm3 (4.50-5.90); White Blood Count 9.7 Thou/mm3 (3.8-10.6)
[2025-07-10 06:04] LABS: Hematocrit 19.5 % (41.0-53.0); Hemoglobin 6.3 g/dL (13.5-16.0)
[2025-07-10 06:24] LABS: Anion Gap 14 (7-16); BUN/Creatinine Ratio 16 Ratio (12-20); Blood Urea Nitrogen 18 mg/dL (9-23); Calcium 8.3 mg/dL (8.3-10.6); Carbon Dioxide 28.8 mMol/L (20.0-31.0); Chloride 100 mMol/L (98-107); Creatinine (Component) 1.1 mg/dL (0.6-1.3); Estimated Creatinine Clearance 72.7 mL/min (>60); Glucose 169 mg/dL (74-106); Magnesium 2.2 mg/dL (1.6-2.6); Osmolality,Calculated 290 (275-295); Phosphorous 3.3 mg/dL (2.4-5.1); Potassium 3.3 mMol/L (3.4-5.1); Sodium 143 mMol/L (136-145); eGFR > 60 See Note
--- NOTE | 2025-07-10 06:45 | ESPR_ITS ---
Documentation for date of: 07/10/25 Subjective Subjective Interval history: A 60-year-old male with a known history of schizophrenia, hyperlipidemia, and developmental delay was brought to the ED from his skilled nursing due to acute abdominal pain that began a few hours prior to arrival. Due to his chronic cognitive and psychiatric baseline, the patient was unable to provide a reliable history. Most of the information was obtained from his caregiver, Charu Jean. According to the caregiver, the patient?s abdominal pain progressively worsened. He then had one episode of black, tarry, liquid stool (melena). Staff at the facility noted an elevated heart rate in the 140s and observed that he appeared tachypneic. She denied any associated fever, chills, cough, sick contacts, or seizures. ED Course: In the emergency department, the patient was found to be: Tachycardic: HR 129 bpm BP: 119/72 mmHg WBC: 28.9 (leukocytosis) Hemoglobin: 5.8 g/dL (significant anemia) Lactic Acid: 7.3 mmol/L (suggestive of tissue hypoperfusion) Blood Glucose: 296 mg/dL The patient was resuscitated with 2 liters of IV fluids and transfused with 2 units of packed red blood cells (PRBCs). Imaging: Chest X-ray: Prominent left ventricular silhouette and moderate elevation of the right hemidiaphragm. CT Angiogram (Abdomen & Pelvis):Significant scarring at the lateral margin of the right kidney.No hydronephrosis or ureteral calculi. Abdominal X-ray (after rapid response event): No evidence of small bowel obstruction (SBO); mild colonic and small bowel ileus noted. Patient was admitted for acute GI bleed treatment and management. During hospital stay EGD was not done which showed few small bleeding erosions on GE junction, patchy mild erythematous mucosa without bleeding was found in the gastric antrum. Per tool grinder operator surface recommendation patient started on clear liquid diet and GoLytely. However during hospital stay multiple rapid response was called due to diaphoresis and abdominal pain, patient was in acute distress, tachycardic NG tube placement had failed as patient kept coughing up the NG tube. Later patient was alert and oriented and refused another trial of NG tube placement per sign out. Patient started receiving GoLytely. Later today at around 3 AM rapid response was called, patient was found unresponsive, patient was vomited, most likely had aspiration pneumonia. Subsequently decision was made to intubate the patient for airway protection. Interval History 07/09/2025: Patient was examined at bedside; they remain intubated with sporadic episodes of shivering/shaking noted. On physical exam, patient's abdomen seems somewhat distended with hypoactive bowel sounds (though , who was present at the time, seems to think the patient appear less distended today than yesterday). Current plan is to support patient's respiratory processes by scheduling Duoneb q4HR while conducting daily SATs. Due to lack of lobar consolidation seen on CXR, patient is likely not experiencing any current pneumonia and can have their IV ceftriaxone discontinued. Patient's lactic acid up-trended from 3.4 to 4.3 this morning (most likely hypovolemic 2/2 dehydration in nature), will do further work-up and infuse w/ bolus in the meantime (and trend lactic acid). Patient apparently also had another episode of bloody BM last night; will consult GI regarding their plans for this moving forward. 07/10/2025: Overnight, patient received a transfusion of pRBCs due to his Hgb dropping to 6.3 from 7.7. He was also hypokalemic today and given IV potassium chloride 40 mg x2 for electrolyte repletion. Patient was examined at bedside; he is no longer being sedated with Precedex and was extubated today (07/10) around 11:50. Patient was originally planned to be downgraded today after extubation but this has been postponed due to his SpO2 dropping shortly after, requiring him to be put on high-flow nasal cannula. Patient has been receiving GoLytely in preparation for his scheduled lower endoscopy tonight by GI in order to locate a source of active bleeding. Also, a new, reducible, suprapubic mass (currently suspected to be a right inguinal hernia 2/2 increased intraabdominal pressure) was noted on physical exam. Lactic acid has downtrended from 4.0 to 3.0. 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 Exam Vital Signs Temp Pulse Resp BP Pulse Ox O2 Del Method O2 Flow Rate 99.3 F 101 H 24 H 96/65 97 Mechanical Ventilation 45 07/10/25 06:00 07/10/25 06:39 07/10/25 06:39 07/10/25 06:39 07/10/25 06:39 07/10/25 04:00 07/10/25 06:00 FiO2 45 07/10/25 06:39 Narrative Exam Physical Exam: General: On high-flow nasal cannula. A/O x3. Skin: Warm, dry, intact, no obvious rash. Head: Normocephalic, atraumatic. Eyes: EOMI. Anicteric, vision grossly intact. Ears: No ear pain, no ear discharge, Hearing grossly intact. Mouth/Throat: Oral mucosa moist. No obvious lesions in oropharynx. Neck: Neck supple, non-tender, no cervical lymphadenopathy. Cardiovascular: Tachycardic rate and normal rhythm, no murmur, no JVD or carotid bruits. +S1/S2. Respiratory: Coarse breath sounds bilaterally. Labored respirations. No crackles, no wheezing. No accessory muscle use. Gastrointestinal: Abdominal distention with hypoactive bowel sounds. New right- sided palpable and reducible mass at suprapubic region. No guarding or rebound tenderness. Extremities: Symmetrical, no significant deformities. No edema, no cyanosis, no clubbing. 2+ radial pulse bilaterally, 2+ posterior tibial pulse bilaterally. Neuro: No focal deficits observed. Conversant, moving all extremities. No overt cerebellar signs/incoordination. Psychiatric: Cooperative, appropriate affect. Objective Labs 07/11/25 04:40 07/11/25 04:40 Labs: Laboratory Results - last 24 hr 07/06/25 07/09/25 07/09/25 10:11 04:00 07:32 WBC RBC Hgb Hct MCV MCH MCHC RDW Std Deviation Plt Count Neut % (Auto) Lymph % (Auto) Greenlee % (Auto) Eos % (Auto) Baso % (Auto) Neut # (Auto) Lymph # (Auto) Greenlee # (Auto) Eos # (Auto) Baso # (Auto) Immature Gran # (Auto) Absolute Nucleated RBC Immature Gran % Nucleated RBC % Sodium 142 Potassium 3.3 L Chloride 103 Carbon Dioxide 26.5 Anion Gap 13 BUN 17 Creatinine 1.0 Estim Creat Clear Calc 75.5 eGFR > 60 BUN/Creatinine Ratio 17 Glucose 163 H D Calculated Osmolality 288 Lactic Acid 3.4 H Calcium 7.8 L Phosphorus Magnesium Misc Test Result See Sep Rpt Blood Type A Positive Antibody Screen NEGATIVE Crossmatch See Detail See Detail Blood Bank Wristband ID Yes 07/09/25 07/09/25 07/09/25 09:42 11:31 13:48 WBC 2.3 L D RBC 2.53 L Hgb 7.7 L Hct 23.4 L MCV 93 MCH 30.4 MCHC 32.9 RDW Std Deviation 49.9 H Plt Count 157 D Neut % (Auto) 63 Lymph % (Auto) 28 Greenlee % (Auto) 6 Eos % (Auto) 2 Baso % (Auto) 0 Neut # (Auto) 1.5 L Lymph # (Auto) 0.7 L Greenlee # (Auto) 0.1 Eos # (Auto) 0.1 Baso # (Auto) 0.0 Immature Gran # (Auto) 0.02 H Absolute Nucleated RBC 0.21 H Immature Gran % 1 H Nucleated RBC % 9 H Sodium Potassium Chloride Carbon Dioxide Anion Gap BUN Creatinine Estim Creat Clear Calc eGFR BUN/Creatinine Ratio Glucose Calculated Osmolality Lactic Acid 4.3 H* 4.1 H* 4.0 H Calcium Phosphorus Magnesium Misc Test Result Blood Type Antibody Screen Crossmatch Blood Bank Wristband ID 07/09/25 07/10/25 17:20 04:26 WBC 9.7 D RBC 2.09 L Hgb 6.3 L* Hct 19.5 L* MCV 93 MCH 30.1 MCHC 32.3 RDW Std Deviation 51.5 H Plt Count 149 Neut % (Auto) 88 H Lymph % (Auto) 7 L Greenlee % (Auto) 4 Eos % (Auto) 0 Baso % (Auto) 0 Neut # (Auto) 8.5 H Lymph # (Auto) 0.6 L Greenlee # (Auto) 0.4 Eos # (Auto) 0.0 Baso # (Auto) 0.0 Immature Gran # (Auto) 0.17 H Absolute Nucleated RBC 0.05 H Immature Gran % 2 H Nucleated RBC % 1 H Sodium 143 Potassium 3.3 L Chloride 100 Carbon Dioxide 28.8 Anion Gap 14 BUN 18 Creatinine 1.1 Estim Creat Clear Calc 72.7 eGFR > 60 BUN/Creatinine Ratio 16 Glucose 169 H Calculated Osmolality 290 Lactic Acid 3.0 H Calcium 8.3 Phosphorus 3.3 Magnesium 2.2 Misc Test Result Blood Type Antibody Screen Crossmatch Blood Bank Wristband ID ABG Interpretation ABG results: 07/09/25 04:04 ABG pH 7.29 L ABG pCO2 57 H ABG pO2 86 ABG HCO3 28 H ABG O2 Saturation 96 ABG Base Excess 1 Quality Measures Quality Measures sepsis Current suspected stage: ruled out Possible source: GI tract/intra- abdominal Blood cultures ordered: no Antibiotic ordered: Yes Assessment & Plan Assessment Current Active Medications: Generic Name Dose Route Start Last Admin Trade Name Freq PRN Reason Stop Dose Admin Acetaminophen 1,000 mg 07/07/25 15:20 Acetaminophen 500 Mg Tablet PO 08/05/25 15:39 On Hold: 07/09/25 11:11 Q6H PRN PAIN OR FEVER > 99.9 Acetaminophen 1,000 mg 07/09/25 19:00 07/10/25 05:19 Acetaminophen Flavia 325 Mg/10 Ml Udc GT 08/08/25 18:59 1,000 mg Q6HR RHINA Administration Albuterol/Ipratropium 3 ml 07/09/25 09:32 07/10/25 03:56 Albuterol/Ipratropium (Duoneb) Rt Flavia 3 Ml Nebu INH 08/08/25 09:31 3 ml Q4HRRT RHINA Administration Clonazepam 1 mg 07/07/25 06:00 07/10/25 05:19 Clonazepam 0.5 Mg Tablet PO 07/12/25 05:59 1 mg TID RHINA Administration Fluvoxamine 100 Mg 0 ea 07/06/25 21:00 07/09/25 20:29 Tablet PO 08/05/25 20:59 Not Given BID RHIAN Dextrose 50 ml 07/06/25 15:47 Dextrose 50%-Water Inj 50 Ml Syringe IV 08/05/25 15:46 Q15MIN PRN BG <50 OR BG <70 & pt unresponsive Glucagon 1 mg 07/06/25 15:47 Glucagon Inj 1 Mg Vial IM Q15MIN PRN BG <70, and no IV access Fentanyl Citrate 2,500 mcg in 250 mls @ 2.5 mls/hr 07/09/25 03:29 07/09/25 10:48 Sublimaze Inj 2,500 Mcg/250 Ml Bag IV 07/14/25 03:28 0 mcg/hr On Hold: 07/09/25 15:01 .Q24H PRN 0 mls/hr PER PROTOCOL Titration Protocol 25 MCG/HR Propofol 1,000 mg in 100 mls @ 2.245 mls/hr 07/09/25 03:29 07/09/25 10:48 Diprivan Ivpb IV 08/08/25 03:28 0 mcg/kg/min On Hold: 07/09/25 15:01 .Q24H PRN 0 mls/hr PER PROTOCOL Titration Protocol 5 MCG/KG/MIN Ceftriaxone Sodium/Dextrose 1 gm in 50 mls @ 100 mls/hr 07/10/25 09:00 Rocephin/D5w 1gm Iv Premix IV 07/17/25 08:59 QDAY RHINA Dexmedetomidine/Sodium Chloride 400 mcg in 100 mls @ 2.835 mls/hr 07/09/25 17:00 07/10/25 01:00 Precedex Ivpb IV 08/08/25 16:59 0.15 mcg/kg/hr .Q24H RHINA 2.835 mls/hr Protocol Titration 0.15 MCG/KG/HR Insulin Human Lispro 0 unit 07/06/25 18:00 07/10/25 05:19 Insulin Lispro (Admelog) 1 Unit/0.01 Ml Unit SC 08/05/25 17:59 1 unit Q6HR RHINA Administration Protocol Ondansetron HCl 4 mg 07/06/25 15:40 Ondansetron Inj 2 Mg/Ml Inj 2 Ml IVP 08/05/25 15:39 Q6H PRN NAUSEA OR VOMITING Protocol Pantoprazole Sodium 40 mg 07/06/25 21:00 07/09/25 20:23 Pantoprazole Inj 40 Mg Vial IVP 08/05/25 20:59 40 mg Q12HR RHINA Administration Polyethylene Glycol/Electrolytes 4,000 ml 07/07/25 15:31 07/09/25 03:03 Na Jj/Nahco3/Rio/Peg (Golytely) 4,000 Ml Btl PO 08/06/25 15:30 4,000 ml PRN PRN Administration SEE COMMENTS Risperidone 1 mg 07/06/25 21:00 07/09/25 20:23 Risperidone 1 Mg Tablet PO 08/05/25 20:59 1 mg BID RHINA Administration Plan 60-year-old male with past medical history of schizophrenia, hyperlipidemia, developmental delay was admitted initially for GI bleed, however hospital course was complicated with acute encephalopathy 2/2 aspiration leading to intubation for airway protection. Overnight, patient received a transfusion of pRBCs due to his Hgb dropping to 6.3 from 7.7. He was also hypokalemic today and given IV potassium chloride 40 mg x2 for electrolyte repletion. Patient was examined at bedside; he is no longer being sedated with Precedex and was extubated today (07/10) around 11:50. Patient was originally planned to be downgraded today after extubation but this has been postponed due to his SpO2 dropping shortly after, requiring him to be put on high-flow nasal cannula. Patient has been receiving GoLytely in preparation for his scheduled lower endoscopy tonight by GI in order to locate a source of active bleeding. Also, a new, reducible, suprapubic mass (currently suspected to be a right inguinal hernia 2/2 increased intraabdominal pressure) was noted on physical exam. Lactic acid has downtrended from 4.0 to 3.0. 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 #Chemical sedation Previously being sedated with fentanyl and propofol, then Precedex alone Sedation stopped since 07/10 #History of schizophrenia #History of depression #History of anxiety Rx: -Patient is scheduled for lower endoscopy today so all of his home medications are being held until after the procedure is complete [facility] No active issues Respiratory #Acute hypercapnic respiratory failure #Aspiration event #?Aspiration pneumonia 07/06-07/09 CXR didn't seem to show any lobar consolidation nor other findings that might be suggestive of aspiration pneumonia Currently suspect that patient's respiratory failure was due to his aspiration of GoLytely Patient was extubated 07/10 but is currently requiring 30 L high-flow nasal cannula w/ FiO2 of 40% Dx: -Per Rads, 07/10 CXR suggests right lateral pneumonia Rx: -Started IV ceftriaxone 1 gm qD (07/10--) -Continue INH Duonebs q4HR scheduled -Continue INH sodium chloride 3 mL nebulizer prn -Continue chest physiotherapy RRx: -Follow-up with ABG, CBC, and CMP GI #GI bleed/anemia #Hematochezia Upper endoscopy completed, showed no active bleeding Last night, Hgb dropped to 6.3 from 7.7, patient was transfused x1 Rx: -Per GI, patient will continue GoLytely in anticipation for lower endoscopy today -Continue IV Protonix q12HR for GI prophylaxis -Transfuse if Hgb<7 RRx: -Follow-up with H&H -Follow-up on lower endoscopic findings #Colonic ileus #New suprapubic mass 07/08 abdominal XR showed prominent colonic ileus as well as suspicious findings for distention of the urinary bladder but was negative for SBO or free air On physical exam today, a new, reducible, suprapubic mass was noted (currently suspect that it is a right inguinal hernia 2/2 increased intraabdominal pressure from continued colonic ileus Rx: -Per GI, patient will continue GoLytely in anticipation for lower endoscopy today -Nasogastric decompression with light intermittent suction -Minimize the use of opiates for pain management due to side effect profile RRx: -Continue to monitor patient's bowel movements Renal #Lactic acidosis #Electrolyte derangement #Hypokalemia Initial uptrend in lactic acidosis is suspected to be 2/2 dehydration Most recently, lactic acid has downtrended from 4.0 to 3.0 Potassium was low today at 3.3 Rx: -IV potassium chloride 40 mg x2 RRx: -Recheck electrolytes -Trend lactic acid Endocrinology #Hyperglycemia Today's finger stick BG 112 Rx: -Insulin sliding scale #Subclinical hypothyroidism 07/08 TSH was 5.97, slightly high 07/09 free T4 was 1.08, WNL Hematology #Acute blood loss anemia Patient initially presented with melena and drop in Hgb to 5.8 Last night, Hgb dropped to 6.3 from 7.7, patient was transfused x1 Rx: -Monitor H&H, transfuse if hemoglobin less than 7 -Per GI, patient will be restarted on GoLytely in anticipation for lower endoscopy tomorrow (locate source of bleeding) - ID See Respiratory session. Disposition: ICU due to continued need for high-flow nasal cannula s/p extubation DVT prophylaxis: SCDs (bleeding risk) GI prophylaxis: IV Protonix q12HR Diet: NPO (lower endoscopy scheduled for today) Lines: PIV CODE STATUS:Full Code Patient care was discussed with attending physician, Dr. Campbell. Vikas Rivera DO Internal Medicine, PGY-1 Attending Provider Attestation/Addendum Patient seen and examined with the above resident, Vikas Rivera DO. I agree with the findings, assessment, and plan of care as documented except for any differences below. Patient successfully completed SBT this AM and following commands, at baseline with cognitive dysfunction. Extubated with desaturation requiring HHHFNC. Stable this evening on FiO2 reduced to 50%. Patient with continued bibasilar atelectasis due to abdominal pressure from distended GI tract. Tolerated Golytely prep and having bowel movements throughout the day though not clear yet. Abdominal distention slowly improving. Maintain K>4 an dMg 2 to promote GI motility. Patient has NG in place and LIWS with minimal output at this time. Patient also with fever and possible aspiration pneumonia/ pneumonitis that warrants ongoing antibiotics. Patient will await colonoscopy but at this point hemoglobin is stable with no ongoing bleeding. Patient will continue to be monitored closely in the ICU. Total critical care time: I personally spent 45 minutes for review of physiologic parameters, directing plan of care, coordination of care with other specialists, and counseling patient at bedside. This is exclusive of time spent teaching housestaff or performing any separate billable procedures. Patient remains at significant risk for further morbidity and mortality warranting close monitoring any care only available in the ICU. Critical care services required for GI bleed, acute blood loss anemia, ileus, acute hypoxic respiratory failure, and aspiration pneumonia.
[2025-07-10] MEDS: cefTRIAXone/D5w 1gm IV premix 1 GM/50 ML BAG IV (08:15)
[2025-07-10] MEDS: POTASSIUM CHL 10 mEq IVPB 10 MEQ/100 ML BAG 100 MEQ IV ×10 (08:17→22:56)
[2025-07-10] MEDS: EPINEPHrine RT SOL 0.5 ML NEBU INH (13:26)
--- NOTE | 2025-07-10 13:55 | XR_ITS ---
Examination: AP chest single view Technique one AP portable upright chest single view Date and time: July 10, 2025 1406 hours, comparison 07/09/2025 INDICATIONS: Hypoxic respiratory failure this week, post extubation FINDINGS: Significant elevation right hemidiaphragm with air distended colon beneath the hemidiaphragm Orogastric tube in the stomach Subtle opacity at the left base retrocardiac Subtle opacity in the right lung Mild prominence left ventricle IMPRESSION: Right lateral pneumonia
--- NOTE | 2025-07-10 14:26 | PD.RESPRO ---
Documentation for date of: 07/10/25 Exam Vital Signs Temp Pulse Resp BP Pulse Ox O2 Del Method O2 Flow Rate 98.6 F 116 H 20 136/79 H 95 Mechanical Ventilation 2 07/10/25 10:28 07/10/25 14:00 07/10/25 12:00 07/10/25 14:00 07/10/25 14:00 07/10/25 04:00 07/10/25 12:00 FiO2 40 07/10/25 10:00 Objective Labs 07/10/25 04:26 07/10/25 04:26 Labs: Laboratory Results - last 24 hr 07/06/25 07/09/25 07/09/25 10:11 04:00 17:20 WBC RBC Hgb Hct MCV MCH MCHC RDW Std Deviation Plt Count Neut % (Auto) Lymph % (Auto) [place] % (Auto) Eos % (Auto) Baso % (Auto) Neut # (Auto) Lymph # (Auto) [place] # (Auto) Eos # (Auto) Baso # (Auto) Immature Gran # (Auto) Absolute Nucleated RBC Immature Gran % Nucleated RBC % Sodium Potassium Chloride Carbon Dioxide Anion Gap BUN Creatinine Estim Creat Clear Calc eGFR BUN/Creatinine Ratio Glucose Calculated Osmolality Lactic Acid 3.0 H Calcium Phosphorus Magnesium Misc Test Result See Sep Rpt Blood Type A Positive Antibody Screen NEGATIVE Crossmatch See Detail See Detail Blood Bank Wristband ID Yes 07/10/25 04:26 WBC 9.7 D RBC 2.09 L Hgb 6.3 L* Hct 19.5 L* MCV 93 MCH 30.1 MCHC 32.3 RDW Std Deviation 51.5 H Plt Count 149 Neut % (Auto) 88 H Lymph % (Auto) 7 L Loving % (Auto) 4 Eos % (Auto) 0 Baso % (Auto) 0 Neut # (Auto) 8.5 H Lymph # (Auto) 0.6 L [place] # (Auto) 0.4 Eos # (Auto) 0.0 Baso # (Auto) 0.0 Immature Gran # (Auto) 0.17 H Absolute Nucleated RBC 0.05 H Immature Gran % 2 H Nucleated RBC % 1 H Sodium 143 Potassium 3.3 L Chloride 100 Carbon Dioxide 28.8 Anion Gap 14 BUN 18 Creatinine 1.1 Estim Creat Clear Calc 72.7 eGFR > 60 BUN/Creatinine Ratio 16 Glucose 169 H Calculated Osmolality 290 Lactic Acid Calcium 8.3 Phosphorus 3.3 Magnesium 2.2 Misc Test Result Blood Type Antibody Screen Crossmatch Blood Bank Wristband ID ABG Interpretation ABG results: 07/09/25 04:04 ABG pH 7.29 L ABG pCO2 57 H ABG pO2 86 ABG HCO3 28 H ABG O2 Saturation 96 ABG Base Excess 1 Quality Measures Quality Measures sepsis Possible source: GI tract/intra-abdominal Blood cultures ordered: no Assessment & Plan Assessment Current Active Medications: Generic Name Dose Route Start Last Admin Trade Name Freq PRN Reason Stop Dose Admin Acetaminophen 1,000 mg 07/07/25 15:20 Acetaminophen 500 Mg Tablet PO 08/05/25 15:39 On Hold: 07/09/25 11:11 Q6H PRN PAIN OR FEVER > 99.9 Acetaminophen 1,000 mg 07/09/25 19:00 07/10/25 14:15 Acetaminophen Flavia 325 Mg/10 Ml Udc GT 08/08/25 18:59 Not Given Q6HR RHINA Albuterol/Ipratropium 3 ml 07/09/25 09:32 07/10/25 11:59 Albuterol/Ipratropium (Duoneb) Rt Flavia 3 Ml Nebu INH 08/08/25 09:31 3 ml Q4HRRT RHINA Administration Clonazepam 1 mg 07/07/25 06:00 07/10/25 14:16 Clonazepam 0.5 Mg Tablet PO 07/12/25 05:59 Not Given TID RHINA Fluvoxamine 100 Mg 0 ea 07/06/25 21:00 07/10/25 11:14 Tablet PO 08/05/25 20:59 Not Given On Hold: 07/10/25 13:54 BID RHINA Dextrose 50 ml 07/06/25 15:47 Dextrose 50%-Water Inj 50 Ml Syringe IV 08/05/25 15:46 Q15MIN PRN BG <50 OR BG <70 & pt unresponsive Glucagon 1 mg 07/06/25 15:47 Glucagon Inj 1 Mg Vial IM Q15MIN PRN BG <70, and no IV access Fentanyl Citrate 2,500 mcg in 250 mls @ 2.5 mls/hr 07/09/25 03:29 07/09/25 10:48 Sublimaze Inj 2,500 Mcg/250 Ml Bag IV 07/14/25 03:28 0 mcg/hr On Hold: 07/09/25 15:01 .Q24H PRN 0 mls/hr PER PROTOCOL Titration Protocol 25 MCG/HR Propofol 1,000 mg in 100 mls @ 2.245 mls/hr 07/09/25 03:29 07/09/25 10:48 Diprivan Ivpb IV 08/08/25 03:28 0 mcg/kg/min On Hold: 07/09/25 15:01 .Q24H PRN 0 mls/hr PER PROTOCOL Titration Protocol 5 MCG/KG/MIN Ceftriaxone Sodium/Dextrose 1 gm in 50 mls @ 100 mls/hr 07/10/25 09:00 07/10/25 08:15 Rocephin/D5w 1gm Iv Premix IV 07/17/25 08:59 100 mls/hr QDAY RHINA Administration Dexmedetomidine/Sodium Chloride 400 mcg in 100 mls @ 2.835 mls/hr 07/09/25 17:00 07/10/25 13:50 Precedex Ivpb IV 08/08/25 16:59 0 mcg/kg/hr .Q24H RHINA 0 mls/hr Protocol Titration 0.15 MCG/KG/HR Potassium Chloride 10 meq in 100 mls @ 100 mls/hr 07/10/25 11:25 07/10/25 13:41 Kcl Ivpb IV 07/10/25 15:24 100 mls/hr Q1H RHINA Administration Insulin Human Lispro 0 unit 07/06/25 18:00 07/10/25 12:29 Insulin Lispro (Admelog) 1 Unit/0.01 Ml Unit SC 08/05/25 17:59 Not Given Q6HR RHINA Protocol Ondansetron HCl 4 mg 07/06/25 15:40 Ondansetron Inj 2 Mg/Ml Inj 2 Ml IVP 08/05/25 15:39 Q6H PRN NAUSEA OR VOMITING Protocol Pantoprazole Sodium 40 mg 07/06/25 21:00 07/10/25 08:16 Pantoprazole Inj 40 Mg Vial IVP 08/05/25 20:59 40 mg Q12HR RHINA Administration Polyethylene Glycol/Electrolytes 4,000 ml 07/07/25 15:31 07/09/25 03:03 Na Jj/Nahco3/Rio/Peg (Golytely) 4,000 Ml Btl PO 08/06/25 15:30 4,000 ml PRN PRN Administration SEE COMMENTS Risperidone 1 mg 07/06/25 21:00 07/10/25 11:13 Risperidone 1 Mg Tablet PO 08/05/25 20:59 Not Given On Hold: 07/10/25 13:54 BID RHINA Sodium Chloride 3 ml 07/10/25 13:18 Sodium Chloride Rt Flavia 0.9% 3 Ml Nebu INH 08/09/25 13:17 PRN PRN SOLN
--- NOTE | 2025-07-10 14:37 | PC.SS ---
Update: Patient extubated today. On high flow oxygen 30L. NG tube in place. NPO. Colonoscopy procedure pending. Patient receiving IV antibiotics. No pressor support. Patient is afebrile.
[2025-07-10] MEDS: ACETYLCYSTEINE RT SOL 10% 4 ML NEBU 3 ML INH (14:44)
--- NOTE | 2025-07-10 15:50 | PC.SS ---
[employer] confirmed that patient is a resident of [facility]. Patient is aligned with [facility]. [facility] family preservation caseworker is Emma Saeed. [facility] is medical decision maker. Patient is not conserved.
[2025-07-10 16:42] LABS: Basophils # (Auto) 0.0 Thou/mm3 (0.0-0.2); Basophils % (Auto) 0 % (0-2.5); Eosinophils # (Auto) 0.1 Thou/mm3 (0.0-0.5); Eosinophils % (Auto) 1 % (0-10); Hematocrit 27.6 % (41.0-53.0); Hemoglobin 9.3 g/dL (13.5-16.0); Immature Granulocytes Auto 0.13 Thou/mm3 (0.00-0.00); Lymphocytes # (Auto) 0.7 Thou/mm3 (1.0-4.8); Lymphocytes % (Auto) 7 % (10-50); Mean Corpuscular HGB Conc 33.7 g/dl (31.0-37.0); Mean Corpuscular Hemoglobin 30.2 pg (25.0-35.0); Mean Corpuscular Volume 90 fL (80-100); Monocytes # (Auto) 0.6 Thou/mm3 (0.0-0.8); Monocytes % (Auto) 6 % (0-12); Neutrophils # (Auto) 9.3 Thou/mm3 (1.8-7.7); Neutrophils % (Auto) 85 % (37-80); Nucleated Red Blood Cell # 0.05 Thou/mm3 (0.00-0.00); Nucleated Red Blood Cell % 1 /100 WBC (0); Platelet Count 159 Thou/mm3 (140-440); RDW Standard Deviation 50.4 fL (35.1-43.9); Red Blood Count 3.08 Miln/mm3 (4.50-5.90); White Blood Count 10.9 Thou/mm3 (3.8-10.6)
--- NOTE | 2025-07-10 16:53 | PD.RESPRO ---
Documentation for date of: 07/10/25 Subjective Subjective Interval history: Patient was seen and examined at bedside. Patient still have bloody bowel movement. His blood hemoglobin dropped to 6.3 overnight. Patient received 2 units of packed RBCs. His lactic acid still above 3. His heart rate remain in the 110s and 120s. sinus tachy most likely secondary to his active bleeding. patient remain mildly sedated with Precedex and mechanically ventilated because the patient will have colonoscopy today. Anticipated to be extubated after the colonoscopy. Potassium is 3.3 ICU team repleted, magnesium was 2.2 Exam Vital Signs Temp Pulse Resp BP Pulse Ox O2 Del Method O2 Flow Rate 97.0 F 116 H 20 125/82 96 High Flow Nasal Cannula 50 07/10/25 15:00 07/10/25 16:01 07/10/25 15:55 07/10/25 16:01 07/10/25 16:01 07/10/25 16:01 07/10/25 16:01 FiO2 50 07/10/25 16:00 Narrative Exam GEN: Intubated RASS score of -1, pupils equal and reactive, has some shivering episodes HEENT: NC/AC, oral mucosa dry, neck supple CVS: RRR, S1-S2, S3, no murmurs appreciated RESP: Coarse crepitations bilaterally more on the right GI: Abdomen is firm, distended, presents bowel sounds MSK: trace lower extremity edema SKIN: warm and clammy [employer]: Unable to assess due to patient condition. Objective Labs 07/23/25 04:48 07/23/25 04:48 Labs: Laboratory Results - last 24 hr 07/06/25 07/09/25 07/09/25 10:11 04:00 17:20 WBC RBC Hgb Hct MCV MCH MCHC RDW Std Deviation Plt Count Neut % (Auto) Lymph % (Auto) [place] % (Auto) Eos % (Auto) Baso % (Auto) Neut # (Auto) Lymph # (Auto) [place] # (Auto) Eos # (Auto) Baso # (Auto) Immature Gran # (Auto) Absolute Nucleated RBC Immature Gran % Nucleated RBC % Sodium Potassium Chloride Carbon Dioxide Anion Gap BUN Creatinine Estim Creat Clear Calc eGFR BUN/Creatinine Ratio Glucose Calculated Osmolality Lactic Acid 3.0 H Calcium Phosphorus Magnesium Misc Test Result See Sep Rpt Blood Type A Positive Antibody Screen NEGATIVE Crossmatch See Detail See Detail Blood Bank Wristband ID Yes 07/10/25 04:26 WBC 9.7 D RBC 2.09 L Hgb 6.3 L* Hct 19.5 L* MCV 93 MCH 30.1 MCHC 32.3 RDW Std Deviation 51.5 H Plt Count 149 Neut % (Auto) 88 H Lymph % (Auto) 7 L [place] % (Auto) 4 Eos % (Auto) 0 Baso % (Auto) 0 Neut # (Auto) 8.5 H Lymph # (Auto) 0.6 L [place] # (Auto) 0.4 Eos # (Auto) 0.0 Baso # (Auto) 0.0 Immature Gran # (Auto) 0.17 H Absolute Nucleated RBC 0.05 H Immature Gran % 2 H Nucleated RBC % 1 H Sodium 143 Potassium 3.3 L Chloride 100 Carbon Dioxide 28.8 Anion Gap 14 BUN 18 Creatinine 1.1 Estim Creat Clear Calc 72.7 eGFR > 60 BUN/Creatinine Ratio 16 Glucose 169 H Calculated Osmolality 290 Lactic Acid Calcium 8.3 Phosphorus 3.3 Magnesium 2.2 Misc Test Result Blood Type Antibody Screen Crossmatch Blood Bank Wristband ID ABG Interpretation ABG results: 07/09/25 04:04 ABG pH 7.29 L ABG pCO2 57 H ABG pO2 86 ABG HCO3 28 H ABG O2 Saturation 96 ABG Base Excess 1 Quality Measures Quality Measures VTE prophylaxis (SCD) and none Assessment & Plan Assessment Current Active Medications: Generic Name Dose Route Start Last Admin Trade Name Freq PRN Reason Stop Dose Admin Acetaminophen 1,000 mg 07/07/25 15:20 Acetaminophen 500 Mg Tablet PO 08/05/25 15:39 On Hold: 07/09/25 11:11 Q6H PRN PAIN OR FEVER > 99.9 Acetaminophen 1,000 mg 07/09/25 19:00 07/10/25 14:15 Acetaminophen Flavia 325 Mg/10 Ml Udc GT 08/08/25 18:59 Not Given Q6HR RHINA Albuterol/Ipratropium 3 ml 07/09/25 09:32 07/10/25 15:52 Albuterol/Ipratropium (Duoneb) Rt Flavia 3 Ml Nebu INH 08/08/25 09:31 3 ml Q4HRRT RHINA Administration Clonazepam 1 mg 07/07/25 06:00 07/10/25 14:16 Clonazepam 0.5 Mg Tablet PO 07/12/25 05:59 Not Given TID RHINA Fluvoxamine 100 Mg 0 ea 07/06/25 21:00 07/10/25 11:14 Tablet PO 08/05/25 20:59 Not Given On Hold: 07/10/25 13:54 BID RHINA Dextrose 50 ml 07/06/25 15:47 Dextrose 50%-Water Inj 50 Ml Syringe IV 08/05/25 15:46 Q15MIN PRN BG <50 OR BG <70 & pt unresponsive Glucagon 1 mg 07/06/25 15:47 Glucagon Inj 1 Mg Vial IM Q15MIN PRN BG <70, and no IV access Fentanyl Citrate 2,500 mcg in 250 mls @ 2.5 mls/hr 07/09/25 03:29 07/09/25 10:48 Sublimaze Inj 2,500 Mcg/250 Ml Bag IV 07/14/25 03:28 0 mcg/hr On Hold: 07/09/25 15:01 .Q24H PRN 0 mls/hr PER PROTOCOL Titration Protocol 25 MCG/HR Propofol 1,000 mg in 100 mls @ 2.245 mls/hr 07/09/25 03:29 07/09/25 10:48 Diprivan Ivpb IV 08/08/25 03:28 0 mcg/kg/min On Hold: 07/09/25 15:01 .Q24H PRN 0 mls/hr PER PROTOCOL Titration Protocol 5 MCG/KG/MIN Ceftriaxone Sodium/Dextrose 1 gm in 50 mls @ 100 mls/hr 07/10/25 09:00 07/10/25 08:15 Rocephin/D5w 1gm Iv Premix IV 07/17/25 08:59 100 mls/hr QDAY RHINA Administration Dexmedetomidine/Sodium Chloride 400 mcg in 100 mls @ 2.835 mls/hr 07/09/25 17:00 07/10/25 13:50 Precedex Ivpb IV 08/08/25 16:59 0 mcg/kg/hr .Q24H RHINA 0 mls/hr Protocol Titration 0.15 MCG/KG/HR Insulin Human Lispro 0 unit 07/06/25 18:00 07/10/25 12:29 Insulin Lispro (Admelog) 1 Unit/0.01 Ml Unit SC 08/05/25 17:59 Not Given Q6HR RHINA Protocol Ondansetron HCl 4 mg 07/06/25 15:40 Ondansetron Inj 2 Mg/Ml Inj 2 Ml IVP 08/05/25 15:39 Q6H PRN NAUSEA OR VOMITING Protocol Pantoprazole Sodium 40 mg 07/06/25 21:00 07/10/25 08:16 Pantoprazole Inj 40 Mg Vial IVP 08/05/25 20:59 40 mg Q12HR RHINA Administration Polyethylene Glycol/Electrolytes 4,000 ml 07/07/25 15:31 07/09/25 03:03 Na Jj/Nahco3/[place]/Peg (Golytely) 4,000 Ml Btl PO 08/06/25 15:30 4,000 ml PRN PRN Administration SEE COMMENTS Risperidone 1 mg 07/06/25 21:00 07/10/25 11:13 Risperidone 1 Mg Tablet PO 08/05/25 20:59 Not Given On Hold: 07/10/25 13:54 BID RHINA Sodium Chloride 3 ml 07/10/25 13:18 Sodium Chloride Rt Flavia 0.9% 3 Ml Nebu INH 08/09/25 13:17 PRN PRN SOLN Plan Summary: 60-year-old male patient known case of schizophrenia, hyperlipidemia, developmental delay, [facility] after he was started to experience abdominal pain few hours before presentation. Patient was unable to provide accurate history due to his chronic mental status, most of the history was taken from the caregiver Charu Jean. Cardiology team was consulted due to tachycardia #Sinus tachycardia most likely secondary to acute blood loss versus sepsis versus perforated viscus #ACS r/o Patient presented with acute abdominal pain, tachycardia, melena, patient was sweaty, pulse rate was 129, blood pressure was 119/65.on examination found to have S1-S2 and S3 He has trace lower edema, no elevated JVD Hemoglobin was 5.8. TSH was 5.8, Troponin was negative, chest x-ray showed left ventricular prominence, elevated right hemidiaphragm. EKG was done initially showed sinus tachycardia, repeat today during the rapid also showed sinus tachycardia with deep Q-wave on the leads, I, III and AVf. Patient most likely have secondary cause of his sinus tachycardia including but not limited to infection, pain, acute blood loss, less likely medication side effect such as serotonin syndrome 07/09/2025, patient had an episode of aspiration, he was intubated and upgraded to the ICU. BNP came back normal, echo still pending, telemonitoring was reviewed for the past 24-hour was negative for any arrhythmias and it only showed sinus tachycardia. Echo during this admission : rate more than 115 bpm. Normal left ventricular size and function. Grade I diastolic dysfunction. EF estimated at 55-60%. The right ventricle is normal in size and systolic function. Normal RVSP. 07/10/2005. Patient will undergone colonoscopy. Remained to have sinus tachycardia heart rate of 125, regular in telemonitoring. Potassium was 3.3 was repleted by the ICU team. Plan ? Strict in and out ? Treat underlying cause, patient might be symptomatic anemia versus perforated viscus, or sepsis ? Daily potassium and magnesium ? Replete electrolytes to keep potassium and magnesium above 4 and 2 respectively within normal range. ? Strict in and out #Upper versus less likely lower GI bleed #Developmental delay #Questionable SBO #History of schizophrenia #Hyperglycemia #Depression #Acute blood loss Plan ? Follow-up with the primary team recommendation Thank you for your consultation please do not hesitate to reach out if you have any question or concern - Patient's plan and care discussed with my attending, Dr. Alison Santos MD Internal Medicine PGY-3 Attending Provider Attestation/Addendum I have personally seen and examined the patient separately on the above date of service and discussed the plan of care with the resident. I reviewed the resident Dr. Santos consultation progress note and agree with the resident findings and plan in the note above and have also edited the documentation to reflect my findings and plan. Diego Rosas M.D. Interventional Cardiology
[2025-07-10 16:57] LABS: Albumin, Serum 3.7 gm/dL (3.5-5.0); Anion Gap 11 (7-16); BUN/Creatinine Ratio 16 Ratio (12-20); Blood Urea Nitrogen 14 mg/dL (9-23); Calcium 8.2 mg/dL (8.3-10.6); Calcium (Corrected) 8.4 mg/dL (8.5-10.1); Carbon Dioxide 30.2 mMol/L (20.0-31.0); Chloride 103 mMol/L (98-107); Creatinine (Component) 0.9 mg/dL (0.6-1.3); Estimated Creatinine Clearance 88.9 mL/min (>60); Glucose 118 mg/dL (74-106); Osmolality,Calculated 288 (275-295); Phosphorous 2.6 mg/dL (2.4-5.1); Potassium 3.2 mMol/L (3.4-5.1); Sodium 144 mMol/L (136-145); eGFR > 60 See Note
[2025-07-10] MEDS: Magnesium Sulfate 2 GM Ivpb 2 GM/50 ML BAG IV (20:54)
--- NOTE | 2025-07-10 21:51 | PD.IMPROG ---
Documentation for date of: 07/10/25 Subjective Subjective Interval history: Patient evaluated her hemoglobin hematocrit dropping down to 6.3 and 19.5 requiring blood transfusion patient extubated\ evaluated the patient prior to procedure currently he is on high flow oxygen not a candidate for intravenous moderate sedation Exam Vital Signs Temp Pulse Resp BP Pulse Ox O2 Del Method O2 Flow Rate 97.4 F 116 H 20 138/84 H 96 High Flow Nasal Cannula 30 07/10/25 18:00 07/10/25 18:54 07/10/25 18:54 07/10/25 18:00 07/10/25 18:54 07/10/25 16:01 07/10/25 18:54 FiO2 40 07/10/25 18:54 Objective Labs 07/10/25 16:22 07/10/25 16:22 Labs: Laboratory Results - last 24 hr 07/06/25 07/09/25 07/10/25 10:11 04:00 04:26 WBC 9.7 D RBC 2.09 L Hgb 6.3 L* Hct 19.5 L* MCV 93 MCH 30.1 MCHC 32.3 RDW Std Deviation 51.5 H Plt Count 149 Neut % (Auto) 88 H Lymph % (Auto) 7 L [place] % (Auto) 4 Eos % (Auto) 0 Baso % (Auto) 0 Neut # (Auto) 8.5 H Lymph # (Auto) 0.6 L [place] # (Auto) 0.4 Eos # (Auto) 0.0 Baso # (Auto) 0.0 Immature Gran # (Auto) 0.17 H Absolute Nucleated RBC 0.05 H Immature Gran % 2 H Nucleated RBC % 1 H Sodium 143 Potassium 3.3 L Chloride 100 Carbon Dioxide 28.8 Anion Gap 14 BUN 18 Creatinine 1.1 Estim Creat Clear Calc 72.7 eGFR > 60 BUN/Creatinine Ratio 16 Glucose 169 H Calculated Osmolality 290 Calcium 8.3 Corrected Calcium Phosphorus 3.3 Magnesium 2.2 Albumin Misc Test Result See Sep Rpt Blood Type A Positive Antibody Screen NEGATIVE Crossmatch See Detail See Detail Blood Bank Wristband ID Yes 07/10/25 16:22 WBC 10.9 H RBC 3.08 L Hgb 9.3 L D Hct 27.6 L MCV 90 MCH 30.2 MCHC 33.7 RDW Std Deviation 50.4 H Plt Count 159 Neut % (Auto) 85 H Lymph % (Auto) 7 L [place] % (Auto) 6 Eos % (Auto) 1 Baso % (Auto) 0 Neut # (Auto) 9.3 H Lymph # (Auto) 0.7 L [place] # (Auto) 0.6 Eos # (Auto) 0.1 Baso # (Auto) 0.0 Immature Gran # (Auto) 0.13 H Absolute Nucleated RBC 0.05 H Immature Gran % 1 H Nucleated RBC % 1 H Sodium 144 Potassium 3.2 L Chloride 103 Carbon Dioxide 30.2 Anion Gap 11 BUN 14 Creatinine 0.9 Estim Creat Clear Calc 88.9 eGFR > 60 BUN/Creatinine Ratio 16 Glucose 118 H D Calculated Osmolality 288 Calcium 8.2 L Corrected Calcium 8.4 L Phosphorus 2.6 Magnesium Albumin 3.7 Misc Test Result Blood Type Antibody Screen Crossmatch Blood Bank Wristband ID Impressions Impression: GI bleed posthemorrhagic anemia status post extubation still on high flow oxygen not a candidate for intravenous moderate sedation plan Colonoscopy postponed till the patient respiratory status improves ABG Interpretation ABG results: 07/09/25 04:04 ABG pH 7.29 L ABG pCO2 57 H ABG pO2 86 ABG HCO3 28 H ABG O2 Saturation 96 ABG Base Excess 1 Assessment & Plan A&P Narrative Hematochezia Plan clear liquid diet n.p.o. at midnight tonight except p.o. meds Consent for fiberoptic esophagogastroduodenoscopy with possible biopsy possible therapeutic intervention under intravenous moderate sedation If EGD negative we will consider doing a fibrotic colonoscopy prior to discharge Serial CBC IV Protonix Thank you very much for the opportunity to participate in the care of this Time Spent With Patient Time: Total time spent is greater than 50% in coordination of care (as documented) at patient's floor/unit and/or counseling patient:
[2025-07-11] VITALS (37 sets, daily range): BP systolic 117–185; BP diastolic 67–120; PULSE 92–114; RESP 17–33; TEMP 36.4–37; O2SAT 90–100; BMI 11.0
[2025-07-11] MEDS: POTASSIUM CHL 10 mEq IVPB 10 MEQ/100 ML BAG 100 MEQ IV ×5 (00:04→13:07)
[2025-07-11] MEDS: ALBUTEROL/IPRATROPIUM (Duoneb) RT SOL 3 ML NEBU INH ×6 (02:07→22:32)
[2025-07-11 05:44] LABS: Basophils # (Auto) 0.0 Thou/mm3 (0.0-0.2); Basophils % (Auto) 0 % (0-2.5); Eosinophils # (Auto) 0.2 Thou/mm3 (0.0-0.5); Eosinophils % (Auto) 2 % (0-10); Hematocrit 29.2 % (41.0-53.0); Hemoglobin 9.7 g/dL (13.5-16.0); Immature Granulocytes Auto 0.06 Thou/mm3 (0.00-0.00); Lymphocytes # (Auto) 1.2 Thou/mm3 (1.0-4.8); Lymphocytes % (Auto) 10 % (10-50); Mean Corpuscular HGB Conc 33.2 g/dl (31.0-37.0); Mean Corpuscular Hemoglobin 30.1 pg (25.0-35.0); Mean Corpuscular Volume 91 fL (80-100); Monocytes # (Auto) 0.7 Thou/mm3 (0.0-0.8); Monocytes % (Auto) 6 % (0-12); Neutrophils # (Auto) 9.4 Thou/mm3 (1.8-7.7); Neutrophils % (Auto) 81 % (37-80); Nucleated Red Blood Cell # 0.04 Thou/mm3 (0.00-0.00); Nucleated Red Blood Cell % 0 /100 WBC (0); Platelet Count 178 Thou/mm3 (140-440); RDW Standard Deviation 50.1 fL (35.1-43.9); Red Blood Count 3.22 Miln/mm3 (4.50-5.90); White Blood Count 11.5 Thou/mm3 (3.8-10.6)
[2025-07-11 06:07] LABS: Anion Gap 11 (7-16); BUN/Creatinine Ratio 15 Ratio (12-20); Blood Urea Nitrogen 12 mg/dL (9-23); Calcium 8.4 mg/dL (8.3-10.6); Carbon Dioxide 28.7 mMol/L (20.0-31.0); Chloride 103 mMol/L (98-107); Creatinine (Component) 0.8 mg/dL (0.6-1.3); Estimated Creatinine Clearance 99.1 mL/min (>60); Glucose 91 mg/dL (74-106); Magnesium 2.6 mg/dL (1.6-2.6); Osmolality,Calculated 284 (275-295); Phosphorous 2.0 mg/dL (2.4-5.1); Potassium 3.5 mMol/L (3.4-5.1); Sodium 143 mMol/L (136-145); eGFR > 60 See Note
[2025-07-11] MEDS: NAPH,KPH MBDB 1 PACKET (1.5 GM) PO (07:49)
[2025-07-11] MEDS: cefTRIAXone/D5w 1gm IV premix 1 GM/50 ML BAG IV (08:48)
--- NOTE | 2025-07-11 10:02 | ESPR_ITS ---
<Statement entered by Kody Ocasio MD - 07/11/25 15:10> I personally examined the patient and supervised PGY [address] Rivera with the management plan. I agree with his documentation with the exceptions as listed below. A 60-year-old male with a known history of schizophrenia, hyperlipidemia, and developmental delay was [facility] due to acute abdominal pain that began a few hours prior to arrival. He also had associated melena. Patient was upgraded to the ICU on 07/09 for intubation and mechanical ventilation s/p aspiration event while undergoing GoLytely bowel prep. Problem list: Acute respiratory failure with hypoxia secondary to restrictive lung disease from abdominal ileus currently on HFNC [25L, FiO2 40%] Aspiration pneumonia Acute blood loss anemia secondary to GI bleed for investigation Right inguinal hernia Patient was extubated yesterday morning after which she subsequently developed hypoxia and respiratory distress with saturations in the 70s. Patient had to be placed on HFNC at 3 PM, FiO2 50% after which saturations improved to 95-100%. Patient still continues to have significant abdominal distention from colonic ileus causing restrictive lung disease and shallow rapid breathing. Will continue to keep NG tube on low continuous suction and placed rectal tube today to attempt to decompress bowel. No plans for colonoscopy at this time due to patient being on high flow oxygen and high risk for respiratory depression if sedation is administered. Patient is at high risk of deterioration at this time, but no acute need for ICU level of care. Patient will be downgraded to telemetry today. Plan of care discussed with Attending Dr. Cesar Ocasio MD PGY 2 Disclaimer: This note was dictated by speech recognition. Minor errors in sales and marketing coordinator may be present due to voice recognition software. <Statement entered by Raleigh Guerrero MD - 07/11/25 13:39> TOTAL CC TIME: 45 MIN I saw and evaluated the patient. I reviewed the resident?s note and agree with findings and plan as documented in the resident?s note. Upon my evaluation, this patient had a high probability of imminent or life- threatening deterioration due to acute hypoxic resp failure, which required my direct attention, intervention, and personal management. This time is exclusive of time spent on procedures, which are documented separately if performed. conts to have RSB due to restrictive physiology from bl elevated hemidiaphragm from bowel distention concurrent pna - on empiric abx rectal tube placed to help w/ colonic distention very high risk for resp decompensation if sedated for procedures Documentation for date of: 07/11/25 Subjective Subjective Interval history: A 60-year-old male with a known history of schizophrenia, hyperlipidemia, and developmental delay was [facility] due to acute abdominal pain that began a few hours prior to arrival. Due to his chronic cognitive and psychiatric baseline, the patient was unable to provide a reliable history. Most of the information was obtained from his caregiver, Charu Jean. According to the caregiver, the patient?s abdominal pain progressively worsened. He then had one episode of black, tarry, liquid stool (melena). Staff at the facility noted an elevated heart rate in the 140s and observed that he appeared tachypneic. She denied any associated fever, chills, cough, sick contacts, or seizures. ED Course: In the emergency department, the patient was found to be: Tachycardic: HR 129 bpm BP: 119/72 mmHg WBC: 28.9 (leukocytosis) Hemoglobin: 5.8 g/dL (significant anemia) Lactic Acid: 7.3 mmol/L (suggestive of tissue hypoperfusion) Blood Glucose: 296 mg/dL The patient was resuscitated with 2 liters of IV fluids and transfused with 2 units of packed red blood cells (PRBCs). Imaging: Chest X-ray: Prominent left ventricular silhouette and moderate elevation of the right hemidiaphragm. CT Angiogram (Abdomen & Pelvis):Significant scarring at the lateral margin of the right kidney.No hydronephrosis or ureteral calculi. Abdominal X-ray (after rapid response event): No evidence of small bowel obstruction (SBO); mild colonic and small bowel ileus noted. Patient was admitted for acute GI bleed treatment and management. During hospital stay EGD was not done which showed few small bleeding erosions on GE junction, patchy mild erythematous mucosa without bleeding was found in the gastric antrum. Per reel tender recommendation patient started on clear liquid diet and GoLytely. However during hospital stay multiple rapid response was called due to diaphoresis and abdominal pain, patient was in acute distress, tachycardic NG tube placement had failed as patient kept coughing up the NG tube. Later patient was alert and oriented and refused another trial of NG tube placement per sign out. Patient started receiving GoLytely. Later today at around 3 AM rapid response was called, patient was found unresponsive, patient was vomited, most likely had aspiration pneumonia. Subsequently decision was made to intubate the patient for airway protection. Interval History 07/09/2025: Patient was examined at bedside; they remain intubated with sporadic episodes of shivering/shaking noted. On physical exam, patient's abdomen seems somewhat distended with hypoactive bowel sounds (though his outside food server, who was present at the time, seems to think the patient appear less distended today than yesterday). Current plan is to support patient's respiratory processes by scheduling Duoneb q4HR while conducting daily SATs. Due to lack of lobar consolidation seen on CXR, patient is likely not experiencing any current pneumonia and can have their IV ceftriaxone discontinued. Patient's lactic acid up-trended from 3.4 to 4.3 this morning (most likely hypovolemic 2/2 dehydration in nature), will do further work-up and infuse w/ bolus in the meantime (and trend lactic acid). Patient apparently also had another episode of bloody BM last night; will consult GI regarding their plans for this moving forward. 07/10/2025: Overnight, patient received a transfusion of pRBCs due to his Hgb dropping to 6.3 from 7.7. He was also hypokalemic today and given IV potassium chloride 40 mg x2 for electrolyte repletion. Patient was examined at bedside; he is no longer being sedated with Precedex and was extubated today (07/10) around 11:50. Patient was originally planned to be downgraded today after extubation but this has been postponed due to his SpO2 dropping shortly after, requiring him to be put on high-flow nasal cannula. Patient has been receiving GoLytely in preparation for his scheduled lower endoscopy tonight by GI in order to locate a source of active bleeding. Also, a new, reducible, suprapubic mass (currently suspected to be a right inguinal hernia 2/2 increased intraabdominal pressure) was noted on physical exam. Lactic acid has downtrended from 4.0 to 3.0. 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 07/11/2025: No overnight events. Patient was examined at bedside; he is currently on 25 L high-flow nasal cannula @ 40% FiO2 with rapid, shallow breathing noted and bilateral expiratory wheezing and rhonchi appreciated on lung auscultation. He had originally been scheduled for lower endoscopy by GI last night to locate an active source of bleeding but this was deferred due to patient's need for high-flow nasal cannula. 07/10 CXR shows restrictive lung disease 2/2 bilaterally elevated hemidiaphragm from bowel distention and colonic ileus, making patient high risk for acute respiratory decompensation and failure if he were to be sedated for procedures. Rectal tube placement has been ordered to see if it can help decompress the free air currently trapped from lack of peristaltic movement. Imaging also suggests that patient has concurrent pneumonia at this time for which he is receiving IV Rocephin 1 gm qD (sputum culture grew mi- sensitive E.coli, IV Zithromax not currently indicated). Lower endoscopy can be attempted again once patient's respiratory status improves but for now he can be switched from NPO to clear liquid diet. Patient will be downgraded today but will physically remain on the ICU floor until tomorrow at least. Exam Vital Signs Temp Pulse Resp BP Pulse Ox O2 Del Method O2 Flow Rate 97.5 F 108 H 26 H 127/83 93 L High Flow Nasal Cannula 07/11/25 08:00 07/11/25 08:23 07/11/25 08:23 07/11/25 07:00 07/11/25 08:23 07/11/25 04:00 07/11/25 08:23 FiO2 40 07/11/25 08:23 Narrative Exam General: A/O x3. Skin: Warm, dry, intact, no obvious rash. Head: Normocephalic, atraumatic. Eyes: EOMI. Anicteric, vision grossly intact. Ears: No ear pain, no ear discharge, Hearing grossly intact. Mouth/Throat: Oral mucosa moist. No obvious lesions in oropharynx. Neck: Neck supple, non-tender, no cervical lymphadenopathy. Cardiovascular: Tachycardic rate and normal rhythm, no murmur, no JVD or carotid bruits. +S1/S2. Respiratory: On high-flow nasal cannula. Bilateral expiratory wheezing and rhonchi appreciated on auscultation of posterior lung [place]. Labored respirations. No accessory muscle use. Gastrointestinal: Abdominal distention with hypoactive bowel sounds. Right-sided palpable and reducible mass at suprapubic region. No guarding or rebound tenderness. Extremities: Symmetrical, no significant deformities. No edema, no cyanosis, no clubbing. 2+ radial pulse bilaterally, 2+ posterior tibial pulse bilaterally. Neuro: No focal deficits observed. Conversant, moving all extremities. No overt cerebellar signs/incoordination. Psychiatric: Cooperative, appropriate affect. Objective Labs 07/11/25 04:40 07/11/25 04:40 Labs: Laboratory Results - last 24 hr 07/09/25 07/10/25 07/11/25 04:00 16:22 04:40 WBC 10.9 H 11.5 H RBC 3.08 L 3.22 L Hgb 9.3 L D 9.7 L Hct 27.6 L 29.2 L MCV 90 91 MCH 30.2 30.1 MCHC 33.7 33.2 RDW Std Deviation 50.4 H 50.1 H Plt Count 159 178 Neut % (Auto) 85 H 81 H Lymph % (Auto) 7 L 10 [place] % (Auto) 6 6 Eos % (Auto) 1 2 Baso % (Auto) 0 0 Neut # (Auto) 9.3 H 9.4 H Lymph # (Auto) 0.7 L 1.2 [place] # (Auto) 0.6 0.7 Eos # (Auto) 0.1 0.2 Baso # (Auto) 0.0 0.0 Immature Gran # (Auto) 0.13 H 0.06 H Absolute Nucleated RBC 0.05 H 0.04 H Immature Gran % 1 H 1 H Nucleated RBC % 1 H 0 Sodium 144 143 Potassium 3.2 L 3.5 Chloride 103 103 Carbon Dioxide 30.2 28.7 Anion Gap 11 11 BUN 14 12 Creatinine 0.9 0.8 Estim Creat Clear Calc 88.9 99.1 eGFR > 60 > 60 BUN/Creatinine Ratio 16 15 Glucose 118 H D 91 Calculated Osmolality 288 284 Calcium 8.2 L 8.4 Corrected Calcium 8.4 L Phosphorus 2.6 2.0 L Magnesium 2.6 Albumin 3.7 Crossmatch See Detail ABG Interpretation ABG results: 07/09/25 04:04 ABG pH 7.29 L ABG pCO2 57 H ABG pO2 86 ABG HCO3 28 H ABG O2 Saturation 96 ABG Base Excess 1 Quality Measures Quality Measures VTE prophylaxis (SCD) and none Assessment & Plan Assessment Current Active Medications: Generic Name Dose Route Start Last Admin Trade Name Marco Antonio PRN Reason Stop Dose Admin Acetaminophen 1,000 mg 07/07/25 15:20 Acetaminophen 500 Mg Tablet PO 08/05/25 15:39 On Hold: 07/09/25 11:11 Q6H PRN PAIN OR FEVER > 99.9 Albuterol/Ipratropium 3 ml 07/09/25 09:32 07/11/25 06:15 Albuterol/Ipratropium (Duoneb) Rt Flavia 3 Ml Nebu INH 08/08/25 09:31 3 ml Q4HRRT RHINA Administration Clonazepam 1 mg 07/07/25 06:00 07/11/25 05:13 Clonazepam 0.5 Mg Tablet PO 07/12/25 05:59 1 mg TID RHINA Administration Fluvoxamine 100 Mg 0 ea 07/06/25 21:00 07/10/25 11:14 Tablet PO 08/05/25 20:59 Not Given On Hold: 07/10/25 13:54 BID RHINA Dextrose 50 ml 07/06/25 15:47 Dextrose 50%-Water Inj 50 Ml Syringe IV 08/05/25 15:46 Q15MIN PRN BG <50 OR BG <70 & pt unresponsive Glucagon 1 mg 07/06/25 15:47 Glucagon Inj 1 Mg Vial IM Q15MIN PRN BG <70, and no IV access Fentanyl Citrate 2,500 mcg in 250 mls @ 2.5 mls/hr 07/09/25 03:29 07/09/25 10:48 Sublimaze Inj 2,500 Mcg/250 Ml Bag IV 07/14/25 03:28 0 mcg/hr On Hold: 07/09/25 15:01 .Q24H PRN 0 mls/hr PER PROTOCOL Titration Protocol 25 MCG/HR Propofol 1,000 mg in 100 mls @ 2.245 mls/hr 07/09/25 03:29 07/09/25 10:48 Diprivan Ivpb IV 08/08/25 03:28 0 mcg/kg/min On Hold: 07/09/25 15:01 .Q24H PRN 0 mls/hr PER PROTOCOL Titration Protocol 5 MCG/KG/MIN Ceftriaxone Sodium/Dextrose 1 gm in 50 mls @ 100 mls/hr 07/10/25 09:00 07/11/25 08:48 Rocephin/D5w 1gm Iv Premix IV 07/17/25 08:59 100 mls/hr QDAY RHINA Administration Dexmedetomidine/Sodium Chloride 400 mcg in 100 mls @ 2.835 mls/hr 07/09/25 17:00 07/10/25 20:50 Precedex Ivpb IV 08/08/25 16:59 Not Given .Q24H RHINA Protocol 0.15 MCG/KG/HR Potassium Chloride 10 meq in 100 mls @ 100 mls/hr 07/11/25 08:14 07/11/25 09:52 Kcl Ivpb IV 07/11/25 12:13 100 mls/hr Q1H RHINA Administration Insulin Human Lispro 0 unit 07/06/25 18:00 07/11/25 05:49 Insulin Lispro (Admelog) 1 Unit/0.01 Ml Unit SC 08/05/25 17:59 Not Given Q6HR RHINA Protocol Ondansetron HCl 4 mg 07/06/25 15:40 Ondansetron Inj 2 Mg/Ml Inj 2 Ml IVP 08/05/25 15:39 Q6H PRN NAUSEA OR VOMITING Protocol Pantoprazole Sodium 40 mg 07/06/25 21:00 07/11/25 08:49 Pantoprazole Inj 40 Mg Vial IVP 08/05/25 20:59 40 mg Q12HR RHINA Administration Polyethylene Glycol/Electrolytes 4,000 ml 07/07/25 15:31 07/09/25 03:03 Na Jj/Nahco3/[place] (Golytely) 4,000 Ml Btl PO 08/06/25 15:30 4,000 ml PRN PRN Administration SEE COMMENTS Risperidone 1 mg 07/06/25 21:00 07/10/25 11:13 Risperidone 1 Mg Tablet PO 08/05/25 20:59 Not Given On Hold: 07/10/25 13:54 BID RHINA Sodium Chloride 3 ml 07/10/25 13:18 Sodium Chloride Rt Flavia 0.9% 3 Ml Nebu INH 08/09/25 13:17 PRN PRN SOLN Plan 60-year-old male with past medical history of schizophrenia, hyperlipidemia, developmental delay was admitted initially for GI bleed, however hospital course was complicated with acute encephalopathy 2/2 aspiration leading to intubation for airway protection. No overnight events. Patient was examined at bedside; he is currently on 25 L high-flow nasal cannula @ 40% FiO2 with rapid, shallow breathing noted and bilateral expiratory wheezing and rhonchi appreciated on lung auscultation. He had originally been scheduled for lower endoscopy by GI last night to locate an active source of bleeding but this was deferred due to patient's need for high- flow nasal cannula. 07/10 CXR shows restrictive lung disease 2/2 bilaterally elevated hemidiaphragm from bowel distention and colonic ileus, making patient high risk for acute respiratory decompensation and failure if he were to be sedated for procedures. Rectal tube placement has been ordered to see if it can help decompress the free air currently trapped from lack of peristaltic movement. Imaging also suggests that patient has concurrent pneumonia at this time for which he is receiving IV Rocephin 1 gm qD (sputum culture grew mi- sensitive E.coli, IV Zithromax not currently indicated). Lower endoscopy can be attempted again once patient's respiratory status improves but for now he can be switched from NPO to clear liquid diet. Patient will be downgraded today but will physically remain on the ICU floor until tomorrow at least. 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 #History of schizophrenia #History of depression #History of anxiety Rx: -Consider restarting home medications due to patient no longer being NPO (PO Risperdal 1 mg BID, PO fluvoxamine 100 mg BID) [facility] No active issues Respiratory #Restrictive lung disease 2/2 GI mass effect Although extubated, patient currently requires high-flow nasal cannula today due to ongoing rapid, shallow breathing with bilateral expiratory wheezing and rhonchi appreciated on lung auscultation The above occurs in the setting of concurrent pneumonia and bowel distention Dx: -07/10 CXR shows restrictive lung disease 2/2 bilaterally elevated hemidiaphragm from bowel distention and colonic ileus, making patient high risk for acute respiratory decompensation and failure if he were to be sedated for procedures Rx: -Rectal tube placement for decompression of free air trapped in the bowels likely 2/2 colonic ileus -Continue INH Duonebs q4HR scheduled -Continue INH sodium chloride 3 mL nebulizer prn -Continue chest physiotherapy RRx: -Monitor patient's respiratory status #Acute hypercapnic respiratory failure #Aspiration event #Aspiration pneumonia Patient's initial respiratory failure on admission was likely due to aspiration of GoLytely Patient was extubated 07/10 but is currently requiring 25 L high-flow nasal cannula w/ FiO2 of 40% Dx: -Per Rads, 07/09 CXRs (total of 3) suspicious for bilateral perihilar pneumonia -Per [facility]ads, 07/10 CXR shows right lateral pneumonia -07/09 sputum culture grew mi-sensitive E.coli -MRSA (-) -BCx both (-) Rx: -Continue IV ceftriaxone 1 gm qD (07/10--) -Continue INH Duonebs q4HR scheduled -Continue INH sodium chloride 3 mL nebulizer prn -Continue chest physiotherapy RRx: -Follow-up with ABG, CBC, and CMP GI #Colonic ileus #Abdominal distention #New suprapubic mass, likely R inguinal hernia On physical exam today, patient's abdomen remains distended with same reducible, suprapubic mass noted (currently suspect that it is a right inguinal hernia 2/2 increased intraabdominal pressure from continued colonic ileus) Dx: -07/08 abdominal XR showed prominent colonic ileus as well as suspicious findings for distention of the urinary bladder but was negative for SBO or free air Rx: -Rectal tube placement for decompression of free air trapped in the bowels likely 2/2 colonic ileus -Nasogastric decompression with light intermittent suction -Minimize the use of opiates for pain management due to side effect profile RRx: -Continue to monitor patient's bowel movements #GI bleed/anemia #Hematochezia Upper endoscopy completed, showed no active bleeding Lower endoscopy not completed yesterday due to patient's need for high-flow nasal cannula Hgb bump to 9.7 from 9.3 yesterday (acute bleed less likely) Rx: -Continue IV Protonix q12HR for GI prophylaxis -Transfuse if Hgb<7 -Due to deferral of lower endoscopy, patient has been switched from NPO to Clear Liquid Diet for now RRx: -Patient's Hgb seems stable for the time being, will continue to monitor CBC and pursue lower endoscopy once patient's respiratory status improves Renal #Electrolyte derangement #Hypokalemia #Hypophosphatemia Phosphorus low at 2.0 today Potassium lower range of normal at 3.5 Rx: -Neutra-Phos packet x1 RRx: -Recheck electrolytes and replete as necessary #Lactic acidosis (resolved) Initial uptrend in lactic acidosis is suspected to be 2/2 dehydration Most recently, lactic acid has downtrended from 4.0 to 3.0 Endocrinology #Hyperglycemia Today's finger stick BG 103 Rx: -Insulin sliding scale Hematology #Acute blood loss anemia Patient initially presented with melena and drop in Hgb to 5.8 Hgb bump to 9.7 from 9.3 yesterday (acute bleed less likely) Rx: -Continue IV Protonix q12HR for GI prophylaxis -Transfuse if Hgb<7 RRx: -Patient's Hgb seems stable for the time being, will continue to monitor CBC and pursue lower endoscopy once patient's respiratory status improves ID See Respiratory session. Disposition: no longer meets criteria for ICU hospitalization and downgraded to floors today DVT prophylaxis: SCDs (bleeding risk) GI prophylaxis: IV Protonix q12HR Diet: Clear Liquid Diet Lines: PIV CODE STATUS:Full Code Patient care was discussed with attending physician, Dr. Guerrero. Vikas Rivera, DO Internal Medicine, PGY-1
--- NOTE | 2025-07-11 15:29 | PC.SS ---
Update: Patient remains on high flow oxygen, 25L. Patient on clear liquid diet. Patient receiving IV antibiotics. Rectal tube in place. Colonoscopy procedure is on hold.
--- NOTE | 2025-07-11 16:43 | ESPR_ITS ---
<Statement entered by Kaylee Starks MD - 07/22/25 09:11> I reviewed above note and agree with findings and plans. I have also personally examined the patient with medicine team and went over assessment and plan with medical team including chief of internal medicine and resident physician. <Statement entered by Florentino Nuñez MD - 07/11/25 18:04> ICU downgrade after aspiration event while prepping with GoLytely for colonoscopy in order to evaluate GI bleed. Seen and examined in ICU and patient had recently taken out his NG tube and asked nurse to replace. Abdomen is firm and slightly distended and per patient does feel tender to palpation. Thus, will keep n.p.o. for the night and reevaluate tomorrow. Given that he is on HFNC, GI is electing to hold off on colonoscopy until he is able to be weaned off. Otherwise, vital signs show sinus tachycardia of heart rate of 105 and saturating 96 to 97% on HFNC (25 L/min, 40% FiO2). Leukocytosis relatively stable, hemoglobin stable after being transfused 2 units PRBC on 07/10, and CHEM panel largely unremarkable. Currently on ceftriaxone, consider changing to Unasyn for anaerobic coverage tomorrow. ----- Note reviewed and agree with care plan as documented. Please refer to the note below for further details. Plan discussed with attending physician Dr. Tereza Nuñez MD PGY-2 Internal Medicine Documentation for date of: 07/11/25 Subjective Subjective Interval history: Patient is an ICU downgrade after aspiration while prepping for colonoscopy. He was seen and examined in the ICU. Nurse reports that he had pulled out his NG tube and rectal tube. Abdomen remains firm and slightly distended but nontender. Will reinsert NG tube. The patient is on high flow nasal cannula, GI is holding off on colonoscopy until the patient is off of high flow nasal cannula. Vitals show hypertension and tachycardia. H&H stable after receiving 2 units of PRBCs on 07/10/2025. Will consider changing ceftriaxone to Unasyn. Exam Vital Signs Temp Pulse Resp BP Pulse Ox O2 Del Method O2 Flow Rate 97.5 F 105 H 20 144/95 H 96 High Flow Nasal Cannula 07/11/25 08:00 07/11/25 15:50 07/11/25 15:50 07/11/25 12:00 07/11/25 15:50 07/11/25 12:00 07/11/25 15:50 FiO2 40 07/11/25 15:50 Narrative Exam General: Awake and in no acute distress. Does not speak in full comprehensible sentences. Neurologic: GCS 15. Alert and oriented x3, no gross neurological deficit, and patient able to move all 4 extremities. HEENT: Normocephalic, atraumatic, mucous membranes moist. Pupils reactive to light. Heart: Tachycardic rate, regular rhythm, normal S1 and S2, no murmurs. Lungs: High flow nasal cannula 25 L, FiO2 40, saturating at 98%. Coarse breath sounds with expiratory wheezes bilaterally. Abdomen: Distended, nontender to palpation. Extremities: No edema. 2+ radial and dorsalis pedis pulses bilaterally. Skin: Warm. Dry. No rash or ecchymoses. Objective Labs 07/11/25 04:40 07/11/25 04:40 Labs: Laboratory Results - last 24 hr 07/10/25 07/11/25 16:22 04:40 WBC 10.9 H 11.5 H RBC 3.08 L 3.22 L Hgb 9.3 L D 9.7 L Hct 27.6 L 29.2 L MCV 90 91 MCH 30.2 30.1 MCHC 33.7 33.2 RDW Std Deviation 50.4 H 50.1 H Plt Count 159 178 Neut % (Auto) 85 H 81 H Lymph % (Auto) 7 L 10 [place] % (Auto) 6 6 Eos % (Auto) 1 2 Baso % (Auto) 0 0 Neut # (Auto) 9.3 H 9.4 H Lymph # (Auto) 0.7 L 1.2 [place] # (Auto) 0.6 0.7 Eos # (Auto) 0.1 0.2 Baso # (Auto) 0.0 0.0 Immature Gran # (Auto) 0.13 H 0.06 H Absolute Nucleated RBC 0.05 H 0.04 H Immature Gran % 1 H 1 H Nucleated RBC % 1 H 0 Sodium 144 143 Potassium 3.2 L 3.5 Chloride 103 103 Carbon Dioxide 30.2 28.7 Anion Gap 11 11 BUN 14 12 Creatinine 0.9 0.8 Estim Creat Clear Calc 88.9 99.1 eGFR > 60 > 60 BUN/Creatinine Ratio 16 15 Glucose 118 H D 91 Calculated Osmolality 288 284 Calcium 8.2 L 8.4 Corrected Calcium 8.4 L Phosphorus 2.6 2.0 L Magnesium 2.6 Albumin 3.7 ABG Interpretation ABG results: 07/09/25 04:04 ABG pH 7.29 L ABG pCO2 57 H ABG pO2 86 ABG HCO3 28 H ABG O2 Saturation 96 ABG Base Excess 1 Quality Measures Quality Measures VTE prophylaxis (SCD) and none Assessment & Plan Assessment Current Active Medications: Generic Name Dose Route Start Last Admin Trade Name Freq PRN Reason Stop Dose Admin Acetaminophen 1,000 mg 07/07/25 15:20 Acetaminophen 500 Mg Tablet PO 08/05/25 15:39 On Hold: 07/09/25 11:11 Q6H PRN PAIN OR FEVER > 99.9 Albuterol/Ipratropium 3 ml 07/09/25 09:32 07/11/25 15:50 Albuterol/Ipratropium (Duoneb) Rt Flavia 3 Ml Nebu INH 08/08/25 09:31 3 ml Q4HRRT RHINA Administration Clonazepam 1 mg 07/07/25 06:00 07/11/25 13:07 Clonazepam 0.5 Mg Tablet PO 07/12/25 05:59 1 mg TID RHINA Administration Fluvoxamine 100 Mg 0 ea 07/06/25 21:00 07/10/25 11:14 Tablet PO 08/05/25 20:59 Not Given On Hold: 07/10/25 13:54 BID RHINA Dextrose 50 ml 07/06/25 15:47 Dextrose 50%-Water Inj 50 Ml Syringe IV 08/05/25 15:46 Q15MIN PRN BG <50 OR BG <70 & pt unresponsive Glucagon 1 mg 07/06/25 15:47 Glucagon Inj 1 Mg Vial IM Q15MIN PRN BG <70, and no IV access Fentanyl Citrate 2,500 mcg in 250 mls @ 2.5 mls/hr 07/09/25 03:29 07/09/25 10:48 Sublimaze Inj 2,500 Mcg/250 Ml Bag IV 07/14/25 03:28 0 mcg/hr On Hold: 07/09/25 15:01 .Q24H PRN 0 mls/hr PER PROTOCOL Titration Protocol 25 MCG/HR Propofol 1,000 mg in 100 mls @ 2.245 mls/hr 07/09/25 03:29 07/09/25 10:48 Diprivan Ivpb IV 08/08/25 03:28 0 mcg/kg/min On Hold: 07/09/25 15:01 .Q24H PRN 0 mls/hr PER PROTOCOL Titration Protocol 5 MCG/KG/MIN Ceftriaxone Sodium/Dextrose 1 gm in 50 mls @ 100 mls/hr 07/10/25 09:00 07/11/25 08:48 Rocephin/D5w 1gm Iv Premix IV 07/17/25 08:59 100 mls/hr QDAY RHINA Administration Dexmedetomidine/Sodium Chloride 400 mcg in 100 mls @ 2.835 mls/hr 07/09/25 17:00 07/10/25 20:50 Precedex Ivpb IV 08/08/25 16:59 Not Given .Q24H HRINA Protocol 0.15 MCG/KG/HR Insulin Human Lispro 0 unit 07/06/25 18:00 07/11/25 12:11 Insulin Lispro (Admelog) 1 Unit/0.01 Ml Unit SC 08/05/25 17:59 Not Given Q6HR RHINA Protocol Ondansetron HCl 4 mg 07/06/25 15:40 Ondansetron Inj 2 Mg/Ml Inj 2 Ml IVP 08/05/25 15:39 Q6H PRN NAUSEA OR VOMITING Protocol Pantoprazole Sodium 40 mg 07/06/25 21:00 07/11/25 08:49 Pantoprazole Inj 40 Mg Vial IVP 08/05/25 20:59 40 mg Q12HR RHINA Administration Polyethylene Glycol/Electrolytes 4,000 ml 07/07/25 15:31 07/09/25 03:03 Na Jj/Nahco3/Rio/Peg (Golytely) 4,000 Ml Btl PO 08/06/25 15:30 4,000 ml PRN PRN Administration SEE COMMENTS Risperidone 1 mg 07/06/25 21:00 07/10/25 11:13 Risperidone 1 Mg Tablet PO 08/05/25 20:59 Not Given On Hold: 07/10/25 13:54 BID RHINA Sodium Chloride 3 ml 07/10/25 13:18 Sodium Chloride Rt Flavia 0.9% 3 Ml Nebu INH 08/09/25 13:17 PRN PRN SOLN Plan Summary: 60 y/o male with Hx of Schizophrenia and Developmental Delay, presented with abdominal pain, constipation, and melena, admitted for acute blood loss anemia secondary to upper GI bleed. He was upgraded to the ICU after an aspiration event while undergoing prep for colonoscopy with GoLytely. He was downgraded to the floors on 07/11/2025. #History of schizophrenia #History of depression #History of anxiety Plan: -Consider restarting home medications due to patient no longer being NPO (PO Risperdal 1 mg BID, PO fluvoxamine 100 mg BID) #Restrictive lung disease 2/2 GI mass effect Although extubated, patient currently requires high-flow nasal cannula today due to ongoing rapid, shallow breathing with bilateral expiratory wheezing and rhonchi appreciated on lung auscultation The above occurs in the setting of concurrent pneumonia and bowel distention -07/10 CXR shows restrictive lung disease 2/2 bilaterally elevated hemidiaphragm from bowel distention and colonic ileus, making patient high risk for acute respiratory decompensation and failure if he were to be sedated for procedures Plan: -GI wants to hold off on colonoscopy until the patient is off of high flow nasal cannula -Continue rectal tube for decompression of free air trapped in the bowels likely 2/2 colonic ileus -Continue INH Duonebs q4HR scheduled -Continue INH sodium chloride 3 mL nebulizer prn -Continue chest physiotherapy -Monitor patient's respiratory status #Acute hypercapnic respiratory failure #Aspiration event #Aspiration pneumonia Patient's initial respiratory failure on admission was likely due to aspiration of GoLytely Patient was extubated 07/10 but is currently requiring 25 L high-flow nasal cannula w/ FiO2 of 40% Dx: -Per Rads, 07/09 CXRs (total of 3) suspicious for bilateral perihilar pneumonia -Per Rads, 07/10 CXR shows right lateral pneumonia -07/09 sputum culture grew mi-sensitive E.coli -MRSA (-) -BCx both (-) Plan: -Continue IV ceftriaxone 1 gm qD (07/10--), will consider switching to Unasyn -Continue INH Duonebs q4HR scheduled -Continue INH sodium chloride 3 mL nebulizer prn -Continue chest physiotherapy -Follow-up with ABG, CBC, and CMP #Colonic ileus #Abdominal distention #New suprapubic mass, likely R inguinal hernia On physical exam today, patient's abdomen remains distended with same reducible, suprapubic mass noted (currently suspect that it is a right inguinal hernia 2/2 increased intraabdominal pressure from continued colonic ileus) Dx: -07/08 abdominal XR showed prominent colonic ileus as well as suspicious findings for distention of the urinary bladder but was negative for SBO or free air Plan: -Rectal tube placement for decompression of free air trapped in the bowels likely 2/2 colonic ileus -Nasogastric decompression with light intermittent suction -Minimize the use of opiates for pain management due to side effect profile -Continue to monitor patient's bowel movements #GI bleed/anemia #Hematochezia #Acute blood loss anemia Upper endoscopy completed, showed no active bleeding Hemoglobin stable in the nines after receiving 2 units of PRBCs on 07/10/2025 Plan: -Continue IV Protonix q12HR for GI prophylaxis -Transfuse if Hgb<7 -Due to deferral of lower endoscopy, patient has been switched from NPO to Clear Liquid Diet for now -Pursue lower endoscopy once patient's respiratory status improves #Electrolyte derangement #Hypokalemia #Hypophosphatemia Phosphorus low at 2.0 today Potassium lower range of normal at 3.5 Plan: -Neutra-Phos packet x1 -Recheck electrolytes and replete as necessary #Lactic acidosis (resolved) Initial uptrend in lactic acidosis is suspected to be 2/2 dehydration Most recently, lactic acid has downtrended from 4.0 to 3.0 #Hyperglycemia Today's finger stick BG 103, up trended to 124 Rx: -Insulin sliding scale Hospital maintenance: Disposition: no longer meets criteria for ICU hospitalization and downgraded to floors today. DVT prophylaxis: SCDs (bleeding risk) GI prophylaxis: IV Protonix q12HR Diet: Clear Liquid Diet Lines: PIV CODE STATUS:Full Code Patient was seen and discussed with my attending physician Dr. Tereza BUTCHER and my senior resident Dr. Savannah BUTCHER PGY-2. Connor Loco DO PGY-1.
--- NOTE | 2025-07-11 16:54 | ESPR_ITS ---
Documentation for date of: 07/11/25 Subjective Subjective Interval history: Patient was seen and examined at bedside. Her hemoglobin now stable at 9.7, WBC mildly elevated from 2.7-11.5, patient was supposed to have colonoscopy however due to his high oxygen requirement the GI specialist Dr. Benavides decided to postpone the procedure. Blood pressure was stable 127/83, pulse rate continued to be above sinus tachycardia 100 and more than 80% of the time for the past 24 hours. No arrhythmia was detected on review of the telemetry for the past 24 hours Exam Vital Signs Temp Pulse Resp BP Pulse Ox O2 Del Method O2 Flow Rate 97.5 F 105 H 20 144/95 H 96 High Flow Nasal Cannula 07/11/25 08:00 07/11/25 15:50 07/11/25 15:50 07/11/25 12:00 07/11/25 15:50 07/11/25 12:00 07/11/25 15:50 FiO2 40 07/11/25 15:50 Narrative Exam GEN:alert, on HFNC, pupils equal and reactive, lying in bed comfortably HEENT: NC/AC, oral mucosa dry, neck supple CVS: RRR, S1-S2, S3, no murmurs appreciated RESP: Still has coarse crepitations bilaterally more on the right GI: Abdomen is firm, distended, somehow improved since yesterday, presents bowel sounds MSK: trace lower extremity edema SKIN: warm and clammy BERRY PICKER MACHINE OPERATOR: Unable to assess due to patient condition. Objective Labs 07/19/25 13:31 07/18/25 04:43 Labs: Laboratory Results - last 24 hr 07/10/25 07/11/25 16:22 04:40 WBC 10.9 H 11.5 H RBC 3.08 L 3.22 L Hgb 9.3 L D 9.7 L Hct 27.6 L 29.2 L MCV 90 91 MCH 30.2 30.1 MCHC 33.7 33.2 RDW Std Deviation 50.4 H 50.1 H Plt Count 159 178 Neut % (Auto) 85 H 81 H Lymph % (Auto) [address] [place] % (Auto) 6 6 Eos % (Auto) 1 2 Baso % (Auto) 0 0 Neut # (Auto) 9.3 H 9.4 H Lymph # (Auto) 0.[address] [place] # (Auto) 0.6 0.7 Eos # (Auto) 0.1 0.2 Baso # (Auto) 0.0 0.0 Immature Gran # (Auto) 0.13 H 0.06 H Absolute Nucleated RBC 0.05 H 0.04 H Immature Gran % 1 H 1 H Nucleated RBC % 1 H 0 Sodium 144 143 Potassium 3.2 L 3.5 Chloride 103 103 Carbon Dioxide 30.2 28.7 Anion Gap 11 11 BUN 14 12 Creatinine 0.9 0.8 Estim Creat Clear Calc 88.9 99.1 eGFR > 60 > 60 BUN/Creatinine Ratio 16 15 Glucose 118 H D 91 Calculated Osmolality 288 284 Calcium 8.2 L 8.4 Corrected Calcium 8.4 L Phosphorus 2.6 2.0 L Magnesium 2.6 Albumin 3.7 ABG Interpretation ABG results: 07/09/25 04:04 ABG pH 7.29 L ABG pCO2 57 H ABG pO2 86 ABG HCO3 28 H ABG O2 Saturation 96 ABG Base Excess 1 Quality Measures Quality Measures VTE prophylaxis (SCD) and none Assessment & Plan Assessment Current Active Medications: Generic Name Dose Route Start Last Admin Trade Name Freq PRN Reason Stop Dose Admin Acetaminophen 1,000 mg 07/07/25 15:20 Acetaminophen 500 Mg Tablet PO 08/05/25 15:39 On Hold: 07/09/25 11:11 Q6H PRN PAIN OR FEVER > 99.9 Albuterol/Ipratropium 3 ml 07/09/25 09:32 07/11/25 15:50 Albuterol/Ipratropium (Duoneb) Rt Flavia 3 Ml Nebu INH 08/08/25 09:31 3 ml Q4HRRT RHINA Administration Clonazepam 1 mg 07/07/25 06:00 07/11/25 13:07 Clonazepam 0.5 Mg Tablet PO 07/12/25 05:59 1 mg TID RHINA Administration Fluvoxamine 100 Mg 0 ea 07/06/25 21:00 07/10/25 11:14 Tablet PO 08/05/25 20:59 Not Given On Hold: 07/10/25 13:54 BID RHINA Dextrose 50 ml 07/06/25 15:47 Dextrose 50%-Water Inj 50 Ml Syringe IV 08/05/25 15:46 Q15MIN PRN BG <50 OR BG <70 & pt unresponsive Glucagon 1 mg 07/06/25 15:47 Glucagon Inj 1 Mg Vial IM Q15MIN PRN BG <70, and no IV access Fentanyl Citrate 2,500 mcg in 250 mls @ 2.5 mls/hr 07/09/25 03:29 07/09/25 10:48 Sublimaze Inj 2,500 Mcg/250 Ml Bag IV 07/14/25 03:28 0 mcg/hr On Hold: 07/09/25 15:01 .Q24H PRN 0 mls/hr PER PROTOCOL Titration Protocol 25 MCG/HR Propofol 1,000 mg in 100 mls @ 2.245 mls/hr 07/09/25 03:29 07/09/25 10:48 Diprivan Ivpb IV 08/08/25 03:28 0 mcg/kg/min On Hold: 07/09/25 15:01 .Q24H PRN 0 mls/hr PER PROTOCOL Titration Protocol 5 MCG/KG/MIN Ceftriaxone Sodium/Dextrose 1 gm in 50 mls @ 100 mls/hr 07/10/25 09:00 07/11/25 08:48 Rocephin/D5w 1gm Iv Premix IV 07/17/25 08:59 100 mls/hr QDAY RHINA Administration Dexmedetomidine/Sodium Chloride 400 mcg in 100 mls @ 2.835 mls/hr 07/09/25 17:00 07/10/25 20:50 Precedex Ivpb IV 08/08/25 16:59 Not Given .Q24H RHINA Protocol 0.15 MCG/KG/HR Insulin Human Lispro 0 unit 07/06/25 18:00 07/11/25 12:11 Insulin Lispro (Admelog) 1 Unit/0.01 Ml Unit SC 08/05/25 17:59 Not Given Q6HR RHINA Protocol Ondansetron HCl 4 mg 07/06/25 15:40 Ondansetron Inj 2 Mg/Ml Inj 2 Ml IVP 08/05/25 15:39 Q6H PRN NAUSEA OR VOMITING Protocol Pantoprazole Sodium 40 mg 07/06/25 21:00 07/11/25 08:49 Pantoprazole Inj 40 Mg Vial IVP 08/05/25 20:59 40 mg Q12HR RHINA Administration Polyethylene Glycol/Electrolytes 4,000 ml 07/07/25 15:31 07/09/25 03:03 Na Jj/Nahco3/Rio/Peg (Golytely) 4,000 Ml Btl PO 08/06/25 15:30 4,000 ml PRN PRN Administration SEE COMMENTS Risperidone 1 mg 07/06/25 21:00 07/10/25 11:13 Risperidone 1 Mg Tablet PO 08/05/25 20:59 Not Given On Hold: 07/10/25 13:54 BID RHINA Sodium Chloride 3 ml 07/10/25 13:18 Sodium Chloride Rt Flavia 0.9% 3 Ml Nebu INH 08/09/25 13:17 PRN PRN SOLN Plan Summary: 60-year-old male patient known case of schizophrenia, hyperlipidemia, developmental delay, was brought from residential facility after he was started to experience abdominal pain few hours before presentation. Patient was unable to provide accurate history due to his chronic mental status, most of the history was taken from the caregiver Charu Jean. Cardiology team was consulted due to tachycardia #Sinus tachycardia most likely secondary to acute blood loss versus sepsis versus perforated viscus #ACS r/o Patient presented with acute abdominal pain, tachycardia, melena, patient was sweaty, pulse rate was 129, blood pressure was 119/65.on examination found to have S1-S2 and S3 He has trace lower edema, no elevated JVD Hemoglobin was 5.8. TSH was 5.8, Troponin was negative, chest x-ray showed left ventricular prominence, elevated right hemidiaphragm. EKG was done initially showed sinus tachycardia, repeat today during the rapid also showed sinus tachycardia with deep Q-wave on the leads, I, III and AVf. Patient most likely have secondary cause of his sinus tachycardia including but not limited to infection, pain, acute blood loss, less likely medication side effect such as serotonin syndrome 07/09/2025, patient had an episode of aspiration, he was intubated and upgraded to the ICU. BNP came back normal, echo still pending, telemonitoring was reviewed for the past 24-hour was negative for any arrhythmias and it only showed sinus tachycardia. Echo during this admission : rate more than 115 bpm. Normal left ventricular size and function. Grade I diastolic dysfunction. EF estimated at 55-60%. The right ventricle is normal in size and systolic function. Normal RVSP. 07/11/2025. Colonoscopy was postponed as the patient was extubated however he still require high flow oxygen. Hemoglobin stable at 9.7. Heart rate more than 100 approximately 90% of the time. On review of the groundwater monitoring technician for the past 24 hours it was only sinus tachycardia. No arrhythmia detected Plan ? Strict in and out ? Treat underlying cause, patient might be symptomatic anemia versus perforated viscus, or sepsis ? Daily potassium and magnesium ? Replete electrolytes to keep potassium and magnesium above 4 and 2 respectively within normal range. ? Strict in and out #Upper versus less likely lower GI bleed #Developmental delay #Questionable SBO #History of schizophrenia #Hyperglycemia #Depression #Acute blood loss Plan ? Follow-up with the primary team recommendation Thank you for your consultation please do not hesitate to reach out if you have any question or concern - Patient's plan and care discussed with my attending, Dr. Alison Santos MD Internal Medicine PGY-3 Attending Provider Attestation/Addendum I have personally seen and examined the patient separately on the above date of service and discussed the plan of care with the resident. I reviewed the resident Dr. Santos consultation progress note and agree with the resident findings and plan in the note above and have also edited the documentation to reflect my findings and plan. Diego Rosas M.D. Interventional Cardiology
--- NOTE | 2025-07-11 20:48 | PD.IMPROG ---
Documentation for date of: 07/11/25 Subjective Subjective Interval history: Patient evaluated Hemoglobin hematocrit 9.7 and 29.2 Patient remains on high flow oxygen He cannot undergo any intravenous moderate sedation for the colonoscopy Procedure canceled and postponed Exam Vital Signs Temp Pulse Resp BP Pulse Ox O2 Del Method O2 Flow Rate 97.5 F 103 H 17 165/101 H 98 High Flow Nasal Cannula 25 07/11/25 08:00 07/11/25 19:03 07/11/25 19:03 07/11/25 19:00 07/11/25 19:03 07/11/25 12:00 07/11/25 19:03 FiO2 40 07/11/25 19:03 Objective Labs 07/11/25 04:40 07/11/25 04:40 Labs: Laboratory Results - last 24 hr 07/11/25 04:40 WBC 11.5 H RBC 3.22 L Hgb 9.7 L Hct 29.2 L MCV 91 MCH 30.1 MCHC 33.2 RDW Std Deviation 50.1 H Plt Count 178 Neut % (Auto) 81 H Lymph % (Auto) 10 [place] % (Auto) 6 Eos % (Auto) 2 Baso % (Auto) 0 Neut # (Auto) 9.4 H Lymph # (Auto) 1.2 [place] # (Auto) 0.7 Eos # (Auto) 0.2 Baso # (Auto) 0.0 Immature Gran # (Auto) 0.06 H Absolute Nucleated RBC 0.04 H Immature Gran % 1 H Nucleated RBC % 0 Sodium 143 Potassium 3.5 Chloride 103 Carbon Dioxide 28.7 Anion Gap 11 BUN 12 Creatinine 0.8 Estim Creat Clear Calc 99.1 eGFR > 60 BUN/Creatinine Ratio 15 Glucose 91 Calculated Osmolality 284 Calcium 8.4 Phosphorus 2.0 L Magnesium 2.6 Impressions Impression: Posthemorrhagic anemia Acute hypoxic respiratory failure patient on high flow oxygen Continue clear liquid diet Colonoscopy canceled till the patient respiratory status improves ABG Interpretation ABG results: 07/09/25 04:04 ABG pH 7.29 L ABG pCO2 57 H ABG pO2 86 ABG HCO3 28 H ABG O2 Saturation 96 ABG Base Excess 1 Assessment & Plan A&P Narrative Hematochezia Plan clear liquid diet n.p.o. at midnight tonight except p.o. meds Consent for fiberoptic esophagogastroduodenoscopy with possible biopsy possible therapeutic intervention under intravenous moderate sedation If EGD negative we will consider doing a fibrotic colonoscopy prior to discharge Serial CBC IV Protonix Thank you very much for the opportunity to participate in the care of this Time Spent With Patient Time: Total time spent is greater than 50% in coordination of care (as documented) at patient's floor/unit and/or counseling patient:
[2025-07-12] VITALS (28 sets, daily range): BP systolic 123–175; BP diastolic 76–131; PULSE 75–116; RESP 6–59; TEMP 36.2–36.6; O2SAT 90–100; BMI 30.4
[2025-07-12] MEDS: ALBUTEROL/IPRATROPIUM (Duoneb) RT SOL 3 ML NEBU INH ×6 (03:29→22:40)
[2025-07-12 06:00] LABS: Basophils # (Auto) 0.0 Thou/mm3 (0.0-0.2); Basophils % (Auto) 0 % (0-2.5); Eosinophils # (Auto) 0.3 Thou/mm3 (0.0-0.5); Eosinophils % (Auto) 3 % (0-10); Hematocrit 26.7 % (41.0-53.0); Hemoglobin 8.7 g/dL (13.5-16.0); Immature Granulocytes Auto 0.08 Thou/mm3 (0.00-0.00); Lymphocytes # (Auto) 1.1 Thou/mm3 (1.0-4.8); Lymphocytes % (Auto) 9 % (10-50); Mean Corpuscular HGB Conc 32.6 g/dl (31.0-37.0); Mean Corpuscular Hemoglobin 29.6 pg (25.0-35.0); Mean Corpuscular Volume 91 fL (80-100); Monocytes # (Auto) 0.9 Thou/mm3 (0.0-0.8); Monocytes % (Auto) 7 % (0-12); Neutrophils # (Auto) 9.3 Thou/mm3 (1.8-7.7); Neutrophils % (Auto) 80 % (37-80); Nucleated Red Blood Cell # 0.02 Thou/mm3 (0.00-0.00); Nucleated Red Blood Cell % 0 /100 WBC (0); Platelet Count 213 Thou/mm3 (140-440); RDW Standard Deviation 50.2 fL (35.1-43.9); Red Blood Count 2.94 Miln/mm3 (4.50-5.90); White Blood Count 11.6 Thou/mm3 (3.8-10.6)
[2025-07-12 06:12] LABS: Anion Gap 8 (7-16); BUN/Creatinine Ratio 13 Ratio (12-20); Blood Urea Nitrogen 10 mg/dL (9-23); Calcium 8.3 mg/dL (8.3-10.6); Carbon Dioxide 30.6 mMol/L (20.0-31.0); Chloride 104 mMol/L (98-107); Creatinine (Component) 0.8 mg/dL (0.6-1.3); Estimated Creatinine Clearance 96.5 mL/min (>60); Glucose 135 mg/dL (74-106); Magnesium 2.1 mg/dL (1.6-2.6); Osmolality,Calculated 285 (275-295); Phosphorous 2.4 mg/dL (2.4-5.1); Potassium 4.2 mMol/L (3.4-5.1); Sodium 143 mMol/L (136-145); eGFR > 60 See Note
--- NOTE | 2025-07-12 09:15 | ESPR_ITS ---
<Statement entered by Florentino Nuñez MD - 07/13/25 01:31> No acute overnight events, however patient noted to have taken out his NG and rectal tubes. When evaluated bedside asked RN to replace NG tube and rectal tube and soft restraints placed. Obtain CT A/P that showed incarcerated small bowel and right inguinal hernia causing small bowel obstruction. General surgery was consulted, which was able to reduce hernia, and states that they will repair it after abdominal distention improves. Antibiotic regimen changed from ceftriaxone to Unasyn for anaerobic coverage, patient placed n.p.o., and consider starting PPN given that patient is and had a proper meal and over 72 hours. Colonoscopy will be delayed unitl patient is able to be weaned off of HFNC. ----- Note reviewed and agree with care plan as documented. Please refer to the note below for further details. Plan discussed with attending physician Dr. Vane Nuñez MD PGY-2 Internal Medicine Documentation for date of: 07/12/25 Subjective Subjective Interval history: 60 year old male with past medical history of schizophrenia, developmental delay, Lomas's palsy and abdominal hernia, admitted for melena. S/P EGD, found non bleeding erosions at the gastroesophageal junction. During golytely prep for colonoscopy patient had an aspiration and was upgraded to ICU, intubated to protect his airway. 07/11/25 patient was downgraded, colonoscopy postponed as the patient is currently on high flow oxygen and can not undergo sedation for colonoscopy. No acute events overnight. Patient was seen at bedside today morning. Patient was sleeping but arousable. Patient noted he is tired and was consistently asking for his mom. Patient was on 20L with 30 FiO2 of high flow oxygen with diaphragmatic breathing. Exam Vital Signs Temp Pulse Resp BP Pulse Ox O2 Del Method O2 Flow Rate 97.8 F 98 22 H 147/105 H 100 High Flow Nasal Cannula 07/12/25 04:00 07/12/25 06:13 07/12/25 06:13 07/12/25 04:00 07/12/25 06:13 07/11/25 12:00 07/12/25 06:13 FiO2 30 07/12/25 06:13 Narrative Exam General: Patient is alert and but not fully oriented (but at baseline, patient has developmental delay). In mild distress. Cardio: Tachycardic, normal rhythm, no murmurs, gallops or rubs appreciated. Resp: Normal lung sounds, no rales or wheezing auscultated. MSK/ Extremities: No muscle or joint pain on any movement. No bruising or skin changes visible. No presence of trace or pitting edema in lower extremities bilaterally, dorsalis pedis pulses +2 bilaterally GI/Abdomen: Diffuse abdominal distension. Abdomen tense but nontender to palpation. Decreased bowel sounds. Neuro: No focal motor or sensory deficits in the UE or LE bilat Psych: Judgment thought and behavior hindered due to developmental delay. Good affect. Cooperative Objective Labs 07/13/25 05:29 07/13/25 05:29 Labs: Laboratory Results - last 24 hr 07/12/25 05:14 WBC 11.6 H RBC 2.94 L Hgb 8.7 L Hct 26.7 L MCV 91 MCH 29.6 MCHC 32.6 RDW Std Deviation 50.2 H Plt Count 213 D Neut % (Auto) 80 Lymph % (Auto) 9 L [place] % (Auto) 7 Eos % (Auto) 3 Baso % (Auto) 0 Neut # (Auto) 9.3 H Lymph # (Auto) 1.1 [place] # (Auto) 0.9 H Eos # (Auto) 0.3 Baso # (Auto) 0.0 Immature Gran # (Auto) 0.08 H Absolute Nucleated RBC 0.02 H Immature Gran % 1 H Nucleated RBC % 0 Sodium 143 Potassium 4.2 D Chloride 104 Carbon Dioxide 30.6 Anion Gap 8 BUN 10 Creatinine 0.8 Estim Creat Clear Calc 96.5 eGFR > 60 BUN/Creatinine Ratio 13 Glucose 135 H Calculated Osmolality 285 Calcium 8.3 Phosphorus 2.4 Magnesium 2.1 ABG Interpretation ABG results: 07/09/25 04:04 ABG pH 7.29 L ABG pCO2 57 H ABG pO2 86 ABG HCO3 28 H ABG O2 Saturation 96 ABG Base Excess 1 Quality Measures Quality Measures VTE prophylaxis (SCD) and none Assessment & Plan Assessment Current Active Medications: Generic Name Dose Route Start Last Admin Trade Name Freq PRN Reason Stop Dose Admin Acetaminophen 1,000 mg 07/07/25 15:20 Acetaminophen 500 Mg Tablet PO 08/05/25 15:39 On Hold: 07/09/25 11:11 Q6H PRN PAIN OR FEVER > 99.9 Albuterol/Ipratropium 3 ml 07/09/25 09:32 07/12/25 06:11 Albuterol/Ipratropium (Duoneb) Rt Flavia 3 Ml Nebu INH 08/08/25 09:31 3 ml Q4HRRT RHINA Administration Fluvoxamine 100 Mg 0 ea 07/06/25 21:00 07/10/25 11:14 Tablet PO 08/05/25 20:59 Not Given On Hold: 07/10/25 13:54 BID RHINA Dextrose 50 ml 07/06/25 15:47 Dextrose 50%-Water Inj 50 Ml Syringe IV 08/05/25 15:46 Q15MIN PRN BG <50 OR BG <70 & pt unresponsive Glucagon 1 mg 07/06/25 15:47 Glucagon Inj 1 Mg Vial IM Q15MIN PRN BG <70, and no IV access Fentanyl Citrate 2,500 mcg in 250 mls @ 2.5 mls/hr 07/09/25 03:29 07/09/25 10:48 Sublimaze Inj 2,500 Mcg/250 Ml Bag IV 07/14/25 03:28 0 mcg/hr On Hold: 07/09/25 15:01 .Q24H PRN 0 mls/hr PER PROTOCOL Titration Protocol 25 MCG/HR Propofol 1,000 mg in 100 mls @ 2.245 mls/hr 07/09/25 03:29 07/09/25 10:48 Diprivan Ivpb IV 08/08/25 03:28 0 mcg/kg/min On Hold: 07/09/25 15:01 .Q24H PRN 0 mls/hr PER PROTOCOL Titration Protocol 5 MCG/KG/MIN Ceftriaxone Sodium/Dextrose 1 gm in 50 mls @ 100 mls/hr 07/10/25 09:00 07/11/25 08:48 Rocephin/D5w 1gm Iv Premix IV 07/17/25 08:59 100 mls/hr QDAY RHINA Administration Dexmedetomidine/Sodium Chloride 400 mcg in 100 mls @ 2.835 mls/hr 07/09/25 17:00 07/11/25 18:45 Precedex Ivpb IV 08/08/25 16:59 Not Given .Q24H RHINA Protocol 0.15 MCG/KG/HR Insulin Human Lispro 0 unit 07/06/25 18:00 07/12/25 05:30 Insulin Lispro (Admelog) 1 Unit/0.01 Ml Unit SC 08/05/25 17:59 Not Given Q6HR RHINA Protocol Ondansetron HCl 4 mg 07/06/25 15:40 Ondansetron Inj 2 Mg/Ml Inj 2 Ml IVP 08/05/25 15:39 Q6H PRN NAUSEA OR VOMITING Protocol Pantoprazole Sodium 40 mg 07/06/25 21:00 07/11/25 21:50 Pantoprazole Inj 40 Mg Vial IVP 08/05/25 20:59 40 mg Q12HR RHINA Administration Polyethylene Glycol/Electrolytes 4,000 ml 07/07/25 15:31 07/09/25 03:03 Na Jj/Nahco3/Rio/Peg (Golytely) 4,000 Ml Btl PO 08/06/25 15:30 4,000 ml PRN PRN Administration SEE COMMENTS Risperidone 1 mg 07/06/25 21:00 07/10/25 11:13 Risperidone 1 Mg Tablet PO 08/05/25 20:59 Not Given On Hold: 07/10/25 13:54 BID RHINA Sodium Chloride 3 ml 07/10/25 13:18 Sodium Chloride Rt Flavia 0.9% 3 Ml Nebu INH 08/09/25 13:17 PRN PRN SOLN Plan 60 y/o male with Hx of Schizophrenia and Developmental Delay, presented with abdominal pain, constipation, and melena, admitted for acute blood loss anemia secondary to upper GI bleed. He was upgraded to the ICU after an aspiration event while undergoing prep for colonoscopy with GoLytely. He was downgraded to the floors on 07/11/2025, currently on high flow oxygen. #Acute respiratory failure #Restrictive lung disease, GI mass effect Although extubated, patient currently requires high-flow nasal cannula today due to ongoing rapid, shallow breathing with bilateral expiratory wheezing and rhonchi appreciated on lung auscultation The above occurs in the setting of concurrent pneumonia and bowel distention -07/10 CXR shows restrictive lung disease 2/2 bilaterally elevated hemidiaphragm from bowel distention and colonic ileus, making patient high risk for acute respiratory decompensation and failure if he were to be sedated for procedures -GI wants to hold off on colonoscopy until the patient is off of high flow nasal cannula -Continue rectal tube for decompression of free air trapped in the bowels likely 2/2 colonic ileus -Continue INH Duonebs q4HR scheduled -Continue INH sodium chloride 3 mL nebulizer prn -Continue chest physiotherapy -Monitor patient's respiratory status #Aspiration event #Aspiration pneumonia Patient's initial respiratory failure on admission was likely due to aspiration of GoLytely Patient was extubated 07/10 but is currently requiring 25 L high-flow nasal cannula w/ FiO2 of 40% Per Rads, 07/09 CXRs (total of 3) suspicious for bilateral perihilar pneumonia Per Rads, 07/10 CXR shows right lateral pneumonia 07/09 sputum culture grew mi-sensitive E.coli MRSA (-) BCx both (-) -07/12/25 switching ceftriaxon to Unasyn to add anaerobic coverage. -Continue INH Duonebs q4HR scheduled -Continue INH sodium chloride 3 mL nebulizer prn -Continue chest physiotherapy -Follow-up with ABG, CBC, and CMP #Colonic ileus #Abdominal distention #New suprapubic mass, likely R inguinal hernia On physical exam today, patient's abdomen remains distended with same reducible, suprapubic mass noted (currently suspect that it is a right inguinal hernia 2/2 increased intraabdominal pressure from continued colonic ileus) -07/08 abdominal XR showed prominent colonic ileus as well as suspicious findings for distention of the urinary bladder but was negative for SBO or free air -Rectal tube placement for decompression of free air trapped in the bowels likely 2/2 colonic ileus -Nasogastric decompression with light intermittent suction -Minimize the use of opiates for pain management due to side effect profile -Continue to monitor patient's bowel movements #GI bleed/anemia #Hematochezia #Acute blood loss anemia Upper endoscopy completed, showed no active bleeding Hemoglobin stable in the nines after receiving 2 units of PRBCs on 07/10/2025 -Continue IV Protonix q12HR for GI prophylaxis -Transfuse if Hgb<7 -Due to deferral of lower endoscopy, patient has been switched from NPO to Clear Liquid Diet for now -Pursue lower endoscopy once patient's respiratory status improves #Electrolyte derangement #Hypokalemia #Hypophosphatemia Phosphorus low at 2.0 today Potassium lower range of normal at 3.5 -Neutra-Phos packet x1 -Recheck electrolytes and replete as necessary #Lactic acidosis (resolved) Initial uptrend in lactic acidosis is suspected to be 2/2 dehydration Most recently, lactic acid has downtrended from 4.0 to 3.0 #Hyperglycemia Today's finger stick BG 103, up trended to 124 #History of schizophrenia #History of depression #History of anxiety -Consider restarting home medications due to patient no longer being NPO (PO Risperdal 1 mg BID, PO fluvoxamine 100 mg BID) Health Maintenance: Code Status: Full DVT Prophylaxis: SCDs GI Prophylaxis: Protonix Diet: Clear liquid diet, pending colonoscopy Marinelli: Marinelli catherter in place Lines: PIV Supplemental O2: High Flow 02 20L, 30 FiO2 Disposition: Med Surg Patient seen and care discussed with my attending physician, Dr. Cifuentes and my senior resident Dr. Ash Vazquez, S-IV Attending Provider Attestation/Addendum I, Beatris Cifuentes, , attest that I was physically present for the bailey portions of the service and evaluated the patient with the resident and I reviewed and discussed the case with the resident and agree with the resident's findings and plans of care as documented above Patient seen and evaluated this AM. Coater Operator at bedside. She states that the patient never complains. He states he is fine and doing well. However, patient is gesturing to have restraints removed. Patient has removed his rectal tube and NG tube was replaced this morning. There is some serosanguinous fluid noted in NG tube likely due to trauma. Abdomen is very distended, but patient does not grimace to pain on palpation. He is noted to have a firm mass in his right suprapubic region that appears somewhat tender to palpation. CT abdomen and pelvis was done showing incarcerated hernia of right inguinal region, SBO and prominent colonic ileus. Surgeon was consulted and was able to reduce hernia. Recommends enema or sigmoidoscopy to further decompress colon. Case dsicussed wtih GI. Unable to do colonoscopy as patient remains on HFNC and concern for decompensation of respiratory status under sedation. Will replace rectal tube and f/u AM KUB.
[2025-07-12] MEDS: cefTRIAXone/D5w 1gm IV premix 1 GM/50 ML BAG IV (09:50)
--- NOTE | 2025-07-12 10:19 | XR_ITS ---
Examination: AP chest single view TECHNIQUE: AP portable semiupright chest single view Date and time: July 12, 2025, 1041 hours INDICATIONS: Post orogastric tube placement FINDINGS: Orogastric tube satisfactory position Film is otherwise unchanged compared with 07/10/2025 IMPRESSION: Orogastric tube in the stomach satisfactory position
--- NOTE | 2025-07-12 10:58 | XR_ITS ---
Examination: Abdomen AP single view Technique: AP portable supine abdomen, single view Exam date and time: July 12, 2025, 1123 hours INDICATIONS: Abdominal distention today. FINDINGS: Moderate colonic ileus Mild small bowel ileus Orogastric tube in stomach satisfactory position. No free air. IMPRESSION: Moderate colonic ileus Mild small bowel ileus
[2025-07-12] MEDS: INSULIN LISPRO (AdmeLOG) 1 UNIT/0.01 ML UNIT SC (12:21)
[2025-07-12] MEDS: AMPICILLIN/SULBAC INJ 1.5 GM in SODIUM CHLORIDE 0.9% (Popper) 50 ML IV ×3 (12:22→23:36)
--- NOTE | 2025-07-12 14:35 | XR_ITS ---
Examination: CT abdomen and pelvis without contrast. Coronal 3-D reconstructions. Sagittal 2-D reconstructions. Date and time of exam:July 12, 2025, 1511 hours INDICATIONS: Abdominal pain and distention today CTDI: vol (mGy): 9.25 DLP: (mGycm): 640 Technique: Axial images of the abdomen have been obtained, 3 mm slice thickness Intravenous contrast material has not been administered. Low dose protocols were performed. One or more of the following dose reduction techniques were used; automated exposure control, adjustment of the mA and/or KV according to patient size, use of iterative reconstruction technique. Findings: Atelectasis versus pneumonia at the lung bases No visualized liver or splenic lesion Orogastric tube in the stomach No pancreatic or adrenal mass No hydronephrosis or renal calculi Prominent colonic ileus Multiple fluid distended small bowel loops No pericecal inflammatory change Contracted urinary bladder Bilateral inguinal hernias, on the left side containing portions of the urinary bladder, on the right side small bowel Mild osteopenia IMPRESSION: Small bowel obstruction secondary to incarcerated small bowel in a right inguinal hernia
--- NOTE | 2025-07-12 15:42 | PC.NURSE ---
refused turning at q2 hr
--- NOTE | 2025-07-12 15:53 | PD.RESPRO ---
Documentation for date of: 07/12/25 Subjective Subjective Interval history: Patient was seen and examined at bedside. Appear to be sleeping comfortably. No overnight events. His WBC is still elevated 11.6, hemoglobin downtrend to 8.7, he is still on high flow nasal cannula 25 L flow 30% O2. Blood pressure 147/105. Heart rate 98. On review of the patient telemetry box heart rate approximately 80% above 100. No segment changes, no arrhythmias. Potassium is 4.2, magnesium not performed. Exam Vital Signs Temp Pulse Resp BP Pulse Ox O2 Del Method O2 Flow Rate 97.2 F 98 26 H 162/99 H 99 High Flow Nasal Cannula 30 07/12/25 13:26 07/12/25 14:00 07/12/25 14:00 07/12/25 13:07/12/25 14:00 07/12/25 13:07/12/25 14:00 FiO2 30 07/12/25 14:00 Narrative Exam GEN:alert, on HFNC, lying in bed comfortably HEENT: NC/AC, oral mucosa dry, neck supple CVS: RRR, S1-S2, S3, no murmurs appreciated RESP: Still has coarse crepitations bilaterally GI: Abdomen is firm, distended, somehow improved since yesterday, presents bowel sounds MSK: trace lower extremity edema SKIN: warm and clammy BROMINATION EQUIPMENT OPERATOR: Unable to assess due to patient condition. Objective Labs 07/19/25 13:31 07/18/25 04:43 Labs: Laboratory Results - last 24 hr 07/12/25 05:14 WBC 11.6 H RBC 2.94 L Hgb 8.7 L Hct 26.7 L MCV 91 MCH 29.6 MCHC 32.6 RDW Std Deviation 50.2 H Plt Count 213 D Neut % (Auto) 80 Lymph % (Auto) 9 L [place] % (Auto) 7 Eos % (Auto) 3 Baso % (Auto) 0 Neut # (Auto) 9.3 H Lymph # (Auto) 1.1 [place] # (Auto) 0.9 H Eos # (Auto) 0.3 Baso # (Auto) 0.0 Immature Gran # (Auto) 0.08 H Absolute Nucleated RBC 0.02 H Immature Gran % 1 H Nucleated RBC % 0 Sodium 143 Potassium 4.2 D Chloride 104 Carbon Dioxide 30.6 Anion Gap 8 BUN 10 Creatinine 0.8 Estim Creat Clear Calc 96.5 eGFR > 60 BUN/Creatinine Ratio 13 Glucose 135 H Calculated Osmolality 285 Calcium 8.3 Phosphorus 2.4 Magnesium 2.1 ABG Interpretation ABG results: 07/09/25 04:04 ABG pH 7.29 L ABG pCO2 57 H ABG pO2 86 ABG HCO3 28 H ABG O2 Saturation 96 ABG Base Excess 1 Quality Measures Quality Measures VTE prophylaxis (SCD) and none Assessment & Plan Assessment Current Active Medications: Generic Name Dose Route Start Last Admin Trade Name Freq PRN Reason Stop Dose Admin Acetaminophen 1,000 mg 07/07/25 15:20 Acetaminophen 500 Mg Tablet PO 08/05/25 15:39 On Hold: 07/09/25 11:11 Q6H PRN PAIN OR FEVER > 99.9 Albuterol/Ipratropium 3 ml 07/09/25 09:32 07/12/25 13:59 Albuterol/Ipratropium (Duoneb) Rt Flavia 3 Ml Nebu INH 08/08/25 09:31 3 ml Q4HRRT RHINA Administration Fluvoxamine 100 Mg 0 ea 07/06/25 21:00 07/10/25 11:14 Tablet PO 08/05/25 20:59 Not Given BID RHINA Dextrose 50 ml 07/06/25 15:47 Dextrose 50%-Water Inj 50 Ml Syringe IV 08/05/25 15:46 Q15MIN PRN BG <50 OR BG <70 & pt unresponsive Glucagon 1 mg 07/06/25 15:47 Glucagon Inj 1 Mg Vial IM Q15MIN PRN BG <70, and no IV access Fentanyl Citrate 2,500 mcg in 250 mls @ 2.5 mls/hr 07/09/25 03:29 07/09/25 10:48 Sublimaze Inj 2,500 Mcg/250 Ml Bag IV 07/14/25 03:28 0 mcg/hr On Hold: 07/09/25 15:01 .Q24H PRN 0 mls/hr PER PROTOCOL Titration Protocol 25 MCG/HR Ampicillin Sodium/Sulbactam 50 mls @ 100 mls/hr 07/12/25 12:00 07/12/25 12:22 Sodium 1.5 gm/ Sodium Chloride IV 07/19/25 11:59 100 mls/hr Q6HR RHINA Administration Insulin Human Lispro 0 unit 07/06/25 18:00 09/12/25 12:21 Insulin Lispro (Admelog) 1 Unit/0.01 Ml Unit SC 08/05/25 17:59 1 unit Q6HR RHINA Administration Protocol Ondansetron HCl 4 mg 07/06/25 15:40 Ondansetron Inj 2 Mg/Ml Inj 2 Ml IVP 08/05/25 15:39 Q6H PRN NAUSEA OR VOMITING Protocol Pantoprazole Sodium 40 mg 07/06/25 21:00 07/12/25 09:49 Pantoprazole Inj 40 Mg Vial IVP 08/05/25 20:59 40 mg Q12HR RHINA Administration Polyethylene Glycol/Electrolytes 4,000 ml 07/07/25 15:31 07/09/25 03:03 Na Jj/Nahco3/[place]/Peg (Golytely) 4,000 Ml Btl PO 08/06/25 15:30 4,000 ml PRN PRN Administration SEE COMMENTS Risperidone 1 mg 07/06/25 21:00 07/10/25 11:13 Risperidone 1 Mg Tablet PO 08/05/25 20:59 Not Given On Hold: 07/10/25 13:54 BID RHINA Sodium Chloride 3 ml 07/10/25 13:18 Sodium Chloride Rt Flavia 0.9% 3 Ml Nebu INH 08/09/25 13:17 PRN PRN SOLN Plan Summary: 60-year-old male patient known case of schizophrenia, hyperlipidemia, developmental delay, was brought from assisted facility after he was started to experience abdominal pain few hours before presentation. Patient was unable to provide accurate history due to his chronic mental status, most of the history was taken from the caregiver Charu Jean. Cardiology team was consulted due to tachycardia #Sinus tachycardia most likely secondary to acute blood loss versus sepsis versus perforated viscus #ACS r/o Patient presented with acute abdominal pain, tachycardia, melena, patient was sweaty, pulse rate was 129, blood pressure was 119/65.on examination found to have S1-S2 and S3 He has trace lower edema, no elevated JVD Hemoglobin was 5.8. TSH was 5.8, Troponin was negative, chest x-ray showed left ventricular prominence, elevated right hemidiaphragm. EKG was done initially showed sinus tachycardia, repeat today during the rapid also showed sinus tachycardia with deep Q-wave on the leads, I, III and AVf. Patient most likely have secondary cause of his sinus tachycardia including but not limited to infection, pain, acute blood loss, less likely medication side effect such as serotonin syndrome 07/09/2025, patient had an episode of aspiration, he was intubated and upgraded to the ICU. BNP came back normal, echo still pending, telemonitoring was reviewed for the past 24-hour was negative for any arrhythmias and it only showed sinus tachycardia. Echo during this admission : rate more than 115 bpm. Normal left ventricular size and function. Grade I diastolic dysfunction. EF estimated at 55-60%. The right ventricle is normal in size and systolic function. Normal RVSP. 07/12/2025 patient blood pressure still mildly elevated 147/105, heart rate most of the time above 100. Plan ? We recommend to start the patient on metoprolol 25 mg p.o. daily ? Strict in and out ? Treat underlying cause, patient might be symptomatic anemia versus perforated viscus, or sepsis ? Daily potassium and magnesium ? Replete electrolytes to keep potassium and magnesium above 4 and 2 respectively within normal range. ? Strict in and out #Upper versus less likely lower GI bleed #Developmental delay #Questionable SBO #History of schizophrenia #Hyperglycemia #Depression #Acute blood loss Plan ? Follow-up with the primary team recommendation Thank you for your consultation please do not hesitate to reach out if you have any question or concern - Patient's plan and care discussed with my attending, Dr. Alison Santos MD Internal Medicine PGY-3 Attending Provider Attestation/Addendum I have personally seen and examined the patient separately on the above date of service and discussed the plan of care with the resident. I reviewed the resident Dr. Santos consultation progress note and agree with the resident findings and plan in the note above and have also edited the documentation to reflect my findings and plan. Diego Rosas M.D. Interventional Cardiology
[2025-07-12 17:36] LABS: Lactate (Lactic Acid) 1.8 mMol/L (0.4-2.0)
--- NOTE | 2025-07-12 17:56 | PD.IMPROG ---
Documentation for date of: 07/12/25 Subjective Subjective Interval history: Patient evaluated colonoscopy canceled for today again because of the high flow oxygen Exam Vital Signs Temp Pulse Resp BP Pulse Ox O2 Del Method O2 Flow Rate 97.2 F 75 18 150/92 H 97 High Flow Nasal Cannula 30 07/12/25 16:00 07/12/25 16:00 07/12/25 16:00 07/12/25 16:00 07/12/25 16:00 07/12/25 16:00 07/12/25 16:00 FiO2 35 07/12/25 16:00 Objective Labs 07/12/25 05:14 07/12/25 05:14 Labs: Laboratory Results - last 24 hr 07/12/25 07/12/25 05:14 17:28 WBC 11.6 H RBC 2.94 L Hgb 8.7 L Hct 26.7 L MCV 91 MCH 29.6 MCHC 32.6 RDW Std Deviation 50.2 H Plt Count 213 D Neut % (Auto) 80 Lymph % (Auto) 9 L [place] % (Auto) 7 Eos % (Auto) 3 Baso % (Auto) 0 Neut # (Auto) 9.3 H Lymph # (Auto) 1.1 [place] # (Auto) 0.9 H Eos # (Auto) 0.3 Baso # (Auto) 0.0 Immature Gran # (Auto) 0.08 H Absolute Nucleated RBC 0.02 H Immature Gran % 1 H Nucleated RBC % 0 Sodium 143 Potassium 4.2 D Chloride 104 Carbon Dioxide 30.6 Anion Gap 8 BUN 10 Creatinine 0.8 Estim Creat Clear Calc 96.5 eGFR > 60 BUN/Creatinine Ratio 13 Glucose 135 H Calculated Osmolality 285 Lactic Acid 1.8 Calcium 8.3 Phosphorus 2.4 Magnesium 2.1 Impressions Impression: Acute posthemorrhagic anemia Continue clear liquid diet we will wait till the oxygen requirement goes down before doing colonoscopy ABG Interpretation ABG results: 07/09/25 04:04 ABG pH 7.29 L ABG pCO2 57 H ABG pO2 86 ABG HCO3 28 H ABG O2 Saturation 96 ABG Base Excess 1 Assessment & Plan A&P Narrative Hematochezia Plan clear liquid diet n.p.o. at midnight tonight except p.o. meds Consent for fiberoptic esophagogastroduodenoscopy with possible biopsy possible therapeutic intervention under intravenous moderate sedation If EGD negative we will consider doing a fibrotic colonoscopy prior to discharge Serial CBC IV Protonix Thank you very much for the opportunity to participate in the care of this Time Spent With Patient Time: Total time spent is greater than 50% in coordination of care (as documented) at patient's floor/unit and/or counseling patient:
--- NOTE | 2025-07-12 18:24 | PD.SURCONS ---
HPI Consult details Consult date: 07/12/25 Reason for consultation narrative: The patient was seen in consultation because of large abdominal distention with a possible large bowel obstruction as well as a small bowel obstruction seen on the CT scan due to incarcerated right inguinal hernia History of present illness: History of present illness is difficult to achieve on this patient who even though the response is not able to give any history. He has been developmentally delayed and has a history of schizophrenia and chronic anemia and Lomas's palsy. He was admitted with complaints of constipation and abdominal pain. He has been in the hospital for a week and he has undergone EGD and was found to have some erosion in the stomach. While patient was waiting for colonoscopy he aspirated on GoLytely according to the physician who called me for a consult. He developed respiratory insufficiency. A CT scan was performed today which showed incarcerated right inguinal hernia and hence a surgical consultation. Past Medical History Past Medical History NEUROLOGIC: Positive Lomas's Palsy; Negative Neurological Disorders, Cerebrovascular Accident, Transient Ischemic Attacks (TIA), Dementia, Alzheimer's Disease, Parkinson's Disease, Brain Tumor, Meningitis, Seizures, Epilepsy, Multiple Sclerosis, Cerebral Palsy, Amyotrophic Lateral Sclerosis (ALS/Jessica Gehrig's), Guillain-[place] Syndrome, Spina Bifida, Paralysis, Peripheral Neuropathy, Subdural Hematoma, Migraine, Head Trauma, Spinal Cord Injury or Traumatic Brain Injury CARDIAC: Negative Cardiac Disorders, Myocardial Infarction, Cardiac Arrhythmia, Atrial Fibrillation, Angina, Heart Murmur, Coronary Artery Disease, Atherosclerotic Heart Disease, Hypercholesterolemia, Aneurysm, Congestive Heart Failure, Congenital Heart Disease, Valvular Heart Disease, Rheumatic Fever, Cardiomyopathy, Cellulitis, Deep Vein Thrombosis, Hypertension, Hypotension or Varicose Veins RESPIRATORY: Negative Respiratory Disorders, Chronic Obstructive Pulmonary Disease (COPD), Asthma, Bronchitis, Emphysema, Pneumonia, Pulmonary Fibrosis, Cystic Fibrosis, Tuberculosis, Pulmonary Embolism, Pulmonary Edema or Sleep Apnea GASTROINTESTINAL: Positive Hemorrhoids; Negative Gastrointestinal Disorders, Cirrhosis, Pancreatitis, Celiac Disease, Gall Bladder Disease, Gastrointestinal Bleed, Esophageal Varices, Persaud's Esophagus, Colitis, Ulcerative Colitis, Diverticulitis, Diverticulosis, Ulcer, Irritable Bowel, Crohn's Disease, Obstructive Bowel, Hiatal Hernia, Gastroesophageal Reflux Disease, Polyps or Obesity GENITOURINARY: Positive Inguinal Hernia; Negative Genitourinary Disorders, Chronic Kidney Disease, Renal Disease, Kidney Stones, Polycystic Kidney Disease, Dialysis or Benign Prostatic Hyperplasia REPRODUCTIVE: Negative Fibroids, Genital Herpes, Gonorrhea, Syphilis or Testicular Cancer MUSCULOSKELETAL: Negative Musculoskeletal Disorders, Muscular Dystrophy, Myasthenia Gravis, Marfan's Syndrome, Arthritis, Rheumatoid Arthritis, Osteoporosis, Degenerative Disk Disease, Gout, Scoliosis, Carpal Tunnel Syndrome, Fibromyalgia, Fractures, Degenerative Joint Disease, Osteomyelitis or Poliovirus ENT: Negative History of ENT Problems, Cataracts, Glaucoma, Blind, Retinal Detachment, Macular Degeneration, Ear Infection, Deafness, Head Trauma or Eye Prosthesis ENDOCRINE: Negative Endocrine Disorders, Diabetes Mellitus Type 1, Diabetes Mellitus Type 2, Hypoglycemia, Chas's Syndrome, Olayinka's Disease, Hyperthyroidism, Hypothyroidism, Parathyroid Disease, Pituitary Disease, Systemic Lupus Erythematosus, Syndrome of Inappropriate Antidiuretic Hormone (SIADH), Adrenal Disease or Graves' Disease HEMATOLOGIC: Negative Blood Disorders, Anemia, Leukemia, Hemophilia, Thalassemia, Sickle Cell Disease or Clotting Problems PSYCHO/SOCIAL: Positive Schizophrenia and Anxiety; Negative Psychiatric Problems, Recreational Drug Use, Bipolar Disorder, Depression, Behavior Problems, Self-Mutilation, Attention Deficit Disorder, Attention Deficit Hyperactivity Disorder, Depression, Post Traumatic Stress Disorder or Eating Disorder OTHER HISTORY: Positive Developmental Delay and Blood Transfusions; Negative Hospitalization, Autoimmune Disease, Down Syndrome, Autism, Shingles, Falls, Blood Transfusion Reaction, Anesthesia Reactions, Organ Transplant, Chemotherapy, Radiation Therapy, Hyperbaric Therapy, MRSA, VRSA, Vancomycin-Resistant Enterococci, Clostridium Difficile or Testicular Cancer Family History FAMILY HISTORY: Negative Family Cardiac Disorders Surgical History SURGICAL: Negative Cardiac Surgery, Open Heart Surgery, Coronary Artery Bypass Graft, Valve Replacement, Vascular Surgery, Coronary Stent, Cardiac Catheterization, Pacemaker, Angiogram, Auto Implanted Cardiovert Defib, Carotid Endarterectomy, Endocrine Surgery, Thyroidectomy, Ear Surgery, Tympanostomy Tube, Eye Surgery, Nose Surgery, Oral Surgery, Tonsillectomy, Adenoidectomy, Cochlear Implant, Corneal Transplant, Throat Surgery, Abdominal Surgery, Tracheostomy, Gastric Bypass Surgery, Gastrostomy, Bowel Surgery, Nephrectomy, Ureteral Stent, Transurethral Resection, Joint Replacement, of Shoulder Sx, Amputation, Knee Sx, Hip Sx, Open Reduction Internal Fixation, Arthroscopy, of Back Surgery, Neurologic Surgery, Brain Shunt, Vasectomy, Organ Transplant or ESWL OTHER SURGICAL HX: Schizoaffective disorder Hyperlipidemia Social History SMOKING STATUS: Never smoker Meds Home Medications and Allergies Home Medications ?Medication ?Instructions ?Recorded ?Confirmed ?Type clonazepam 1 mg tablet 1 mg PO TID 07/06/25 07/06/25 History docusate sodium 250 mg capsule 250 mg PO DAILY 07/06/25 07/06/25 History fluvoxamine 100 mg tablet 100 mg PO BID 07/06/25 07/06/25 History loratadine 10 mg tablet (Allergy 10 mg PO DAILY 07/06/25 07/07/25 History Relief (loratadine)) risperidone 1 mg/mL oral solution 1 mg PO BID 07/06/25 07/06/25 History (Risperdal) simvastatin 10 mg tablet 10 mg PO QPM 07/06/25 07/06/25 History Allergies Allergy/AdvReac Type Severity Reaction Status Date / Time No Known Allergies Allergy Verified 07/06/25 08:38 Exam Vital Signs Temp Pulse Resp BP Pulse Ox O2 Del Method O2 Flow Rate 97.2 F 75 18 150/92 H 97 High Flow Nasal Cannula 30 07/12/25 16:00 07/12/25 16:00 07/12/25 16:00 07/12/25 16:00 07/12/25 16:00 07/12/25 16:00 07/12/25 16:00 FiO2 35 07/12/25 16:00 Narrative Exam Physical examination revealed a well-built well-nourished male who is 5 foot 5 inches tall weighing 186 pounds. His vital signs are normal Constitutional Constitutional: mild distress Routine Abdominal Exam Comments: Examination of the abdomen revealed considerable distention and palpation revealed no significant tenderness but it caused him some discomfort. Examination of the groin revealed large incarcerated hernia on the right side which I was able to reduce. Routine Rectal Exam Comments: Deferred because of the rectal tube Results Results: Laboratory Laboratory Narrative: Laboratory results show hemoglobin around 8 g. His WBC is within normal limits. His lactic acid was high but it is returning to normal level Results: Imaging Imaging narrative: X-rays of the abdomen showed considerable distention of the colon which was read as colonic ileus. Patient had a CT scan which also showed dilated loops of colon as well as large right inguinal hernia which is incarcerated most probably with a loop of small bowel Assessment & Plan Additional Assessment Additional comments: Impression: Incarcerated right inguinal hernia, reduced Distended colon cause to be determined Upper GI bleeding corrected with EGD and transfusion Mental retardation Schizophrenia Lomas's palsy Obesity Plan Plan: It is hard to see incarcerated small bowel obstruction as well as large bowel obstruction. If the patient has small bowel obstruction due to incarcerated hernia and the colonic dilatation will not be happening. The colonic dilatation may be just an ileus which we normally see on patients with mental retardation. However causes of mechanical obstruction in the colon needs to be ruled out. The rectal tube is draining some stool but the patient will require enemas and possibly sigmoid to rule out a left colon lesion. As far as the hernia we can repair it after his abdominal distention improves. It is not urgent now because it has been reduced. Thank you very much
--- NOTE | 2025-07-12 18:42 | ESPR_ITS ---
Documentation for date of: 07/12/25 Subjective Subjective Interval history: Abdominal x-ray reviewed and recalls primarily colonic distention Recommend placement of rectal tube patient can undergo an endoscopic procedure such as decompression tube placement into the colon because he cannot be sedated because of the high flow oxygen Case discussed with the attending physician Exam Vital Signs Temp Pulse Resp BP Pulse Ox O2 Del Method O2 Flow Rate 97.2 F 75 18 150/92 H 97 High Flow Nasal Cannula 30 07/12/25 16:00 07/12/25 16:00 07/12/25 16:00 07/12/25 16:00 07/12/25 16:00 07/12/25 16:00 07/12/25 16:00 FiO2 35 07/12/25 16:00 Objective Labs 07/12/25 05:14 07/12/25 05:14 Labs: Laboratory Results - last 24 hr 07/12/25 07/12/25 05:14 17:28 WBC 11.6 H RBC 2.94 L Hgb 8.7 L Hct 26.7 L MCV 91 MCH 29.6 MCHC 32.6 RDW Std Deviation 50.2 H Plt Count 213 D Neut % (Auto) 80 Lymph % (Auto) 9 L [place] % (Auto) 7 Eos % (Auto) 3 Baso % (Auto) 0 Neut # (Auto) 9.3 H Lymph # (Auto) 1.1 [place] # (Auto) 0.9 H Eos # (Auto) 0.3 Baso # (Auto) 0.0 Immature Gran # (Auto) 0.08 H Absolute Nucleated RBC 0.02 H Immature Gran % 1 H Nucleated RBC % 0 Sodium 143 Potassium 4.2 D Chloride 104 Carbon Dioxide 30.6 Anion Gap 8 BUN 10 Creatinine 0.8 Estim Creat Clear Calc 96.5 eGFR > 60 BUN/Creatinine Ratio 13 Glucose 135 H Calculated Osmolality 285 Lactic Acid 1.8 Calcium 8.3 Phosphorus 2.4 Magnesium 2.1 ABG Interpretation ABG results: 07/09/25 04:04 ABG pH 7.29 L ABG pCO2 57 H ABG pO2 86 ABG HCO3 28 H ABG O2 Saturation 96 ABG Base Excess 1 Assessment & Plan A&P Narrative Hematochezia Plan clear liquid diet n.p.o. at midnight tonight except p.o. meds Consent for fiberoptic esophagogastroduodenoscopy with possible biopsy possible therapeutic intervention under intravenous moderate sedation If EGD negative we will consider doing a fibrotic colonoscopy prior to discharge Serial CBC IV Protonix Thank you very much for the opportunity to participate in the care of this Time Spent With Patient Time: Total time spent is greater than 50% in coordination of care (as documented) at patient's floor/unit and/or counseling patient:
[2025-07-13] VITALS (15 sets, daily range): BP systolic 129–152; BP diastolic 73–102; PULSE 77–120; RESP 12–26; TEMP 36.4–37.1; O2SAT 92–100; BMI 30.3
[2025-07-13] MEDS: ALBUTEROL/IPRATROPIUM (Duoneb) RT SOL 3 ML NEBU INH ×6 (02:39→22:44)
[2025-07-13] MEDS: DIAZEPAM INJ 5 MG/ML VIAL 2 ML 2.5 MG IVP ×2 (03:21→05:06)
[2025-07-13] MEDS: AMPICILLIN/SULBAC INJ 1.5 GM in SODIUM CHLORIDE 0.9% (Popper) 50 ML IV ×4 (05:06→23:00)
[2025-07-13 05:47] LABS: Basophils # (Auto) 0.0 Thou/mm3 (0.0-0.2); Basophils % (Auto) 0 % (0-2.5); Eosinophils # (Auto) 0.3 Thou/mm3 (0.0-0.5); Eosinophils % (Auto) 3 % (0-10); Hematocrit 27.4 % (41.0-53.0); Hemoglobin 8.9 g/dL (13.5-16.0); Immature Granulocytes Auto 0.15 Thou/mm3 (0.00-0.00); Lymphocytes # (Auto) 1.2 Thou/mm3 (1.0-4.8); Lymphocytes % (Auto) 13 % (10-50); Mean Corpuscular HGB Conc 32.5 g/dl (31.0-37.0); Mean Corpuscular Hemoglobin 29.1 pg (25.0-35.0); Mean Corpuscular Volume 90 fL (80-100); Monocytes # (Auto) 1.0 Thou/mm3 (0.0-0.8); Monocytes % (Auto) 11 % (0-12); Neutrophils # (Auto) 6.7 Thou/mm3 (1.8-7.7); Neutrophils % (Auto) 72 % (37-80); Nucleated Red Blood Cell # 0.03 Thou/mm3 (0.00-0.00); Nucleated Red Blood Cell % 0 /100 WBC (0); Platelet Count 238 Thou/mm3 (140-440); RDW Standard Deviation 48.5 fL (35.1-43.9); Red Blood Count 3.06 Miln/mm3 (4.50-5.90); White Blood Count 9.3 Thou/mm3 (3.8-10.6)
[2025-07-13 06:18] LABS: Alanine Aminotransferase 22 U/L (10-49); Albumin, Serum 3.4 gm/dL (3.5-5.0); Albumin/Globulin Ratio 1.6 (1.2-2.2); Alkaline Phosphatase 48 U/L (46-116); Anion Gap 11 (7-16); Aspartate Amino Transferase 24 U/L (0-34); BUN/Creatinine Ratio 14 Ratio (12-20); Bilirubin,Total 0.4 mg/dL (0.3-1.2); Blood Urea Nitrogen 10 mg/dL (9-23); Calcium 8.3 mg/dL (8.3-10.6); Calcium (Corrected) 8.8 mg/dL (8.5-10.1); Carbon Dioxide 27.9 mMol/L (20.0-31.0); Chloride 103 mMol/L (98-107); Creatinine (Component) 0.7 mg/dL (0.6-1.3); Estimated Creatinine Clearance 110.2 mL/min (>60); Globulin 2.1 gm/dL (2.3-3.5); Glucose 131 mg/dL (74-106); Magnesium 2.0 mg/dL (1.6-2.6); Osmolality,Calculated 284 (275-295); Phosphorous 3.6 mg/dL (2.4-5.1); Potassium 3.4 mMol/L (3.4-5.1); Sodium 142 mMol/L (136-145); Total Protein 5.5 gm/dL (5.7-8.2); eGFR > 60 See Note
--- NOTE | 2025-07-13 09:14 | XR_ITS ---
Examination: Abdomen 2 views Technique: AP supine upright abdomen 2 views Date and time: July 13, 2025, 0930 hrs. Indications: Abdominal distention beginning yesterday. Findings: Significantly air distended colon Air distended small bowel in addition, please see the CT abdomen pelvis report yesterday No free air The osseous structures are intact. Orogastric tube in the stomach Impression: Significantly air distended colon and small bowel
[2025-07-13] MEDS: POTASSIUM CHL 10 mEq IVPB 10 MEQ/100 ML BAG 100 MEQ IV ×4 (09:25→13:03)
--- NOTE | 2025-07-13 09:52 | PD.SURPROG ---
Documentation for date of: 07/13/25 Subjective Subjective Brief History: History of present illness is difficult to achieve on this patient who even though the response is not able to give any history. He has been developmentally delayed and has a history of schizophrenia and chronic anemia and Lomas's palsy. He was admitted with complaints of constipation and abdominal pain. He has been in the hospital for a week and he has undergone EGD and was found to have some erosion in the stomach. While patient was waiting for colonoscopy he aspirated on GoLytely according to the physician who called me for a consult. He developed respiratory insufficiency. A CT scan was performed today which showed incarcerated right inguinal hernia and hence a surgical consultation. Narrative: Patient's general condition is unchanged. He has abdominal distention due to chronic dilatation still persist. His colon requires Gastrografin lower GI to rule out any obstruction and then to relieve the dilatation. Exam Vital Signs Temp Pulse Resp BP Pulse Ox O2 Del Method O2 Flow Rate 98.4 F 97 18 150/99 H 97 High Flow Nasal Cannula 25 07/13/25 07:43 07/13/25 07:43 07/13/25 07:43 07/13/25 07:43 07/13/25 07:43 07/13/25 07:43 07/13/25 07:43 FiO2 30 07/13/25 07:43 Patient's vital signs are normal Routine Abdominal Exam Comments: Abdominal examination shows no significant change from yesterday. Patient did show the hernia in the right groin but is reducible. This is not the cause of this abdominal distention Assessment & Plan Assessment Additional comments: Impression: We shall wait for colon evaluation before proceeding with hernia repair Plan Plan: I have discussed this treatment plan with Dr. Cifuentes who will arrange for
--- NOTE | 2025-07-13 10:21 | ESPR_ITS ---
<Statement entered by Augustin Freeman MD - 07/14/25 07:10> Patient was examined with the team including attending physician. Note reviewed, I agree with the discharge plan as documented. - Augustin Freeman MD PGY 3 Disclaimer: The document may contain phonetic/typographic errors due to voice recognition software. Documentation for date of: 07/13/25 Subjective Subjective Interval history: 60 year old male with past medical history of schizophrenia, developmental delay, Lomas's palsy and abdominal hernia, admitted for melena. S/P EGD, found non bleeding erosions at the gastroesophageal junction. Colonoscopy pending/postponed as the stay is currently complicated by SBO (mechanical vs non-mechanical) and acute respiratory failure on high flow oxygen. No overnight acute changes. Patient was seen at bedside today morning. Patient was awake and mentation was improved. Patient notes that he feels better and the abdominal pain is improved. Patient was in restraints as he is pulling his tubes. He had his NG suction tube and rectal suction tube in place. NGT was disconnected but the nurse in the room fixed it. There was about 100 ml in the NGT suction container and the tubing had greenish fluid. Rectal suction container had about 10-20 ml of yellowish fluid. Exam Vital Signs Temp Pulse Resp BP Pulse Ox O2 Del Method O2 Flow Rate 98.4 F 97 18 150/99 H 97 High Flow Nasal Cannula 07/13/25 07:43 07/13/25 07:43 07/13/25 07:43 07/13/25 07:43 07/13/25 07:43 07/13/25 07:43 07/13/25 07:43 FiO2 30 07/13/25 07:43 Narrative Exam General: Patient is alert and but not fully oriented (but at baseline, patient has developmental delay). In mild distress. Cardio: Tachycardic, normal rhythm, no murmurs, gallops or rubs appreciated. Resp: Normal lung sounds, no rales or wheezing auscultated. MSK/ Extremities: No muscle or joint pain on any movement. No bruising or skin changes visible. No presence of trace or pitting edema in lower extremities bilaterally, dorsalis pedis pulses +2 bilaterally GI/Abdomen: Diffuse abdominal distension. Abdomen tense but mildly tender to palpation. Decreased bowel sounds. Neuro: No focal motor or sensory deficits in the UE or LE bilat Psych: Judgment thought and behavior hindered due to developmental delay. Good affect. Cooperative Objective Labs 07/14/25 05:21 07/14/25 05:21 Labs: Laboratory Results - last 24 hr 07/12/25 07/13/25 17:28 05:29 WBC 9.3 RBC 3.06 L Hgb 8.9 L Hct 27.4 L MCV 90 MCH 29.1 MCHC 32.5 RDW Std Deviation 48.5 H Plt Count 238 Neut % (Auto) 72 Lymph % (Auto) 13 [place] % (Auto) 11 Eos % (Auto) 3 Baso % (Auto) 0 Neut # (Auto) 6.7 Lymph # (Auto) 1.2 [place] # (Auto) 1.0 H Eos # (Auto) 0.3 Baso # (Auto) 0.0 Immature Gran # (Auto) 0.15 H Absolute Nucleated RBC 0.03 H Immature Gran % 2 H Nucleated RBC % 0 Sodium 142 Potassium 3.4 D Chloride 103 Carbon Dioxide 27.9 Anion Gap 11 BUN 10 Creatinine 0.7 Estim Creat Clear Calc 110.2 eGFR > 60 BUN/Creatinine Ratio 14 Glucose 131 H Calculated Osmolality 284 Lactic Acid 1.8 Calcium 8.3 Corrected Calcium 8.8 Phosphorus 3.6 Magnesium 2.0 Total Bilirubin 0.4 AST 24 ALT 22 Alkaline Phosphatase 48 Total Protein 5.5 L Albumin 3.4 L Globulin 2.1 L Albumin/Globulin Ratio 1.6 ABG Interpretation ABG results: 07/09/25 04:04 ABG pH 7.29 L ABG pCO2 57 H ABG pO2 86 ABG HCO3 28 H ABG O2 Saturation 96 ABG Base Excess 1 Quality Measures Quality Measures VTE prophylaxis (SCD) and none Assessment & Plan Assessment Current Active Medications: Generic Name Dose Route Start Last Admin Trade Name Freq PRN Reason Stop Dose Admin Acetaminophen 1,000 mg 07/07/25 15:20 Acetaminophen 500 Mg Tablet PO 08/05/25 15:39 On Hold: 07/09/25 11:11 Q6H PRN PAIN OR FEVER > 99.9 Albuterol/Ipratropium 3 ml 07/09/25 09:32 07/13/25 07:03 Albuterol/Ipratropium (Duoneb) Rt Flavia 3 Ml Nebu INH 08/08/25 09:31 3 ml Q4HRRT RHINA Administration Fluvoxamine 100 Mg 0 ea 07/06/25 21:00 07/12/25 20:13 Tablet PO 08/05/25 20:59 Not Given BID RHINA Dextrose 50 ml 07/06/25 15:47 Dextrose 50%-Water Inj 50 Ml Syringe IV 08/05/25 15:46 Q15MIN PRN BG <50 OR BG <70 & pt unresponsive Glucagon 1 mg 07/06/25 15:47 Glucagon Inj 1 Mg Vial IM Q15MIN PRN BG <70, and no IV access Ampicillin Sodium/Sulbactam 50 mls @ 100 mls/hr 07/12/25 12:00 07/13/25 05:06 Sodium 1.5 gm/ Sodium Chloride IV 07/19/25 11:59 100 mls/hr Q6HR RHINA Administration Potassium Chloride 10 meq in 100 mls @ 100 mls/hr 07/13/25 07:44 07/13/25 09:25 Kcl Ivpb IV 07/13/25 11:43 100 mls/hr Q1H RHINA Administration Insulin Human Lispro 0 unit 07/06/25 18:00 07/13/25 05:06 Insulin Lispro (Admelog) 1 Unit/0.01 Ml Unit SC 08/05/25 17:59 Not Given Q6HR RHINA Protocol Ondansetron HCl 4 mg 07/06/25 15:40 Ondansetron Inj 2 Mg/Ml Inj 2 Ml IVP 08/05/25 15:39 Q6H PRN NAUSEA OR VOMITING Protocol Pantoprazole Sodium 40 mg 07/06/25 21:00 07/13/25 09:25 Pantoprazole Inj 40 Mg Vial IVP 08/05/25 20:59 40 mg Q12HR RHINA Administration Pharmacy Consult 1 each 07/13/25 10:17 Pha To Consult Parenteral Nutr 1 Each Each XX 08/12/25 10:16 PRN PRN CONSULT Polyethylene Glycol/Electrolytes 4,000 ml 07/07/25 15:31 07/09/25 03:03 Na Jj/Nahco3/[place]/Peg (Golytely) 4,000 Ml Btl PO 08/06/25 15:30 4,000 ml PRN PRN Administration SEE COMMENTS Risperidone 1 mg 07/06/25 21:00 07/10/25 11:13 Risperidone 1 Mg Tablet PO 08/05/25 20:59 Not Given On Hold: 07/10/25 13:54 BID RHINA Sodium Chloride 3 ml 07/10/25 13:18 Sodium Chloride Rt Flavia 0.9% 3 Ml Nebu INH 08/09/25 13:17 PRN PRN SOLN Plan 60 y/o male with Hx of Schizophrenia and Developmental Delay, presented with abdominal pain, constipation, and melena, admitted for acute blood loss anemia secondary to upper GI bleed. He was upgraded to the ICU after an aspiration event while undergoing prep for colonoscopy with GoLytely. He was downgraded to the floors on 07/11/2025, currently on high flow oxygen. #Acute hypoxic respiratory failure secondary to #Aspirational pneumonia In the setting of #Severe abdominal distension #Colonic ileus #Right inguinal hernia Patient is currently on high flow oxygen 25 Liters and 30 FiO2 Patient's initial respiratory failure on admission was likely due to aspiration of GoLytely during colonoscopy prep Per Rads, 07/09 CXRs (total of 3) suspicious for bilateral perihilar pneumonia Per Rads, 07/10 CXR shows right lateral pneumonia 07/09 sputum culture grew mi-sensitive E.coli 07/10/25 CXR shows restrictive lung disease 2/2 bilaterally elevated hemidiaphragm from bowel distention and colonic ileus On physical exam today, patient's abdomen remains distended with same reducible right inguinal hernia 07/08/25 abdominal XR showed prominent colonic ileus as well as suspicious findings for distention of the urinary bladder but was negative for SBO or free air 07/12/25: KUB: Moderate colonic ileus, mild small bowel ileus 07/12/25 CT AP: Small bowel obstruction secondary to incarcerated small bowel in a right inguinal hernia Surgery does not beleive patient has a true incarcerated bowel that requires surgical procedure, likely due to neurogenic GI track in the setting of developmental delay. -Continue rectal tube for decompression of free air trapped in the bowels likely 2/2 colonic ileus -400 ml yellowish liquid removed from the colonic decompression -Nasogastric decompression with light intermittent suction -Continue INH Duonebs q4HR scheduled -Continue INH sodium chloride 3 mL nebulizer prn -Continue chest physiotherapy -07/12/25 switched ceftriaxon to Unasyn to add anaerobic coverage as patient had aspirational event -Follow-up with ABG, CBC, and CMP -Minimize the use of opiates for pain management due to side effect profile - RT to titrate O2 and see if patient can be weaned off to oxygen mask so colonoscopy can be attempted. -Gastrografin enema ordered, will consider pro kinetic therapy if no signs of obstruction on gastrografin imaging. #Symptomatic normocytic anemia secondary to #GI bleed, likely lower GI 07/07/25 EGD: A few non-bleeding erosions at the gastroesophageal junction, erythematous mucosa in the antrum H and H stable over past 24 hours GI wants to hold off on colonoscopy until the patient is off of high flow nasal cannula - RT to titrate O2 and see if patient can be weaned off to oxygen mask so colonoscopy can be attempted. -Continue IV Protonix q12HR for GI prophylaxis -Transfuse if Hgb<7 -NPO due to SBO and possible incarcerated small bowel -PPN started 2.2L fluid limit -Pursue lower endoscopy once patient's respiratory status improves #Electrolyte derangement- stabe #Hypokalemia #Hypophosphatemia - acute K: 3.3 on 07/09, 3.3 on 07/10, 3.5 on 07/11, 4.2 on 07/12, 3.4 on 07/13 Phos: 2.0 on 07/11, 2.4 on 07/12, 3.6 on 07/13 - Monitor and replete as needed - Keep Mg and K over 2 and 4 respectively #Lactic acidosis (resolved) Initial uptrend in lactic acidosis is suspected to be 2/2 dehydration Most recently, lactic acid has downtrended from 4.0 to 3.0 #Hyperglycemia- Stable Today's finger stick BG 103, up trended to 124 - Continue to monitor #History of schizophrenia #History of depression #History of anxiety #Agitation -Contact pharmacy to consider non oral medication options (PO Risperdal 1 mg BID, PO fluvoxamine 100 mg BID) - No IV SSRI options - Olanzapine IM 5 mg PRN Qday for agitation #History of developmental delay #History of [place] Palsy Health Maintenance: Code Status: Full DVT Prophylaxis: SCDs GI Prophylaxis: Protonix Diet: NPO due to SBO management Marinelli: Marinelli catheter in place Lines: PIV, NG tube, Rectal tube Supplemental O2: High Flow 02 20L, 30 FiO2 Disposition: Tele, pending workup for GI bleed and SBO Patient seen and care discussed with my attending physician, Dr. Cifuentes and my senior resident Dr. Freeman. Hannah Vazquez [facility] [place] [facility] Attending Provider Attestation/Addendum I, Beatris Cifuentes DO, attest that I was physically present for the bailey portions of the service and evaluated the patient with the resident and I reviewed and discussed the case with the resident and agree with the resident's findings and plans of care as documented above Patient seen and evaluated this AM. Patient has been removing rectal tube with his feet. He had 400mL of loose stool last night after placement of rectal tube and 300mL this AM after replacement of tube. Patient continues to have distended abdomen. He repeatedly states that he is better and fine. Inguinal hernia was reduced by surgeon, but quickly comes back as patient bears down to remove his rectal tube. Case discussed with surgeon, recommending gastrograffin enema to rule out mechanical obstruction before use of prokinetic agents. NG tube with 100mL of bilious output. Gastrograffin enema ordered. C.diff ruled out as cause of colonic ileus. Will f/u with GI recommendations. Trialed patient off HFNC to oxymask. However, patient did not tolerate oxymask and needs positive pressure due to restrictive lung expansion due to abdominal distension.
--- NOTE | 2025-07-13 10:44 | PD.RESPRO ---
Documentation for date of: 07/13/25 Subjective Subjective Interval history: Patient seen and examined at bedside. Telemetry reviewed, sinus tachycardia max heart rate of 110s however usually in the high 90s to low 100s. Blood pressure 1 40-1 50s over 90s. Saturating 87 to 89% on room air as patient removed high flow nasal cannula. Patient is feeling slightly anxious, denies chest pain, chest pressure, lightheadedness or dizziness. Reports no shortness of breath on room air. Patient also pulled out rectal tube while on restraints. WBC decreased from 11.6-9.3. Hemoglobin 8.9 stable low, potassium 3.4, BUN 10, creatinine 0.7, magnesium 2.0. Recommend starting metoprolol XL 25 mg QD. Exam Vital Signs Temp Pulse Resp BP Pulse Ox O2 Del Method O2 Flow Rate 98.4 F 97 18 150/99 H 97 High Flow Nasal Cannula 07/13/25 07:43 07/13/25 07:43 07/13/25 07:43 07/13/25 07:43 07/13/25 07:43 07/13/25 07:43 07/13/25 07:43 FiO2 30 07/13/25 07:43 Narrative Exam GENERAL: alert oriented x2 to person and time, not place likely baseline due to developmental delay, no acute distress HEENT: NC/AT, mucous membranes moist, bilateral sclera anicteric CARDIOVASCULAR: regular rate and rhythm, S1/S2 present, no murmurs appreciated PULMONARY: clear to auscultation bilaterally, no rales/rhonchi/wheezes ABDOMINAL: Distended, diffusely tender to palpation, tympanic, decreased bowel sounds in all quadrants EXTREMITIES: no peripheral edema SKIN: warm and dry, intact, no rashes NEURO: CN II-XII grossly intact, no focal deficits, alert, following commands Objective Labs 07/14/25 05:21 07/14/25 05:21 Labs: Laboratory Results - last 24 hr 07/12/25 07/13/25 17:28 05:29 WBC 9.3 RBC 3.06 L Hgb 8.9 L Hct 27.4 L MCV 90 MCH 29.1 MCHC 32.5 RDW Std Deviation 48.5 H Plt Count 238 Neut % (Auto) 72 Lymph % (Auto) 13 [place] % (Auto) 11 Eos % (Auto) 3 Baso % (Auto) 0 Neut # (Auto) 6.7 Lymph # (Auto) 1.2 [place] # (Auto) 1.0 H Eos # (Auto) 0.3 Baso # (Auto) 0.0 Immature Gran # (Auto) 0.15 H Absolute Nucleated RBC 0.03 H Immature Gran % 2 H Nucleated RBC % 0 Sodium 142 Potassium 3.4 D Chloride 103 Carbon Dioxide 27.9 Anion Gap 11 BUN 10 Creatinine 0.7 Estim Creat Clear Calc 110.2 eGFR > 60 BUN/Creatinine Ratio 14 Glucose 131 H Calculated Osmolality 284 Lactic Acid 1.8 Calcium 8.3 Corrected Calcium 8.8 Phosphorus 3.6 Magnesium 2.0 Total Bilirubin 0.4 AST 24 ALT 22 Alkaline Phosphatase 48 Total Protein 5.5 L Albumin 3.4 L Globulin 2.1 L Albumin/Globulin Ratio 1.6 ABG Interpretation ABG results: 07/09/25 04:04 ABG pH 7.29 L ABG pCO2 57 H ABG pO2 86 ABG HCO3 28 H ABG O2 Saturation 96 ABG Base Excess 1 Quality Measures Quality Measures VTE prophylaxis (SCD) and none Assessment & Plan Assessment Current Active Medications: Generic Name Dose Route Start Last Admin Trade Name Freq PRN Reason Stop Dose Admin Acetaminophen 1,000 mg 07/07/25 15:20 Acetaminophen 500 Mg Tablet PO 08/05/25 15:39 On Hold: 07/09/25 11:11 Q6H PRN PAIN OR FEVER > 99.9 Albuterol/Ipratropium 3 ml 07/09/25 09:32 07/13/25 07:03 Albuterol/Ipratropium (Duoneb) Rt Flavia 3 Ml Nebu INH 08/08/25 09:31 3 ml Q4HRRT RHINA Administration Fluvoxamine 100 Mg 0 ea 07/06/25 21:00 07/12/25 20:13 Tablet PO 08/05/25 20:59 Not Given BID RHINA Dextrose 50 ml 07/06/25 15:47 Dextrose 50%-Water Inj 50 Ml Syringe IV 08/05/25 15:46 Q15MIN PRN BG <50 OR BG <70 & pt unresponsive Glucagon 1 mg 07/06/25 15:47 Glucagon Inj 1 Mg Vial IM Q15MIN PRN BG <70, and no IV access Ampicillin Sodium/Sulbactam 50 mls @ 100 mls/hr 07/12/25 12:00 07/13/25 05:06 Sodium 1.5 gm/ Sodium Chloride IV 07/19/25 11:59 100 mls/hr Q6HR RHINA Administration Potassium Chloride 10 meq in 100 mls @ 100 mls/hr 07/13/25 07:44 07/13/25 10:30 Kcl Ivpb IV 07/13/25 11:43 100 mls/hr Q1H RHINA Administration Insulin Human Lispro 0 unit 07/06/25 18:00 07/13/25 05:06 Insulin Lispro (Admelog) 1 Unit/0.01 Ml Unit SC 08/05/25 17:59 Not Given Q6HR RHINA Protocol Ondansetron HCl 4 mg 07/06/25 15:40 Ondansetron Inj 2 Mg/Ml Inj 2 Ml IVP 08/05/25 15:39 Q6H PRN NAUSEA OR VOMITING Protocol Pantoprazole Sodium 40 mg 07/06/25 21:00 07/13/25 09:25 Pantoprazole Inj 40 Mg Vial IVP 08/05/25 20:59 40 mg Q12HR RHINA Administration Polyethylene Glycol/Electrolytes 4,000 ml 07/07/25 15:31 07/09/25 03:03 Na Jj/Nahco3/Rio/Peg (Golytely) 4,000 Ml Btl PO 08/06/25 15:30 4,000 ml PRN PRN Administration SEE COMMENTS Risperidone 1 mg 07/06/25 21:00 07/10/25 11:13 Risperidone 1 Mg Tablet PO 08/05/25 20:59 Not Given On Hold: 07/10/25 13:54 BID RHINA Sodium Chloride 3 ml 07/10/25 13:18 Sodium Chloride Rt Flavia 0.9% 3 Ml Nebu INH 08/09/25 13:17 PRN PRN SOLN Plan Summary: 60-year-old male patient known case of schizophrenia, hyperlipidemia, developmental delay, was brought from [facility] facility after he was started to experience abdominal pain few hours before presentation. Patient was unable to provide accurate history due to his chronic mental status, most of the history was taken from the caregiver Charu Jean. Cardiology team was consulted due to tachycardia #Sinus tachycardia likely 2/2 #Colonic ileus #ACS r/o Patient presented with acute abdominal pain, tachycardia, melena, patient was sweaty, pulse rate was 129, blood pressure was 119/65.on examination found to have S1-S2 and S3 He has trace lower edema, no elevated JVD Hemoglobin was 5.8. TSH was 5.8, Troponin was negative, chest x-ray showed left ventricular prominence, elevated right hemidiaphragm. EKG was done initially showed sinus tachycardia, repeat today during the rapid also showed sinus tachycardia with deep Q-wave on the leads, I, III and AVf. Patient most likely have secondary cause of his sinus tachycardia including but not limited to infection, pain, acute blood loss, less likely medication side effect such as serotonin syndrome 07/09/2025, patient had an episode of aspiration, he was intubated and upgraded to the ICU. BNP came back normal, telemonitoring was reviewed for the past 24-hour was negative for any arrhythmias and it only showed sinus tachycardia. 07/08/25 Echo: rate more than 115 bpm. Normal left ventricular size and function. Grade I diastolic dysfunction. EF estimated at 55-60%. The right ventricle is normal in size and systolic function. Normal RVSP. Mild MR and TR. No pericardial effusion Metoprolol attempted to be started however there was concern for rate control may mask possible deterioration of patient condition. 07/12/2025 patient blood pressure still mildly elevated 147/105, heart rate most of the time above 100. 07/13/25 patient BP 140s-150s/90s. HR high 90s to low 100s. Saturating 87-89% on RA. Pulled out rectal tube Plan ? Recommend to start metoprolol XL 25 mg QD - Strict in and out ? Treat underlying cause, patient might be symptomatic anemia versus perforated viscus vs SBO, or sepsis ? Daily potassium and magnesium ? Replete electrolytes to keep potassium and magnesium above 4 and 2 respectively within normal range as patient is losing K through diarrhea #GIB s/p 2 pRBC #Acute post hemorrhagic anemia #Upper vs lower GIB Presented with melena. Hgb on admission 07/06 5.8, increased to 7.7, and subsequently decreased back to 6.3 on 07/10. 07/07 EGD showed few non bleeding erosions at GE junction, erythematous mucosa in antrum, normal duodenum. Patient aspirated on Golytely 07/09 and was intubated and upgraded to ICU, extubated 07/11. Plan - CTM Hgb - Colonoscopy delayed due to patient being on high flow NC #Developmental delay #History of schizophrenia #Hyperglycemia #Depression #Acute blood loss Plan ? Follow-up with the primary team recommendation Thank you for your consultation please do not hesitate to reach out if you have any question or concern Patient's plan and care discussed with my attending, Dr. Alison Aleman, DO Internal Medicine PGY-1 Attending Provider Attestation/Addendum I have personally seen and examined the patient separately on the above date of service and discussed the plan of care with the resident. I reviewed the resident Dr. Faby Aleman consultation progress note and agree with the resident findings and plan in the note above and have also edited the documentation to reflect my findings and plan. Diego Rosas M.D. Interventional Cardiology
--- NOTE | 2025-07-13 11:21 | PC.RT ---
PT trialed on oxy mask and removed from HFN per MD Vines. PT did not tolerate, showed an increase in WOB and began abdominal breathing. returned back to HFNC.
[2025-07-13] MEDS: OLANZapine INJ 5 MG, Sterile Water 2.1 ML IM (12:26)
[2025-07-13 12:31] LABS: Triglycerides 142 mg/dL (30-150)
--- NOTE | 2025-07-13 13:04 | XR_ITS ---
Examination: AP chest single view Technique: AP portable semiupright chest single view Date and time: July 13, 2025 1327 hrs., Comparison 07/12/2025 Indications: Post orogastric tube placement. Findings: Diffuse right lung and left base pneumonia. The orogastric tube tip fundus of the stomach satisfactory position Mild enlargement left ventricle Impression: Orogastric tube satisfactory position
--- NOTE | 2025-07-13 13:08 | PC.DIETICIAN ---
Nutrition recommendations (PN) PPN: D5% AA4.25% at 85 ml/hr with 500 ml 20% lipid 3 times a week (Mon-Wed-Fri). Start at 45 ml/hr for 8 hrs, then advance to goal of 85 ml/hr. 2040 ml volume, 87 g AA, 102 g dextrose, 1123 total calories, NPC 776. GIR=0.9 / LIR=0.5
[2025-07-13] MEDS: HALOPERIDOL LACT INJ 5 MG/ML VIAL 2 MG IV ×2 (15:19→23:53)
--- NOTE | 2025-07-13 15:30 | PC.NURSE ---
transferred pt.to [id number] with all personal belongings.
--- NOTE | 2025-07-13 15:46 | PC.SS ---
Rounding note: d/c to long term once medically clear.
[2025-07-13 15:52] LABS: Clostridium Difficile PCR Negative (Negative)
[2025-07-13] MEDS: MULTIVITAMIN IV (18:31)
[2025-07-13] MEDS: [UNRECOGNIZED DRUG - OTHER] IV (18:31)
[2025-07-13] MEDS: AMINO ACID IV (18:31)
[2025-07-13] MEDS: POT CHL ADDITIVE IV (18:31)
--- NOTE | 2025-07-13 19:07 | ESPR_ITS ---
Documentation for date of: 07/13/25 Subjective Subjective Interval history: 60 years old male evaluated Abdomen remains distended CT scan of the abdomen pelvis shows incarcerated bowel in the right inguinal hernia Most likely will need surgical intervention Exam Vital Signs Temp Pulse Resp BP Pulse Ox O2 Del Method O2 Flow Rate 98.8 F 102 H 22 H 149/90 H 98 High Flow Nasal Cannula 20 07/13/25 16:00 07/13/25 18:59 07/13/25 18:59 07/13/25 16:00 07/13/25 18:59 07/13/25 16:00 07/13/25 18:59 FiO2 30 07/13/25 18:59 Objective Labs 07/13/25 05:29 07/13/25 05:29 Labs: Laboratory Results - last 24 hr 07/13/25 07/13/25 05:29 11:03 WBC 9.3 RBC 3.06 L Hgb 8.9 L Hct 27.4 L MCV 90 MCH 29.1 MCHC 32.5 RDW Std Deviation 48.5 H Plt Count 238 Neut % (Auto) 72 Lymph % (Auto) 13 [place] % (Auto) 11 Eos % (Auto) 3 Baso % (Auto) 0 Neut # (Auto) 6.7 Lymph # (Auto) 1.2 [place] # (Auto) 1.0 H Eos # (Auto) 0.3 Baso # (Auto) 0.0 Immature Gran # (Auto) 0.15 H Absolute Nucleated RBC 0.03 H Immature Gran % 2 H Nucleated RBC % 0 Sodium 142 Potassium 3.4 D Chloride 103 Carbon Dioxide 27.9 Anion Gap 11 BUN 10 Creatinine 0.7 Estim Creat Clear Calc 110.2 eGFR > 60 BUN/Creatinine Ratio 14 Glucose 131 H Calculated Osmolality 284 Calcium 8.3 Corrected Calcium 8.8 Phosphorus 3.6 Magnesium 2.0 Total Bilirubin 0.4 AST 24 ALT 22 Alkaline Phosphatase 48 Total Protein 5.5 L Albumin 3.4 L Globulin 2.1 L Albumin/Globulin Ratio 1.6 Triglycerides 142 Stl C. diff Tox B Gene Negative Impressions Impression: Abdominal distention Abnormal CT scan of the abdomen pelvis showing possibility of an incarcerated small bowel in the right inguinal hernia mostly will need surgical intervention Hypoxic respiratory failure on high flow nasal cannula No colonoscopy Surgery is already on board for possible surgical intervention ABG Interpretation ABG results: 07/09/25 04:04 ABG pH 7.29 L ABG pCO2 57 H ABG pO2 86 ABG HCO3 28 H ABG O2 Saturation 96 ABG Base Excess 1 Assessment & Plan A&P Narrative Hematochezia Plan clear liquid diet n.p.o. at midnight tonight except p.o. meds Consent for fiberoptic esophagogastroduodenoscopy with possible biopsy possible therapeutic intervention under intravenous moderate sedation If EGD negative we will consider doing a fibrotic colonoscopy prior to discharge Serial CBC IV Protonix Thank you very much for the opportunity to participate in the care of this Time Spent With Patient Time: Total time spent is greater than 50% in coordination of care (as documented) at patient's floor/unit and/or counseling patient:
[2025-07-14] VITALS (12 sets, daily range): BP systolic 132–159; BP diastolic 86–97; PULSE 88–127; RESP 14–26; TEMP 36.1–37.1; O2SAT 92–100
[2025-07-14] MEDS: OLANZapine INJ 10 MG, Sterile Water 2.1 ML IM (00:23)
--- NOTE | 2025-07-14 01:11 | XR_ITS ---
Examination: AP chest single view Technique one AP portable semiupright chest single view Date and time: July 14, 2025, 0121 hrs., Comparison 07/13/2025 Indications: Post orogastric tube placement Findings: Diffuse right lung and left base pneumonia Orogastric tube in the stomach satisfactory position Mild prominence left ventricle Impression: Orogastric tube in the stomach satisfactory position
[2025-07-14] MEDS: ALBUTEROL/IPRATROPIUM (Duoneb) RT SOL 3 ML NEBU INH ×6 (02:45→23:12)
--- NOTE | 2025-07-14 03:35 | PC.NURSE ---
per virginie Fajardo to use NGT
[2025-07-14] MEDS: AMPICILLIN/SULBAC INJ 1.5 GM in SODIUM CHLORIDE 0.9% (Popper) 50 ML IV (05:04)
[2025-07-14 05:41] LABS: Basophils # (Auto) 0.0 Thou/mm3 (0.0-0.2); Basophils % (Auto) 0 % (0-2.5); Eosinophils # (Auto) 0.3 Thou/mm3 (0.0-0.5); Eosinophils % (Auto) 3 % (0-10); Hematocrit 29.0 % (41.0-53.0); Hemoglobin 9.3 g/dL (13.5-16.0); Immature Granulocytes Auto 0.17 Thou/mm3 (0.00-0.00); Lymphocytes # (Auto) 1.4 Thou/mm3 (1.0-4.8); Lymphocytes % (Auto) 12 % (10-50); Mean Corpuscular HGB Conc 32.1 g/dl (31.0-37.0); Mean Corpuscular Hemoglobin 28.7 pg (25.0-35.0); Mean Corpuscular Volume 90 fL (80-100); Monocytes # (Auto) 1.6 Thou/mm3 (0.0-0.8); Monocytes % (Auto) 14 % (0-12); Neutrophils # (Auto) 7.9 Thou/mm3 (1.8-7.7); Neutrophils % (Auto) 69 % (37-80); Nucleated Red Blood Cell # 0.03 Thou/mm3 (0.00-0.00); Nucleated Red Blood Cell % 0 /100 WBC (0); Platelet Count 279 Thou/mm3 (140-440); RDW Standard Deviation 47.8 fL (35.1-43.9); Red Blood Count 3.24 Miln/mm3 (4.50-5.90); White Blood Count 11.4 Thou/mm3 (3.8-10.6)
[2025-07-14 06:10] LABS: Alanine Aminotransferase 30 U/L (10-49); Albumin, Serum 3.5 gm/dL (3.5-5.0); Albumin/Globulin Ratio 1.8 (1.2-2.2); Alkaline Phosphatase 48 U/L (46-116); Anion Gap 10 (7-16); Aspartate Amino Transferase 35 U/L (0-34); BUN/Creatinine Ratio 10 Ratio (12-20); Bilirubin,Total 0.4 mg/dL (0.3-1.2); Blood Urea Nitrogen 8 mg/dL (9-23); Calcium 8.4 mg/dL (8.3-10.6); Calcium (Corrected) 8.8 mg/dL (8.5-10.1); Carbon Dioxide 29.9 mMol/L (20.0-31.0); Chloride 104 mMol/L (98-107); Creatinine (Component) 0.8 mg/dL (0.6-1.3); Estimated Creatinine Clearance 96.4 mL/min (>60); Globulin 2.0 gm/dL (2.3-3.5); Glucose 124 mg/dL (74-106); Osmolality,Calculated 286 (275-295); Potassium 3.5 mMol/L (3.4-5.1); Sodium 144 mMol/L (136-145); Total Protein 5.5 gm/dL (5.7-8.2); eGFR > 60 See Note
--- NOTE | 2025-07-14 09:21 | ESPR_ITS ---
Documentation for date of: 07/14/25 Subjective Subjective Interval history: Patient remains restrained, patient denied any chest pain, palpitation. Patient remains on high flow nasal cannula 20 L over 35 FiO2 patient was following lines and rectal tubes, was put on wrist and soft restraints. Blood pressure on the higher end 147/97, heart rate for the past 24 hours showed max heart rate of 152 and minimum 77. Patient might go for surgical intervention secondary to his possible incarcerated hernia. Of note his last bowel movement was yesterday. Exam Vital Signs Temp Pulse Resp BP Pulse Ox O2 Del Method O2 Flow Rate 97.7 F 88 17 147/97 H 98 High Flow Nasal Cannula 20 07/14/25 08:00 07/14/25 08:00 07/14/25 08:00 07/14/25 08:00 07/14/25 08:00 07/14/25 08:00 07/14/25 08:00 FiO2 35 07/14/25 08:00 Narrative Exam GEN:alert, on HFNC, on mittens and wrist restrains, lying in bed comfortably HEENT: NC/AC, oral mucosa dry, neck supple CVS: RRR, S1-S2, S3, no murmurs appreciated RESP: Still has coarse crepitations bilaterally GI: Abdomen is firm improvimg, distended, Sluggish bowel sounds MSK: trace lower extremity edema SKIN: warm and clammy KLYSTROM TUBE TESTER: Unable to assess due to patient condition. Objective Labs 07/14/25 05:21 07/14/25 05:21 Labs: Laboratory Results - last 24 hr 07/13/25 07/13/25 07/14/25 05:29 11:03 05:21 WBC 11.4 H RBC 3.24 L Hgb 9.3 L Hct 29.0 L MCV 90 MCH 28.7 MCHC 32.1 RDW Std Deviation 47.8 H Plt Count 279 D Neut % (Auto) 69 Lymph % (Auto) 12 [place] % (Auto) 14 H Eos % (Auto) 3 Baso % (Auto) 0 Neut # (Auto) 7.9 H Lymph # (Auto) 1.4 [place] # (Auto) 1.6 H Eos # (Auto) 0.3 Baso # (Auto) 0.0 Immature Gran # (Auto) 0.17 H Absolute Nucleated RBC 0.03 H Immature Gran % 2 H Nucleated RBC % 0 Sodium 144 Potassium 3.5 Chloride 104 Carbon Dioxide 29.9 Anion Gap 10 BUN 8 L Creatinine 0.8 Estim Creat Clear Calc 96.4 eGFR > 60 BUN/Creatinine Ratio 10 L Glucose 124 H Calculated Osmolality 286 Calcium 8.4 Corrected Calcium 8.8 Total Bilirubin 0.4 AST 35 H ALT 30 Alkaline Phosphatase 48 Total Protein 5.5 L Albumin 3.5 Globulin 2.0 L Albumin/Globulin Ratio 1.8 Triglycerides 142 Stl C. diff Tox B Gene Negative ABG Interpretation ABG results: 07/09/25 04:04 ABG pH 7.29 L ABG pCO2 57 H ABG pO2 86 ABG HCO3 28 H ABG O2 Saturation 96 ABG Base Excess 1 Quality Measures Quality Measures VTE prophylaxis (SCD) and none Assessment & Plan Assessment Current Active Medications: Generic Name Dose Route Start Last Admin Trade Name Freq PRN Reason Stop Dose Admin Acetaminophen 1,000 mg 07/07/25 15:20 Acetaminophen 500 Mg Tablet PO 08/05/25 15:39 On Hold: 07/09/25 11:11 Q6H PRN PAIN OR FEVER > 99.9 Albuterol/Ipratropium 3 ml 07/09/25 09:32 07/14/25 02:45 Albuterol/Ipratropium (Duoneb) Rt Flavia 3 Ml Nebu INH 08/08/25 09:31 3 ml Q4HRRT RHINA Administration Fluvoxamine 100 Mg 0 ea 07/06/25 21:00 07/13/25 20:55 Tablet PO 08/05/25 20:59 Not Given BID RHINA Olanzapine 5 mg/ Sterile Water 0 mg 07/13/25 12:04 07/13/25 12:26 2.1 ml IM 08/12/25 12:03 5 dose QDAY PRN Administration AGITATION Dextrose 50 ml 07/06/25 15:47 Dextrose 50%-Water Inj 50 Ml Syringe IV 08/05/25 15:46 Q15MIN PRN BG <50 OR BG <70 & pt unresponsive Glucagon 1 mg 07/06/25 15:47 Glucagon Inj 1 Mg Vial IM Q15MIN PRN BG <70, and no IV access Potassium Chloride 40 meq/ 2,030 mls @ 45 mls/hr 07/13/25 18:00 07/14/25 02:33 Multivitamins/Minerals 10 ml/ IV 07/14/25 17:59 85 mls/hr Amino Acids/Electrolytes/ .Q24H [facility] Infusion Dextrose Fat Emulsion Intravenous 500 mls @ 32 mls/hr 07/15/25 18:00 Intralipid 20% Iv IV 08/14/25 17:59 [id number] RHINA Potassium Chloride 10 meq in 100 mls @ 100 mls/hr 07/14/25 07:54 Kcl Ivpb IV 07/14/25 11:53 Q1H [facility] Ampicillin Sodium/Sulbactam 50 mls @ 100 mls/hr 07/14/25 12:00 Sodium 3 gm/ Sodium Chloride IV 07/21/25 11:59 Q6HR [facility] Multivitamins/Minerals 10 ml/ 2,010 mls @ 85 mls/hr 07/14/25 18:00 Amino Acids/Electrolytes/ IV 07/15/25 17:38 Dextrose .[id number] [facility] Insulin Human Lispro 0 unit 07/06/25 18:00 07/14/25 05:57 Insulin Lispro (Admelog) 1 Unit/0.01 Ml Unit SC 08/05/25 17:59 Not Given Q6HR [facility] Protocol Ondansetron HCl 4 mg 07/06/25 15:40 Ondansetron Inj 2 Mg/Ml Inj 2 Ml IVP 08/05/25 15:39 Q6H PRN NAUSEA OR VOMITING Protocol Pantoprazole Sodium 40 mg 07/06/25 21:00 07/13/25 20:55 Pantoprazole Inj 40 Mg Vial IVP 08/05/25 20:59 40 mg Q12HR RHINA Administration Polyethylene Glycol/Electrolytes 4,000 ml 07/07/25 15:31 07/09/25 03:03 Na Jj/Nahco3/Rio/Peg (Golytely) 4,000 Ml Btl PO 08/06/25 15:30 4,000 ml PRN PRN Administration SEE COMMENTS Risperidone 1 mg 07/06/25 21:00 07/10/25 11:13 Risperidone 1 Mg Tablet PO 08/05/25 20:59 Not Given On Hold: 07/10/25 13:54 BID RHINA Sodium Chloride 3 ml 07/10/25 13:18 Sodium Chloride Rt Flavia 0.9% 3 Ml Nebu INH 08/09/25 13:17 PRN PRN SOLN Plan Summary: 60-year-old male patient known case of schizophrenia, hyperlipidemia, developmental delay, was brought from [facility] facility after he was started to experience abdominal pain few hours before presentation. Patient was unable to provide accurate history due to his chronic mental status, most of the history was taken from the caregiver Charu Jean. Cardiology team was consulted due to tachycardia #Sinus tachycardia likely 2/2 #Colonic ileus #ACS r/o Patient presented with acute abdominal pain, tachycardia, melena, patient was sweaty, pulse rate was 129, blood pressure was 119/65.on examination found to have S1-S2 and S3 He has trace lower edema, no elevated JVD Hemoglobin was 5.8. TSH was 5.8, Troponin was negative, chest x-ray showed left ventricular prominence, elevated right hemidiaphragm. EKG was done initially showed sinus tachycardia, repeat today during the rapid also showed sinus tachycardia with deep Q-wave on the leads, I, III and AVf. Patient most likely have secondary cause of his sinus tachycardia including but not limited to infection, pain, acute blood loss, less likely medication side effect such as serotonin syndrome 07/09/2025, patient had an episode of aspiration, he was intubated and upgraded to the ICU. BNP came back normal, telemonitoring was reviewed for the past 24- hour was negative for any arrhythmias and it only showed sinus tachycardia. 07/08/25 Echo: rate more than 115 bpm. Normal left ventricular size and function. Grade I diastolic dysfunction. EF estimated at 55-60%. The right ventricle is normal in size and systolic function. Normal RVSP. Mild MR and TR. No pericardial effusion Metoprolol attempted to be started however there was concern for rate control may mask possible deterioration of patient condition. 07/14/2025, patient remains on restraints, was started on TPN, telemonitoring over the past 24 hours showed increase in the heart rate to 152, sinus rhythm with some PVCs. No ST changes noted Plan ? Recommend to start metoprolol XL 25 mg QD ? Strict in and out ? Treat underlying cause, patient might be symptomatic anemia versus perforated viscus vs SBO, or sepsis ? Daily potassium and magnesium ? Replete electrolytes to keep potassium and magnesium above 4 and 2 respectively within normal range as patient is losing K through diarrhea #GIB s/p 2 pRBC #Acute post hemorrhagic anemia #Upper vs lower GIB Presented with melena. Hgb on admission 07/06 5.8, increased to 7.7, and subsequently decreased back to 6.3 on 07/10. 07/07 EGD showed few non bleeding erosions at GE junction, erythematous mucosa in antrum, normal duodenum. Patient aspirated on Golytely 07/09 and was intubated and upgraded to ICU, extubated 07/11. Plan - CTM Hgb - Colonoscopy delayed due to patient being on high flow NC #Developmental delay #History of schizophrenia #Hyperglycemia #Depression #Acute blood loss Plan ? Follow-up with the primary team recommendation Thank you for your consultation please do not hesitate to reach out if you have any question or concern - Patient's plan and care discussed with my attending, Dr. Alison Santos MD Internal Medicine PGY-3 Attending Provider Attestation/Addendum I have personally seen and examined the patient separately on the above date of service and discussed the plan of care with the resident. I reviewed the resident Dr. Santos consultation progress note and agree with the resident findings and plan in the note above and have also edited the documentation to reflect my findings and plan. Diego Rosas M.D. Interventional Cardiology
[2025-07-14] MEDS: DIAZEPAM INJ 5 MG/ML VIAL 2 ML 2 MG IM (10:11)
--- NOTE | 2025-07-14 11:08 | PC.SS ---
rounding note: Possible surgical intervention. Patient remains on i.v. antibiotics.
--- NOTE | 2025-07-14 11:13 | XR_ITS ---
Examination: Abdomen AP single view Technique: AP portable supine abdomen, single view Exam date and time: July 14, 2025, 1211 hrs. Indications: Abdominal distention this week. Findings: Significantly air distended stomach Prominent colonic ileus. Air is present in the rectum. No free air Impression: Significantly air distended stomach Prominent colonic ileus
--- NOTE | 2025-07-14 11:35 | PD.SURPROG ---
Documentation for date of: 07/14/25 Subjective Subjective Brief History: History of present illness is difficult to achieve on this patient who even though the response is not able to give any history. He has been developmentally delayed and has a history of schizophrenia and chronic anemia and Lomas's palsy. He was admitted with complaints of constipation and abdominal pain. He has been in the hospital for a week and he has undergone EGD and was found to have some erosion in the stomach. While patient was waiting for colonoscopy he aspirated on GoLytely according to the physician who called me for a consult. He developed respiratory insufficiency. A CT scan was performed today which showed incarcerated right inguinal hernia and hence a surgical consultation. Narrative: Patient's abdominal distention is better today. It is soft but bowel sounds are hypoactive Exam Vital Signs Temp Pulse Resp BP Pulse Ox O2 Del Method O2 Flow Rate 97.7 F 105 H 23 H 147/97 H 99 High Flow Nasal Cannula 20 07/14/25 08:00 07/14/25 10:30 07/14/25 10:30 07/14/25 08:00 07/14/25 10:30 07/14/25 08:00 07/14/25 10:30 FiO2 30 07/14/25 10:30 Vital signs are normal other than mild tachycardia Results Results: Imaging Imaging narrative: X-ray performed yesterday showed less distention of the colon and some dilatation of the small bowel Assessment & Plan Assessment Additional comments: Impression persistent colonic ileus even though it is improved Large right inguinal hernia containing small bowel loop but reduced Plan Plan: I would make sure that there is no mechanical obstruction in the colon and then we can proceed with a right inguinal hernia repair. Unfortunately patient has pneumonia at this time and general anesthesia may be harmful. The hernia can be repaired anytime. As long as it is reducible it is not urgent. Patient may just have adynamic ileus because of his underlying medical condition
--- NOTE | 2025-07-14 11:52 | ESPR_ITS ---
<Statement entered by Florentino Nuñez MD - 07/14/25 13:52> Overnight patient was noted to have agitation and was given olanzapine and Benadryl. Otherwise, he was seen at bedside and had mittens and soft restraints but appeared calm after receiving 2 mg Valium. Spoke to both GI and general surgery and at this time we will continue with obtaining a KUB, start clear liquid diet, soapsuds enema, and proceed with Gastrografin enema study tomorrow. ----- Note reviewed and agree with care plan as documented. Please refer to the note below for further details. Plan discussed with attending physician Dr. Vane Nuñez MD PGY-2 Internal Medicine Documentation for date of: 07/14/25 Subjective Subjective Interval history: 60 year old male with past medical history of schizophrenia, developmental delay, Lomas's palsy and abdominal hernia, admitted for melena. S/P EGD, found non bleeding erosions at the gastroesophageal junction. Colonoscopy pending/postponed as the stay is currently complicated by SBO (mechanical vs non-mechanical) and acute respiratory failure on high flow oxygen. Overnight patient had episode of worsening agitation, was given olanzapine and Benadryl. Patient was seen at bedside today morning. Patient was awake and mentation is improved. Patient notes that he feels better and the abdominal pain is improved. Patient was in restraints but was calm as he had gotten valium earlier in the morning. He had his NG suction tube, no rectal tube There was about 100 ml in the NGT suction container and the tubing had greenish fluid. Patient has not had a bowel movement since removal of rectal tube yesterday. Abdominal distension is improved and is soft to palpation. Exam Vital Signs Temp Pulse Resp BP Pulse Ox O2 Del Method O2 Flow Rate 97.7 F 105 H 23 H 147/97 H 99 High Flow Nasal Cannula 20 07/14/25 08:00 07/14/25 10:30 07/14/25 10:30 07/14/25 08:00 07/14/25 10:30 07/14/25 08:00 07/14/25 10:30 FiO2 30 07/14/25 10:30 Narrative Exam General: Patient is alert and but not fully oriented (but at baseline, patient has developmental delay). In no distress. Cardio: Tachycardic, normal rhythm, no murmurs, gallops or rubs appreciated. Resp: Normal lung sounds, no rales or wheezing auscultated. MSK/ Extremities: No muscle or joint pain on any movement. No bruising or skin changes visible. No presence of trace or pitting edema in lower extremities bilaterally, dorsalis pedis pulses +2 bilaterally GI/Abdomen: Improved abdominal distention (likely back to baseline). Abdomen s oft to palpation but mildly tender. Decreased bowel sounds. Neuro: No focal motor or sensory deficits in the UE or LE bilat Psych: Judgment thought and behavior hindered due to developmental delay. Good affect. Cooperative Objective Labs 07/15/25 05:03 07/15/25 05:03 Labs: Laboratory Results - last 24 hr 07/13/25 07/13/25 07/14/25 05:29 11:03 05:21 WBC 11.4 H RBC 3.24 L Hgb 9.3 L Hct 29.0 L MCV 90 MCH 28.7 MCHC 32.1 RDW Std Deviation 47.8 H Plt Count 279 D Neut % (Auto) 69 Lymph % (Auto) 12 [place] % (Auto) 14 H Eos % (Auto) 3 Baso % (Auto) 0 Neut # (Auto) 7.9 H Lymph # (Auto) 1.4 [place] # (Auto) 1.6 H Eos # (Auto) 0.3 Baso # (Auto) 0.0 Immature Gran # (Auto) 0.17 H Absolute Nucleated RBC 0.03 H Immature Gran % 2 H Nucleated RBC % 0 Sodium 144 Potassium 3.5 Chloride 104 Carbon Dioxide 29.9 Anion Gap 10 BUN 8 L Creatinine 0.8 Estim Creat Clear Calc 96.4 eGFR > 60 BUN/Creatinine Ratio 10 L Glucose 124 H Calculated Osmolality 286 Calcium 8.4 Corrected Calcium 8.8 Total Bilirubin 0.4 AST 35 H ALT 30 Alkaline Phosphatase 48 Total Protein 5.5 L Albumin 3.5 Globulin 2.0 L Albumin/Globulin Ratio 1.8 Triglycerides 142 Stl C. diff Tox B Gene Negative ABG Interpretation ABG results: 07/09/25 04:04 ABG pH 7.29 L ABG pCO2 57 H ABG pO2 86 ABG HCO3 28 H ABG O2 Saturation 96 ABG Base Excess 1 Quality Measures Quality Measures VTE prophylaxis (SCD) and none Assessment & Plan Assessment Current Active Medications: Generic Name Dose Route Start Last Admin Trade Name Freq PRN Reason Stop Dose Admin Acetaminophen 1,000 mg 07/07/25 15:20 Acetaminophen 500 Mg Tablet PO 08/05/25 15:39 On Hold: 07/09/25 11:11 Q6H PRN PAIN OR FEVER > 99.9 Albuterol/Ipratropium 3 ml 07/09/25 09:32 07/14/25 10:30 Albuterol/Ipratropium (Duoneb) Rt Flavia 3 Ml Nebu INH 08/08/25 09:31 3 ml Q4HRRT RHINA Administration Fluvoxamine 100 Mg 0 ea 07/06/25 21:00 07/14/25 09:00 Tablet PO 08/05/25 20:59 Not Given BID [facility] Olanzapine 5 mg/ Sterile Water 0 mg 07/13/25 12:04 07/13/25 12:26 2.1 ml IM 08/12/25 12:03 5 dose QDAY PRN Administration AGITATION Dextrose 50 ml 07/06/25 15:47 Dextrose 50%-Water Inj 50 Ml Syringe IV 08/05/25 15:46 Q15MIN PRN BG <50 OR BG <70 & pt unresponsive Glucagon 1 mg 07/06/25 15:47 Glucagon Inj 1 Mg Vial IM Q15MIN PRN BG <70, and no IV access Fat Emulsion Intravenous 500 mls @ 32 mls/hr 07/15/25 18:00 Intralipid 20% Iv IV 08/14/25 17:59 [email or web address] [facility] Ampicillin Sodium/Sulbactam 50 mls @ 100 mls/hr 07/14/25 12:00 Sodium 3 gm/ Sodium Chloride IV 07/21/25 11:59 Q6HR [facility] Multivitamins/Minerals 10 ml/ 2,010 mls @ 85 mls/hr 07/14/25 18:00 Amino Acids/Electrolytes/ IV 07/15/25 17:38 Dextrose .[id number] [facility] Insulin Human Lispro 0 unit 07/06/25 18:00 07/14/25 05:57 Insulin Lispro (Admelog) 1 Unit/0.01 Ml Unit SC 08/05/25 17:59 Not Given Q6HR [facility] Protocol Ondansetron HCl 4 mg 07/06/25 15:40 Ondansetron Inj 2 Mg/Ml Inj 2 Ml IVP 08/05/25 15:39 Q6H PRN NAUSEA OR VOMITING Protocol Pantoprazole Sodium 40 mg 07/06/25 21:00 07/14/25 10:06 Pantoprazole Inj 40 Mg Vial IVP 08/05/25 20:59 40 mg Q12HR RHINA Administration Polyethylene Glycol/Electrolytes 4,000 ml 07/07/25 15:31 07/09/25 03:03 Na Jj/Nahco3/[place]/Peg (Golytely) 4,000 Ml Btl PO 08/06/25 15:30 4,000 ml PRN PRN Administration SEE COMMENTS Risperidone 1 mg 07/06/25 21:00 07/10/25 11:13 Risperidone 1 Mg Tablet PO 08/05/25 20:59 Not Given On Hold: 07/10/25 13:54 BID RHINA Sodium Chloride 3 ml 07/10/25 13:18 Sodium Chloride Rt Flavia 0.9% 3 Ml Nebu INH 08/09/25 13:17 PRN PRN SOLN Plan 60 y/o male with Hx of Schizophrenia and Developmental Delay, presented with abdominal pain, constipation, and melena, admitted for acute blood loss anemia secondary to upper GI bleed. He was upgraded to the ICU after an aspiration event while undergoing prep for colonoscopy with GoLytely. He was downgraded to the floors on 07/11/2025, currently on high flow oxygen. #Acute hypoxic respiratory failure secondary to #Aspirational pneumonia In the setting of #Severe abdominal distension #Colonic ileus #Right inguinal hernia Patient is currently on high flow oxygen 25 Liters and 30 FiO2 Patient's initial respiratory failure on admission was likely due to aspiration of GoLytely during colonoscopy prep Per Rads, 07/09 CXRs (total of 3) suspicious for bilateral perihilar pneumonia Per Rads, 07/10 CXR shows right lateral pneumonia 07/09 sputum culture grew mi-sensitive E.coli 07/10/25 CXR shows restrictive lung disease 2/2 bilaterally elevated hemidiaphragm from bowel distention and colonic ileus On physical exam today, patient's abdomen remains distended with same reducible right inguinal hernia 07/08/25 abdominal XR showed prominent colonic ileus as well as suspicious findings for distention of the urinary bladder but was negative for SBO or free air 07/12/25: KUB: Moderate colonic ileus, mild small bowel ileus 07/12/25 CT AP: Small bowel obstruction secondary to incarcerated small bowel in a right inguinal hernia Inguinal hernia was reduced at bedside by surgery. Surgery does not beleive patient has a true incarcerated bowel that requires surgical procedure, likely due to neurogenic GI track in the setting of developmental delay. - D/c NG tube as abdominal distension is improved and abdomen is soft to palpation. - KUB to compare ileus status - 1 time soap young enema - Clear liquid diet and advance as tolerated - Gastrografin enema study ordered for tomorrow, will consider pro kinetic therapy if no signs of obstruction on gastrografin imaging. - Continue INH Duonebs q4HR scheduled - Continue INH sodium chloride 3 mL nebulizer prn - Continue chest physiotherapy - 07/12/25 switched ceftriaxon to Unasyn to add anaerobic coverage as patient had aspirational event - Follow-up with ABG, CBC, and CMP - Minimize the use of opiates for pain management due to side effect profile - RT to titrate O2 and see if patient can be weaned off to oxygen mask so colonoscopy can be attempted. #Symptomatic normocytic anemia secondary to #GI bleed, likely lower GI 07/07/25 EGD: A few non-bleeding erosions at the gastroesophageal junction, erythematous mucosa in the antrum H and H stable over past 24 hours GI wants to hold off on colonoscopy until the patient is off of high flow nasal cannula - RT to titrate O2 and see if patient can be weaned off to oxygen mask so colonoscopy can be attempted. - Continue IV Protonix q12HR for GI prophylaxis - Transfuse if Hgb<7 - Resumed clear liquid diet - PPN started 2.2L fluid limit - Pursue lower endoscopy once patient's respiratory status improves #Electrolyte derangement- stabe #Hypokalemia #Hypophosphatemia - acute K: 3.3 on 07/09, 3.3 on 07/10, 3.5 on 07/11, 4.2 on 07/12, 3.4 on 07/13 Phos: 2.0 on 07/11, 2.4 on 07/12, 3.6 on 07/13 - Monitor and replete as needed - Keep Mg and K over 2 and 4 respectively #Lactic acidosis (resolved) Initial uptrend in lactic acidosis is suspected to be 2/2 dehydration Most recently, lactic acid has downtrended from 4.0 to 3.0 #Hyperglycemia- Stable Today's finger stick BG 103, up trended to 124 - Continue to monitor #History of schizophrenia #History of depression #History of anxiety #Agitation - Contact pharmacy to consider non oral medication options (PO Risperdal 1 mg BID, PO fluvoxamine 100 mg BID) - No IV SSRI options - Olanzapine IM 5 mg PRN Qday for agitation #History of developmental delay #History of [place] Palsy Health Maintenance: Code Status: Full DVT Prophylaxis: SCDs GI Prophylaxis: Protonix Diet: Clear liquid diet to monitor for SBO Marinelli: Marinelli catheter in place Lines: PIV Supplemental O2: High Flow 02 20L, 30 FiO2 Disposition: Tele, pending workup for GI bleed and SBO Patient seen and care discussed with my attending physician, Dr. Cifuentes and my senior resident Dr. Ash Nuñez. Hannah Vazquez [facility] [place] [facility] Attending Provider Attestation/Addendum I, Beatris Cifuentes, DO, attest that I was physically present for the bailey portions of the service and evaluated the patient with the resident and I reviewed and discussed the case with the resident and agree with the resident's findings and plans of care as documented above Patient seen and evaluated this AM. Patient reports feeling well. Pearl Digger at bedside. Abdomen is soft and much less distended. Pearl Digger states that the patient's abdomen appears like his baseline. KUB appears improved, although still dilated. Spoke to both surgeon and GI. OK to DC NG tube and advance to [facility]. Plan for gastrograffin enema tomorrow to r/o mechanical obstruction. Further plans to repair inguinal hernia will be made once that is done. No acute events overnight otherwise.
[2025-07-14] MEDS: AMPICILLIN/SULBAC INJ 3 GM in SODIUM CHLORIDE 0.9% (Popper) 50 ML IV ×3 (13:32→23:40)
[2025-07-14] MEDS: DICLOFENAC 1% TOP GEL 100 GM TUBE TOP ×2 (14:31→22:00)
--- NOTE | 2025-07-14 17:08 | PD.IMPROG ---
Documentation for date of: 07/14/25 Subjective Subjective Interval history: abdominal distention less Passing flatus Confused Exam Vital Signs Temp Pulse Resp BP Pulse Ox O2 Del Method O2 Flow Rate 98.5 F 110 H 14 132/89 H 97 High Flow Nasal Cannula 20 07/14/25 16:00 07/14/25 16:00 07/14/25 16:00 07/14/25 16:00 07/14/25 16:00 07/14/25 16:00 07/14/25 14:47 FiO2 30 07/14/25 14:47 Objective Labs 07/14/25 05:21 07/14/25 05:21 Labs: Laboratory Results - last 24 hr 07/14/25 05:21 WBC 11.4 H RBC 3.24 L Hgb 9.3 L Hct 29.0 L MCV 90 MCH 28.7 MCHC 32.1 RDW Std Deviation 47.8 H Plt Count 279 D Neut % (Auto) 69 Lymph % (Auto) 12 [place] % (Auto) 14 H Eos % (Auto) 3 Baso % (Auto) 0 Neut # (Auto) 7.9 H Lymph # (Auto) 1.4 [place] # (Auto) 1.6 H Eos # (Auto) 0.3 Baso # (Auto) 0.0 Immature Gran # (Auto) 0.17 H Absolute Nucleated RBC 0.03 H Immature Gran % 2 H Nucleated RBC % 0 Sodium 144 Potassium 3.5 Chloride 104 Carbon Dioxide 29.9 Anion Gap 10 BUN 8 L Creatinine 0.8 Estim Creat Clear Calc 96.4 eGFR > 60 BUN/Creatinine Ratio 10 L Glucose 124 H Calculated Osmolality 286 Calcium 8.4 Corrected Calcium 8.8 Total Bilirubin 0.4 AST 35 H ALT 30 Alkaline Phosphatase 48 Total Protein 5.5 L Albumin 3.5 Globulin 2.0 L Albumin/Globulin Ratio 1.8 Impressions Impression: Abdominal distention improved discontinue NGT Advance diet as tolerated Case discussed with the internal medicine team ABG Interpretation ABG results: 07/09/25 04:04 ABG pH 7.29 L ABG pCO2 57 H ABG pO2 86 ABG HCO3 28 H ABG O2 Saturation 96 ABG Base Excess 1 Assessment & Plan A&P Narrative Hematochezia Plan clear liquid diet n.p.o. at midnight tonight except p.o. meds Consent for fiberoptic esophagogastroduodenoscopy with possible biopsy possible therapeutic intervention under intravenous moderate sedation If EGD negative we will consider doing a fibrotic colonoscopy prior to discharge Serial CBC IV Protonix Thank you very much for the opportunity to participate in the care of this Time Spent With Patient Time: Total time spent is greater than 50% in coordination of care (as documented) at patient's floor/unit and/or counseling patient:
[2025-07-14] MEDS: MULTIVITAMIN INJ 10 ML in AMINO ACID 4.25%/D5W E 2,000 ML 85 ML IV (18:00)
[2025-07-14] MEDS: ACETAMINOPHEN IVPB 1,000 MG/100 ML VIAL 250 MG IV (20:39)
[2025-07-15] VITALS (13 sets, daily range): BP systolic 135–145; BP diastolic 88–107; PULSE 87–120; RESP 12–27; TEMP 36.1–36.9; O2SAT 94–100; BMI 30.3; BMI 13.0
[2025-07-15] MEDS: ALBUTEROL/IPRATROPIUM (Duoneb) RT SOL 3 ML NEBU INH ×6 (02:22→22:12)
[2025-07-15] MEDS: AMPICILLIN/SULBAC INJ 3 GM in SODIUM CHLORIDE 0.9% (Popper) 50 ML IV ×4 (05:15→23:12)
[2025-07-15] MEDS: INSULIN LISPRO (AdmeLOG) 1 UNIT/0.01 ML UNIT SC ×2 (05:22→17:31)
[2025-07-15 05:29] LABS: Basophils # (Auto) 0.0 Thou/mm3 (0.0-0.2); Basophils % (Auto) 1 % (0-2.5); Eosinophils # (Auto) 0.3 Thou/mm3 (0.0-0.5); Eosinophils % (Auto) 4 % (0-10); Hematocrit 28.7 % (41.0-53.0); Hemoglobin 9.5 g/dL (13.5-16.0); Immature Granulocytes Auto 0.16 Thou/mm3 (0.00-0.00); Lymphocytes # (Auto) 1.5 Thou/mm3 (1.0-4.8); Lymphocytes % (Auto) 20 % (10-50); Mean Corpuscular HGB Conc 33.1 g/dl (31.0-37.0); Mean Corpuscular Hemoglobin 29.3 pg (25.0-35.0); Mean Corpuscular Volume 89 fL (80-100); Monocytes # (Auto) 1.0 Thou/mm3 (0.0-0.8); Monocytes % (Auto) 12 % (0-12); Neutrophils # (Auto) 4.8 Thou/mm3 (1.8-7.7); Neutrophils % (Auto) 61 % (37-80); Nucleated Red Blood Cell # 0.02 Thou/mm3 (0.00-0.00); Nucleated Red Blood Cell % 0 /100 WBC (0); Platelet Count 314 Thou/mm3 (140-440); RDW Standard Deviation 46.9 fL (35.1-43.9); Red Blood Count 3.24 Miln/mm3 (4.50-5.90); White Blood Count 7.8 Thou/mm3 (3.8-10.6)
[2025-07-15] MEDS: DICLOFENAC 1% TOP GEL 100 GM TUBE TOP ×3 (05:52→21:12)
[2025-07-15 06:18] LABS: Alanine Aminotransferase 38 U/L (10-49); Albumin, Serum 3.7 gm/dL (3.5-5.0); Albumin/Globulin Ratio 1.7 (1.2-2.2); Alkaline Phosphatase 49 U/L (46-116); Anion Gap 11 (7-16); Aspartate Amino Transferase 40 U/L (0-34); BUN/Creatinine Ratio 10 Ratio (12-20); Bilirubin,Total 0.5 mg/dL (0.3-1.2); Blood Urea Nitrogen 8 mg/dL (9-23); Calcium 8.7 mg/dL (8.3-10.6); Calcium (Corrected) 8.9 mg/dL (8.5-10.1); Carbon Dioxide 28.4 mMol/L (20.0-31.0); Chloride 104 mMol/L (98-107); Creatinine (Component) 0.8 mg/dL (0.6-1.3); Estimated Creatinine Clearance 96.4 mL/min (>60); Globulin 2.2 gm/dL (2.3-3.5); Glucose 181 mg/dL (74-106); Magnesium 2.2 mg/dL (1.6-2.6); Osmolality,Calculated 288 (275-295); Phosphorous 4.2 mg/dL (2.4-5.1); Potassium 3.4 mMol/L (3.4-5.1); Sodium 143 mMol/L (136-145); Total Protein 5.9 gm/dL (5.7-8.2); eGFR > 60 See Note
--- NOTE | 2025-07-15 09:24 | ESPR_ITS ---
<Statement entered by Florentino Nuñez MD - 07/15/25 14:03> No acute overnight events. Seen and examined at bedside and patient resting comfortably in bed. No longer on restraints, NG tube and rectal tubes out. Gastrografin enema study ordered and will follow-up on results. Given difficulty weaning off of HFNC, tachycardia, and inability to start DVT prophylaxis secondary to GI bleed, D-dimer ordered and was elevated. This does rule out not related DVT, abdominal distention/colonic distention may be causing decreased lung volumes and may be etiology for hypoxia. Additionally, oxygen requirements are improving over time. Hemoglobin stable and chem panel largely unremarkable. ----- Note reviewed and agree with care plan as documented. Please refer to the note below for further details. Plan discussed with attending physician Dr. Vane Nuñez MD PGY-2 Internal Medicine Documentation for date of: 07/15/25 Subjective Subjective Interval history: 60 year old male with past medical history of schizophrenia, developmental delay, Lomas's palsy and abdominal hernia, admitted for melena. S/P EGD, found non bleeding erosions at the gastroesophageal junction. Colonoscopy pending/postponed as the stay is currently complicated by ileus and acute respiratory failure on high flow oxygen. 07/15/25: No remarkable overnight events. Patient was seen at bedside today morning. He was awake, alert and resting comfortably in the bed. He was conversational and in no distress. Mentioned that his knee pain from yesterday is resolved. On clear liquid diet, pending rectal enema screen. Exam Vital Signs Temp Pulse Resp BP Pulse Ox O2 Del Method O2 Flow Rate 98.1 F 118 H 17 142/89 H 94 L High Flow Nasal Cannula 20 07/15/25 08:00 07/15/25 08:00 07/15/25 08:00 07/15/25 08:00 07/15/25 08:00 07/15/25 08:00 07/15/25 08:00 FiO2 07/15/25 08:00 Narrative Exam General: Patient is alert and but not fully oriented (but at baseline, patient has developmental delay). In no distress. Cardio: Tachycardic, normal rhythm, no murmurs, gallops or rubs appreciated. Resp: Normal lung sounds, no rales or wheezing auscultated. MSK/ Extremities: No muscle or joint pain on any movement. No bruising or skin changes visible. No presence of trace or pitting edema in lower extremities bilaterally, dorsalis pedis pulses +2 bilaterally GI/Abdomen: Improved abdominal distention (likely back to baseline). Abdomen s oft to palpation but mildly tender. Decreased bowel sounds. Neuro: No focal motor or sensory deficits in the UE or LE bilat Psych: Judgment thought and behavior hindered due to developmental delay. Good affect. Cooperative Objective Labs 07/16/25 05:15 07/16/25 05:15 Labs: Laboratory Results - last 24 hr 07/15/25 05:03 WBC 7.8 RBC 3.24 L Hgb 9.5 L Hct 28.7 L MCV 89 MCH 29.3 MCHC 33.1 RDW Std Deviation 46.9 H Plt Count 314 D Neut % (Auto) 61 Lymph % (Auto) 20 [place] % (Auto) 12 Eos % (Auto) 4 Baso % (Auto) 1 Neut # (Auto) 4.8 Lymph # (Auto) 1.5 [place] # (Auto) 1.0 H Eos # (Auto) 0.3 Baso # (Auto) 0.0 Immature Gran # (Auto) 0.16 H Absolute Nucleated RBC 0.02 H Immature Gran % 2 H Nucleated RBC % 0 Sodium 143 Potassium 3.4 Chloride 104 Carbon Dioxide 28.4 Anion Gap 11 BUN 8 L Creatinine 0.8 Estim Creat Clear Calc 96.4 eGFR > 60 BUN/Creatinine Ratio 10 L Glucose 181 H D Calculated Osmolality 288 Calcium 8.7 Corrected Calcium 8.9 Phosphorus 4.2 Magnesium 2.2 Total Bilirubin 0.5 AST 40 H ALT 38 Alkaline Phosphatase 49 Total Protein 5.9 Albumin 3.7 Globulin 2.2 L Albumin/Globulin Ratio 1.7 ABG Interpretation ABG results: 07/09/25 04:04 ABG pH 7.29 L ABG pCO2 57 H ABG pO2 86 ABG HCO3 28 H ABG O2 Saturation 96 ABG Base Excess 1 Quality Measures Quality Measures VTE prophylaxis (SCD) and none Assessment & Plan Assessment Current Active Medications: Generic Name Dose Route Start Last Admin Trade Name Freq PRN Reason Stop Dose Admin Acetaminophen 1,000 mg 07/07/25 15:20 Acetaminophen 500 Mg Tablet PO 08/05/25 15:39 On Hold: 07/09/25 11:11 Q6H PRN PAIN OR FEVER > 99.9 Albuterol/Ipratropium 3 ml 07/09/25 09:32 07/15/25 07:07 Albuterol/Ipratropium (Duoneb) Rt Flavia 3 Ml Nebu INH 08/08/25 09:31 3 ml Q4HRRT RHINA Administration Fluvoxamine 100 Mg 0 ea 07/06/25 21:00 07/14/25 21:51 Tablet PO 08/05/25 20:59 Not Given BID RHINA Olanzapine 5 mg/ Sterile Water 0 mg 07/13/25 12:04 07/13/25 12:26 2.1 ml IM 08/12/25 12:03 5 dose QDAY PRN Administration AGITATION Dextrose 50 ml 07/06/25 15:47 Dextrose 50%-Water Inj 50 Ml Syringe IV 08/05/25 15:46 Q15MIN PRN BG <50 OR BG <70 & pt unresponsive Diclofenac Sodium 2 gm 07/14/25 14:00 07/15/25 05:52 Diclofenac 1% Top Gel 100 Gm Tube TOP 08/13/25 13:59 2 gm TID RHINA Administration Glucagon 1 mg 07/06/25 15:47 Glucagon Inj 1 Mg Vial IM Q15MIN PRN BG <70, and no IV access Fat Emulsion Intravenous 500 mls @ 32 mls/hr 07/15/25 18:00 Intralipid 20% Iv IV 08/14/25 17:59 [id number] [facility] Multivitamins/Minerals 10 ml/ 2,010 mls @ 85 mls/hr 07/14/25 18:00 07/14/25 18:00 Amino Acids/Electrolytes/ IV 07/15/25 17:38 85 mls/hr Dextrose .[id number] RHINA Administration Ampicillin Sodium/Sulbactam 50 mls @ 100 mls/hr 07/14/25 13:30 07/15/25 05:45 Sodium 3 gm/ Sodium Chloride IV 07/21/25 13:29 Infused Q6HR RHINA Infusion Insulin Human Lispro 0 unit 07/06/25 18:00 07/15/25 05:22 Insulin Lispro (Admelog) 1 Unit/0.01 Ml Unit SC 08/05/25 17:59 1 unit Q6HR RHINA Administration Protocol Ondansetron HCl 4 mg 07/06/25 15:40 Ondansetron Inj 2 Mg/Ml Inj 2 Ml IVP 08/05/25 15:39 Q6H PRN NAUSEA OR VOMITING Protocol Pantoprazole Sodium 40 mg 07/06/25 21:00 07/14/25 21:45 Pantoprazole Inj 40 Mg Vial IVP 08/05/25 20:59 40 mg Q12HR RHINA Administration Polyethylene Glycol/Electrolytes 4,000 ml 07/07/25 15:31 07/09/25 03:03 Na Jj/Nahco3/Rio/Peg (Golytely) 4,000 Ml Btl PO 08/06/25 15:30 4,000 ml PRN PRN Administration SEE COMMENTS Potassium Chloride 40 meq 07/15/25 09:22 Potassium Chloride 10% 20 Meq/15 Ml Udc PO 07/15/25 09:23 X1 ONE Risperidone 1 mg 07/06/25 21:00 07/10/25 11:13 Risperidone 1 Mg Tablet PO 08/05/25 20:59 Not Given On Hold: 07/10/25 13:54 BID RHINA Sodium Chloride 3 ml 07/10/25 13:18 Sodium Chloride Rt Flavia 0.9% 3 Ml Nebu INH 08/09/25 13:17 PRN PRN SOLN Plan 60 y/o male with Hx of Schizophrenia and Developmental Delay, presented with abdominal pain, constipation, and melena, admitted for acute blood loss anemia secondary to upper GI bleed. He was upgraded to the ICU after an aspiration event while undergoing prep for colonoscopy with GoLytely. He was downgraded to the floors on 07/11/2025, currently on high flow oxygen, being managed for ileus and acute hypoxic respiratory failure. #Acute hypoxic respiratory failure secondary to #Aspirational pneumonia In the setting of #Severe abdominal distension #Colonic ileus #Right inguinal hernia Patient is currently on high flow oxygen 20 Liters and 25 FiO2 Patient's initial respiratory failure on admission was likely due to aspiration of GoLytely during colonoscopy prep Per Rads, 07/09 CXRs (total of 3) suspicious for bilateral perihilar pneumonia Per Rads, 07/10 CXR shows right lateral pneumonia 07/09 sputum culture grew mi-sensitive E.coli 07/10/25 CXR shows restrictive lung disease 2/2 bilaterally elevated hemidiaphragm from bowel distention and colonic ileus 07/08/25 abdominal XR showed prominent colonic ileus as well as suspicious findings for distention of the urinary bladder but was negative for SBO or free air 07/12/25: KUB: Moderate colonic ileus, mild small bowel ileus 07/12/25 CT AP: Small bowel obstruction secondary to incarcerated small bowel in a right inguinal hernia Inguinal hernia was reduced at bedside by surgery. Surgery does not believe patient has a true incarcerated bowel that requires surgical procedure, likely due to neurogenic GI track in the setting of developmental delay. On physical exam today, abdomen is soft and distension has improved. - D/c NG tube as abdominal distension is improved and abdomen is soft to palpation. - 1 time soap young enema - Clear liquid diet and advance as tolerated - Gastrografin enema study pending to r/o mechanical obstruction, will consider pro kinetic therapy if no signs of obstruction. - Continue INH Duonebs q4HR scheduled - Continue INH sodium chloride 3 mL nebulizer prn - Continue chest physiotherapy - 07/12/25 switched ceftriaxon to Unasyn to add anaerobic coverage as patient had aspirational event - Follow-up with ABG, CBC, and CMP - Minimize the use of opiates for pain management due to side effect profile - RT to titrate O2 and see if patient can be weaned off to oxygen mask so colonoscopy can be attempted. #Symptomatic normocytic anemia secondary to #GI bleed, likely lower GI 07/07/25 EGD: A few non-bleeding erosions at the gastroesophageal junction, erythematous mucosa in the antrum H and H stable over past 24 hours GI wants to hold off on colonoscopy until the patient is off of high flow nasal cannula - RT to titrate O2 and see if patient can be weaned off to oxygen mask so colonoscopy can be attempted. - Continue IV Protonix q12HR for GI prophylaxis - Transfuse if Hgb<7 - Resumed clear liquid diet - PPN started 2.2L fluid limit - Pursue lower endoscopy once patient's respiratory status improves #Electrolyte derangement- stabe #Hypokalemia #Hypophosphatemia - acute K: 3.3 on 07/09, 3.3 on 07/10, 3.5 on 07/11, 4.2 on 07/12, 3.4 on 07/13, 3.4 on 07/15 Phos: 2.0 on 07/11, 2.4 on 07/12, 3.6 on 07/13 - Monitor and replete as needed - Keep Mg and K over 2 and 4 respectively #Lactic acidosis (resolved) Initial uptrend in lactic acidosis is suspected to be 2/2 dehydration Most recently, lactic acid has downtrended from 4.0 to 3.0 #Hyperglycemia- Stable Today's finger stick BG 103, up trended to 124 - Continue to monitor #History of schizophrenia #History of depression #History of anxiety #Agitation - Contact pharmacy to consider non oral medication options (PO Risperdal 1 mg BID, PO fluvoxamine 100 mg BID) - No IV SSRI options - Olanzapine IM 5 mg PRN Qday for agitation #History of developmental delay #History of [place] Palsy Health Maintenance: Code Status: Full DVT Prophylaxis: SCDs GI Prophylaxis: Protonix Diet: Clear liquid diet to monitor for SBO Marienlli: Marinelli catheter in place Lines: PIV Supplemental O2: High Flow 02 20L, 30 FiO2 Disposition: Tele, pending workup for GI bleed, Ileus, and acute hypoxic respiratory failure. Patient seen and care discussed with my attending physician, Dr. Cifuentes and my senior residents Dr. Ash Nuñez and Dr. Freeman. Hannah Vazquez [facility] [place] Attending Provider Attestation/Addendum I, Beatris Cifuentes, DO, attest that I was physically present for the bailey portions of the service and evaluated the patient with the resident and I reviewed and discussed the case with the resident and agree with the resident's findings and plans of care as documented above Patient seen and evaluated this AM. Abdomen appears much improved, soft, mildly distended and nontender. Lower GI gastrograffin study pending. Patient remains on HFNC. Will titrate O2 as tolerated. D dimer noted to be elevated. Will order CTA to rule out PE. Patient remains tachycardic. Will f/u with GI and surgeon. Case discussed with cardiology
[2025-07-15] MEDS: POTASSIUM CHLORIDE 10% 20 MEQ/15 ML UDC 40 MEQ PO (09:34)
--- NOTE | 2025-07-15 10:00 | XR_ITS ---
Examination: Gastrografin enema with KUB 21 spot fluoroscopic films of the colon Fluoroscopy July 15, 2025 1353 hours INDICATIONS: Abdominal distention this week. TECHNIQUE AND FINDINGS: The filled in retrograde manner with Gastrografin to the right colon The colon is extremely redundant No constricting colonic lesion is identified Fluoroscopy 30 seconds, radiation dose 205.47 milligray IMPRESSION: Limited study with no constricting colonic lesion noted
[2025-07-15 11:35] LABS: D-Dimer 3370 ng/mL (<600)
--- NOTE | 2025-07-15 14:34 | PC.SS ---
rounding note: Patient continues to be on high flow 02. Patient is from a [facility]. [facility] makes all medical decisions. Pending gastrografin enema study. Pending colonoscopy
--- NOTE | 2025-07-15 16:39 | XR_ITS ---
Examination: CTA chest with intravenous contrast 2-D reconstructions 3-D reconstructions, vascular Date and time of exam: July 15, 20252014 hrs. Indications: Chest pain shortness of breath today CTDI: vol (mGy) 12.32 DLP: (mGycm) 448 Technique: Multiple axial sections of the thorax have been obtained. 3 mm slice thickness, from below the hemidiaphragms to above the apices of the lungs. Mediastinal and lung density settings have been obtained. 2-D sagittal and coronal reconstructions. 3-D angiographic renderings, 3-D volume renderings, 3D post processing, vascular maximum intensity projections obtained. Contrast administered is 100 cc Isovue-370. Low dose protocols were performed. One or more of the following dose reduction techniques were used; automated exposure control, adjustment of the mA and/or KV according to patient size, use of iterative reconstruction technique. Findings: No thoracic aortic aneurysm dilatation or dissection Pulmonary artery segments are not enlarged Opacification of the distal pulmonary artery branches is relatively poor secondary to breathing motion No mediastinal lymphadenopathy Opacity in the right lung consistent with pneumonia especially right upper lobe No gallstones No visualized liver or splenic lesion No pancreatic mass Impression: No thoracic aortic aneurysm dilatation or dissection Opacification of distal pulmonary artery branches is poor secondary to patient breathing, no pulmonary artery filling defects noted Right lung pneumonia, especially right upper lobe
--- NOTE | 2025-07-15 17:19 | PD.RESPRO ---
Documentation for date of: 07/15/25 Subjective Subjective Interval history: Patient was seen and examined at bedside. Patient was lying in bed comfortably still on high flow nasal cannula, review of the telemetry box for the past 24 hours showed heart rate range between 92 and 124 bpm. Patient was started on TPN 2 days ago by the primary team. Patient is scheduled for Gastrografin enema study. Due to the patient limited improvement on high flow nasal cannula and the tachycardia with limited improvement in the oxygen requirement patient could have PE. The idea was proposed to the primary team they ordered for the patient D-dimer pending further results. Has potassium today is 3.4, magnesium 2.2. His hemoglobin stable at 9.5 and WBC 7.8. Exam Vital Signs Temp Pulse Resp BP Pulse Ox O2 Del Method O2 Flow Rate 97.0 F 108 H 21 H 140/97 H 95 High Flow Nasal Cannula 20 07/15/25 16:00 07/15/25 16:00 07/15/25 16:00 07/15/25 16:00 07/15/25 16:00 07/15/25 16:00 07/15/25 16:00 FiO2 07/15/25 16:00 Narrative Exam GEN:alert, on HFNC, off restrains, lying in bed comfortably HEENT: NC/AC, oral mucosa dry, neck supple CVS: RRR, S1-S2, S3, no murmurs appreciated RESP: Still has coarse crepitations bilaterally GI: Abdomen is soft, mildly distended, Sluggish bowel sounds MSK: trace lower extremity edema SKIN: warm and clammy [employer]ING [employer]: Able to move all extremeties, limited due to mental status Objective Labs 07/15/25 05:03 07/15/25 05:03 Labs: Laboratory Results - last 24 hr 07/15/25 05:03 WBC 7.8 RBC 3.24 L Hgb 9.5 L Hct 28.7 L MCV 89 MCH 29.3 MCHC 33.1 RDW Std Deviation 46.9 H Plt Count 314 D Neut % (Auto) 61 Lymph % (Auto) 20 [place] % (Auto) 12 Eos % (Auto) 4 Baso % (Auto) 1 Neut # (Auto) 4.8 Lymph # (Auto) 1.5 [place] # (Auto) 1.0 H Eos # (Auto) 0.3 Baso # (Auto) 0.0 Immature Gran # (Auto) 0.16 H Absolute Nucleated RBC 0.02 H Immature Gran % 2 H Nucleated RBC % 0 D-Dimer 3370 H Sodium 143 Potassium 3.4 Chloride 104 Carbon Dioxide 28.4 Anion Gap 11 BUN 8 L Creatinine 0.8 Estim Creat Clear Calc 96.4 eGFR > 60 BUN/Creatinine Ratio 10 L Glucose 181 H D Calculated Osmolality 288 Calcium 8.7 Corrected Calcium 8.9 Phosphorus 4.2 Magnesium 2.2 Total Bilirubin 0.5 AST 40 H ALT 38 Alkaline Phosphatase 49 Total Protein 5.9 Albumin 3.7 Globulin 2.2 L Albumin/Globulin Ratio 1.7 ABG Interpretation ABG results: 07/09/25 04:04 ABG pH 7.29 L ABG pCO2 57 H ABG pO2 86 ABG HCO3 28 H ABG O2 Saturation 96 ABG Base Excess 1 Quality Measures Quality Measures VTE prophylaxis (SCD) and none Assessment & Plan Assessment Current Active Medications: Generic Name Dose Route Start Last Admin Trade Name Freq PRN Reason Stop Dose Admin Acetaminophen 1,000 mg 07/07/25 15:20 Acetaminophen 500 Mg Tablet PO 08/05/25 15:39 On Hold: 07/09/25 11:11 Q6H PRN PAIN OR FEVER > 99.9 Albuterol/Ipratropium 3 ml 07/09/25 09:32 07/15/25 15:44 Albuterol/Ipratropium (Duoneb) Rt Flavia 3 Ml Nebu INH 08/08/25 09:31 3 ml Q4HRRT RHINA Administration Fluvoxamine 100 Mg 0 ea 07/06/25 21:00 07/15/25 12:19 Tablet PO 08/05/25 20:59 Not Given BID RHINA Olanzapine 5 mg/ Sterile Water 0 mg 07/13/25 12:04 07/13/25 12:26 2.1 ml IM 08/12/25 12:03 5 dose QDAY PRN Administration AGITATION Dextrose 50 ml 07/06/25 15:47 Dextrose 50%-Water Inj 50 Ml Syringe IV 08/05/25 15:46 Q15MIN PRN BG <50 OR BG <70 & pt unresponsive Diclofenac Sodium 2 gm 07/14/25 14:00 07/15/25 14:59 Diclofenac 1% Top Gel 100 Gm Tube TOP 08/13/25 13:59 2 gm TID RHINA Administration Glucagon 1 mg 07/06/25 15:47 Glucagon Inj 1 Mg Vial IM Q15MIN PRN BG <70, and no IV access Fat Emulsion Intravenous 500 mls @ 32 mls/hr 07/15/25 18:00 Intralipid 20% Iv IV 08/14/25 17:59 [id number] RHINA Multivitamins/Minerals 10 ml/ 2,010 mls @ 85 mls/hr 07/14/25 18:00 07/14/25 18:00 Amino Acids/Electrolytes/ IV 07/15/25 17:38 85 mls/hr Dextrose .[id number] RHINA Administration Ampicillin Sodium/Sulbactam 50 mls @ 100 mls/hr 07/14/25 13:30 07/15/25 12:13 Sodium 3 gm/ Sodium Chloride IV 07/21/25 13:29 100 mls/hr Q6HR RHINA Administration Potassium Chloride 70 meq/ 1,057 mls @ 40 mls/hr 07/15/25 18:00 Calcium Gluconate 2 gm/ IV 07/16/25 17:59 Magnesium Sulfate 1 gm/ Amino QDAY@1800 RHINA Acids Lactated Ringer's 500 mls @ 75 mls/hr 07/15/25 16:42 Lactated Ringers IV 07/15/25 23:21 .[id number] ONE Insulin Human Lispro 0 unit 07/06/25 18:00 07/15/25 12:14 Insulin Lispro (Admelog) 1 Unit/0.01 Ml Unit SC 08/05/25 17:59 Not Given Q6HR [facility] Protocol Ondansetron HCl 4 mg 07/06/25 15:40 Ondansetron Inj 2 Mg/Ml Inj 2 Ml IVP 08/05/25 15:39 Q6H PRN NAUSEA OR VOMITING Protocol Pantoprazole Sodium 40 mg 07/06/25 21:00 07/15/25 09:28 Pantoprazole Inj 40 Mg Vial IVP 08/05/25 20:59 40 mg Q12HR RHINA Administration Polyethylene Glycol/Electrolytes 4,000 ml 07/07/25 15:31 07/09/25 03:03 Na Jj/Nahco3/Rio/Peg (Golytely) 4,000 Ml Btl PO 08/06/25 15:30 4,000 ml PRN PRN Administration SEE COMMENTS Risperidone 1 mg 07/06/25 21:00 07/10/25 11:13 Risperidone 1 Mg Tablet PO 08/05/25 20:59 Not Given On Hold: 07/10/25 13:54 BID RHINA Sodium Chloride 3 ml 07/10/25 13:18 Sodium Chloride Rt Flavia 0.9% 3 Ml Nebu INH 08/09/25 13:17 PRN PRN SOLN Plan Summary: 60-year-old male patient known case of schizophrenia, hyperlipidemia, developmental delay, was brought from skilled nursing facility after he was started to experience abdominal pain few hours before presentation. Patient was unable to provide accurate history due to his chronic mental status, most of the history was taken from the caregiver Charu Jean. Cardiology team was consulted due to tachycardia #Sinus tachycardia likely 2/ #Colonic ileus #ACS r/o Patient presented with acute abdominal pain, tachycardia, melena, patient was sweaty, pulse rate was 129, blood pressure was 119/65.on examination found to have S1-S2 and S3 He has trace lower edema, no elevated JVD Hemoglobin was 5.8. TSH was 5.8, Troponin was negative, chest x-ray showed left ventricular prominence, elevated right hemidiaphragm. EKG was done initially showed sinus tachycardia, repeat today during the rapid also showed sinus tachycardia with deep Q-wave on the leads, I, III and AVf. Patient most likely have secondary cause of his sinus tachycardia including but not limited to infection, pain, acute blood loss, less likely medication side effect such as serotonin syndrome 07/09/2025, patient had an episode of aspiration, he was intubated and upgraded to the ICU. BNP came back normal, telemonitoring was reviewed for the past 24-hour was negative for any arrhythmias and it only showed sinus tachycardia. 07/08/25 Echo: rate more than 115 bpm. Normal left ventricular size and function. Grade I diastolic dysfunction. EF estimated at 55-60%. The right ventricle is normal in size and systolic function. Normal RVSP. Mild MR and TR. No pericardial effusion Metoprolol attempted to be started however there was concern for rate control may mask possible deterioration of patient condition. 07/14/2025, patient remains on restraints, was started on TPN, telemonitoring over the past 24 hours showed increase in the heart rate to 152, sinus rhythm with some PVCs. No ST changes noted Plan ? Recommend to start metoprolol XL 25 mg QD ? Strict in and out ? Treat underlying cause, patient might be symptomatic anemia versus perforated viscus vs SBO, or sepsis ? Daily potassium and magnesium ? Replete electrolytes to keep potassium and magnesium above 4 and 2 respectively within normal range as patient is losing K through diarrhea #GIB s/p 2 pRBC #Acute post hemorrhagic anemia #Upper vs lower GIB Presented with melena. Hgb on admission 07/06 5.8, increased to 7.7, and subsequently decreased back to 6.3 on 07/10. 07/07 EGD showed few non bleeding erosions at GE junction, erythematous mucosa in antrum, normal duodenum. Patient aspirated on Golytely 07/09 and was intubated and upgraded to ICU, extubated 07/11. Plan - Gastrograffin enema study pending - CTM Hgb - Colonoscopy delayed due to patient being on high flow NC #Developmental delay #History of schizophrenia #Hyperglycemia #Depression #Acute blood loss Plan ? Follow-up with the primary team recommendation Thank you for your consultation please do not hesitate to reach out if you have any question or concern - Patient's plan and care discussed with my attending, Dr. Alison Santos MD Internal Medicine PGY-3 Attending Provider Attestation/Addendum I have personally seen and examined the patient separately on the above date of service and discussed the plan of care with the resident. I reviewed the resident Dr. Santos consultation progress note and agree with the resident findings and plan in the note above and have also edited the documentation to reflect my findings and plan. Diego Rosas M.D. Interventional Cardiology
[2025-07-15] MEDS: POT CHL ADDITIVE IV (18:21)
[2025-07-15] MEDS: CALCIUM GLUCONATE IV (18:21)
[2025-07-15] MEDS: [UNRECOGNIZED DRUG - OTHER] IV (18:21)
[2025-07-15] MEDS: FAT EMULSIONS 20% IV 500 ML 32 ML IV (18:22)
[2025-07-15] MEDS: SODIUM CHLORIDE 0.9% 250 ML 250 ML 999 ML IV (19:30)
[2025-07-15] MEDS: RINGERS LACTATED 500 ML 500 ML 75 ML IV (20:34)
[2025-07-15] MEDS: ONDANSETRON INJ 2 MG/ML INJ 2 ML 4 MG IVP (20:38)
--- NOTE | 2025-07-15 20:48 | ESPR_ITS ---
Documentation for date of: 07/15/25 Subjective Subjective Interval history: Gastrografin BE shows no constricting lesion D-dimer 3380 Patient getting CTA chest to rule out PE Remains on high flow oxygen abdominal distention is somewhat less Exam Vital Signs Temp Pulse Resp BP Pulse Ox O2 Del Method O2 Flow Rate 98.4 F 111 H 23 H 145/107 H 95 High Flow Nasal Cannula 20 07/15/25 20:00 07/15/25 20:00 07/15/25 20:00 07/15/25 20:00 07/15/25 20:00 07/15/25 20:00 07/15/25 20:00 FiO2 07/15/25 18:41 Objective Labs 07/15/25 05:03 07/15/25 05:03 Labs: Laboratory Results - last 24 hr 07/15/25 05:03 WBC 7.8 RBC 3.24 L Hgb 9.5 L Hct 28.7 L MCV 89 MCH 29.3 MCHC 33.1 RDW Std Deviation 46.9 H Plt Count 314 D Neut % (Auto) 61 Lymph % (Auto) 20 [place] % (Auto) 12 Eos % (Auto) 4 Baso % (Auto) 1 Neut # (Auto) 4.8 Lymph # (Auto) 1.5 [place] # (Auto) 1.0 H Eos # (Auto) 0.3 Baso # (Auto) 0.0 Immature Gran # (Auto) 0.16 H Absolute Nucleated RBC 0.02 H Immature Gran % 2 H Nucleated RBC % 0 D-Dimer 3370 H Sodium 143 Potassium 3.4 Chloride 104 Carbon Dioxide 28.4 Anion Gap 11 BUN 8 L Creatinine 0.8 Estim Creat Clear Calc 96.4 eGFR > 60 BUN/Creatinine Ratio 10 L Glucose 181 H D Calculated Osmolality 288 Calcium 8.7 Corrected Calcium 8.9 Phosphorus 4.2 Magnesium 2.2 Total Bilirubin 0.5 AST 40 H ALT 38 Alkaline Phosphatase 49 Total Protein 5.9 Albumin 3.7 Globulin 2.2 L Albumin/Globulin Ratio 1.7 Impressions Impression: Colonic motility disorder No constricting lesion on Gastrografin PE Possible PE with requirement of high flow nasal cannula as well as elevated D- dimer CTA chest results pending Continue current management ABG Interpretation ABG results: 07/09/25 04:04 ABG pH 7.29 L ABG pCO2 57 H ABG pO2 86 ABG HCO3 28 H ABG O2 Saturation 96 ABG Base Excess 1 Assessment & Plan A&P Narrative Hematochezia Plan clear liquid diet n.p.o. at midnight tonight except p.o. meds Consent for fiberoptic esophagogastroduodenoscopy with possible biopsy possible therapeutic intervention under intravenous moderate sedation If EGD negative we will consider doing a fibrotic colonoscopy prior to discharge Serial CBC IV Protonix Thank you very much for the opportunity to participate in the care of this Time Spent With Patient Time: Total time spent is greater than 50% in coordination of care (as documented) at patient's floor/unit and/or counseling patient:
[2025-07-16] VITALS (13 sets, daily range): BP systolic 99–158; BP diastolic 63–109; PULSE 82–128; RESP 15–25; TEMP 36–37.3; O2SAT 93–100; BMI 27.9
[2025-07-16] MEDS: ALBUTEROL/IPRATROPIUM (Duoneb) RT SOL 3 ML NEBU INH ×5 (02:30→22:24)
[2025-07-16] MEDS: OLANZapine INJ 5 MG, Sterile Water 2.1 ML IM (02:38)
[2025-07-16] MEDS: ONDANSETRON INJ 2 MG/ML INJ 2 ML 4 MG IVP (03:08)
[2025-07-16] MEDS: LABETALOL INJ 5 MG/ML VIAL 20 ML 10 MG IVP (04:59)
[2025-07-16] MEDS: AMPICILLIN/SULBAC INJ 3 GM in SODIUM CHLORIDE 0.9% (Popper) 50 ML IV ×4 (05:06→23:43)
[2025-07-16] MEDS: DICLOFENAC 1% TOP GEL 100 GM TUBE TOP ×3 (05:06→21:10)
[2025-07-16 05:49] LABS: Basophils # (Auto) 0.1 Thou/mm3 (0.0-0.2); Basophils % (Auto) 1 % (0-2.5); Eosinophils # (Auto) 0.4 Thou/mm3 (0.0-0.5); Eosinophils % (Auto) 4 % (0-10); Hematocrit 31.0 % (41.0-53.0); Hemoglobin 9.9 g/dL (13.5-16.0); Immature Granulocytes Auto 0.13 Thou/mm3 (0.00-0.00); Lymphocytes # (Auto) 1.4 Thou/mm3 (1.0-4.8); Lymphocytes % (Auto) 16 % (10-50); Mean Corpuscular HGB Conc 31.9 g/dl (31.0-37.0); Mean Corpuscular Hemoglobin 28.5 pg (25.0-35.0); Mean Corpuscular Volume 89 fL (80-100); Monocytes # (Auto) 0.9 Thou/mm3 (0.0-0.8); Monocytes % (Auto) 10 % (0-12); Neutrophils # (Auto) 6.0 Thou/mm3 (1.8-7.7); Neutrophils % (Auto) 68 % (37-80); Nucleated Red Blood Cell # 0.00 Thou/mm3 (0.00-0.00); Nucleated Red Blood Cell % 0 /100 WBC (0); Platelet Count 385 Thou/mm3 (140-440); RDW Standard Deviation 47.7 fL (35.1-43.9); Red Blood Count 3.47 Miln/mm3 (4.50-5.90); White Blood Count 8.8 Thou/mm3 (3.8-10.6)
[2025-07-16 06:13] LABS: Anion Gap 9 (7-16); BUN/Creatinine Ratio 13 Ratio (12-20); Blood Urea Nitrogen 10 mg/dL (9-23); Calcium 8.9 mg/dL (8.3-10.6); Carbon Dioxide 27.6 mMol/L (20.0-31.0); Chloride 104 mMol/L (98-107); Creatinine (Component) 0.8 mg/dL (0.6-1.3); Estimated Creatinine Clearance 92.7 mL/min (>60); Glucose 136 mg/dL (74-106); Magnesium 2.3 mg/dL (1.6-2.6); Osmolality,Calculated 282 (275-295); Phosphorous 3.5 mg/dL (2.4-5.1); Potassium 4.0 mMol/L (3.4-5.1); Sodium 141 mMol/L (136-145); eGFR > 60 See Note
--- NOTE | 2025-07-16 09:07 | ESPR_ITS ---
Documentation for date of: 07/16/25 Subjective Subjective Interval history: Patient was seen and examined at bedside. Seems to be uncomfortable today, however he denied any symptoms. D-dimer was done yesterday and it was elevated more than 3000's, primary team ordered CTA and which came back as limited study however it was negative for PE. His max heart rate went up to 128 sinus rhythm. Still on high flow nasal cannula . Exam Vital Signs Temp Pulse Resp BP Pulse Ox O2 Del Method O2 Flow Rate 96.8 F 91 21 H 158/109 H 98 High Flow Nasal Cannula 20 07/16/25 04:00 07/16/25 06:26 07/16/25 06:26 07/16/25 04:59 07/16/25 06:26 07/16/25 04:00 07/16/25 06:26 FiO2 07/16/25 06:26 Narrative Exam GEN:alert, on HFNC, off restrains, looks uncomfortable HEENT: NC/AC, oral mucosa dry, neck supple CVS: RRR, S1-S2, S3, no murmurs appreciated RESP: Still has coarse crepitations and wheezing on the right side. GI: Abdomen is soft, mildly distended, Sluggish bowel sounds MSK: No extremity edema SKIN: warm and clammy TYPESETTER APPRENTICE: Able to move all extremeties, limited due to mental status Objective Labs 07/16/25 05:15 07/16/25 05:15 Labs: Laboratory Results - last 24 hr 07/15/25 07/16/25 05:03 05:15 WBC 8.8 RBC 3.47 L Hgb 9.9 L Hct 31.0 L MCV 89 MCH 28.5 MCHC 31.9 RDW Std Deviation 47.7 H Plt Count 385 D Neut % (Auto) 68 Lymph % (Auto) 16 [place] % (Auto) 10 Eos % (Auto) 4 Baso % (Auto) 1 Neut # (Auto) 6.0 Lymph # (Auto) 1.4 [place] # (Auto) 0.9 H Eos # (Auto) 0.4 Baso # (Auto) 0.1 Immature Gran # (Auto) 0.13 H Absolute Nucleated RBC 0.00 Immature Gran % 2 H Nucleated RBC % 0 D-Dimer 3370 H Sodium 141 Potassium 4.0 D Chloride 104 Carbon Dioxide 27.6 Anion Gap 9 BUN 10 Creatinine 0.8 Estim Creat Clear Calc 92.7 eGFR > 60 BUN/Creatinine Ratio 13 Glucose 136 H Calculated Osmolality 282 Calcium 8.9 Phosphorus 3.5 Magnesium 2.3 ABG Interpretation ABG results: 07/09/25 04:04 ABG pH 7.29 L ABG pCO2 57 H ABG pO2 86 ABG HCO3 28 H ABG O2 Saturation 96 ABG Base Excess 1 Quality Measures Quality Measures VTE prophylaxis (SCD) and none Assessment & Plan Assessment Current Active Medications: Generic Name Dose Route Start Last Admin Trade Name Freq PRN Reason Stop Dose Admin Acetaminophen 1,000 mg 07/07/25 15:20 Acetaminophen 500 Mg Tablet PO 08/05/25 15:39 On Hold: 07/09/25 11:11 Q6H PRN PAIN OR FEVER > 99.9 Albuterol/Ipratropium 3 ml 07/09/25 09:32 07/16/25 06:25 Albuterol/Ipratropium (Duoneb) Rt Falvia 3 Ml Nebu INH 08/08/25 09:31 3 ml Q4HRRT RHINA Administration Fluvoxamine 100 Mg 0 ea 07/06/25 21:00 07/15/25 20:38 Tablet PO 08/05/25 20:59 Not Given BID RHINA Olanzapine 5 mg/ Sterile Water 0 mg 07/13/25 12:04 07/16/25 02:38 2.1 ml IM 08/12/25 12:03 1 dose QDAY PRN Administration AGITATION Dextrose 50 ml 07/06/25 15:47 Dextrose 50%-Water Inj 50 Ml Syringe IV 08/05/25 15:46 Q15MIN PRN BG <50 OR BG <70 & pt unresponsive Diclofenac Sodium 2 gm 07/14/25 14:00 07/16/25 05:06 Diclofenac 1% Top Gel 100 Gm Tube TOP 08/13/25 13:59 2 gm TID RHINA Administration Glucagon 1 mg 07/06/25 15:47 Glucagon Inj 1 Mg Vial IM Q15MIN PRN BG <70, and no IV access Ampicillin Sodium/Sulbactam 50 mls @ 100 mls/hr 07/14/25 13:30 07/16/25 05:06 Sodium 3 gm/ Sodium Chloride IV 07/21/25 13:29 100 mls/hr Q6HR RHIAN Administration Insulin Human Lispro 0 unit 07/06/25 18:00 07/16/25 05:24 Insulin Lispro (Admelog) 1 Unit/0.01 Ml Unit SC 08/05/25 17:59 Not Given Q6HR RHINA Protocol Ondansetron HCl 4 mg 07/06/25 15:40 07/16/25 03:08 Ondansetron Inj 2 Mg/Ml Inj 2 Ml IVP 08/05/25 15:39 4 mg Q6H PRN Administration NAUSEA OR VOMITING Protocol Pantoprazole Sodium 40 mg 07/06/25 21:00 07/16/25 08:39 Pantoprazole Inj 40 Mg Vial IVP 08/05/25 20:59 40 mg Q12HR RHINA Administration Polyethylene Glycol/Electrolytes 4,000 ml 07/07/25 15:31 07/09/25 03:03 Na Jj/Nahco3/Rio/Peg (Golytely) 4,000 Ml Btl PO 08/06/25 15:30 4,000 ml PRN PRN Administration SEE COMMENTS Risperidone 1 mg 07/06/25 21:00 07/10/25 11:13 Risperidone 1 Mg Tablet PO 08/05/25 20:59 Not Given On Hold: 07/10/25 13:54 BID RHINA Sodium Chloride 3 ml 07/10/25 13:18 Sodium Chloride Rt Flavia 0.9% 3 Ml Nebu INH 08/09/25 13:17 PRN PRN SOLN Plan Summary: 60-year-old male patient known case of schizophrenia, hyperlipidemia, developmental delay, was brought from [facility] facility after he was started to experience abdominal pain few hours before presentation. Patient was unable to provide accurate history due to his chronic mental status, most of the history was taken from the caregiver Charu Jean. Cardiology team was consulted due to tachycardia #Sinus tachycardia likely 2/ #Colonic ileus #ACS r/o Patient presented with acute abdominal pain, tachycardia, melena, patient was sweaty, pulse rate was 129, blood pressure was 119/65.on examination found to have S1-S2 and S3 He has trace lower edema, no elevated JVD Hemoglobin was 5.8. TSH was 5.8, Troponin was negative, chest x-ray showed left ventricular prominence, elevated right hemidiaphragm. EKG was done initially showed sinus tachycardia, repeat today during the rapid also showed sinus tachycardia with deep Q-wave on the leads, I, III and AVf. Patient most likely have secondary cause of his sinus tachycardia including but not limited to infection, pain, acute blood loss, less likely medication side effect such as serotonin syndrome 07/09/2025, patient had an episode of aspiration, he was intubated and upgraded to the ICU. BNP came back normal, telemonitoring was reviewed for the past 24- hour was negative for any arrhythmias and it only showed sinus tachycardia. 07/08/25 Echo: rate more than 115 bpm. Normal left ventricular size and function. Grade I diastolic dysfunction. EF estimated at 55-60%. The right ventricle is normal in size and systolic function. Normal RVSP. Mild MR and TR. No pericardial effusion Metoprolol attempted to be started however there was concern for rate control may mask possible deterioration of patient condition. 07/14/2025, patient remains on restraints, was started on TPN, telemonitoring over the past 24 hours showed increase in the heart rate to 152, sinus rhythm with some PVCs. No ST changes noted 07/15/2025, CT angio of the chest was done was negative for pulmonary embolism however there was artifact during imaging. Plus the patient has consultation for that reason patient is not eligible for VQ scan. Plan ? Lower extremity Doppler ultrasound ? Recommend to start metoprolol XL 25 mg QD ? Strict in and out ? Treat underlying cause, patient might be symptomatic anemia versus perforated viscus vs SBO, or sepsis ? Daily potassium and magnesium ? Replete electrolytes to keep potassium and magnesium above 4 and 2 respectively within normal range as patient is losing K through diarrhea #GIB s/p 2 pRBC #Acute post hemorrhagic anemia #Upper vs lower GIB Presented with melena. Hgb on admission 07/06 5.8, increased to 7.7, and subsequently decreased back to 6.3 on 07/10. 07/07 EGD showed few non bleeding erosions at GE junction, erythematous mucosa in antrum, normal duodenum. Patient aspirated on Golytely 07/09 and was intubated and upgraded to ICU, extubated 07/11. Plan - Gastrograffin enema study pending - CTM Hgb - Colonoscopy delayed due to patient being on high flow NC #Developmental delay #History of schizophrenia #Hyperglycemia #Depression #Acute blood loss Plan ? Follow-up with the primary team recommendation Thank you for your consultation please do not hesitate to reach out if you have any question or concern - Patient's plan and care discussed with my attending, Dr. Alison Santos MD Internal Medicine PGY-3 Attending Provider Attestation/Addendum I have personally seen and examined the patient separately on the above date of service and discussed the plan of care with the resident. I reviewed the resident consultation progress note and agree with the resident findings and plan in the note above and have also edited the documentation to reflect my findings and plan. Diego Rosas M.D. Interventional Cardiology
--- NOTE | 2025-07-16 09:26 | ESPR_ITS ---
<Statement entered by Florentino Nuñez MD - 07/16/25 14:54> No acute overnight events but patient was noted to be agitated and was given a one-time dose of Benadryl. Also given one-time dose of labetalol 10 mg IV. At bedside, patient was calm and cooperative. He saturating in the mid 90s on HFNC 20 L/min and 25% FiO2. Asked nursing staff to change to oxy mask to see how patient tolerates. CBC stable, CHEM panel unremarkable. Obtain EKG prior to starting Reglan given multiple QT prolonging agents and QTc of 456. Started Reglan 10 mg IV every 8 hours for increased bowel motility. ----- Note reviewed and agree with care plan as documented. Please refer to the note below for further details. Plan discussed with attending physician Dr. Vane Nuñez MD PGY-2 Internal Medicine Documentation for date of: 07/16/25 Subjective Subjective Interval history: 60 year old male with past medical history of schizophrenia, developmental delay, Lomas's palsy and abdominal hernia, admitted for melena. S/P EGD, found non bleeding erosions at the gastroesophageal junction. Colonoscopy pending/postponed as the stay is currently complicated by ileus and acute respiratory failure on high flow oxygen. 07/15/25: No remarkable overnight events. Patient was seen at bedside today morning. He was awake, alert and resting comfortably in the bed. He was conversational and in no distress. Mentioned that his knee pain from yesterday is resolved. On clear liquid diet, pending rectal enema screen. 07/16/25: Overnight patient had BP at 158/109, was given labetalol 10 mg X1 and Olanzapine for agitation. Patient was seen at bedside, SUPPLY CATALOGUER was in the room helping patient with a sponge bath. His food tray was a bedside but he had only eaten about 10%, noting he doesn't feel like eating. He did drink his ensure protein shake. Still on high flow (20L, 25 FiO2). CT angio chest was done yesterday evening, PE ruled out. Exam Vital Signs Temp Pulse Resp BP Pulse Ox O2 Del Method O2 Flow Rate 98.4 F 82 22 H 136/90 H 98 High Flow Nasal Cannula 20 07/16/25 08:00 07/16/25 08:00 07/16/25 08:00 07/16/25 08:00 07/16/25 08:00 07/16/25 08:00 07/16/25 08:00 FiO2 25 07/16/25 08:00 Narrative Exam General: Patient is alert and but not fully oriented (but at baseline, patient has developmental delay). In no distress. Cardio: Tachycardic, normal rhythm, no murmurs, gallops or rubs appreciated. Resp: Normal lung sounds, no rales or wheezing auscultated. MSK/ Extremities: No muscle or joint pain on any movement. No bruising or skin changes visible. No presence of trace or pitting edema in lower extremities bilaterally, dorsalis pedis pulses +2 bilaterally GI/Abdomen: Visual abdominal distention present. Abdomen tense to palpation and mildly tender. Decreased bowel sounds. Neuro: No focal motor or sensory deficits in the UE or LE bilat Psych: Judgment thought and behavior hindered due to developmental delay. Good affect. Cooperative Objective Labs 07/17/25 05:05 07/17/25 05:05 Labs: Laboratory Results - last 24 hr 07/15/25 07/16/25 05:03 05:15 WBC 8.8 RBC 3.47 L Hgb 9.9 L Hct 31.0 L MCV 89 MCH 28.5 MCHC 31.9 RDW Std Deviation 47.7 H Plt Count 385 D Neut % (Auto) 68 Lymph % (Auto) 16 [place] % (Auto) 10 Eos % (Auto) 4 Baso % (Auto) 1 Neut # (Auto) 6.0 Lymph # (Auto) 1.4 [place] # (Auto) 0.9 H Eos # (Auto) 0.4 Baso # (Auto) 0.1 Immature Gran # (Auto) 0.13 H Absolute Nucleated RBC 0.00 Immature Gran % 2 H Nucleated RBC % 0 D-Dimer 3370 H Sodium 141 Potassium 4.0 D Chloride 104 Carbon Dioxide 27.6 Anion Gap 9 BUN 10 Creatinine 0.8 Estim Creat Clear Calc 92.7 eGFR > 60 BUN/Creatinine Ratio 13 Glucose 136 H Calculated Osmolality 282 Calcium 8.9 Phosphorus 3.5 Magnesium 2.3 ABG Interpretation ABG results: 07/09/25 04:04 ABG pH 7.29 L ABG pCO2 57 H ABG pO2 86 ABG HCO3 28 H ABG O2 Saturation 96 ABG Base Excess 1 Quality Measures Quality Measures VTE prophylaxis (SCD) and none Assessment & Plan Assessment Current Active Medications: Generic Name Dose Route Start Last Admin Trade Name Freq PRN Reason Stop Dose Admin Acetaminophen 1,000 mg 07/07/25 15:20 Acetaminophen 500 Mg Tablet PO 08/05/25 15:39 On Hold: 07/09/25 11:11 Q6H PRN PAIN OR FEVER > 99.9 Albuterol/Ipratropium 3 ml 07/09/25 09:32 07/16/25 06:25 Albuterol/Ipratropium (Duoneb) Rt Flavia 3 Ml Nebu INH 08/08/25 09:31 3 ml Q4HRRT RHINA Administration Fluvoxamine 100 Mg 0 ea 07/06/25 21:00 07/15/25 20:38 Tablet PO 08/05/25 20:59 Not Given BID RHINA Olanzapine 5 mg/ Sterile Water 0 mg 07/13/25 12:04 07/16/25 02:38 2.1 ml IM 08/12/25 12:03 1 dose QDAY PRN Administration AGITATION Dextrose 50 ml 07/06/25 15:47 Dextrose 50%-Water Inj 50 Ml Syringe IV 08/05/25 15:46 Q15MIN PRN BG <50 OR BG <70 & pt unresponsive Diclofenac Sodium 2 gm 07/14/25 14:00 07/16/25 05:06 Diclofenac 1% Top Gel 100 Gm Tube TOP 08/13/25 13:59 2 gm TID RHINA Administration Glucagon 1 mg 07/06/25 15:47 Glucagon Inj 1 Mg Vial IM Q15MIN PRN BG <70, and no IV access Ampicillin Sodium/Sulbactam 50 mls @ 100 mls/hr 07/14/25 13:30 07/16/25 05:06 Sodium 3 gm/ Sodium Chloride IV 07/21/25 13:29 100 mls/hr Q6HR RHINA Administration Insulin Human Lispro 0 unit 07/06/25 18:00 07/16/25 05:24 Insulin Lispro (Admelog) 1 Unit/0.01 Ml Unit SC 08/05/25 17:59 Not Given Q6HR RHINA Protocol Ondansetron HCl 4 mg 07/06/25 15:40 07/16/25 03:08 Ondansetron Inj 2 Mg/Ml Inj 2 Ml IVP 08/05/25 15:39 4 mg Q6H PRN Administration NAUSEA OR VOMITING Protocol Pantoprazole Sodium 40 mg 07/06/25 21:00 07/16/25 08:39 Pantoprazole Inj 40 Mg Vial IVP 08/05/25 20:59 40 mg Q12HR RHINA Administration Polyethylene Glycol/Electrolytes 4,000 ml 07/07/25 15:31 07/09/25 03:03 Na Jj/Nahco3/Rio/Peg (Golytely) 4,000 Ml Btl PO 08/06/25 15:30 4,000 ml PRN PRN Administration SEE COMMENTS Risperidone 1 mg 07/06/25 21:00 07/10/25 11:13 Risperidone 1 Mg Tablet PO 08/05/25 20:59 Not Given On Hold: 07/10/25 13:54 BID RHINA Sodium Chloride 3 ml 07/10/25 13:18 Sodium Chloride Rt Flavia 0.9% 3 Ml Nebu INH 08/09/25 13:17 PRN PRN SOLN Plan 60 y/o male with Hx of Schizophrenia and Developmental Delay, presented with abdominal pain, constipation, and melena, admitted for acute blood loss anemia secondary to upper GI bleed. He was upgraded to the ICU after an aspiration event while undergoing prep for colonoscopy with GoLytely. He was downgraded to the floors on 07/11/2025, currently on high flow oxygen, being managed for ileus and acute hypoxic respiratory failure (unable to lower oxygen demand). #Acute hypoxic respiratory failure secondary to #Aspirational pneumonia In the setting of #Severe abdominal distension #Colonic ileus #Right inguinal hernia Patient is currently on high flow oxygen 20 Liters and 25 FiO2 Patient's initial respiratory failure on admission was likely due to aspiration of GoLytely during colonoscopy prep Per Rads, 07/09 CXRs (total of 3) suspicious for bilateral perihilar pneumonia Per Rads, 07/10 CXR shows right lateral pneumonia 07/09 sputum culture grew mi-sensitive E.coli 07/10/25 CXR shows restrictive lung disease /2 bilaterally elevated hemidiaphragm from bowel distention and colonic ileus 07/08/25 abdominal XR showed prominent colonic ileus as well as suspicious findings for distention of the urinary bladder but was negative for SBO or free air 07/12/25: KUB: Moderate colonic ileus, mild small bowel ileus 07/12/25 CT AP: Small bowel obstruction secondary to incarcerated small bowel in a right inguinal hernia Inguinal hernia was reduced at bedside by surgery. Surgery does not believe patient has a true incarcerated bowel that requires surgical procedure, likely due to neurogenic GI track in the setting of developmental delay. On physical exam today, abdomen is tense and distension has mildly improved. 07/16/25 CT angio chest: Opacification of distal pulmonary artery branches is poor secondary to patient breathing, no pulmonary artery filling defects noted, Right lung pneumonia, especially right upper lobe - D/c NG tube as abdominal distension is improved and abdomen is soft to palpation. - Soap young enema PRN - Dysphagia choped diet but doesnt like it. - Gastrografin enema study shows no mechanical obstruction. - Start Metoclopramide (reglan) 10 mg Q8H after checking EKG. - Increase a=assisted ambulation to help with gut motility. - Continue INH Duonebs q4HR scheduled - Continue INH sodium chloride 3 mL nebulizer prn - Continue chest physiotherapy - 07/12/25 switched ceftriaxon to Unasyn to add anaerobic coverage as patient had aspirational event - Follow-up with ABG, CBC, and CMP - Minimize the use of opiates for pain management due to side effect profile - RT to titrate O2 and see if patient can be weaned off to oxygen mask so colonoscopy can be attempted. #Symptomatic normocytic anemia secondary to #GI bleed, likely lower GI 07/07/25 EGD: A few non-bleeding erosions at the gastroesophageal junction, erythematous mucosa in the antrum H and H stable and improving over past few days GI wants to hold off on colonoscopy until the patient is off of high flow nasal cannula - RT to titrate O2 and see if patient can be weaned off to oxygen mask so colonoscopy can be attempted. - Continue IV Protonix q12HR for GI prophylaxis - Transfuse if Hgb<7 - Resumed diet, advancing as tolerated - Pursue lower endoscopy once patient's respiratory status improves #Electrolyte derangement- stabe #Hypokalemia- stable #Hypophosphatemia - acute K: 3.3 on 07/09, 3.3 on 07/10, 3.5 on 07/11, 4.2 on 07/12, 3.4 on 07/13, 3.4 on 07/15 Phos: 2.0 on 07/11, 2.4 on 07/12, 3.6 on 07/13 - Monitor and replete as needed - Keep Mg and K over 2 and 4 respectively #Lactic acidosis (resolved) Initial uptrend in lactic acidosis is suspected to be 2/2 dehydration Most recently, lactic acid has downtrended from 4.0 to 3.0 #Hyperglycemia- Stable Today's finger stick BG 103, up trended to 124 - Continue to monitor - Patient on SSI #History of schizophrenia #History of depression #History of anxiety #Agitation - Restarted home meds as patient is back on diet (PO Risperdal 1 mg BID, PO fluvoxamine 100 mg BID) - Clonazapan PRN #History of developmental delay #History of [place] Palsy Health Maintenance: Code Status: Full DVT Prophylaxis: SCDs GI Prophylaxis: Protonix Diet: dysphagia 1 Marinelli: Marinelli catheter in place Lines: PIV Supplemental O2: High Flow 02 20L, 30 FiO2 Disposition: Tele, pending workup for GI bleed, Ileus, and acute hypoxic respiratory failure. Patient seen and care discussed with my attending physician, Dr. Cifuentes and my senior residents Dr. Ash Nuñez and Dr. Freeman. Hannah Vazquez [facility] [place] Attending Provider Attestation/Addendum I, Beatris Cifuentes, DO, attest that I was physically present for the bailey portions of the service and evaluated the patient with the resident and I reviewed and discussed the case with the resident and agree with the resident's findings and plans of care as documented above Patient seen and evaluated this AM. Patient states that he is feeling well. Gastrograffin enema was given and showed no mechanical obstruction. Started on reglan to promote bowel motility. Case discussed with surgeon, plan for outpatient hernia repair. Will advance diet as tolerated. Abdomen mildly distended, no pain on palpation. He is currently on HFNC with flow of 15L/min and Fio2 of 30%. Will transition to NC if possible. If patient remains stable on nasal cannula, anticipate DC within next 24h -48h
--- NOTE | 2025-07-16 09:39 | EKG_ITS ---
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
[2025-07-16] MEDS: INSULIN LISPRO (AdmeLOG) 1 UNIT/0.01 ML UNIT SC (11:43)
[2025-07-16] MEDS: METOCLOPRAMIDE INJ 5 MG/ML VIAL 2 ML 10 MG IVP ×2 (14:40→21:12)
--- NOTE | 2025-07-16 15:07 | PC.SS ---
SS spoke to [facility] supervisor unloading, Celia Jean [phone] in regards to pt dC with O2. Per Celia they can take him with O2 if it is ordered. They do not have a preffered DME company. She request for pt to be down to 2L. And she would be ready for him to return by tomorrow if he is medically ready. Team C updated.
--- NOTE | 2025-07-16 16:20 | PD.IMPROG ---
Documentation for date of: 07/16/25 Subjective Subjective Interval history: Abdominal distention still present but less Still on high flow oxygen On CTA chest pulmonary artery not specifically properly visualized Exam Vital Signs Temp Pulse Resp BP Pulse Ox O2 Del Method O2 Flow Rate 98.5 F 110 H 25 H 152/91 H 97 High Flow Nasal Cannula 20 07/16/25 12:00 07/16/25 12:00 07/16/25 12:00 07/16/25 12:00 07/16/25 12:00 07/16/25 12:00 07/16/25 12:00 FiO2 30 07/16/25 12:00 Objective Labs 07/16/25 05:15 07/16/25 05:15 Labs: Laboratory Results - last 24 hr 07/16/25 05:15 WBC 8.8 RBC 3.47 L Hgb 9.9 L Hct 31.0 L MCV 89 MCH 28.5 MCHC 31.9 RDW Std Deviation 47.7 H Plt Count 385 D Neut % (Auto) 68 Lymph % (Auto) 16 [place] % (Auto) 10 Eos % (Auto) 4 Baso % (Auto) 1 Neut # (Auto) 6.0 Lymph # (Auto) 1.4 [place] # (Auto) 0.9 H Eos # (Auto) 0.4 Baso # (Auto) 0.1 Immature Gran # (Auto) 0.13 H Absolute Nucleated RBC 0.00 Immature Gran % 2 H Nucleated RBC % 0 Sodium 141 Potassium 4.0 D Chloride 104 Carbon Dioxide 27.6 Anion Gap 9 BUN 10 Creatinine 0.8 Estim Creat Clear Calc 92.7 eGFR > 60 BUN/Creatinine Ratio 13 Glucose 136 H Calculated Osmolality 282 Calcium 8.9 Phosphorus 3.5 Magnesium 2.3 Impressions Impression: Abdominal distention Colonic ileus Not a high-quality CTA chest because of lack of contrast D-dimer is greater than 3380 Recommend repeat CTA chest to clearly rule out pulmonary embolism ABG Interpretation ABG results: 07/09/25 04:04 ABG pH 7.29 L ABG pCO2 57 H ABG pO2 86 ABG HCO3 28 H ABG O2 Saturation 96 ABG Base Excess 1 Assessment & Plan A&P Narrative Hematochezia Plan clear liquid diet n.p.o. at midnight tonight except p.o. meds Consent for fiberoptic esophagogastroduodenoscopy with possible biopsy possible therapeutic intervention under intravenous moderate sedation If EGD negative we will consider doing a fibrotic colonoscopy prior to discharge Serial CBC IV Protonix Thank you very much for the opportunity to participate in the care of this Time Spent With Patient Time: Total time spent is greater than 50% in coordination of care (as documented) at patient's floor/unit and/or counseling patient:
--- NOTE | 2025-07-16 16:47 | PC.NURSE ---
Notified RT in regards to Incentive spirometer and chest physiotherapy initial treatments. Joan watkins.
--- NOTE | 2025-07-16 19:20 | PC.RT ---
@1920 did not perform acapella due to pt being asleep
[2025-07-16] MEDS: FLUVOXAMINE 100 MG PO (20:54)
[2025-07-17] VITALS (12 sets, daily range): BP systolic 97–131; BP diastolic 65–86; PULSE 92–122; RESP 14–26; TEMP 36.1–37.2; O2SAT 92–100; BMI 27.9
[2025-07-17] MEDS: ALBUTEROL/IPRATROPIUM (Duoneb) RT SOL 3 ML NEBU INH ×6 (02:43→23:01)
[2025-07-17] MEDS: AMPICILLIN/SULBAC INJ 3 GM in SODIUM CHLORIDE 0.9% (Popper) 50 ML IV ×4 (05:14→23:34)
[2025-07-17] MEDS: METOCLOPRAMIDE INJ 5 MG/ML VIAL 2 ML 10 MG IVP ×3 (05:15→21:42)
[2025-07-17] MEDS: DICLOFENAC 1% TOP GEL 100 GM TUBE TOP ×3 (05:19→21:49)
[2025-07-17 05:54] LABS: Basophils # (Auto) 0.0 Thou/mm3 (0.0-0.2); Basophils % (Auto) 1 % (0-2.5); Eosinophils # (Auto) 0.2 Thou/mm3 (0.0-0.5); Eosinophils % (Auto) 3 % (0-10); Hematocrit 28.9 % (41.0-53.0); Hemoglobin 9.0 g/dL (13.5-16.0); Immature Granulocytes Auto 0.09 Thou/mm3 (0.00-0.00); Lymphocytes # (Auto) 1.3 Thou/mm3 (1.0-4.8); Lymphocytes % (Auto) 18 % (10-50); Mean Corpuscular HGB Conc 31.1 g/dl (31.0-37.0); Mean Corpuscular Hemoglobin 28.4 pg (25.0-35.0); Mean Corpuscular Volume 91 fL (80-100); Monocytes # (Auto) 0.6 Thou/mm3 (0.0-0.8); Monocytes % (Auto) 8 % (0-12); Neutrophils # (Auto) 5.1 Thou/mm3 (1.8-7.7); Neutrophils % (Auto) 70 % (37-80); Nucleated Red Blood Cell # 0.00 Thou/mm3 (0.00-0.00); Nucleated Red Blood Cell % 0 /100 WBC (0); Platelet Count 326 Thou/mm3 (140-440); RDW Standard Deviation 50.8 fL (35.1-43.9); Red Blood Count 3.17 Miln/mm3 (4.50-5.90); White Blood Count 7.3 Thou/mm3 (3.8-10.6)
[2025-07-17 06:38] LABS: Anion Gap 9 (7-16); BUN/Creatinine Ratio 17 Ratio (12-20); Blood Urea Nitrogen 15 mg/dL (9-23); Calcium 8.4 mg/dL (8.3-10.6); Carbon Dioxide 29.3 mMol/L (20.0-31.0); Chloride 106 mMol/L (98-107); Creatinine (Component) 0.9 mg/dL (0.6-1.3); Estimated Creatinine Clearance 82.4 mL/min (>60); Glucose 132 mg/dL (74-106); Magnesium 2.1 mg/dL (1.6-2.6); Osmolality,Calculated 289 (275-295); Phosphorous 4.1 mg/dL (2.4-5.1); Potassium 4.2 mMol/L (3.4-5.1); Sodium 144 mMol/L (136-145); eGFR > 60 See Note
--- NOTE | 2025-07-17 07:40 | XR_ITS ---
Examination: Venous duplex lower extremity sonogram, bilateral. Date and time of exam: July 17, 2025 1200 hours INDICATIONS: Patient immobile 10 days in the hospital Technique: Multiple sonographic images of the deep venous system have been obtained. B-mode/2-D grayscale imaging of vascular structures and Doppler spectral analysis (waveforms) and color performed Both legs are examined. Findings: Deep venous systems do not demonstrate abnormal echogenicity. All visualized deep veins exhibit compressibility. All visualized deep veins exhibit augmentation. Impression: Negative for deep vein thrombosis
--- NOTE | 2025-07-17 07:44 | ESPR_ITS ---
Documentation for date of: 07/17/25 Subjective Subjective Interval history: Patient is seen and examined at bedside. Patient had a bowel movement today. His oxygen requirement decreased significantly overnight to 2 L saturating 98%. his GI symptoms has been improving. His heart rate for the past 4 hours somehow improved his maximum heart rate his maximum heart rate 118, minimum heart rate was in the 80s. Sinus tachy no arrhythmia. Magnesium 2.1, potassium 4.2. CT angio was done yesterday did not show pulmonary embolism, however there was artifacts due to patient breathing. Venous Doppler ultrasound was ordered for the lower extremities rule out DVT. Exam Vital Signs Temp Pulse Resp BP Pulse Ox O2 Del Method O2 Flow Rate 98.7 F 96 14 114/71 100 Nasal Cannula 2 07/17/25 04:00 07/17/25 06:27 07/17/25 06:27 07/17/25 04:00 07/17/25 06:27 07/17/25 04:00 07/17/25 06:27 FiO2 30 07/16/25 12:00 Narrative Exam GEN: Alert, talkative, answer simple questions, on 2 L of oxygen. Lying in bed comfortably HEENT: NC/AC, oral mucosa dry, neck supple CVS: RRR, S1-S2, S3, no murmurs appreciated RESP: Still has coarse crepitations and wheezing on the right side. GI: Abdomen is soft, mildly distended, Sluggish bowel sounds MSK: No extremity edema SKIN: warm and clammy MICROARRAY SPECIALIST: Able to move all extremeties, limited due to mental status Objective Labs 07/17/25 05:05 07/17/25 05:05 Labs: Laboratory Results - last 24 hr 07/17/25 05:05 WBC 7.3 RBC 3.17 L Hgb 9.0 L Hct 28.9 L MCV 91 MCH 28.4 MCHC 31.1 RDW Std Deviation 50.8 H Plt Count 326 D Neut % (Auto) 70 Lymph % (Auto) 18 [place] % (Auto) 8 Eos % (Auto) 3 Baso % (Auto) 1 Neut # (Auto) 5.1 Lymph # (Auto) 1.3 [place] # (Auto) 0.6 Eos # (Auto) 0.2 Baso # (Auto) 0.0 Immature Gran # (Auto) 0.09 H Absolute Nucleated RBC 0.00 Immature Gran % 1 H Nucleated RBC % 0 Sodium 144 Potassium 4.2 Chloride 106 Carbon Dioxide 29.3 Anion Gap 9 BUN 15 Creatinine 0.9 Estim Creat Clear Calc 82.4 eGFR > 60 BUN/Creatinine Ratio 17 Glucose 132 H Calculated Osmolality 289 Calcium 8.4 Phosphorus 4.1 Magnesium 2.1 ABG Interpretation ABG results: 07/09/25 04:04 ABG pH 7.29 L ABG pCO2 57 H ABG pO2 86 ABG HCO3 28 H ABG O2 Saturation 96 ABG Base Excess 1 Quality Measures Quality Measures VTE prophylaxis (SCD) and none Assessment & Plan Assessment Current Active Medications: Generic Name Dose Route Start Last Admin Trade Name Freq PRN Reason Stop Dose Admin Acetaminophen 1,000 mg 07/07/25 15:20 Acetaminophen 500 Mg Tablet PO 08/05/25 15:39 On Hold: 07/09/25 11:11 Q6H PRN PAIN OR FEVER > 99.9 Albuterol/Ipratropium 3 ml 07/09/25 09:32 07/17/25 06:26 Albuterol/Ipratropium (Duoneb) Rt Flavia 3 Ml Nebu INH 08/08/25 09:31 3 ml Q4HRRT RHINA Administration Clonazepam 1 mg 07/16/25 09:40 Clonazepam 0.5 Mg Tablet PO 07/21/25 13:59 TID PRN Agitation Protocol Fluvoxamine 100 Mg 0 ea 07/06/25 21:00 07/16/25 20:54 Tablet PO 08/05/25 20:59 1 tablet BID RHINA Administration Olanzapine 5 mg/ Sterile Water 0 mg 07/13/25 12:04 07/16/25 02:38 2.1 ml IM 08/12/25 12:03 1 dose On Hold: 07/16/25 09:32 QDAY PRN Administration AGITATION Dextrose 50 ml 07/06/25 15:47 Dextrose 50%-Water Inj 50 Ml Syringe IV 08/05/25 15:46 Q15MIN PRN BG <50 OR BG <70 & pt unresponsive Diclofenac Sodium 2 gm 07/14/25 14:00 07/17/25 05:19 Diclofenac 1% Top Gel 100 Gm Tube TOP 08/13/25 13:59 2 gm TID RHINA Administration Glucagon 1 mg 07/06/25 15:47 Glucagon Inj 1 Mg Vial IM Q15MIN PRN BG <70, and no IV access Ampicillin Sodium/Sulbactam 50 mls @ 100 mls/hr 07/14/25 13:30 07/17/25 05:14 Sodium 3 gm/ Sodium Chloride IV 07/21/25 13:29 100 mls/hr Q6HR RHINA Administration Insulin Human Lispro 0 unit 07/06/25 18:00 07/17/25 05:23 Insulin Lispro (Admelog) 1 Unit/0.01 Ml Unit SC 08/05/25 17:59 Not Given Q6HR RHINA Protocol Metoclopramide HCl 10 mg 07/16/25 09:32 Metoclopramide Inj 5 Mg/Ml Vial 2 Ml IVP 08/15/25 09:31 On Hold: 07/16/25 12:01 Q8HR PRN Comment: ROJELIOLAN SCHEDULED ileus ORDER ACTIVE Protocol Metoclopramide HCl 10 mg 07/16/25 14:00 07/17/25 05:15 Metoclopramide Inj 5 Mg/Ml Vial 2 Ml IVP 08/15/25 13:59 10 mg Q8HR RHINA Administration Protocol Ondansetron HCl 4 mg 07/06/25 15:40 07/16/25 03:08 Ondansetron Inj 2 Mg/Ml Inj 2 Ml IVP 08/05/25 15:39 4 mg Q6H PRN Administration NAUSEA OR VOMITING Protocol Pantoprazole Sodium 40 mg 07/06/25 21:00 07/16/25 21:01 Pantoprazole Inj 40 Mg Vial IVP 08/05/25 20:59 40 mg Q12HR RHINA Administration Polyethylene Glycol/Electrolytes 4,000 ml 07/07/25 15:31 07/09/25 03:03 Na Jj/Nahco3/[place]/Peg (Golytely) 4,000 Ml Btl PO 08/06/25 15:30 4,000 ml PRN PRN Administration SEE COMMENTS Risperidone 1 mg 07/06/25 21:00 07/16/25 20:54 Risperidone 1 Mg Tablet PO 08/05/25 20:59 1 mg BID RHINA Administration Sodium Chloride 3 ml 07/10/25 13:18 Sodium Chloride Rt Flavia 0.9% 3 Ml Nebu INH 08/09/25 13:17 PRN PRN SOLN Plan Summary: 60-year-old male patient known case of schizophrenia, hyperlipidemia, developmental delay, was brought from [facility] after he was started to experience abdominal pain few hours before presentation. Patient was unable to provide accurate history due to his chronic mental status, most of the history was taken from the caregiver Charu Jean. Cardiology team was consulted due to tachycardia #Sinus tachycardia likely 2/2 #Colonic ileus #ACS r/o Patient presented with acute abdominal pain, tachycardia, melena, patient was sweaty, pulse rate was 129, blood pressure was 119/65.on examination found to have S1-S2 and S3 He has trace lower edema, no elevated JVD Hemoglobin was 5.8. TSH was 5.8, Troponin was negative, chest x-ray showed left ventricular prominence, elevated right hemidiaphragm. EKG was done initially showed sinus tachycardia, repeat today during the rapid also showed sinus tachycardia with deep Q-wave on the leads, I, III and AVf. Patient most likely have secondary cause of his sinus tachycardia including but not limited to infection, pain, acute blood loss, less likely medication side effect such as serotonin syndrome 07/09/2025, patient had an episode of aspiration, he was intubated and upgraded to the ICU. BNP came back normal, telemonitoring was reviewed for the past 24- hour was negative for any arrhythmias and it only showed sinus tachycardia. 07/08/25 Echo: rate more than 115 bpm. Normal left ventricular size and function. Grade I diastolic dysfunction. EF estimated at 55-60%. The right ventricle is normal in size and systolic function. Normal RVSP. Mild MR and TR. No pericardial effusion Metoprolol attempted to be started however there was concern for rate control may mask possible deterioration of patient condition. 07/14/2025, patient remains on restraints, was started on TPN, telemonitoring over the past 24 hours showed increase in the heart rate to 152, sinus rhythm with some PVCs. No ST changes noted 07/15/2025, CT angio of the chest was done was negative for pulmonary embolism however there was artifact during imaging. Plus the patient has consultation for that reason patient is not eligible for VQ scan. Plan ? Lower extremity Doppler ultrasound ? Recommend to start metoprolol XL 25 mg QD ? Strict in and out ? Treat underlying cause, patient might be symptomatic anemia versus perforated viscus vs SBO, or sepsis ? Daily potassium and magnesium ? Replete electrolytes to keep potassium and magnesium above 4 and 2 respectively within normal range as patient is losing K through diarrhea #GIB s/p 2 pRBC #Acute post hemorrhagic anemia #Upper vs lower GIB Presented with melena. Hgb on admission 07/06 5.8, increased to 7.7, and subsequently decreased back to 6.3 on 07/10. 07/07 EGD showed few non bleeding erosions at GE junction, erythematous mucosa in antrum, normal duodenum. Patient aspirated on Golytely 07/09 and was intubated and upgraded to ICU, extubated 07/11. Plan - Gastrograffin enema study pending - CTM Hgb - Colonoscopy delayed due to patient being on high flow NC #Developmental delay #History of schizophrenia #Hyperglycemia #Depression #Acute blood loss Plan ? Follow-up with the primary team recommendation Thank you for your consultation please do not hesitate to reach out if you have any question or concern - Patient's plan and care discussed with my attending, Dr. Alison Santos MD Internal Medicine PGY-3 Attending Provider Attestation/Addendum I have personally seen and examined the patient separately on the above date of service and discussed the plan of care with the resident. I reviewed the resident Dr. Santos consultation progress note and agree with the resident findings and plan in the note above and have also edited the documentation to reflect my findings and plan. Diego Rosas M.D. Interventional Cardiology
[2025-07-17] MEDS: FLUVOXAMINE 100 MG PO (09:45)
--- NOTE | 2025-07-17 09:47 | PD.RESDS ---
Planned Discharge Date 07/17/25 DS: Providers Provider Date of admission: 07/06/25 15:01 Primary care physician: Delon Herman PA-C Admitting Provider: Kaylee Starks MD Attending Provider on Admission: Beatris Cifuentes DO Consults: 07/06/25 14:26 Consult to Gastroenterology Stat Comment: Consulting Provider: Delores Benavides 07/08/25 18:14 Consult to Cardiology Routine Comment: Consulting Provider: Diego Rosas 07/11/25 10:54 Referral Physical Therapy Routine Comment: Physician Instructions: Instructions: Sit to chair please 07/12/25 16:26 Consult to General Surgery Urgent Comment: Consulting Provider: Richard Jolley Instructions: SBO 2/2 incarcerated small bowel in right inguinal hernia 07/13/25 10:21 Referral Registered Dietitian Routine Comment: PPN Attending Provider on DC: Javi Chand Discharging Provider: Javi Chand Hospital Course Hospital Course Hospital course: Patient is seen and examined at bedside. Patient had a bowel movement today. His oxygen requirement decreased significantly overnight to 2 L saturating 98%. his GI symptoms has been improving. His heart rate for the past 4 hours somehow improved his maximum heart rate his maximum heart rate 118, minimum heart rate was in the 80s. Sinus tachy no arrhythmia. Magnesium 2.1, potassium 4.2. CT angio was done yesterday did not show pulmonary embolism, however there was artifacts due to patient breathing. Venous Doppler ultrasound was ordered for the lower extremities rule out DVT. Time Spent with Patient Time attestation: Total time spent providing and/or coordinating discharge services: Exam Vital Signs Temp Pulse Resp BP Pulse Ox O2 Del Method O2 Flow Rate 98.9 F 94 17 99/65 96 Nasal Cannula 2 07/17/25 08:00 07/17/25 08:00 07/17/25 08:00 07/17/25 08:00 07/17/25 08:00 07/17/25 08:00 07/17/25 08:00 FiO2 30 07/16/25 12:00 Discharge Plan Plan Patient Disposition: HOME (Self Care) Disposition Comment: DC to senior living Patient condition on transfer: Stable Care Plan Goals: ? Continue taking all other home medications as prescribed ? Follow-up with PCP within 1-2 weeks of discharge ? Follow-up with general surgery within 1-2 weeks of discharge ? If you do not have a PCP, you can follow-up at the [facility] (you can call [phone] to make an appointment) ? Return to ED if symptoms worsen or recur Prescriptions/Referrals Prescriptions/Med Rec: New metoprolol succinate 25 mg capsule,sprinkle,ER 24hr 25 mg PO QDAY 30 Days Qty: 30 0RF senna 8.6 mg capsule 8.6 mg PO QDAY PRN (Reason: constipation) Qty: 10 0RF Benefiber Sugar Free (dextrin) 3 gram/4 gram powder 1.9 g PO HS 30 Days Qty: 57 1RF Rx Instructions: mix into at least 4 oz water at night daily metoclopramide HCl 5 mg tablet 5 mg PO Q48H 20 Days Qty: 10 0RF Continued docusate sodium 250 mg capsule 250 mg PO DAILY Patient Comments: taken daily clonazepam 1 mg tablet 1 mg PO TID fluvoxamine 100 mg tablet 100 mg PO BID loratadine [Allergy Relief (loratadine)] 10 mg tablet 10 mg PO DAILY risperidone [Risperdal] 1 mg/mL solution 1 mg PO BID simvastatin 10 mg tablet 10 mg PO QPM Referrals: Delon Herman PA-C [Primary Care Provider] Richard Jolley MD [Physician, General Surgery] Patient/Caregiver Discharge Instructions Education Materials: Colonoscopy, Anatomy of the Digestive System Print Language: Kyrgyz Stand Alone Forms: Michelle Award Info., Patient Portal Info Letter Discharge Order Discharge Orders: Discharge (Routine); Ordered 07/17/25 Ordered By: Augustin Freeman
[2025-07-17] MEDS: INSULIN LISPRO (AdmeLOG) 1 UNIT/0.01 ML UNIT SC ×3 (11:57→23:49)
--- NOTE | 2025-07-17 12:43 | PD.IMPROG ---
Documentation for date of: 07/17/25 Subjective Subjective Interval history: Patient evaluated hemoglobin hematocrit 9.0 and 28.9 He had a bowel movement Exam Vital Signs Temp Pulse Resp BP Pulse Ox O2 Del Method O2 Flow Rate 98.9 F 97 26 H 99/65 99 Nasal Cannula 2 07/17/25 08:00 07/17/25 11:58 07/17/25 11:58 07/17/25 08:00 07/17/25 11:58 07/17/25 08:00 07/17/25 11:58 FiO2 30 07/16/25 12:00 Objective Labs 07/17/25 05:05 07/17/25 05:05 Labs: Laboratory Results - last 24 hr 07/17/25 05:05 WBC 7.3 RBC 3.17 L Hgb 9.0 L Hct 28.9 L MCV 91 MCH 28.4 MCHC 31.1 RDW Std Deviation 50.8 H Plt Count 326 D Neut % (Auto) 70 Lymph % (Auto) 18 [place] % (Auto) 8 Eos % (Auto) 3 Baso % (Auto) 1 Neut # (Auto) 5.1 Lymph # (Auto) 1.3 [place] # (Auto) 0.6 Eos # (Auto) 0.2 Baso # (Auto) 0.0 Immature Gran # (Auto) 0.09 H Absolute Nucleated RBC 0.00 Immature Gran % 1 H Nucleated RBC % 0 Sodium 144 Potassium 4.2 Chloride 106 Carbon Dioxide 29.3 Anion Gap 9 BUN 15 Creatinine 0.9 Estim Creat Clear Calc 82.4 eGFR > 60 BUN/Creatinine Ratio 17 Glucose 132 H Calculated Osmolality 289 Calcium 8.4 Phosphorus 4.1 Magnesium 2.1 Impressions Impression: Anemia blood loss Colonic inertia With colonic dilatation improving Able to tolerate diet Continue current management ABG Interpretation ABG results: 07/09/25 04:04 ABG pH 7.29 L ABG pCO2 57 H ABG pO2 86 ABG HCO3 28 H ABG O2 Saturation 96 ABG Base Excess 1 Assessment & Plan A&P Narrative Hematochezia Plan clear liquid diet n.p.o. at midnight tonight except p.o. meds Consent for fiberoptic esophagogastroduodenoscopy with possible biopsy possible therapeutic intervention under intravenous moderate sedation If EGD negative we will consider doing a fibrotic colonoscopy prior to discharge Serial CBC IV Protonix Thank you very much for the opportunity to participate in the care of this Time Spent With Patient Time: Total time spent is greater than 50% in coordination of care (as documented) at patient's floor/unit and/or counseling patient:
--- NOTE | 2025-07-17 12:51 | PC.NURSE ---
Pt oxygen test performed. At rest on room air 92%; with exercise on room air 86%; with exercise on oxygen 96%. Pt at rest on oxygen 99%
--- NOTE | 2025-07-17 13:41 | PC.SS ---
SS spoke to [facility] about 02 sats for patient. Patient was fine on room air, however upon exertion went down a little. [facility] states they do not see a qualifying diagnosis for 02 needs. SS udpated physician team as well. Patient can continue to d/c to [facility] without 02. Patient medically stable. [facility] staff will transport.
--- NOTE | 2025-07-17 15:21 | PC.SS ---
AIRLINE OPERATIONS AGENT informed patient's shelter staff, Ms. Jean; that patient did not qualify for home oxygen. Patient pending void prior to discharge to facility. Facility will provide transportation on behalf of the patient. Bedside nurse informed to contact facility once patient voids allowing patient to d/c to facility.
--- NOTE | 2025-07-17 15:57 | ESPR_ITS ---
<Statement entered by Florentino Nuñez MD - 07/17/25 20:49> No acute overnight events. Seen and examined at bedside and patient resting comfortably in bed. He is tolerating his diet today and was able to have a bowel movement overnight. Currently on 1 L nasal cannula of supplemental oxygen and unable to arrange home oxygen at this time. If able to wean or patient can get home oxygen anticipate discharge within next 24 to 48 hours. Otherwise, encourage to sit up in chair/ambulation. ----- Note reviewed and agree with care plan as documented. Please refer to the note below for further details. Plan discussed with attending physician Dr. Vane Nuñez MD PGY-2 Internal Medicine Documentation for date of: 07/17/25 Subjective Subjective Interval history: 60 year old male with past medical history of schizophrenia, developmental delay, Lomas's palsy and abdominal hernia, admitted for melena. S/P EGD, found non bleeding erosions at the gastroesophageal junction. Colonoscopy pending/postponed as the stay is currently complicated by ileus and acute respiratory failure on high flow oxygen. 07/15/25: No remarkable overnight events. Patient was seen at bedside today morning. He was awake, alert and resting comfortably in the bed. He was conversational and in no distress. Mentioned that his knee pain from yesterday is resolved. On clear liquid diet, pending rectal enema screen. 07/16/25: Overnight patient had BP at 158/109, was given labetalol 10 mg X1 and Olanzapine for agitation. Patient was seen at bedside, DIMETHYLANILINE SULFATOR OPERATOR was in the room helping patient with a sponge bath. His food tray was a bedside but he had only eaten about 10%, noting he doesn't feel like eating. He did drink his ensure protein shake. Still on high flow (20L, 25 FiO2). CT angio chest was done yesterday evening, PE ruled out. 07/17/25: No overnight events. Patient seen at bedside, alert, oriented, and resting comfortably. He had finished his whole breakfast. Had a bowel movement over night. He reported that he is felling well and ready to go home. Showed him how to use incentive spirometer and he was using good effort. He is currently only on 1-2L of Oxygen while resting but requires 3-4 when standing. Unable to arrange home oxygen will continue to wean off oxygen and then discharge. Exam Vital Signs Temp Pulse Resp BP Pulse Ox O2 Del Method O2 Flow Rate 96.9 F 92 19 115/66 100 Nasal Cannula 0 07/17/25 12:00 07/17/25 15:55 07/17/25 15:55 07/17/25 12:00 07/17/25 15:55 07/17/25 12:00 07/17/25 15:55 FiO2 30 07/16/25 12:00 Narrative Exam General: Patient is alert and but not fully oriented (but at baseline, patient has developmental delay). In no distress. Cardio: Tachycardic, normal rhythm, no murmurs, gallops or rubs appreciated. Resp: Normal lung sounds, no rales or wheezing auscultated. MSK/ Extremities: No muscle or joint pain on any movement. No bruising or skin changes visible. No presence of trace or pitting edema in lower extremities bilaterally, dorsalis pedis pulses +2 bilaterally GI/Abdomen: Visual abdominal distention back to baseline. Abdomen soft and nontender to palpation. Normal bowel sounds. Neuro: No focal motor or sensory deficits in the UE or LE bilat Psych: Judgment thought and behavior hindered due to developmental delay. Good affect. Cooperative Objective Labs 07/18/25 04:43 07/18/25 04:43 Labs: Laboratory Results - last 24 hr 07/17/25 05:05 WBC 7.3 RBC 3.17 L Hgb 9.0 L Hct 28.9 L MCV 91 MCH 28.4 MCHC 31.1 RDW Std Deviation 50.8 H Plt Count 326 D Neut % (Auto) 70 Lymph % (Auto) 18 Vernon % (Auto) 8 Eos % (Auto) 3 Baso % (Auto) 1 Neut # (Auto) 5.1 Lymph # (Auto) 1.3 Vernon # (Auto) 0.6 Eos # (Auto) 0.2 Baso # (Auto) 0.0 Immature Gran # (Auto) 0.09 H Absolute Nucleated RBC 0.00 Immature Gran % 1 H Nucleated RBC % 0 Sodium 144 Potassium 4.2 Chloride 106 Carbon Dioxide 29.3 Anion Gap 9 BUN 15 Creatinine 0.9 Estim Creat Clear Calc 82.4 eGFR > 60 BUN/Creatinine Ratio 17 Glucose 132 H Calculated Osmolality 289 Calcium 8.4 Phosphorus 4.1 Magnesium 2.1 ABG Interpretation ABG results: 07/09/25 04:04 ABG pH 7.29 L ABG pCO2 57 H ABG pO2 86 ABG HCO3 28 H ABG O2 Saturation 96 ABG Base Excess 1 Quality Measures Quality Measures VTE prophylaxis (SCD) and none Assessment & Plan Assessment Current Active Medications: Generic Name Dose Route Start Last Admin Trade Name Henriqueq PRN Reason Stop Dose Admin Acetaminophen 1,000 mg 07/07/25 15:20 Acetaminophen 500 Mg Tablet PO 08/05/25 15:39 On Hold: 07/09/25 11:11 Q6H PRN PAIN OR FEVER > 99.9 Albuterol/Ipratropium 3 ml 07/09/25 09:32 07/17/25 15:53 Albuterol/Ipratropium (Duoneb) Rt Flavia 3 Ml Nebu INH 08/08/25 09:31 3 ml Q4HRRT RHINA Administration Clonazepam 1 mg 07/16/25 09:40 Clonazepam 0.5 Mg Tablet PO 07/21/25 13:59 TID PRN Agitation Protocol Fluvoxamine 100 Mg 0 ea 07/06/25 21:00 07/17/25 09:45 Tablet PO 08/05/25 20:59 1 tablet BID RHINA Administration Dextrose 50 ml 07/06/25 15:47 Dextrose 50%-Water Inj 50 Ml Syringe IV 08/05/25 15:46 Q15MIN PRN BG <50 OR BG <70 & pt unresponsive Diclofenac Sodium 2 gm 07/14/25 14:00 07/17/25 14:19 Diclofenac 1% Top Gel 100 Gm Tube TOP 08/13/25 13:59 2 gm TID RHINA Administration Glucagon 1 mg 07/06/25 15:47 Glucagon Inj 1 Mg Vial IM Q15MIN PRN BG <70, and no IV access Ampicillin Sodium/Sulbactam 50 mls @ 100 mls/hr 07/14/25 13:30 07/17/25 11:56 Sodium 3 gm/ Sodium Chloride IV 07/21/25 13:29 100 mls/hr Q6HR RHINA Administration Insulin Human Lispro 0 unit 07/06/25 18:00 07/17/25 11:57 Insulin Lispro (Admelog) 1 Unit/0.01 Ml Unit SC 08/05/25 17:59 1 unit Q6HR RHINA Administration Protocol Metoclopramide HCl 10 mg 07/16/25 09:32 Metoclopramide Inj 5 Mg/Ml Vial 2 Ml IVP 08/15/25 09:31 On Hold: 07/16/25 12:01 Q8HR PRN Comment: OMAR SCHEDULED ileus ORDER ACTIVE Protocol Metoclopramide HCl 10 mg 07/16/25 14:00 07/17/25 14:19 Metoclopramide Inj 5 Mg/Ml Vial 2 Ml IVP 08/15/25 13:59 10 mg Q8HR RHINA Administration Protocol Ondansetron HCl 4 mg 07/06/25 15:40 07/16/25 03:08 Ondansetron Inj 2 Mg/Ml Inj 2 Ml IVP 08/05/25 15:39 4 mg Q6H PRN Administration NAUSEA OR VOMITING Protocol Pantoprazole Sodium 40 mg 07/06/25 21:00 07/17/25 09:45 Pantoprazole Inj 40 Mg Vial IVP 08/05/25 20:59 40 mg Q12HR RHINA Administration Polyethylene Glycol/Electrolytes 4,000 ml 07/07/25 15:31 07/09/25 03:03 Na Jj/Nahco3/Rio/Peg (Golytely) 4,000 Ml Btl PO 08/06/25 15:30 4,000 ml PRN PRN Administration SEE COMMENTS Risperidone 1 mg 07/06/25 21:00 07/17/25 09:45 Risperidone 1 Mg Tablet PO 08/05/25 20:59 1 mg BID RHINA Administration Sodium Chloride 3 ml 07/10/25 13:18 Sodium Chloride Rt Flavia 0.9% 3 Ml Nebu INH 08/09/25 13:17 PRN PRN SOLN Plan 60 y/o male with Hx of Schizophrenia and Developmental Delay, presented with abdominal pain, constipation, and melena, admitted for acute blood loss anemia secondary to upper GI bleed. He was upgraded to the ICU after an aspiration event while undergoing prep for colonoscopy with GoLytely. He was downgraded to the floors on 07/11/2025, currently on nasal cannula 2-3L, ileus has resolved. Titrating oxygen before discharge. #Acute hypoxic respiratory failure secondary to #Aspirational pneumonia In the setting of #Severe abdominal distension #Colonic ileus #Right inguinal hernia 07/16/25 CT angio chest: Opacification of distal pulmonary artery branches is poor secondary to patient breathing, no pulmonary artery filling defects noted, Right lung pneumonia, especially right upper lobe Gastrografin enema study shows no mechanical obstruction. Hypoxic respiratory failulure is significantly improving, currently on 2-3L, previously was on high flow. Abdominal distension and ileus has improved, patient is tolerating regular diet, having BM, no nausea or vomiting. - Dysphagia choped diet - picky but tolerating - Start Metoclopramide (reglan) 10 mg Q8H after checking EKG. - Increase assisted ambulation to help with gut motility and regain balance and stregnth - Continue INH Duonebs q4HR scheduled - Continue INH sodium chloride 3 mL nebulizer prn - Continue chest physiotherapy - 07/12/25 switched ceftriaxon to Unasyn to add anaerobic coverage as patient had aspirational event - Follow-up with ABG, CBC, and CMP - RT to titrate O2 and see if patient can be weaned off and discharged without oxygen and home oxygen was not approved. - Patient transferred to med surg from [facility] as he is stable and improving #Symptomatic normocytic anemia secondary to #GI bleed, likely lower GI 07/07/25 EGD: A few non-bleeding erosions at the gastroesophageal junction, erythematous mucosa in the antrum H and H stable and improving over past few days GI wants to see outpatient as there is no acute indication for colonoscopy. - Continue IV Protonix q12HR for GI prophylaxis - Transfuse if Hgb<7 - Resumed diet, advancing as tolerated - Monitor daily CBC #Hypokalemia- stable K: 3.3 on 07/09, 3.3 on 07/10, 3.5 on 07/11, 4.2 on 07/12, 3.4 on 07/13, 3.4 on 07/15, 4.2 on 07/17 - Monitor and replete as needed - Keep Mg and K over 2 and 4 respectively #Hyperglycemia- Stable Today's finger stick BG 103, up trended to 124 - Continue to monitor - Patient on SSI #History of schizophrenia #History of depression #History of anxiety #Agitation - Restarted home meds as patient is back on diet (PO Risperdal 1 mg BID, PO fluvoxamine 100 mg BID) - Clonazapan PRN #History of developmental delay #History of [place] Palsy #Lactic acidosis (resolved) Health Maintenance: Code Status: Full DVT Prophylaxis: SCDs, ambulation GI Prophylaxis: Protonix Diet: dysphagia 2 Marinelli: Marinelli catheter in place Lines: PIV Supplemental O2: 1-2 L NC Disposition: Med surg, weaning off oxygen before we can discharge Patient seen and care discussed with my attending physician, Dr. Cifuentes and my senior residents Dr. Ash Nuñez and Dr. Freeman. Hannah Vazquez S IV Attending Provider Attestation/Addendum IBeatris, DO, attest that I was physically present for the bailey portions of the service and evaluated the patient with the resident and I reviewed and discussed the case with the resident and agree with the resident's findings and plans of care as documented above Patient seen and eval this a.m. He states that he is feeling much better. Patient ate all of his breakfast this morning. He denies any pain, nausea or vomiting. Will discontinue Marinelli catheter at this time. He is currently on 2 L nasal cannula, but noted to desaturate when he stands and with ambulation. Will have to wean patient off O2 for discharge. Encourage patient to use incentive spirometer. Patient has been having regular bowel movements and much improved with Reglan. If patient is able to be weaned to room air, anticipate discharge within the next 24 hours.
[2025-07-18] VITALS (12 sets, daily range): BP systolic 106–129; BP diastolic 78–95; PULSE 95–121; RESP 16–90; TEMP 36.1–36.8; O2SAT 92–100; BMI 27.1; BMI 13.0
[2025-07-18] MEDS: ALBUTEROL/IPRATROPIUM (Duoneb) RT SOL 3 ML NEBU INH ×5 (03:16→22:30)
[2025-07-18 05:09] LABS: Basophils # (Auto) 0.1 Thou/mm3 (0.0-0.2); Basophils % (Auto) 1 % (0-2.5); Eosinophils # (Auto) 0.2 Thou/mm3 (0.0-0.5); Eosinophils % (Auto) 2 % (0-10); Hematocrit 31.9 % (41.0-53.0); Hemoglobin 10.1 g/dL (13.5-16.0); Immature Granulocytes Auto 0.07 Thou/mm3 (0.00-0.00); Lymphocytes # (Auto) 1.7 Thou/mm3 (1.0-4.8); Lymphocytes % (Auto) 20 % (10-50); Mean Corpuscular HGB Conc 31.7 g/dl (31.0-37.0); Mean Corpuscular Hemoglobin 28.9 pg (25.0-35.0); Mean Corpuscular Volume 91 fL (80-100); Monocytes # (Auto) 0.7 Thou/mm3 (0.0-0.8); Monocytes % (Auto) 8 % (0-12); Neutrophils # (Auto) 6.1 Thou/mm3 (1.8-7.7); Neutrophils % (Auto) 69 % (37-80); Nucleated Red Blood Cell # 0.00 Thou/mm3 (0.00-0.00); Nucleated Red Blood Cell % 0 /100 WBC (0); Platelet Count 384 Thou/mm3 (140-440); RDW Standard Deviation 51.3 fL (35.1-43.9); Red Blood Count 3.50 Miln/mm3 (4.50-5.90); White Blood Count 8.8 Thou/mm3 (3.8-10.6)
[2025-07-18 05:34] LABS: Anion Gap 9 (7-16); BUN/Creatinine Ratio 16 Ratio (12-20); Blood Urea Nitrogen 14 mg/dL (9-23); Calcium 9.2 mg/dL (8.3-10.6); Carbon Dioxide 29.1 mMol/L (20.0-31.0); Chloride 103 mMol/L (98-107); Creatinine (Component) 0.9 mg/dL (0.6-1.3); Estimated Creatinine Clearance 82.4 mL/min (>60); Glucose 151 mg/dL (74-106); Magnesium 1.9 mg/dL (1.6-2.6); Osmolality,Calculated 284 (275-295); Phosphorous 4.4 mg/dL (2.4-5.1); Potassium 4.3 mMol/L (3.4-5.1); Sodium 141 mMol/L (136-145); eGFR > 60 See Note
[2025-07-18] MEDS: DICLOFENAC 1% TOP GEL 100 GM TUBE TOP ×3 (05:35→21:34)
[2025-07-18] MEDS: AMPICILLIN/SULBAC INJ 3 GM in SODIUM CHLORIDE 0.9% (Popper) 50 ML IV ×4 (05:35→23:09)
[2025-07-18] MEDS: METOCLOPRAMIDE INJ 5 MG/ML VIAL 2 ML 10 MG IVP ×3 (05:35→21:33)
[2025-07-18] MEDS: INSULIN LISPRO (AdmeLOG) 1 UNIT/0.01 ML UNIT SC ×3 (05:45→17:25)
--- NOTE | 2025-07-18 07:15 | PC.NURSE ---
94% O2 sat on 2L/min/nc- Discontinued O2 inh with 90% O2 sat on room air and hr increased to 122 beats/min. Reapplied O2 inh on at 2L/min/nc, Pt was just lying down in bed.
[2025-07-18] MEDS: FLUVOXAMINE 100 MG PO ×2 (10:53→21:33)
[2025-07-18] MEDS: TAMSULOSIN HCL 0.4 MG CAPSULE PO (11:51)
--- NOTE | 2025-07-18 11:54 | PD.RESDS ---
Planned Discharge Date 07/18/25 DS: Providers Provider Date of admission: 07/06/25 15:01 Primary care physician: Delon Herman PA-C Admitting Provider: Kaylee Starks MD Attending Provider on Admission: Beatris Cifuentes DO Consults: 07/06/25 14:26 Consult to Gastroenterology Stat Comment: Consulting Provider: Delores Benavides 07/08/25 18:14 Consult to Cardiology Routine Comment: Consulting Provider: Diego Rosas 07/11/25 10:54 Referral Physical Therapy Routine Comment: Physician Instructions: Instructions: Sit to chair please 07/12/25 16:26 Consult to General Surgery Urgent Comment: Consulting Provider: Richard Jolley Instructions: SBO 2/2 incarcerated small bowel in right inguinal hernia 07/13/25 10:21 Referral Registered Dietitian Routine Comment: PPN Attending Provider on DC: Javi Chand Discharging Provider: Javi Chand Hospital Course Hospital Course Hospital course: Ton Matias, 60 yea old male with past medical history of Schizophrenia, developmental delay, Lomas's palsy, and abdominal hernia, presented to ED at [facility] on 07/06/25 with sharp abdominal pain, constipation for 3 days, and an episode of melanic blood in stool. In the ED patient was found in mild distress with vital signs remarkable for heart rate of 129, other vitals were unremarkable. In the ED patient's labs were remarkable for WBC of 28.9, Hgb of 5.8, Lactic acid of 7.3, and blood glucose of 296. Patient received 2 units of prbc, 2L LR boluses and was admitted for management of acute blood loss anemia secondary to GI bleed. Time Spent with Patient Time attestation: Total time spent providing and/or coordinating discharge services: Exam Vital Signs Temp Pulse Resp BP Pulse Ox O2 Del Method O2 Flow Rate 97.5 F 120 H 17 106/88 H 95 Nasal Cannula 1 07/18/25 11:48 07/18/25 11:48 07/18/25 11:48 07/18/25 11:48 07/18/25 11:48 07/18/25 11:48 07/18/25 11:48 FiO2 30 07/17/25 16:00 Discharge Plan Plan Patient Disposition: HOME (Self Care) Disposition Comment: DC to senior care Patient condition on transfer: Stable Care Plan Goals: ? Continue taking all other home medications as prescribed ? Follow-up with PCP within 1-2 weeks of discharge - You are being prescribed Benefiber which helps with constipation and gut microbiome, take it anai morning. - You are also being prescribed another medication called metoclopramide which helps with gut motility, take it as needed if you have not had a bowel movement in 48 hours. - Take metoprolol 25mg every day to help with your high blood pressure and fast heart rate. ? Follow-up with general surgery within 1-2 weeks of discharge to consider options for inguinal hernia ? If you do not have a PCP, you can follow-up at the [facility] (you can call [phone] to make an appointment) ? Return to ED if symptoms worsen or recur Prescriptions/Referrals Prescriptions/Med Rec: New senna 8.6 mg capsule 8.6 mg PO QDAY PRN (Reason: constipation) Qty: 10 0RF Benefiber Sugar Free (dextrin) 3 gram/4 gram powder 1.9 g PO HS 30 Days Qty: 57 1RF Rx Instructions: mix into at least 4 oz water at night daily metoclopramide HCl 5 mg tablet 5 mg PO Q48H 20 Days Qty: 10 0RF metoprolol succinate 25 mg tablet extended release 24 hr 25 mg PO QDAY Qty: 30 0RF Continued docusate sodium 250 mg capsule 250 mg PO DAILY Patient Comments: taken daily clonazepam 1 mg tablet 1 mg PO TID fluvoxamine 100 mg tablet 100 mg PO BID loratadine [Allergy Relief (loratadine)] 10 mg tablet 10 mg PO DAILY risperidone [Risperdal] 1 mg/mL solution 1 mg PO BID simvastatin 10 mg tablet 10 mg PO QPM Referrals: Delon Herman PA-C [Primary Care Provider] Richard Jolley MD [Physician, General Surgery] Patient/Caregiver Discharge Instructions Education Materials: Ileus, Anatomy of the Digestive System, Obstruction Intestinal Print Language: Russian Activity Restrictions/Additional Instructions: Patient is here for follow-up appointment in my office next Tuesday at July 24. Call [phone] for an appointment time. My office is located at [address] Stand Alone Forms: [employer] Info., Patient Portal Info Letter
--- NOTE | 2025-07-18 11:55 | PC.SS ---
follow up note: SS met with [facility] staff at bedside to update that 02 is being delivered now from [facility], [place]. Updated notes were sent to [facility] with additional diagnosis that would qualify patient for 02. Staff fine with 02. However, she had some conerns about patient's heart rate and urination. SS updated physician team. They will round and speak with [facility] staff. Possible d/c today or tomorrow.
--- NOTE | 2025-07-18 13:18 | XR_ITS ---
Examination: Abdomen AP single view Technique: AP portable supine abdomen, single view Exam date and time: July 18, 2025 1339 hours, comparison July 15, 2025 INDICATIONS: Abdominal distention today FINDINGS: Prominent colonic ileus Abundant stool in the right colon Moderate dilatation small bowel loops IMPRESSION: Prominent colonic ileus Moderate dilatation small bowel loops, please see the CT abdomen pelvis report 07/12/2025
--- NOTE | 2025-07-18 13:24 | ESPR_ITS ---
<Statement entered by Florentino Nuñez MD - 07/18/25 17:00> No acute overnight events. Seen and examined at bedsid resting comfortably with snuff drier present. He did not have any complaints but overnight he was noted to have approximately 500 cc of urine on bladder scan and was straight cathed. Later on in the day, bladder scan showed 800 cc urine and Mancuso was placed and x1 dose of tamsulosin was given. Also spoke to Dr. Shelton over the phone and updated him regarding hospital course. Planned to discharge patient but unable to as he could not void without a catheter. Will continue with current plan, that includes encouraging to move around and/or sit up to chair and observe urination by clamping after tamsulosin. ----- Note reviewed and agree with care plan as documented. Please refer to the note below for further details. Plan discussed with attending physician Dr. Sedrick Nuñez MD PGY-2 Internal Medicine Documentation for date of: 07/18/25 Subjective Subjective Interval history: 60 year old male with past medical history of schizophrenia, developmental delay, Lomas's palsy and abdominal hernia, admitted for melena. S/P EGD, found non bleeding erosions at the gastroesophageal junction. Colonoscopy now to be done outpatient as HH is stable and no acute indication for colonoscopy. pending/postponed as the stay is currently complicated by ileus and acute respiratory failure on high flow oxygen. 07/15/25: No remarkable overnight events. Patient was seen at bedside today morning. He was awake, alert and resting comfortably in the bed. He was conversational and in no distress. Mentioned that his knee pain from yesterday is resolved. On clear liquid diet, pending rectal enema screen. 07/16/25: Overnight patient had BP at 158/109, was given labetalol 10 mg X1 and Olanzapine for agitation. Patient was seen at bedside, CLIENT CARE REPRESENTATIVE was in the room helping patient with a sponge bath. His food tray was a bedside but he had only eaten about 10%, noting he doesn't feel like eating. He did drink his ensure protein shake. Still on high flow (20L, 25 Fi[address]). CT angio chest was done yesterday evening, PE ruled out. 07/17/25: No overnight events. Patient seen at bedside, alert, oriented, and resting comfortably. He had finished his whole breakfast. Had a bowel movement over night. He reported that he is felling well and ready to go home. Showed him how to use incentive spirometer and he was using good effort. He is currently only on 1-2L of Oxygen while resting but requires 3-4 when standing. Unable to arrange home oxygen will continue to wean off oxygen and then discharge. 07/18/25: Mancuso catheter was removed yesterday in preparation for discharge but patient did not void and required a straight cath overnight, draining 500cc and then again 800cc later in the day. Patient was seen 3-4 times today and the snuff drier was present in the room. Patient ate him full meal and had a BM earlier in the morning, but his abdomen was visually more distended then yesterday. Home oxygen has been secured but unable to discharge home as patient is unable to void without catheter. Patient was able to maintain oxygen saturation over 90% without supplemental oxygen. -Dr. Shelton (decision maker) was consulted over the phone. Patient's hospital course, reason for admission, and complications were discussed. Dr. Shelton agrees with current plan and management. 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 Exam Vital Signs Temp Pulse Resp BP Pulse Ox O2 Del Method O2 Flow Rate 97.5 F 120 H 17 106/88 H 95 Nasal Cannula 1 07/18/25 11:48 07/18/25 11:48 07/18/25 11:48 07/18/25 11:48 07/18/25 11:48 07/18/25 11:48 07/18/25 11:48 FiO2 30 07/17/25 16:00 Narrative Exam General: Patient is alert and but not fully oriented (but at baseline, patient has developmental delay). In no distress. Cardio: Tachycardic, normal rhythm, no murmurs, gallops or rubs appreciated. Resp: Normal lung sounds, no rales or wheezing auscultated. MSK/ Extremities: No muscle or joint pain on any movement. No bruising or skin changes visible. No presence of trace or pitting edema in lower extremities bilaterally, dorsalis pedis pulses +2 bilaterally GI/Abdomen: Visual abdominal distention present (significantly increased compared to yesterday). Abdomen tense and diffusely tender to palpation. Neuro: No focal motor or sensory deficits in the UE or LE bilat Psych: Judgment thought and behavior hindered due to developmental delay. Good affect. Cooperative Objective Labs 07/19/25 05:08 07/18/25 04:43 Labs: Laboratory Results - last 24 hr 07/18/25 04:43 WBC 8.8 RBC 3.50 L Hgb 10.1 L Hct 31.9 L MCV 91 MCH 28.9 MCHC 31.7 RDW Std Deviation 51.3 H Plt Count 384 D Neut % (Auto) 69 Lymph % (Auto) 20 [place] % (Auto) 8 Eos % (Auto) 2 Baso % (Auto) 1 Neut # (Auto) 6.1 Lymph # (Auto) 1.7 [place] # (Auto) 0.7 Eos # (Auto) 0.2 Baso # (Auto) 0.1 Immature Gran # (Auto) 0.07 H Absolute Nucleated RBC 0.00 Immature Gran % 1 H Nucleated RBC % 0 Sodium 141 Potassium 4.3 Chloride 103 Carbon Dioxide 29.1 Anion Gap 9 BUN 14 Creatinine 0.9 Estim Creat Clear Calc 82.4 eGFR > 60 BUN/Creatinine Ratio 16 Glucose 151 H Calculated Osmolality 284 Calcium 9.2 Phosphorus 4.4 Magnesium 1.9 ABG Interpretation ABG results: 07/09/25 04:04 ABG pH 7.29 L ABG pCO2 57 H ABG pO2 86 ABG HCO3 28 H ABG O2 Saturation 96 ABG Base Excess 1 Quality Measures Quality Measures VTE prophylaxis (SCD) and none Assessment & Plan Assessment Current Active Medications: Generic Name Dose Route Start Last Admin Trade Name Freq PRN Reason Stop Dose Admin Acetaminophen 1,000 mg 07/07/25 15:20 Acetaminophen 500 Mg Tablet PO 08/05/25 15:39 Q6H PRN PAIN OR FEVER > 99.9 Albuterol/Ipratropium 3 ml 07/09/25 09:32 07/18/25 10:42 Albuterol/Ipratropium (Duoneb) Rt Flavia 3 Ml Nebu INH 08/08/25 09:31 3 ml Q4HRRT RHINA Administration Clonazepam 1 mg 07/16/25 09:40 Clonazepam 0.5 Mg Tablet PO 07/21/25 13:59 TID PRN Agitation Protocol Fluvoxamine 100 Mg 0 ea 07/06/25 21:00 07/18/25 10:53 Tablet PO 08/05/25 20:59 1 tablet BID RHINA Administration Dextrose 50 ml 07/06/25 15:47 Dextrose 50%-Water Inj 50 Ml Syringe IV 08/05/25 15:46 Q15MIN PRN BG <50 OR BG <70 & pt unresponsive Diclofenac Sodium 2 gm 07/14/25 14:00 07/18/25 05:35 Diclofenac 1% Top Gel 100 Gm Tube TOP 08/13/25 13:59 2 gm TID RHINA Administration Glucagon 1 mg 07/06/25 15:47 Glucagon Inj 1 Mg Vial IM Q15MIN PRN BG <70, and no IV access Ampicillin Sodium/Sulbactam 50 mls @ 100 mls/hr 07/14/25 13:30 07/18/25 11:30 Sodium 3 gm/ Sodium Chloride IV 07/21/25 13:29 100 mls/hr Q6HR RHINA Administration Insulin Human Lispro 0 unit 07/06/25 18:00 07/18/25 11:38 Insulin Lispro (Admelog) 1 Unit/0.01 Ml Unit SC 08/05/25 17:59 2 unit Q6HR RHINA Administration Protocol Metoclopramide HCl 10 mg 07/16/25 14:00 07/18/25 12:33 Metoclopramide Inj 5 Mg/Ml Vial 2 Ml IVP 08/15/25 13:59 Not Given Q8HR RHINA Protocol Ondansetron HCl 4 mg 07/06/25 15:40 07/16/25 03:08 Ondansetron Inj 2 Mg/Ml Inj 2 Ml IVP 08/05/25 15:39 4 mg Q6H PRN Administration NAUSEA OR VOMITING Protocol Pantoprazole Sodium 40 mg 07/06/25 21:00 07/18/25 09:18 Pantoprazole Inj 40 Mg Vial IVP 08/05/25 20:59 40 mg Q12HR RHINA Administration Polyethylene Glycol/Electrolytes 4,000 ml 07/07/25 15:31 07/09/25 03:03 Na Jj/Nahco3/Rio/Peg (Golytely) 4,000 Ml Btl PO 08/06/25 15:30 4,000 ml PRN PRN Administration SEE COMMENTS Risperidone 1 mg 07/06/25 21:00 07/18/25 09:18 Risperidone 1 Mg Tablet PO 08/05/25 20:59 1 mg BID RHINA Administration Sodium Chloride 3 ml 07/10/25 13:18 Sodium Chloride Rt Flavia 0.9% 3 Ml Nebu INH 08/09/25 13:17 PRN PRN SOLN Tamsulosin HCl 0.4 mg 07/18/25 11:45 07/18/25 11:51 Tamsulosin Hcl 0.4 Mg Capsule PO 08/17/25 11:44 0.4 mg QDAY RHINA Administration Plan 60 y/o male with Hx of Schizophrenia and Developmental Delay, presented with abdominal pain, constipation, and melena, admitted for acute blood loss anemia secondary to upper GI bleed. He was upgraded to the ICU after an aspiration event while undergoing prep for colonoscopy with Katie. He was downgraded to the floors on 07/11/2025, currently on nasal cannula 2-3L, ileus has resolved. Patient developed urinary retention after removing the catheter. #Urinary Retention On 07/17/25 mancuso was removed in preparation of discharge. Patient was unable to void, required straight cath as bladder scan showed volumes of 500cc and 800cc without patient being able to void each time. - Encouraging ambulation - Urinary bladder exercises - Clamp Mancuso catheter and do a voiding trial. - Tamsulosin 0.4 mg Qday #Acute hypoxic respiratory failure secondary to #Aspirational pneumonia In the setting of #Severe abdominal distension #Colonic ileus #Right inguinal hernia 07/16/25 CT angio chest: Opacification of distal pulmonary artery branches is poor secondary to patient breathing, no pulmonary artery filling defects noted, Right lung pneumonia, especially right upper lobe Gastrografin enema study shows no mechanical obstruction. Hypoxic respiratory failulure is significantly improving, currently on 2-3L, previously was on high flow. Abdominal distension and ileus has improved but distension was worse today then yesterday, patient is tolerating regular diet, having BM, had 2 episodes of vomiting today. 07/18/25: KUB remarkable for, Moderate dilatation small bowel loops - Dysphagia choped diet - picky but tolerating - Start Metoclopramide (reglan) 10 mg Q8H after checking EKG. - Increase assisted ambulation to help with gut motility and regain balance and stregnth - Continue INH Duonebs q4HR scheduled - Continue INH sodium chloride 3 mL nebulizer prn - Continue chest physiotherapy - 07/12/25 switched ceftriaxon to Unasyn to add anaerobic coverage as patient had aspirational event - Follow-up with ABG, CBC, and CMP - RT to titrate O2 and see if patient can be weaned off and discharged without oxygen and home oxygen was not approved. - Patient transferred to med surg from [facility] as he is stable and improving - Simethicone 80 mg PO x1 #Symptomatic normocytic anemia secondary to #GI bleed, likely lower GI 07/07/25 EGD: A few non-bleeding erosions at the gastroesophageal junction, erythematous mucosa in the antrum H and H stable and improving over past few days GI wants to see outpatient as there is no acute indication for colonoscopy. - Continue IV Protonix q12HR for GI prophylaxis - Transfuse if Hgb<7 - Resumed diet, advancing as tolerated - Monitor daily CBC #Hypokalemia- stable K: 3.3 on 07/09, 3.3 on 07/10, 3.5 on 07/11, 4.2 on 07/12, 3.4 on 07/13, 3.4 on 07/15, 4.2 on 07/17 - Monitor and replete as needed - Keep Mg and K over 2 and 4 respectively #Hyperglycemia- Stable Today's finger stick BG 103, up trended to 124 - Continue to monitor - Patient on SSI #History of schizophrenia #History of depression #History of anxiety #Agitation - Restarted home meds as patient is back on diet (PO Risperdal 1 mg BID, PO fluvoxamine 100 mg BID) - Clonazapan PRN #History of developmental delay #History of Mason Palsy #Lactic acidosis (resolved) Health Maintenance: Code Status: Full DVT Prophylaxis: SCDs, ambulation GI Prophylaxis: Protonix Diet: dysphagia 2 Mancuso: Mancuso catheter in place, clamped for voiding trial Lines: PIV Supplemental O2: 1-2 L NC Disposition: Med surg, weaning off oxygen before we can discharge Patient seen and care discussed with my attending physician, Dr. Dubose and my senior residents Dr. Ash Nuñez and Dr. Freeman. Hannah Vazquez [facility] Attending Provider Attestation/Addendum I Wes Dubose MD reviewed the note and agree with the resident's assessment & plan with modifications/additions/exceptions as below. I have personally reviewed labs, imaging, home meds/prior records, examined the patient, formulated and discussed management plan with the IM team. Patient with developmental delay initially admitted for melena however EGD did not reveal any significant source of bleeding, subsequent hospital course complicated by aspiration pneumonia leading to acute hypoxemic respiratory failure during preparation for colonoscopy which was then subsequently discontinued. Patient also developed ileus and urinary retention. Patient currently having bowel movements however have tense distended abdomen. Will continue bladder training, started on tamsulosin, will get KUB for evaluation of bowel distention.
[2025-07-18] MEDS: SIMETHICONE 80 MG CHEW PO (14:54)
--- NOTE | 2025-07-18 16:34 | ESPR_ITS ---
Documentation for date of: 07/18/25 Subjective Subjective Interval history: Patient was seen and examined at bedside patient was lying on bed and eating his breakfast. He noticed to be sweaty however he denied any symptoms. He was on 1 L of oxygen saturating 96, heart rate was 140 today sinus rhythm for the past 24 hours. Potassium is 4.3, magnesium is 1.9. Exam Vital Signs Temp Pulse Resp BP Pulse Ox O2 Del Method O2 Flow Rate 97.5 F 120 H 17 106/88 H 95 Nasal Cannula 1 07/18/25 11:48 07/18/25 11:48 07/18/25 11:48 07/18/25 11:48 07/18/25 11:48 07/18/25 11:48 07/18/25 11:48 FiO2 30 07/17/25 16:00 Narrative Exam GEN: Alert, talkative, was eating his breakfast, noticed to be sweaty, answer simple questions, on 1 L of oxygen. HEENT: NC/AC, oral mucosa dry, neck supple CVS: RRR, S1-S2, S3, no murmurs appreciated RESP: Good air entry bilaterally, no wheezing. GI: Abdomen is soft, mildly distended, Sluggish bowel sounds MSK: No extremity edema SKIN: warm and clammy PET GROOMER: Able to move all extremeties, limited due to mental status Objective Labs 07/18/25 04:43 07/18/25 04:43 Labs: Laboratory Results - last 24 hr 07/18/25 04:43 WBC 8.8 RBC 3.50 L Hgb 10.1 L Hct 31.9 L MCV 91 MCH 28.9 MCHC 31.7 RDW Std Deviation 51.3 H Plt Count 384 D Neut % (Auto) 69 Lymph % (Auto) 20 [place] % (Auto) 8 Eos % (Auto) 2 Baso % (Auto) 1 Neut # (Auto) 6.1 Lymph # (Auto) 1.7 [place] # (Auto) 0.7 Eos # (Auto) 0.2 Baso # (Auto) 0.1 Immature Gran # (Auto) 0.07 H Absolute Nucleated RBC 0.00 Immature Gran % 1 H Nucleated RBC % 0 Sodium 141 Potassium 4.3 Chloride 103 Carbon Dioxide 29.1 Anion Gap 9 BUN 14 Creatinine 0.9 Estim Creat Clear Calc 82.4 eGFR > 60 BUN/Creatinine Ratio 16 Glucose 151 H Calculated Osmolality 284 Calcium 9.2 Phosphorus 4.4 Magnesium 1.9 ABG Interpretation ABG results: 07/09/25 04:04 ABG pH 7.29 L ABG pCO2 57 H ABG pO2 86 ABG HCO3 28 H ABG O2 Saturation 96 ABG Base Excess 1 Quality Measures Quality Measures VTE prophylaxis (SCD) and none Assessment & Plan Assessment Current Active Medications: Generic Name Dose Route Start Last Admin Trade Name Freq PRN Reason Stop Dose Admin Acetaminophen 1,000 mg 07/07/25 15:20 Acetaminophen 500 Mg Tablet PO 08/05/25 15:39 Q6H PRN PAIN OR FEVER > 99.9 Albuterol/Ipratropium 3 ml 07/09/25 09:32 07/18/25 16:11 Albuterol/Ipratropium (Duoneb) Rt Flavia 3 Ml Nebu INH 08/08/25 09:31 Not Given Q4HRRT RHINA Clonazepam 1 mg 07/16/25 09:40 Clonazepam 0.5 Mg Tablet PO 07/21/25 13:59 TID PRN Agitation Protocol Fluvoxamine 100 Mg 0 ea 07/06/25 21:00 07/18/25 10:53 Tablet PO 08/05/25 20:59 1 tablet BID RHINA Administration Dextrose 50 ml 07/06/25 15:47 Dextrose 50%-Water Inj 50 Ml Syringe IV 08/05/25 15:46 Q15MIN PRN BG <50 OR BG <70 & pt unresponsive Diclofenac Sodium 2 gm 07/14/25 14:00 07/18/25 14:54 Diclofenac 1% Top Gel 100 Gm Tube TOP 08/13/25 13:59 2 gm TID RHINA Administration Glucagon 1 mg 07/06/25 15:47 Glucagon Inj 1 Mg Vial IM Q15MIN PRN BG <70, and no IV access Ampicillin Sodium/Sulbactam 50 mls @ 100 mls/hr 07/14/25 13:30 07/18/25 11:30 Sodium 3 gm/ Sodium Chloride IV 07/21/25 13:29 100 mls/hr Q6HR RHINA Administration Insulin Human Lispro 0 unit 07/06/25 18:00 07/18/25 11:38 Insulin Lispro (Admelog) 1 Unit/0.01 Ml Unit SC 08/05/25 17:59 2 unit Q6HR RHINA Administration Protocol Metoclopramide HCl 10 mg 07/16/25 14:00 07/18/25 12:33 Metoclopramide Inj 5 Mg/Ml Vial 2 Ml IVP 08/15/25 13:59 Not Given Q8HR RHINA Protocol Metoprolol Succinate 50 mg 07/18/25 15:15 Metoprolol Succinate Xl 25 Mg Tabcr PO 08/17/25 15:14 QDAY RHINA Ondansetron HCl 4 mg 07/06/25 15:40 07/16/25 03:08 Ondansetron Inj 2 Mg/Ml Inj 2 Ml IVP 08/05/25 15:39 4 mg Q6H PRN Administration NAUSEA OR VOMITING Protocol Pantoprazole Sodium 40 mg 07/06/25 21:00 07/18/25 09:18 Pantoprazole Inj 40 Mg Vial IVP 08/05/25 20:59 40 mg Q12HR RHINA Administration Polyethylene Glycol/Electrolytes 4,000 ml 07/07/25 15:31 07/09/25 03:03 Na Jj/Nahco3/Rio/Peg (Golytely) 4,000 Ml Btl PO 08/06/25 15:30 4,000 ml PRN PRN Administration SEE COMMENTS Risperidone 1 mg 07/06/25 21:00 07/18/25 09:18 Risperidone 1 Mg Tablet PO 08/05/25 20:59 1 mg BID RHINA Administration Sodium Chloride 3 ml 07/10/25 13:18 Sodium Chloride Rt Flavia 0.9% 3 Ml Nebu INH 08/09/25 13:17 PRN PRN SOLN Tamsulosin HCl 0.4 mg 07/18/25 11:45 07/18/25 11:51 Tamsulosin Hcl 0.4 Mg Capsule PO 08/17/25 11:44 0.4 mg QDAY RHINA Administration Plan Summary: 60-year-old male patient known case of schizophrenia, hyperlipidemia, developmental delay, was [facility] from [facility] facility after he was started to experience abdominal pain few hours before presentation. Patient was unable to provide accurate history due to his chronic mental status, most of the history was taken from the caregiver Charu Jean. Cardiology team was consulted due to tachycardia #Sinus tachycardia likely 2/2 #Colonic ileus #ACS r/o Patient presented with acute abdominal pain, tachycardia, melena, patient was sweaty, pulse rate was 129, blood pressure was 119/65.on examination found to have S1-S2 and S3 He has trace lower edema, no elevated JVD Hemoglobin was 5.8. TSH was 5.8, Troponin was negative, chest x-ray showed left ventricular prominence, elevated right hemidiaphragm. EKG was done initially showed sinus tachycardia, repeat today during the rapid also showed sinus tachycardia with deep Q-wave on the leads, I, III and AVf. Patient most likely have secondary cause of his sinus tachycardia including but not limited to infection, pain, acute blood loss, less likely medication side effect such as serotonin syndrome 07/09/2025, patient had an episode of aspiration, he was intubated and upgraded to the ICU. BNP came back normal, telemonitoring was reviewed for the past 24- hour was negative for any arrhythmias and it only showed sinus tachycardia. 07/08/25 Echo: rate more than 115 bpm. Normal left ventricular size and function. Grade I diastolic dysfunction. EF estimated at 55-60%. The right ventricle is normal in size and systolic function. Normal RVSP. Mild MR and TR. No pericardial effusion Metoprolol attempted to be started however there was concern for rate control may mask possible deterioration of patient condition. 07/14/2025, patient remains on restraints, was started on TPN, telemonitoring over the past 24 hours showed increase in the heart rate to 152, sinus rhythm with some PVCs. No ST changes noted 07/15/2025, CT angio of the chest was done was negative for pulmonary embolism however there was artifact during imaging. Plus the patient has consultation for that reason patient is not eligible for VQ scan. Lower extremity Doppler ultrasound: Was negative for any DVT Plan ? Recommend to start metoprolol XL 25 mg QD ? Strict in and out ? Treat underlying cause, patient might be symptomatic anemia versus perforated viscus vs SBO, or sepsis ? Daily potassium and magnesium ? Replete electrolytes to keep potassium and magnesium above 4 and 2 respectively within normal range as patient is losing K through diarrhea #GIB s/p 2 pRBC #Acute post hemorrhagic anemia #Upper vs lower GIB Presented with melena. Hgb on admission 07/06 5.8, increased to 7.7, and subsequently decreased back to 6.3 on 07/10. 07/07 EGD showed few non bleeding erosions at GE junction, erythematous mucosa in antrum, normal duodenum. Patient aspirated on Golytely 07/09 and was intubated and upgraded to ICU, extubated 07/11. Plan - Gastrograffin enema study pending - CTM Hgb - Colonoscopy delayed due to patient being on high flow NC #Developmental delay #History of schizophrenia #Hyperglycemia #Depression #Acute blood loss Plan ? Follow-up with the primary team recommendation Thank you for your consultation please do not hesitate to reach out if you have any question or concern - Patient's plan and care discussed with my attending, Dr. Alison Santos MD Internal Medicine PGY-3 Attending Provider Attestation/Addendum I have personally seen and examined the patient separately on the above date of service and discussed the plan of care with the resident. I reviewed the resident consultation progress note and agree with the resident findings and plan in the note above and have also edited the documentation to reflect my findings and plan. Diego Rosas M.D. Interventional Cardiology
[2025-07-18] MEDS: METOPROLOL SUCCINATE XL 25 MG TABCR 50 MG PO (17:25)
[2025-07-18] MEDS: ONDANSETRON INJ 2 MG/ML INJ 2 ML 4 MG IVP (18:02)
--- NOTE | 2025-07-18 21:05 | ESPR_ITS ---
Documentation for date of: 07/18/25 Subjective Subjective Interval history: Patient evaluated abdominal x-ray shows colonic distention but no air-fluid levels in the small bowel discharge planning in progress Exam Vital Signs Temp Pulse Resp BP Pulse Ox O2 Del Method O2 Flow Rate 98.2 F 116 H 16 122/87 H 92 L Nasal Cannula 2 07/18/25 20:00 07/18/25 20:00 07/18/25 20:00 07/18/25 20:00 07/18/25 20:00 07/18/25 20:00 07/18/25 20:00 FiO2 30 07/18/25 20:00 Objective Labs 07/18/25 04:43 07/18/25 04:43 Labs: Laboratory Results - last 24 hr 07/18/25 04:43 WBC 8.8 RBC 3.50 L Hgb 10.1 L Hct 31.9 L MCV 91 MCH 28.9 MCHC 31.7 RDW Std Deviation 51.3 H Plt Count 384 D Neut % (Auto) 69 Lymph % (Auto) 20 [place] % (Auto) 8 Eos % (Auto) 2 Baso % (Auto) 1 Neut # (Auto) 6.1 Lymph # (Auto) 1.7 [place] # (Auto) 0.7 Eos # (Auto) 0.2 Baso # (Auto) 0.1 Immature Gran # (Auto) 0.07 H Absolute Nucleated RBC 0.00 Immature Gran % 1 H Nucleated RBC % 0 Sodium 141 Potassium 4.3 Chloride 103 Carbon Dioxide 29.1 Anion Gap 9 BUN 14 Creatinine 0.9 Estim Creat Clear Calc 82.4 eGFR > 60 BUN/Creatinine Ratio 16 Glucose 151 H Calculated Osmolality 284 Calcium 9.2 Phosphorus 4.4 Magnesium 1.9 Impressions Impression: Colonic motility disorder if the distention keeps increasing we can do the rectal tube again however ambulation would be very helpful to pick up truck driver the colonic tone ABG Interpretation ABG results: 07/09/25 04:04 ABG pH 7.29 L ABG pCO2 57 H ABG pO2 86 ABG HCO3 28 H ABG O2 Saturation 96 ABG Base Excess 1 Assessment & Plan A&P Narrative Hematochezia Plan clear liquid diet n.p.o. at midnight tonight except p.o. meds Consent for fiberoptic esophagogastroduodenoscopy with possible biopsy possible therapeutic intervention under intravenous moderate sedation If EGD negative we will consider doing a fibrotic colonoscopy prior to discharge Serial CBC IV Protonix Thank you very much for the opportunity to participate in the care of this Time Spent With Patient Time: Total time spent is greater than 50% in coordination of care (as documented) at patient's floor/unit and/or counseling patient:
[2025-07-19] VITALS (13 sets, daily range): BP systolic 101–122; BP diastolic 57–83; PULSE 71–105; RESP 16–100; TEMP 36.6–37.1; O2SAT 90–100; BMI 27.7; BMI 13.0
[2025-07-19] MEDS: ALBUTEROL/IPRATROPIUM (Duoneb) RT SOL 3 ML NEBU INH ×6 (02:35→22:19)
[2025-07-19] MEDS: AMPICILLIN/SULBAC INJ 3 GM in SODIUM CHLORIDE 0.9% (Popper) 50 ML IV (05:43)
[2025-07-19] MEDS: METOCLOPRAMIDE INJ 5 MG/ML VIAL 2 ML 10 MG IVP ×3 (05:44→22:10)
[2025-07-19] MEDS: DICLOFENAC 1% TOP GEL 100 GM TUBE TOP ×3 (05:50→22:11)
[2025-07-19 06:08] LABS: Basophils # (Auto) 0.1 Thou/mm3 (0.0-0.2); Basophils % (Auto) 1 % (0-2.5); Eosinophils # (Auto) 0.0 Thou/mm3 (0.0-0.5); Eosinophils % (Auto) 0 % (0-10); Hematocrit 28.2 % (41.0-53.0); Immature Granulocytes Auto 0.06 Thou/mm3 (0.00-0.00); Lymphocytes # (Auto) 1.2 Thou/mm3 (1.0-4.8); Lymphocytes % (Auto) 12 % (10-50); Mean Corpuscular HGB Conc 30.9 g/dl (31.0-37.0); Mean Corpuscular Hemoglobin 28.1 pg (25.0-35.0); Mean Corpuscular Volume 91 fL (80-100); Monocytes # (Auto) 0.5 Thou/mm3 (0.0-0.8); Monocytes % (Auto) 5 % (0-12); Neutrophils # (Auto) 8.4 Thou/mm3 (1.8-7.7); Neutrophils % (Auto) 82 % (37-80); Nucleated Red Blood Cell # 0.00 Thou/mm3 (0.00-0.00); Nucleated Red Blood Cell % 0 /100 WBC (0); Platelet Count 308 Thou/mm3 (140-440); RDW Standard Deviation 50.4 fL (35.1-43.9); Red Blood Count 3.10 Miln/mm3 (4.50-5.90); White Blood Count 10.3 Thou/mm3 (3.8-10.6)
[2025-07-19 06:11] LABS: Hemoglobin 8.7 g/dL (13.5-16.0)
[2025-07-19] MEDS: METOPROLOL SUCCINATE XL 25 MG TABCR PO (08:16)
[2025-07-19] MEDS: LACTOBACILLUS RHAMNOSUS 1 CAP PO ×2 (08:16→22:12)
[2025-07-19] MEDS: TAMSULOSIN HCL 0.4 MG CAPSULE PO (08:17)
[2025-07-19] MEDS: IRON SUCROSE CPLX INJ 20 MG/ML VIAL 5 ML 200 MG IVP (11:02)
[2025-07-19] MEDS: INSULIN LISPRO (AdmeLOG) 1 UNIT/0.01 ML UNIT SC (11:08)
--- NOTE | 2025-07-19 11:18 | XR_ITS ---
Examination: CT abdomen without intravenous contrast. Coronal 2-D reconstructions. Sagittal 2-D reconstructions. Date and time of exam:July 19, 2025 1150 hours, comparison July 12, 2025 INDICATIONS: Abdominal distention today, history small bowel obstruction, incarcerated small bowel in a right inguinal hernia on CT abdomen pelvis 07/12/2025 CTDI: vol (mGy): 8.17 DLP: (mGycm): 347 Technique: Axial images of the abdomen have been obtained, 3 mm slice thickness, without intravenous contrast 2-D sagittal coronal reconstructions Low dose protocols were performed. One or more of the following dose reduction techniques were used; automated exposure control, adjustment of the mA and/or KV according to patient size, use of iterative reconstruction technique. Findings: No focal liver or splenic lesions No extra hepatic biliary tract dilatation No pancreatic mass No hydronephrosis Air and stool distended colon Rotation mesentery in the right abdomen, minimal fluid distended small bowel loops No diverticulitis Normal appendix IMPRESSION: Moderate air and stool distended colon No current small bowel obstruction
[2025-07-19] MEDS: AMPICILLIN/SULBAC INJ 1.5 GM in SODIUM CHLORIDE 0.9% (Popper) 50 ML IV ×3 (12:36→23:57)
[2025-07-19] MEDS: LACTULOSE SYRUP 20 GM/30 ML UDC 30 GM PO ×2 (13:04→22:11)
[2025-07-19 14:00] LABS: Hematocrit 30.5 % (41.0-53.0); Hemoglobin 9.4 g/dL (13.5-16.0)
--- NOTE | 2025-07-19 15:03 | PC.NURSE ---
Removed patients mancuso catheter
--- NOTE | 2025-07-19 15:27 | PD.ADDPROG ---
Addendum Progress Note Addendum Date of report being addended: 07/22/25 Narrative: I Wes Dubose MD reviewed the note and agree with the resident's assessment & plan with modifications/additions/exceptions as below. I have personally reviewed labs, imaging, home meds/prior records, examined the patient, formulated and discussed management plan with the IM team. Patient with developmental delay initially admitted for melena however EGD did not reveal any significant source of bleeding, subsequent hospital course complicated by aspiration pneumonia leading to acute hypoxemic respiratory failure during preparation for colonoscopy which was then subsequently discontinued. Patient also developed ileus and urinary retention. Patient currently having bowel movements however have tense distended abdomen with KUB x-ray revealing extensive stool burden turned on ascending colon however no significant stool burden in rectum. Will continue bladder training, started on tamsulosin, will get CT abdomen/pelvis noncontrast to evaluate for potential lesion causing colonic obstruction and ascending colon. Will start on lactulose, will hold on further enemas at this point.
--- NOTE | 2025-07-19 15:56 | PC.NURSE ---
Notified Dr. Vazquez we do not have a mineral enema. If he would like to change the order to a fleet or soap enema. Doctor was ok with not giving patient an enema.
--- NOTE | 2025-07-19 18:37 | ESPR_ITS ---
<Statement entered by Augustin Freeman MD - 07/22/25 07:25> Patient examined and case discussed with the team including attending physician. Note reviewed, I agree with the care plan as documented. Please refer to the note below for further details. - Augustin Freeman MD, PGY 3 Disclaimer: The document may contain phonetic/typographic errors due to voice recognition software. These errors are purely due to imperfections in the software program. Documentation for date of: 07/19/25 Subjective Subjective Interval history: Interval history: 60 year old male with past medical history of schizophrenia, developmental delay, Lomas's palsy and abdominal hernia, admitted for melena. S/P EGD, found non bleeding erosions at the gastroesophageal junction. Colonoscopy now to be done outpatient as HH is stable and no acute indication for colonoscopy. pending/postponed as the stay is currently complicated by ileus and acute respiratory failure on high flow oxygen. 07/15/25: No remarkable overnight events. Patient was seen at bedside today morning. He was awake, alert and resting comfortably in the bed. He was conversational and in no distress. Mentioned that his knee pain from yesterday is resolved. On clear liquid diet, pending rectal enema screen. 07/16/25: Overnight patient had BP at 158/109, was given labetalol 10 mg X1 and Olanzapine for agitation. Patient was seen at bedside, ELECTRONIC WARFARE OFFICER was in the room helping patient with a sponge bath. His food tray was a bedside but he had only eaten about 10%, noting he doesn't feel like eating. He did drink his ensure protein shake. Still on high flow (20L, 25 Fi[address]). CT angio chest was done yesterday evening, PE ruled out. 07/17/25: No overnight events. Patient seen at bedside, alert, oriented, and resting comfortably. He had finished his whole breakfast. Had a bowel movement over night. He reported that he is felling well and ready to go home. Showed him how to use incentive spirometer and he was using good effort. He is currently only on 1-2L of Oxygen while resting but requires 3-4 when standing. Unable to arrange home oxygen will continue to wean off oxygen and then discharge. 07/18/25: Mancuso catheter was removed yesterday in preparation for discharge but patient did not void and required a straight cath overnight, draining 500cc and then again 800cc later in the day. Patient was seen 3-4 times today and the charge master analyst was present in the room. Patient ate him full meal and had a BM earlier in the morning, but his abdomen was visually more distended then yesterday. Home oxygen has been secured but unable to discharge home as patient is unable to void without catheter. Patient was able to maintain oxygen saturation over 90% without supplemental oxygen. -Dr. Shelton (decision maker) was consulted over the phone. Patient's hospital course, reason for admission, and complications were discussed. Dr. Shelton agrees with current plan and management. 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 07/19/25: No overnight events. Hgb dropped from 10.1 to 8.7. Patient alert and oriented resting comfortably. Print Finishing Worker present in room. Pending voiding trial. Exam Vital Signs Temp Pulse Resp BP Pulse Ox O2 Del Method O2 Flow Rate 98.3 F 85 20 117/78 100 Nasal Cannula 2 07/19/25 16:25 07/19/25 18:23 07/19/25 18:23 07/19/25 16:25 07/19/25 18:23 07/19/25 16:25 07/19/25 16:25 FiO2 30 07/19/25 16:25 Narrative Exam General: Patient is alert and but not fully oriented (but at baseline, patient has developmental delay). In no distress. Cardio: Nomral rate, normal rhythm, no murmurs, gallops or rubs appreciated. Resp: Normal lung sounds, no rales or wheezing auscultated. MSK/ Extremities: No muscle or joint pain on any movement. No bruising or skin changes visible. No presence of trace or pitting edema in lower extremities bilaterally, dorsalis pedis pulses +2 bilaterally GI/Abdomen: Visual abdominal distention present. Abdomen tense and diffusely tender to palpation. Neuro: No focal motor or sensory deficits in the UE or LE bilat Psych: Judgment thought and behavior hindered due to developmental delay. Good affect. Cooperative Objective Labs 07/21/25 08:45 07/20/25 08:24 Labs: Laboratory Results - last 24 hr 07/19/25 07/19/25 05:08 13:31 WBC 10.3 RBC 3.10 L Hgb 8.7 L 9.4 L Hct 28.2 L 30.5 L MCV 91 MCH 28.1 MCHC 30.9 L RDW Std Deviation 50.4 H Plt Count 308 D Neut % (Auto) 82 H Lymph % (Auto) 12 [place] % (Auto) 5 Eos % (Auto) 0 Baso % (Auto) 1 Neut # (Auto) 8.4 H Lymph # (Auto) 1.2 [place] # (Auto) 0.5 Eos # (Auto) 0.0 Baso # (Auto) 0.1 Immature Gran # (Auto) 0.06 H Absolute Nucleated RBC 0.00 Immature Gran % 1 H Nucleated RBC % 0 ABG Interpretation ABG results: 07/09/25 04:04 ABG pH 7.29 L ABG pCO2 57 H ABG pO2 86 ABG HCO3 28 H ABG O2 Saturation 96 ABG Base Excess 1 Quality Measures Quality Measures VTE prophylaxis (SCD) and none Assessment & Plan Assessment Current Active Medications: Generic Name Dose Route Start Last Admin Trade Name Freq PRN Reason Stop Dose Admin Acetaminophen 1,000 mg 07/07/25 15:20 Acetaminophen 500 Mg Tablet PO 08/05/25 15:39 Q6H PRN PAIN OR FEVER > 99.9 Albuterol/Ipratropium 3 ml 07/09/25 09:32 07/19/25 18:23 Albuterol/Ipratropium (Duoneb) Rt Flavia 3 Ml Nebu INH 08/08/25 09:31 3 ml Q4HRRT RHINA Administration Clonazepam 1 mg 07/16/25 09:40 Clonazepam 0.5 Mg Tablet PO 07/21/25 13:59 TID PRN Agitation Protocol Fluvoxamine 100 Mg 0 ea 07/06/25 21:00 07/19/25 08:17 Tablet PO 08/05/25 20:59 Not Given BID RHINA Dextrose 50 ml 07/06/25 15:47 Dextrose 50%-Water Inj 50 Ml Syringe IV 08/05/25 15:46 Q15MIN PRN BG <50 OR BG <70 & pt unresponsive Diclofenac Sodium 2 gm 07/14/25 14:00 07/19/25 13:03 Diclofenac 1% Top Gel 100 Gm Tube TOP 08/13/25 13:59 2 gm TID RHINA Administration Glucagon 1 mg 07/06/25 15:47 Glucagon Inj 1 Mg Vial IM Q15MIN PRN BG <70, and no IV access Ampicillin Sodium/Sulbactam 50 mls @ 100 mls/hr 07/19/25 12:00 07/19/25 17:18 Sodium 1.5 gm/ Sodium Chloride IV 07/26/25 11:59 100 mls/hr Q6HR RHINA Administration Insulin Human Lispro 0 unit 07/06/25 18:00 07/19/25 17:24 Insulin Lispro (Admelog) 1 Unit/0.01 Ml Unit SC 08/05/25 17:59 Not Given Q6HR RHINA Protocol Iron Sucrose 200 mg 07/19/25 09:00 07/19/25 11:02 Iron Sucrose Cplx Inj 20 Mg/Ml Vial 5 Ml IVP 08/18/25 08:59 200 mg QDAY RHINA Administration Lactobacillus Rhamnosus 1 cap 07/19/25 09:00 07/19/25 08:16 Lactobacillus Rhamnosus 1 Cap PO 08/18/25 08:59 1 cap BID RHINA Administration Lactulose 30 gm 07/19/25 14:00 07/19/25 13:04 Lactulose Syrup 20 Gm/30 Ml Udc PO 08/18/25 13:59 30 gm Q8HR RHINA Administration Protocol Metoclopramide HCl 10 mg 07/16/25 14:00 07/19/25 13:04 Metoclopramide Inj 5 Mg/Ml Vial 2 Ml IVP 08/15/25 13:59 10 mg Q8HR RHINA Administration Protocol Metoprolol Succinate 25 mg 07/19/25 09:00 07/19/25 08:16 Metoprolol Succinate Xl 25 Mg Tabcr PO 08/18/25 08:59 25 mg QDAY RHINA Administration Ondansetron HCl 4 mg 07/06/25 15:40 07/18/25 18:02 Ondansetron Inj 2 Mg/Ml Inj 2 Ml IVP 08/05/25 15:39 4 mg Q6H PRN Administration NAUSEA OR VOMITING Protocol Pantoprazole Sodium 40 mg 07/06/25 21:00 07/19/25 08:16 Pantoprazole Inj 40 Mg Vial IVP 08/05/25 20:59 40 mg Q12HR RHINA Administration Polyethylene Glycol/Electrolytes 4,000 ml 07/07/25 15:31 07/09/25 03:03 Na Jj/Nahco3/[place]/P[place] (Golytely) 4,000 Ml Btl PO 08/06/25 15:30 4,000 ml PRN PRN Administration SEE COMMENTS Risperidone 1 mg 07/06/25 21:00 07/19/25 08:17 Risperidone 1 Mg Tablet PO 08/05/25 20:59 1 mg BID RHINA Administration Simethicone 80 mg 07/19/25 07:58 Simethicone 80 Mg Chew PO 08/18/25 07:57 Q12H PRN distension/bloating Sodium Chloride 3 ml 07/10/25 13:18 Sodium Chloride Rt Flavia 0.9% 3 Ml Nebu INH 08/09/25 13:17 PRN PRN SOLN Tamsulosin HCl 0.4 mg 07/18/25 11:45 07/19/25 08:17 Tamsulosin Hcl 0.4 Mg Capsule PO 08/17/25 11:44 0.4 mg QDAY RHINA Administration Plan 60 y/o male with Hx of Schizophrenia and Developmental Delay, presented with abdominal pain, constipation, and melena, admitted for acute blood loss anemia secondary to upper GI bleed. He was upgraded to the ICU after an aspiration event while undergoing prep for colonoscopy with GoLytely. He was downgraded to the floors on 07/11/2025, currently on nasal cannula 2-3L, ileus has resolved. Patient developed urinary retention after removing the catheter. #Urinary Retention On 07/17/25 mancuso was removed in preparation of discharge. Patient was unable to void, required straight cath as bladder scan showed volumes of 500cc and 800cc without patient being able to void each time. - Encouraging ambulation - Urinary bladder exercises - Clamp Mancuso catheter and do a voiding trial. - Tamsulosin 0.4 mg Qday #Acute hypoxic respiratory failure secondary to #Aspirational pneumonia In the setting of #Severe abdominal distension #Colonic ileus #Right inguinal hernia 07/16/25 CT angio chest: Opacification of distal pulmonary artery branches is poor secondary to patient breathing, no pulmonary artery filling defects noted, Right lung pneumonia, especially right upper lobe Gastrografin enema study shows no mechanical obstruction. Hypoxic respiratory failulure is significantly improving, currently on 2-3L, previously was on high flow. Abdominal distension and ileus has improved but distension was worse today then yesterday, patient is tolerating regular diet, having BM, had 2 episodes of vomiting today. 07/18/25: KUB remarkable for, Moderate dilatation small bowel loops - Dysphagia choped diet - picky but tolerating - Start Metoclopramide (reglan) 10 mg Q8H after checking EKG. - Increase assisted ambulation to help with gut motility and regain balance and stregnth - Continue INH Duonebs q4HR scheduled - Continue INH sodium chloride 3 mL nebulizer prn - Continue chest physiotherapy - 07/12/25 switched ceftriaxon to Unasyn to add anaerobic coverage as patient had aspirational event - Follow-up with ABG, CBC, and CMP - RT to titrate O2 and see if patient can be weaned off and discharged without oxygen and home oxygen was not approved. - Patient transferred to med surg from [facility] as he is stable and improving - Simethicone 80 mg PO x1 #Symptomatic normocytic anemia secondary to #GI bleed, likely lower GI 07/07/25 EGD: A few non-bleeding erosions at the gastroesophageal junction, erythematous mucosa in the antrum H and H was stable fro past few days but dropped since yesterday from 10.1 to 8.7 GI wants to see outpatient as there is no acute indication for colonoscopy. - Continue IV Protonix q12HR for GI prophylaxis - Transfuse if Hgb<7 - Resumed diet, advancing as tolerated - Monitor daily CBC #Hypokalemia- stable K: 3.3 on 07/09, 3.3 on 07/10, 3.5 on 07/11, 4.2 on 07/12, 3.4 on 07/13, 3.4 on 07/15, 4.2 on 07/17 - Monitor and replete as needed - Keep Mg and K over 2 and 4 respectively #Hyperglycemia- Stable Today's finger stick BG 103, up trended to 124 - Continue to monitor - Patient on SSI #History of schizophrenia #History of depression #History of anxiety #Agitation - Restarted home meds as patient is back on diet (PO Risperdal 1 mg BID, PO fluvoxamine 100 mg BID) - Clonazapan PRN #History of developmental delay #History of [place] Palsy #Lactic acidosis (resolved) Health Maintenance: Code Status: Full DVT Prophylaxis: SCDs, ambulation GI Prophylaxis: Protonix Diet: dysphagia 2 Mancuso: Mancuso catheter in place, clamped for voiding trial Lines: PIV Supplemental O2: 1-2 L NC Disposition: Med surg, bladder training. Attending Provider Attestation/Addendum I Wes Dubose MD reviewed the note and agree with the resident's assessment & plan with modifications/additions/exceptions as below. I have personally reviewed labs, imaging, home meds/prior records, examined the patient, formulated and discussed management plan with the IM team. Patient with developmental delay initially admitted for melena however EGD did not reveal any significant source of bleeding, subsequent hospital course complicated by aspiration pneumonia leading to acute hypoxemic respiratory failure during preparation for colonoscopy which was then subsequently discontinued. Patient also developed ileus and urinary retention. Patient currently having bowel movements however have tense distended abdomen with KUB x-ray revealing extensive stool burden turned on ascending colon however no significant stool burden in rectum. Will continue bladder training, started on tamsulosin, will get CT abdomen/pelvis noncontrast to evaluate for potential lesion causing colonic obstruction and ascending colon. Will start on lactulose, will hold on further enemas at this point.
--- NOTE | 2025-07-19 18:45 | ESPR_ITS ---
Documentation for date of: 07/19/25 Subjective Subjective Interval history: Patient was seen and examined at bedside. His heart rate continued to improve and down trended now between the 90s and high 80s. Patient was lying in bed comfortably, was sleepy and uninterested in talking. Primary team rescanned his abdomen however no new findings detected. Yesterday patient was found to be retaining urine patient was catheterized and drained 500 cc of urine. Today patient hemoglobin dropped from 10.1-8.7. Exam Vital Signs Temp Pulse Resp BP Pulse Ox O2 Del Method O2 Flow Rate 98.3 F 85 20 117/78 100 Nasal Cannula 2 07/19/25 16:25 07/19/25 18:23 07/19/25 18:23 07/19/25 16:25 07/19/25 18:23 07/19/25 16:25 07/19/25 16:25 FiO2 30 07/19/25 16:25 Narrative Exam GEN: Alert, talkative, was eating his breakfast, noticed to be sweaty, answer simple questions, on 1 L of oxygen. HEENT: NC/AC, oral mucosa dry, neck supple CVS: RRR, S1-S2, S3, no murmurs appreciated RESP: Good air entry bilaterally, no wheezing. GI: Abdomen is soft, mildly distended, Sluggish bowel sounds MSK: No extremity edema SKIN: warm and clammy LENS ASSORTER: Able to move all extremeties, limited due to mental status Objective Labs 07/19/25 13:31 07/18/25 04:43 Labs: Laboratory Results - last 24 hr 07/19/25 07/19/25 05:08 13:31 WBC 10.3 RBC 3.10 L Hgb 8.7 L 9.4 L Hct 28.2 L 30.5 L MCV 91 MCH 28.1 MCHC 30.9 L RDW Std Deviation 50.4 H Plt Count 308 D Neut % (Auto) 82 H Lymph % (Auto) 12 [place] % (Auto) 5 Eos % (Auto) 0 Baso % (Auto) 1 Neut # (Auto) 8.4 H Lymph # (Auto) 1.2 [place] # (Auto) 0.5 Eos # (Auto) 0.0 Baso # (Auto) 0.1 Immature Gran # (Auto) 0.06 H Absolute Nucleated RBC 0.00 Immature Gran % 1 H Nucleated RBC % 0 ABG Interpretation ABG results: 07/09/25 04:04 ABG pH 7.29 L ABG pCO2 57 H ABG pO2 86 ABG HCO3 28 H ABG O2 Saturation 96 ABG Base Excess 1 Quality Measures Quality Measures VTE prophylaxis (SCD) and none Assessment & Plan Assessment Current Active Medications: Generic Name Dose Route Start Last Admin Trade Name Marco Antonio PRN Reason Stop Dose Admin Acetaminophen 1,000 mg 07/07/25 15:20 Acetaminophen 500 Mg Tablet PO 08/05/25 15:39 Q6H PRN PAIN OR FEVER > 99.9 Albuterol/Ipratropium 3 ml 07/09/25 09:32 07/19/25 18:23 Albuterol/Ipratropium (Duoneb) Rt Flavia 3 Ml Nebu INH 08/08/25 09:31 3 ml Q4HRRT RHINA Administration Clonazepam 1 mg 07/16/25 09:40 Clonazepam 0.5 Mg Tablet PO 07/21/25 13:59 TID PRN Agitation Protocol Fluvoxamine 100 Mg 0 ea 07/06/25 21:00 07/19/25 08:17 Tablet PO 08/05/25 20:59 Not Given BID RHINA Dextrose 50 ml 07/06/25 15:47 Dextrose 50%-Water Inj 50 Ml Syringe IV 08/05/25 15:46 Q15MIN PRN BG <50 OR BG <70 & pt unresponsive Diclofenac Sodium 2 gm 07/14/25 14:00 07/19/25 13:03 Diclofenac 1% Top Gel 100 Gm Tube TOP 08/13/25 13:59 2 gm TID RHINA Administration Glucagon 1 mg 07/06/25 15:47 Glucagon Inj 1 Mg Vial IM Q15MIN PRN BG <70, and no IV access Ampicillin Sodium/Sulbactam 50 mls @ 100 mls/hr 07/19/25 12:00 07/19/25 17:18 Sodium 1.5 gm/ Sodium Chloride IV 07/26/25 11:59 100 mls/hr Q6HR RHINA Administration Insulin Human Lispro 0 unit 07/06/25 18:00 07/19/25 17:24 Insulin Lispro (Admelog) 1 Unit/0.01 Ml Unit SC 08/05/25 17:59 Not Given Q6HR RHINA Protocol Iron Sucrose 200 mg 07/19/25 09:00 07/19/25 11:02 Iron Sucrose Cplx Inj 20 Mg/Ml Vial 5 Ml IVP 08/18/25 08:59 200 mg QDAY RHINA Administration Lactobacillus Rhamnosus 1 cap 07/19/25 09:00 07/19/25 08:16 Lactobacillus Rhamnosus 1 Cap PO 08/18/25 08:59 1 cap BID RHINA Administration Lactulose 30 gm 07/19/25 14:00 07/19/25 13:04 Lactulose Syrup 20 Gm/30 Ml Udc PO 08/18/25 13:59 30 gm Q8HR RHINA Administration Protocol Metoclopramide HCl 10 mg 07/16/25 14:00 07/19/25 13:04 Metoclopramide Inj 5 Mg/Ml Vial 2 Ml IVP 08/15/25 13:59 10 mg Q8HR RHINA Administration Protocol Metoprolol Succinate 25 mg 07/19/25 09:00 07/19/25 08:16 Metoprolol Succinate Xl 25 Mg Tabcr PO 08/18/25 08:59 25 mg QDAY RHINA Administration Ondansetron HCl 4 mg 07/06/25 15:40 07/18/25 18:02 Ondansetron Inj 2 Mg/Ml Inj 2 Ml IVP 08/05/25 15:39 4 mg Q6H PRN Administration NAUSEA OR VOMITING Protocol Pantoprazole Sodium 40 mg 07/06/25 21:00 07/19/25 08:16 Pantoprazole Inj 40 Mg Vial IVP 08/05/25 20:59 40 mg Q12HR RHINA Administration Polyethylene Glycol/Electrolytes 4,000 ml 07/07/25 15:31 07/09/25 03:03 Na Jj/Nahco3/Rio/Peg (Golytely) 4,000 Ml Btl PO 08/06/25 15:30 4,000 ml PRN PRN Administration SEE COMMENTS Risperidone 1 mg 07/06/25 21:00 07/19/25 08:17 Risperidone 1 Mg Tablet PO 08/05/25 20:59 1 mg BID RHINA Administration Simethicone 80 mg 07/19/25 07:58 Simethicone 80 Mg Chew PO 08/18/25 07:57 Q12H PRN distension/bloating Sodium Chloride 3 ml 07/10/25 13:18 Sodium Chloride Rt Flavia 0.9% 3 Ml Nebu INH 08/09/25 13:17 PRN PRN SOLN Tamsulosin HCl 0.4 mg 07/18/25 11:45 07/19/25 08:17 Tamsulosin Hcl 0.4 Mg Capsule PO 08/17/25 11:44 0.4 mg QDAY [facility] Administration Plan Summary: 60-year-old male patient known case of schizophrenia, hyperlipidemia, developmental delay, was brought from [facility] facility after he was started to experience abdominal pain few hours before presentation. Patient was unable to provide accurate history due to his chronic mental status, most of the history was taken from the caregiver Charu Jean. Cardiology team was consulted due to tachycardia #Sinus tachycardia likely 2/2 improving #Urinary retention? #Colonic ileus? #ACS ruled out Patient presented with acute abdominal pain, tachycardia, melena, patient was sweaty, pulse rate was 129, blood pressure was 119/65.on examination found to have S1-S2 and S3 He has trace lower edema, no elevated JVD Hemoglobin was 5.8. TSH was 5.8, Troponin was negative, chest x-ray showed left ventricular prominence, elevated right hemidiaphragm. EKG was done initially showed sinus tachycardia, repeat today during the rapid also showed sinus tachycardia with deep Q-wave on the leads, I, III and AVf. Patient most likely have secondary cause of his sinus tachycardia including but not limited to infection, pain, acute blood loss, less likely medication side effect such as serotonin syndrome 07/09/2025, patient had an episode of aspiration, he was intubated and upgraded to the ICU. BNP came back normal, telemonitoring was reviewed for the past 24- hour was negative for any arrhythmias and it only showed sinus tachycardia. 07/08/25 Echo: rate more than 115 bpm. Normal left ventricular size and function. Grade I diastolic dysfunction. EF estimated at 55-60%. The right ventricle is normal in size and systolic function. Normal RVSP. Mild MR and TR. No pericardial effusion Metoprolol attempted to be started however there was concern for rate control may mask possible deterioration of patient condition. 07/14/2025, patient remains on restraints, was started on TPN, telemonitoring over the past 24 hours showed increase in the heart rate to 152, sinus rhythm with some PVCs. No ST changes noted 07/15/2025, CT angio of the chest was done was negative for pulmonary embolism however there was artifact during imaging. Plus the patient has consultation for that reason patient is not eligible for VQ scan. Lower extremity Doppler ultrasound: Was negative for any DVT Plan ? Strict in and out ? Treat underlying cause, patient might be symptomatic anemia versus perforated viscus vs retension vs SBO ? Daily potassium and magnesium ? Replete electrolytes to keep potassium and magnesium above 4 and 2 respectively within normal range as patient is losing K through diarrhea #GIB s/p 2 pRBC #Acute post hemorrhagic anemia #Upper vs lower GIB Presented with melena. Hgb on admission 07/06 5.8, increased to 7.7, and subsequently decreased back to 6.3 on 07/10. 07/07 EGD showed few non bleeding erosions at GE junction, erythematous mucosa in antrum, normal duodenum. Patient aspirated on Golytely 07/09 and was intubated and upgraded to ICU, extubated 07/11. Plan - Gastrograffin enema study pending - CTM Hgb - Colonoscopy delayed due to patient being on high flow NC #Developmental delay #History of schizophrenia #Hyperglycemia #Depression #Acute blood loss Plan ? Follow-up with the primary team recommendation Thank you for your consultation please do not hesitate to reach out if you have any question or concern - Patient's plan and care discussed with my attending, Dr. Alison Santos MD Internal Medicine PGY-3 Attending Provider Attestation/Addendum I have personally seen and examined the patient separately on the above date of service and discussed the plan of care with the resident. I reviewed the resident Dr. Santos consultation progress note and agree with the resident findings and plan in the note above and have also edited the documentation to reflect my findings and plan. Diego Rosas M.D. Interventional Cardiology
--- NOTE | 2025-07-19 20:02 | PD.IMPROG ---
Documentation for date of: 07/19/25 Subjective Subjective Interval history: Patient evaluated Does have abdominal distention but passing gas and had a bowel movement Tolerating diet recent CT scan of the abdomen pelvis done today shows colonic distention with air and stool but no obstruction Exam Vital Signs Temp Pulse Resp BP Pulse Ox O2 Del Method O2 Flow Rate 98.3 F 85 20 117/78 100 Nasal Cannula 2 07/19/25 16:25 07/19/25 18:23 07/19/25 18:23 07/19/25 16:25 07/19/25 18:23 07/19/25 16:25 07/19/25 16:25 FiO2 30 07/19/25 16:25 Objective Labs 07/19/25 13:31 07/18/25 04:43 Labs: Laboratory Results - last 24 hr 07/19/25 07/19/25 05:08 13:31 WBC 10.3 RBC 3.10 L Hgb 8.7 L 9.4 L Hct 28.2 L 30.5 L MCV 91 MCH 28.1 MCHC 30.9 L RDW Std Deviation 50.4 H Plt Count 308 D Neut % (Auto) 82 H Lymph % (Auto) 12 [place] % (Auto) 5 Eos % (Auto) 0 Baso % (Auto) 1 Neut # (Auto) 8.4 H Lymph # (Auto) 1.2 [place] # (Auto) 0.5 Eos # (Auto) 0.0 Baso # (Auto) 0.1 Immature Gran # (Auto) 0.06 H Absolute Nucleated RBC 0.00 Immature Gran % 1 H Nucleated RBC % 0 Impressions Impression: Colonic pseudoobstruction Colonic motility disorder Continue current management ABG Interpretation ABG results: 07/09/25 04:04 ABG pH 7.29 L ABG pCO2 57 H ABG pO2 86 ABG HCO3 28 H ABG O2 Saturation 96 ABG Base Excess 1 Assessment & Plan A&P Narrative Hematochezia Plan clear liquid diet n.p.o. at midnight tonight except p.o. meds Consent for fiberoptic esophagogastroduodenoscopy with possible biopsy possible therapeutic intervention under intravenous moderate sedation If EGD negative we will consider doing a fibrotic colonoscopy prior to discharge Serial CBC IV Protonix Thank you very much for the opportunity to participate in the care of this Time Spent With Patient Time: Total time spent is greater than 50% in coordination of care (as documented) at patient's floor/unit and/or counseling patient:
[2025-07-20] VITALS (13 sets, daily range): BP systolic 99–128; BP diastolic 62–84; PULSE 82–112; RESP 17–98; TEMP 36.3–37.1; O2SAT 90–100; BMI 27.7
[2025-07-20] MEDS: INSULIN LISPRO (AdmeLOG) 1 UNIT/0.01 ML UNIT SC ×2 (00:04→17:43)
[2025-07-20] MEDS: ALBUTEROL/IPRATROPIUM (Duoneb) RT SOL 3 ML NEBU INH ×6 (02:08→22:26)
--- NOTE | 2025-07-20 05:00 | EKG_ITS ---
[facility] (Formerly [facility])[3] Test Date: 2025-07-20 Pat Name: MITA GRANADOS [facility] Gender[facility] Male [employer]: [id number] : 1965 Requested By: Augustin Freeman Order Number: [id number] Reading MD: Augustin Freeman Measurements Intervals [place] Rate: 125 P: 49 PA: 135 QRS: 36 QRSD: 106 T: 40 QT: 351 QTc: 506 Interpretive Statements SINUS TACHYCARDIA LOW QRS VOLTAGE IN PRECORDIAL LEADS INCOMPLETE RIGHT BUNDLE BRANCH BLOCK MODERATE ST DEPRESSION Compared to ECG 07/16/2025 10:46:25 Low QRS voltage now present ST (T wave) deviation now present /store/S0/[id number]/ecg/[id number].pdf
[2025-07-20] MEDS: LACTULOSE SYRUP 20 GM/30 ML UDC 30 GM PO ×2 (05:22→21:12)
[2025-07-20] MEDS: METOCLOPRAMIDE INJ 5 MG/ML VIAL 2 ML 10 MG IVP (05:23)
[2025-07-20] MEDS: AMPICILLIN/SULBAC INJ 1.5 GM in SODIUM CHLORIDE 0.9% (Popper) 50 ML IV ×4 (05:23→23:53)
[2025-07-20] MEDS: DICLOFENAC 1% TOP GEL 100 GM TUBE TOP ×2 (05:24→21:31)
[2025-07-20 08:50] LABS: Anion Gap 9 (7-16); BUN/Creatinine Ratio 13 Ratio (12-20); Blood Urea Nitrogen 13 mg/dL (9-23); Calcium 8.7 mg/dL (8.3-10.6); Carbon Dioxide 29.2 mMol/L (20.0-31.0); Chloride 105 mMol/L (98-107); Creatinine (Component) 1.0 mg/dL (0.6-1.3); Estimated Creatinine Clearance 74.0 mL/min (>60); Glucose 139 mg/dL (74-106); Osmolality,Calculated 287 (275-295); Potassium 3.7 mMol/L (3.4-5.1); Sodium 143 mMol/L (136-145); eGFR > 60 See Note
[2025-07-20 08:52] LABS: Albumin, Serum 3.7 gm/dL (3.5-5.0); Calcium (Corrected) 8.9 mg/dL (8.5-10.1); Phosphorous 3.5 mg/dL (2.4-5.1)
[2025-07-20] MEDS: METOPROLOL SUCCINATE XL 25 MG TABCR PO (08:53)
[2025-07-20 08:54] LABS: Basophils # (Auto) 0.1 Thou/mm3 (0.0-0.2); Basophils % (Auto) 1 % (0-2.5); Eosinophils # (Auto) 0.1 Thou/mm3 (0.0-0.5); Eosinophils % (Auto) 1 % (0-10); Hematocrit 29.8 % (41.0-53.0); Hemoglobin 9.3 g/dL (13.5-16.0); Immature Granulocytes Auto 0.08 Thou/mm3 (0.00-0.00); Lymphocytes # (Auto) 1.4 Thou/mm3 (1.0-4.8); Lymphocytes % (Auto) 17 % (10-50); Mean Corpuscular HGB Conc 31.2 g/dl (31.0-37.0); Mean Corpuscular Hemoglobin 27.9 pg (25.0-35.0); Mean Corpuscular Volume 90 fL (80-100); Monocytes # (Auto) 0.6 Thou/mm3 (0.0-0.8); Monocytes % (Auto) 7 % (0-12); Neutrophils # (Auto) 6.0 Thou/mm3 (1.8-7.7); Neutrophils % (Auto) 74 % (37-80); Nucleated Red Blood Cell # 0.00 Thou/mm3 (0.00-0.00); Nucleated Red Blood Cell % 0 /100 WBC (0); Platelet Count 367 Thou/mm3 (140-440); RDW Standard Deviation 50.2 fL (35.1-43.9); Red Blood Count 3.33 Miln/mm3 (4.50-5.90); White Blood Count 8.2 Thou/mm3 (3.8-10.6)
[2025-07-20] MEDS: LACTOBACILLUS RHAMNOSUS 1 CAP PO ×2 (08:54→21:11)
[2025-07-20] MEDS: TAMSULOSIN HCL 0.4 MG CAPSULE PO (08:54)
--- NOTE | 2025-07-20 08:54 | PC.NURSE ---
bladder scanned patient 500ml in bladder
--- NOTE | 2025-07-20 09:32 | ESPR_ITS ---
Documentation for date of: 07/20/25 Subjective Subjective Interval history: Patient seen and examined at bedside. Overnight EKG taken showing sinus tachycardia with heart rate of 125. Blood pressure 100-120s over 60s to 80s otherwise heart rate 80s to 90s overnight however this morning heart rate is in 100s. Patient is experiencing some abdominal pain worse on palpation at the umbilicus and urinary tension, stating that he needs to use the restroom however cannot pee. Bladder scan on 07/18 showed 811 mL retained and bladder scan on 07/20 showed 4 to 37 mL retained. WBC 8.2, hemoglobin 9.7, potassium 3.7, BUN 13, creatinine 1.0. Exam Vital Signs Temp Pulse Resp BP Pulse Ox O2 Del Method O2 Flow Rate 98.3 F 112 H 18 113/70 92 L Room Air 2 07/20/25 07:46 07/20/25 08:53 07/20/25 07:46 07/20/25 08:53 07/20/25 07:46 07/20/25 07:46 07/19/25 16:25 FiO2 30 07/19/25 16:25 Narrative Exam GENERAL: Alert, talkative, answers simple questions, on 1 L of oxygen. no acute distress HEENT: NC/AT, mucous membranes dry, bilateral sclera anicteric CARDIOVASCULAR: regular rate and rhythm, S1/S2 present, S3, no murmurs appreciated PULMONARY: clear to auscultation bilaterally, no rales/rhonchi/wheezes ABDOMINAL: soft, non-tender, mildly distended, pain on palpation greatest at umbilical, no rebound/guarding, decreased bowel sounds EXTREMITIES: no peripheral edema SKIN: warm and dry, intact, no rashes NEURO: CN II-XII grossly intact, no focal deficits, alert, following commands Objective Labs 07/20/25 08:24 07/20/25 08:24 Labs: Laboratory Results - last 24 hr 07/19/25 07/20/25 13:31 08:24 WBC 8.2 RBC 3.33 L Hgb 9.4 L 9.3 L Hct 30.5 L 29.8 L MCV 90 MCH 27.9 MCHC 31.2 RDW Std Deviation 50.2 H Plt Count 367 D Neut % (Auto) 74 Lymph % (Auto) 17 [place] % (Auto) 7 Eos % (Auto) 1 Baso % (Auto) 1 Neut # (Auto) 6.0 Lymph # (Auto) 1.4 [place] # (Auto) 0.6 Eos # (Auto) 0.1 Baso # (Auto) 0.1 Immature Gran # (Auto) 0.08 H Absolute Nucleated RBC 0.00 Immature Gran % 1 H Nucleated RBC % 0 Sodium 143 Potassium 3.7 D Chloride 105 Carbon Dioxide 29.2 Anion Gap 9 BUN 13 Creatinine 1.0 Estim Creat Clear Calc 74.0 eGFR > 60 BUN/Creatinine Ratio 13 Glucose 139 H Calculated Osmolality 287 Calcium 8.7 Corrected Calcium 8.9 Phosphorus 3.5 Albumin 3.7 ABG Interpretation ABG results: 07/09/25 04:04 ABG pH 7.29 L ABG pCO2 57 H ABG pO2 86 ABG HCO3 28 H ABG O2 Saturation 96 ABG Base Excess 1 Quality Measures Quality Measures VTE prophylaxis (SCD) and none Assessment & Plan Assessment Current Active Medications: Generic Name Dose Route Start Last Admin Trade Name Freq PRN Reason Stop Dose Admin Acetaminophen 1,000 mg 07/07/25 15:20 Acetaminophen 500 Mg Tablet PO 08/05/25 15:39 Q6H PRN PAIN OR FEVER > 99.9 Albuterol/Ipratropium 3 ml 07/09/25 09:32 07/20/25 06:32 Albuterol/Ipratropium (Duoneb) Rt Flavia 3 Ml Nebu INH 08/08/25 09:31 3 ml Q4HRRT RHINA Administration Clonazepam 1 mg 07/16/25 09:40 Clonazepam 0.5 Mg Tablet PO 07/21/25 13:59 TID PRN Agitation Protocol Fluvoxamine 100 Mg 0 ea 07/06/25 21:00 07/19/25 22:12 Tablet PO 08/05/25 20:59 Not Given BID RHINA Dextrose 50 ml 07/06/25 15:47 Dextrose 50%-Water Inj 50 Ml Syringe IV 08/05/25 15:46 Q15MIN PRN BG <50 OR BG <70 & pt unresponsive Diclofenac Sodium 2 gm 07/14/25 14:00 07/20/25 05:24 Diclofenac 1% Top Gel 100 Gm Tube TOP 08/13/25 13:59 2 gm TID RHINA Administration Glucagon 1 mg 07/06/25 15:47 Glucagon Inj 1 Mg Vial IM Q15MIN PRN BG <70, and no IV access Ampicillin Sodium/Sulbactam 50 mls @ 100 mls/hr 07/19/25 12:00 07/20/25 05:23 Sodium 1.5 gm/ Sodium Chloride IV 07/26/25 11:59 100 mls/hr Q6HR RHINA Administration Insulin Human Lispro 0 unit 07/06/25 18:00 07/20/25 06:44 Insulin Lispro (Admelog) 1 Unit/0.01 Ml Unit SC 08/05/25 17:59 Not Given Q6HR RHINA Protocol Iron Sucrose 200 mg 07/19/25 09:00 07/19/25 11:02 Iron Sucrose Cplx Inj 20 Mg/Ml Vial 5 Ml IVP 08/18/25 08:59 200 mg QDAY RHINA Administration Lactobacillus Rhamnosus 1 cap 07/19/25 09:00 07/20/25 08:54 Lactobacillus Rhamnosus 1 Cap PO 08/18/25 08:59 1 cap BID RHINA Administration Lactulose 30 gm 07/19/25 14:00 07/20/25 05:22 Lactulose Syrup 20 Gm/30 Ml Udc PO 08/18/25 13:59 30 gm Q8HR RHINA Administration Protocol Metoclopramide HCl 10 mg 07/16/25 14:00 07/20/25 05:23 Metoclopramide Inj 5 Mg/Ml Vial 2 Ml IVP 08/15/25 13:59 10 mg Q8HR RHINA Administration Protocol Metoprolol Succinate 25 mg 07/19/25 09:00 07/20/25 08:53 Metoprolol Succinate Xl 25 Mg Tabcr PO 08/18/25 08:59 25 mg QDAY RHINA Administration Ondansetron HCl 4 mg 07/06/25 15:40 07/18/25 18:02 Ondansetron Inj 2 Mg/Ml Inj 2 Ml IVP 08/05/25 15:39 4 mg Q6H PRN Administration NAUSEA OR VOMITING Protocol Pantoprazole Sodium 40 mg 07/06/25 21:00 07/20/25 08:54 Pantoprazole Inj 40 Mg Vial IVP 08/05/25 20:59 40 mg Q12HR RHINA Administration Polyethylene Glycol/Electrolytes 4,000 ml 07/07/25 15:31 07/09/25 03:03 Na Jj/Nahco3/Rio/Peg (Golytely) 4,000 Ml Btl PO 08/06/25 15:30 4,000 ml PRN PRN Administration SEE COMMENTS Risperidone 1 mg 07/06/25 21:00 07/20/25 08:53 Risperidone 1 Mg Tablet PO 08/05/25 20:59 1 mg BID RHINA Administration Simethicone 80 mg 07/19/25 07:58 Simethicone 80 Mg Chew PO 08/18/25 07:57 Q12H PRN distension/bloating Sodium Chloride 3 ml 07/10/25 13:18 Sodium Chloride Rt Flavia 0.9% 3 Ml Nebu INH 08/09/25 13:17 PRN PRN SOLN Tamsulosin HCl 0.4 mg 07/18/25 11:45 07/20/25 08:54 Tamsulosin Hcl 0.4 Mg Capsule PO 08/17/25 11:44 0.4 mg QDAY RHINA Administration Plan Summary: 60-year-old male patient known case of schizophrenia, hyperlipidemia, developmental delay, was brought from intermediate facility after he was started to experience abdominal pain few hours before presentation. Patient was unable to provide accurate history due to his chronic mental status, most of the history was taken from the caregiver Charu Jean. Cardiology team was consulted due to tachycardia #Sinus tachycardia likely 2/2 improving #Urinary retention #Abdomial pain #ACS ruled out Patient presented with acute abdominal pain, tachycardia, melena, patient was sweaty, pulse rate was 129, blood pressure was 119/65.on examination found to have S1-S2 and S3 He has trace lower edema, no elevated JVD Hemoglobin was 5.8. TSH was 5.8, Troponin was negative, chest x-ray showed left ventricular prominence, elevated right hemidiaphragm. EKG was done initially showed sinus tachycardia, repeat today during the rapid also showed sinus tachycardia with deep Q-wave on the leads, I, III and AVf. Patient most likely have secondary cause of his sinus tachycardia including but not limited to infection, pain, acute blood loss, less likely medication side effect such as serotonin syndrome 07/09/2025, patient had an episode of aspiration, he was intubated and upgraded to the ICU. BNP came back normal, telemonitoring was reviewed for the past 24- hour was negative for any arrhythmias and it only showed sinus tachycardia. 07/08/25 Echo: rate more than 115 bpm. Normal left ventricular size and function. Grade I diastolic dysfunction. EF estimated at 55-60%. The right ventricle is normal in size and systolic function. Normal RVSP. Mild MR and TR. No pericardial effusion Metoprolol attempted to be started however there was concern for rate control may mask possible deterioration of patient condition. 07/14/2025, patient remains on restraints, was started on TPN, telemonitoring over the past 24 hours showed increase in the heart rate to 152, sinus rhythm with some PVCs. No ST changes noted 07/15/2025, CT angio of the chest was done was negative for pulmonary embolism however there was artifact during imaging. Plus the patient has consultation for that reason patient is not eligible for VQ scan. Lower extremity Doppler ultrasound: negative for any DVT Plan ? Strict in and out ? Treat underlying cause urinary retention vs periodic abdominal pain/distension ? Daily potassium and magnesium ? Replete electrolytes to keep potassium and magnesium above 4 and 2 respectively as patient is losing K through diarrhea #GIB s/p 4 pRBC #Acute post hemorrhagic anemia #Upper vs lower GIB Presented with melena. Hgb on admission 07/06 5.8, increased to 7.7, and subsequently decreased back to 6.3 on 07/10. 07/07 EGD showed few non bleeding erosions at GE junction, erythematous mucosa in antrum, normal duodenum. Patient aspirated on Golytely 07/09 and was intubated and upgraded to ICU, extubated 07/11. Gastrograffin enema study negative Plan - CTM Hgb - Colonoscopy outpatient per GI #Developmental delay #History of schizophrenia #Hyperglycemia #Depression #Acute blood loss Plan ? Follow-up with the primary team recommendation Thank you for your consultation please do not hesitate to reach out if you have any question or concern - Patient's plan and care discussed with my attending, Dr. Alison Aleman, DO Internal Medicine PGY-1 Attending Provider Attestation/Addendum I have personally seen and examined the patient separately on the above date of service and discussed the plan of care with the resident. I reviewed the resident Dr. Faby Aleman consultation progress note and agree with the resident findings and plan in the note above and have also edited the documentation to reflect my findings and plan. Diego Rosas M.D. Interventional Cardiology
--- NOTE | 2025-07-20 11:56 | PC.NURSE ---
bladder scanned pt 700ml
[2025-07-20] MEDS: IRON SUCROSE CPLX INJ 20 MG/ML VIAL 5 ML 200 MG IVP (12:32)
--- NOTE | 2025-07-20 15:20 | PD.IMPROG ---
Documentation for date of: 07/20/25 Subjective Subjective Interval history: Patient evaluated some abdominal distention but positive bowel sounds Passing flatus Exam Vital Signs Temp Pulse Resp BP Pulse Ox O2 Del Method O2 Flow Rate 98.1 F 99 20 124/82 99 Room Air 2 07/20/25 12:00 07/20/25 15:01 07/20/25 15:01 07/20/25 12:00 07/20/25 15:01 07/20/25 12:00 07/19/25 16:25 FiO2 30 07/19/25 16:25 Objective Labs 07/20/25 08:24 07/20/25 08:24 Labs: Laboratory Results - last 24 hr 07/20/25 08:24 WBC 8.2 RBC 3.33 L Hgb 9.3 L Hct 29.8 L MCV 90 MCH 27.9 MCHC 31.2 RDW Std Deviation 50.2 H Plt Count 367 D Neut % (Auto) 74 Lymph % (Auto) 17 [place] % (Auto) 7 Eos % (Auto) 1 Baso % (Auto) 1 Neut # (Auto) 6.0 Lymph # (Auto) 1.4 [place] # (Auto) 0.6 Eos # (Auto) 0.1 Baso # (Auto) 0.1 Immature Gran # (Auto) 0.08 H Absolute Nucleated RBC 0.00 Immature Gran % 1 H Nucleated RBC % 0 Sodium 143 Potassium 3.7 D Chloride 105 Carbon Dioxide 29.2 Anion Gap 9 BUN 13 Creatinine 1.0 Estim Creat Clear Calc 74.0 eGFR > 60 BUN/Creatinine Ratio 13 Glucose 139 H Calculated Osmolality 287 Calcium 8.7 Corrected Calcium 8.9 Phosphorus 3.5 Albumin 3.7 Impressions Impression: Gastrointestinal motility disorder with colonic inertia No need for a colonoscopy Ambulate as much as patient can Advance diet as tolerated ABG Interpretation ABG results: 07/09/25 04:04 ABG pH 7.29 L ABG pCO2 57 H ABG pO2 86 ABG HCO3 28 H ABG O2 Saturation 96 ABG Base Excess 1 Assessment & Plan A&P Narrative Hematochezia Plan clear liquid diet n.p.o. at midnight tonight except p.o. meds Consent for fiberoptic esophagogastroduodenoscopy with possible biopsy possible therapeutic intervention under intravenous moderate sedation If EGD negative we will consider doing a fibrotic colonoscopy prior to discharge Serial CBC IV Protonix Thank you very much for the opportunity to participate in the care of this Time Spent With Patient Time: Total time spent is greater than 50% in coordination of care (as documented) at patient's floor/unit and/or counseling patient:
--- NOTE | 2025-07-20 15:47 | ESPR_ITS ---
<Statement entered by Florentino Nuñez MD - 07/20/25 16:01> No acute overnight events. Seen and examined at bedside and patient appears to have some abdominal discomfort on examination. Also feels more firm compared to prior. He continues to be unable to void with bladder scans showing 800 and 500 cc of urine, requiring straight catheterization each time. Given that symptoms began after starting Reglan, will discontinue and monitor for signs of improvement. Otherwise, he remains tachycardic but on room air. CBC shows stable hemoglobin, CHEM panel unremarkable. ----- Note reviewed and agree with care plan as documented. Please refer to the note below for further details. Plan discussed with attending physician Dr. Sedrick Nuñez MD PGY-2 Internal Medicine Documentation for date of: 07/20/25 Subjective Subjective Interval history: Interval history: 60 year old male with past medical history of schizophrenia, developmental delay, Lomas's palsy and abdominal hernia, admitted for melena. S/P EGD, found non bleeding erosions at the gastroesophageal junction. Colonoscopy now to be done outpatient as HH is stable and no acute indication for colonoscopy. pending/postponed as the stay is currently complicated by ileus and acute respiratory failure on high flow oxygen. 07/15/25: No remarkable overnight events. Patient was seen at bedside today morning. He was awake, alert and resting comfortably in the bed. He was conversational and in no distress. Mentioned that his knee pain from yesterday is resolved. On clear liquid diet, pending rectal enema screen. 07/16/25: Overnight patient had BP at 158/109, was given labetalol 10 mg X1 and Olanzapine for agitation. Patient was seen at bedside, SAMMYING MACHINE OPERATOR was in the room helping patient with a sponge bath. His food tray was a bedside but he had only eaten about 10%, noting he doesn't feel like eating. He did drink his ensure protein shake. Still on high flow (20L, 25 Fi[address] CT angio chest was done yesterday evening, PE ruled out. 07/17/25: No overnight events. Patient seen at bedside, alert, oriented, and resting comfortably. He had finished his whole breakfast. Had a bowel movement over night. He reported that he is felling well and ready to go home. Showed him how to use incentive spirometer and he was using good effort. He is currently only on 1-2L of Oxygen while resting but requires 3-4 when standing. Unable to arrange home oxygen will continue to wean off oxygen and then discharge. 07/18/25: Mancuso catheter was removed yesterday in preparation for discharge but patient did not void and required a straight cath overnight, draining 500cc and then again 800cc later in the day. Patient was seen 3-4 times today and the creative strategist was present in the room. Patient ate him full meal and had a BM earlier in the morning, but his abdomen was visually more distended then yesterday. Home oxygen has been secured but unable to discharge home as patient is unable to void without catheter. Patient was able to maintain oxygen saturation over 90% without supplemental oxygen. -Dr. Shelton (decision maker) was consulted over the phone. Patient's hospital course, reason for admission, and complications were discussed. Dr. Shelton agrees with current plan and management. 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 07/19/25: No overnight events. Hgb dropped from 10.1 to 8.7. Patient alert and oriented resting comfortably. Floor Sanding Machine Operator present in room. Pending voiding trial. 07/20/25: Patient was seen and examined at bedside. No acute events took place overnight. Abdomen is distended and patient complains of fullness. Last BM 2 days ago. According to nurse at bedside, patient urinated 400 cc at night and postvoid bladder scan showed 500 cc remaining. Straight cath removed nearly a liter of urine at noon. Given that symptoms began after starting Reglan, will discontinue and monitor for signs of improvement. Otherwise, he remains tachycardic but on room air. Exam Vital Signs Temp Pulse Resp BP Pulse Ox O2 Del Method O2 Flow Rate 98.1 F 99 20 124/82 99 Room Air 2 07/20/25 12:00 07/20/25 15:01 07/20/25 15:01 07/20/25 12:00 07/20/25 15:01 07/20/25 12:00 07/19/25 16:25 FiO2 30 07/19/25 16:25 Narrative Exam General: Patient is alert and but not fully oriented (but at baseline, patient has developmental delay). In no distress. Cardio: Nomral rate, normal rhythm, no murmurs, gallops or rubs appreciated. Resp: Normal lung sounds, no rales or wheezing auscultated. MSK/ Extremities: No muscle or joint pain on any movement. No bruising or skin changes visible. No presence of trace or pitting edema in lower extremities bilaterally, dorsalis pedis pulses +2 bilaterally GI/Abdomen: Visual abdominal distention present. BS deminished in all four quadrant. Percussio dull. Abdomen tense and diffusely tender to palpation. Neuro: No focal motor or sensory deficits in the UE or LE bilat Psych: Judgment thought and behavior hindered due to developmental delay. Good affect. Cooperative Objective Labs 07/21/25 08:45 07/20/25 08:24 Labs: Laboratory Results - last 24 hr 07/20/25 08:24 WBC 8.2 RBC 3.33 L Hgb 9.3 L Hct 29.8 L MCV 90 MCH 27.9 MCHC 31.2 RDW Std Deviation 50.2 H Plt Count 367 D Neut % (Auto) 74 Lymph % (Auto) 17 [place] % (Auto) 7 Eos % (Auto) 1 Baso % (Auto) 1 Neut # (Auto) 6.0 Lymph # (Auto) 1.4 [place] # (Auto) 0.6 Eos # (Auto) 0.1 Baso # (Auto) 0.1 Immature Gran # (Auto) 0.08 H Absolute Nucleated RBC 0.00 Immature Gran % 1 H Nucleated RBC % 0 Sodium 143 Potassium 3.7 D Chloride 105 Carbon Dioxide 29.2 Anion Gap 9 BUN 13 Creatinine 1.0 Estim Creat Clear Calc 74.0 eGFR > 60 BUN/Creatinine Ratio 13 Glucose 139 H Calculated Osmolality 287 Calcium 8.7 Corrected Calcium 8.9 Phosphorus 3.5 Albumin 3.7 ABG Interpretation ABG results: 07/09/25 04:04 ABG pH 7.29 L ABG pCO2 57 H ABG pO2 86 ABG HCO3 28 H ABG O2 Saturation 96 ABG Base Excess 1 Quality Measures Quality Measures VTE prophylaxis (SCD) and none Assessment & Plan Assessment Current Active Medications: Generic Name Dose Route Start Last Admin Trade Name Freq PRN Reason Stop Dose Admin Acetaminophen 1,000 mg 07/07/25 15:20 Acetaminophen 500 Mg Tablet PO 08/05/25 15:39 Q6H PRN PAIN OR FEVER > 99.9 Albuterol/Ipratropium 3 ml 07/09/25 09:32 07/20/25 15:00 Albuterol/Ipratropium (Duoneb) Rt Flavia 3 Ml Nebu INH 08/08/25 09:31 3 ml Q4HRRT RHINA Administration Clonazepam 1 mg 07/16/25 09:40 Clonazepam 0.5 Mg Tablet PO 07/21/25 13:59 TID PRN Agitation Protocol Fluvoxamine 100 Mg 0 ea 07/06/25 21:00 07/20/25 12:33 Tablet PO 08/05/25 20:59 Not Given BID RHINA Dextrose 50 ml 07/06/25 15:47 Dextrose 50%-Water Inj 50 Ml Syringe IV 08/05/25 15:46 Q15MIN PRN BG <50 OR BG <70 & pt unresponsive Diclofenac Sodium 2 gm 07/14/25 14:00 07/20/25 14:24 Diclofenac 1% Top Gel 100 Gm Tube TOP 08/13/25 13:59 Not Given TID RHINA Protocol Glucagon 1 mg 07/06/25 15:47 Glucagon Inj 1 Mg Vial IM Q15MIN PRN BG <70, and no IV access Ampicillin Sodium/Sulbactam 50 mls @ 100 mls/hr 07/19/25 12:00 07/20/25 12:32 Sodium 1.5 gm/ Sodium Chloride IV 07/26/25 11:59 100 mls/hr Q6HR RHINA Administration Insulin Human Lispro 0 unit 07/06/25 18:00 07/20/25 12:10 Insulin Lispro (Admelog) 1 Unit/0.01 Ml Unit SC 08/05/25 17:59 Not Given Q6HR RHINA Protocol Iron Sucrose 200 mg 07/19/25 09:00 07/20/25 12:32 Iron Sucrose Cplx Inj 20 Mg/Ml Vial 5 Ml IVP 08/18/25 08:59 200 mg QDAY RHINA Administration Lactobacillus Rhamnosus 1 cap 07/19/25 09:00 07/20/25 08:54 Lactobacillus Rhamnosus 1 Cap PO 08/18/25 08:59 1 cap BID RHINA Administration Lactulose 30 gm 07/19/25 14:00 07/20/25 14:24 Lactulose Syrup 20 Gm/30 Ml Udc PO 08/18/25 13:59 Not Given Q8HR RHINA Protocol Metoclopramide HCl 10 mg 07/16/25 14:00 07/20/25 05:23 Metoclopramide Inj 5 Mg/Ml Vial 2 Ml IVP 08/15/25 13:59 10 mg On Hold: 07/20/25 11:50 Q8HR RHINA Administration Protocol Metoprolol Succinate 25 mg 07/19/25 09:00 07/20/25 08:53 Metoprolol Succinate Xl 25 Mg Tabcr PO 08/18/25 08:59 25 mg QDAY RHINA Administration Ondansetron HCl 4 mg 07/06/25 15:40 07/18/25 18:02 Ondansetron Inj 2 Mg/Ml Inj 2 Ml IVP 08/05/25 15:39 4 mg Q6H PRN Administration NAUSEA OR VOMITING Protocol Pantoprazole Sodium 40 mg 07/06/25 21:00 07/20/25 08:54 Pantoprazole Inj 40 Mg Vial IVP 08/05/25 20:59 40 mg Q12HR RHINA Administration Risperidone 1 mg 07/06/25 21:00 07/20/25 08:53 Risperidone 1 Mg Tablet PO 08/05/25 20:59 1 mg BID RHINA Administration Simethicone 80 mg 07/19/25 07:58 Simethicone 80 Mg Chew PO 08/18/25 07:57 Q12H PRN distension/bloating Sodium Chloride 3 ml 07/10/25 13:18 Sodium Chloride Rt Flavia 0.9% 3 Ml Nebu INH 08/09/25 13:17 PRN PRN SOLN Tamsulosin HCl 0.4 mg 07/18/25 11:45 07/20/25 08:54 Tamsulosin Hcl 0.4 Mg Capsule PO 08/17/25 11:44 0.4 mg QDAY RHINA Administration Plan 60 y/o male with Hx of Schizophrenia and Developmental Delay, presented with abdominal pain, constipation, and melena, admitted for acute blood loss anemia secondary to upper GI bleed. He was upgraded to the ICU after an aspiration event while undergoing prep for colonoscopy with Katie. He was downgraded to the floors on 07/11/2025, currently on nasal cannula 2-3L, ileus has resolved. Patient developed urinary retention after removing the catheter. #Urinary Retention On 07/17/25 mancuso was removed in preparation of discharge. Patient was unable to void, required straight cath as bladder scan showed volumes of 500cc and 800cc without patient being able to void each time. 07/20: Post voiding bladder scan revealed 500 cc of remaining urine, after patient had self urinated about 400cc. Straight cath performed a few hours later removed nearly a liter of accumulated urine. The onset of symptoms coincides with beginning Reglan, likely to be an anticholinergic side effect. - Discontinued Reglan (07/20) and will monitor for changes in symptoms - Encouraging ambulation - Urinary bladder exercises - Clamp Mancuso catheter and do a voiding trial. - Tamsulosin 0.4 mg Qday #Acute hypoxic respiratory failure secondary to #Aspirational pneumonia In the setting of #Severe abdominal distension #Colonic ileus #Right inguinal hernia 07/16/25 CT angio chest: Opacification of distal pulmonary artery branches is poor secondary to patient breathing, no pulmonary artery filling defects noted, Right lung pneumonia, especially right upper lobe Gastrografin enema study shows no mechanical obstruction. Hypoxic respiratory failulure is significantly improving, currently on 2-3L, previously was on high flow. Abdominal distension and ileus has improved but distension was worse today then yesterday, patient is tolerating regular diet, having BM, had 2 episodes of vomiting today. 07/18/25: KUB remarkable for, Moderate dilatation small bowel loops - Dysphagia choped diet - picky but tolerating - Increase assisted ambulation to help with gut motility and regain balance and stregnth - Continue INH Duonebs q4HR scheduled - Continue INH sodium chloride 3 mL nebulizer prn - Continue chest physiotherapy - 07/12/25 switched ceftriaxon to Unasyn to add anaerobic coverage as patient had aspirational event - Follow-up with ABG, CBC, and CMP - RT to titrate O2 and see if patient can be weaned off and discharged without oxygen and home oxygen was not approved. - Patient transferred to med surg from [facility] as he is stable and improving - Simethicone 80 mg PO x1 #Symptomatic normocytic anemia secondary to #GI bleed, likely lower GI 07/07/25 EGD: A few non-bleeding erosions at the gastroesophageal junction, erythematous mucosa in the antrum H and H was stable fro past few days but dropped since yesterday from 10.1 to 8.7 GI wants to see outpatient as there is no acute indication for colonoscopy. - Continue IV Protonix q12HR for GI prophylaxis - Transfuse if Hgb<7 - Resumed diet, advancing as tolerated - Monitor daily CBC #Hypokalemia- stable K: 3.3 on 07/09, 3.3 on 07/10, 3.5 on 07/11, 4.2 on 07/12, 3.4 on 07/13, 3.4 on 07/15, 4.2 on 07/17 - Monitor and replete as needed - Keep Mg and K over 2 and 4 respectively #Hyperglycemia- Stable Today's finger stick BG 103, up trended to 124 - Continue to monitor - Patient on SSI #History of schizophrenia #History of depression #History of anxiety #Agitation - Restarted home meds as patient is back on diet (PO Risperdal 1 mg BID, PO fluvoxamine 100 mg BID) - Clonazapan PRN #History of developmental delay #History of [place] Palsy #Lactic acidosis (resolved) Health Maintenance: Code Status: Full DVT Prophylaxis: SCDs, ambulation GI Prophylaxis: Protonix Diet: dysphagia 2 Mancuso: Mancuso catheter in place, clamped for voiding trial Lines: PIV Supplemental O2: 1-2 L NC Disposition: Med surg, bladder training. This case was discussed with my attending physician, Dr. Dubose, and senior resident, Dr Savannah Aleman. Carmel Pantoja, PGY I Attending Provider Attestation/Addendum I Wes Dubose MD reviewed the note and agree with the resident's assessment & plan with modifications/additions/exceptions as below. I have personally reviewed labs, imaging, home meds/prior records, examined the patient, formulated and discussed management plan with the IM team. Patient with developmental delay initially admitted for melena however EGD did not reveal any significant source of bleeding, subsequent hospital course complicated by aspiration pneumonia leading to acute hypoxemic respiratory failure during preparation for colonoscopy which was then subsequently canceled. Patient also developed ileus and urinary retention. Previously Gastrografin study did not reveal any small bowel obstruction however repeat CT abdomen/pelvis was obtained to evaluate for severely distended abdomen and extensive stool burden and evidence on KUB. CT abdomen did reveal distended small bowel loops and significant contrast material presents in ascending transverse and descending colon since last Gastrografin study indicating potential large bowel obstruction. However patient does have large bowel movements yesterday. Mancuso catheter has been taken out however continues to have retention, will continue straight catheter and repeat bladder scan in 6 hours, continue lactulose.
--- NOTE | 2025-07-20 17:02 | PC.NURSE ---
bladder canned pt 65ml
[2025-07-21] VITALS (13 sets, daily range): BP systolic 115–138; BP diastolic 68–99; PULSE 94–117; RESP 17–99; TEMP 36.2–37.1; O2SAT 92–100; BMI 27.6
[2025-07-21] MEDS: INSULIN LISPRO (AdmeLOG) 1 UNIT/0.01 ML UNIT SC (00:02)
--- NOTE | 2025-07-21 03:00 | PC.NURSE ---
Bladder scanned Pt with volume of [address] Aceves made aware. to put in a straight in and out cath x1 order.
[2025-07-21] MEDS: ALBUTEROL/IPRATROPIUM (Duoneb) RT SOL 3 ML NEBU INH ×6 (03:18→22:37)
[2025-07-21] MEDS: AMPICILLIN/SULBAC INJ 1.5 GM in SODIUM CHLORIDE 0.9% (Popper) 50 ML IV ×4 (05:50→23:46)
[2025-07-21] MEDS: LACTULOSE SYRUP 20 GM/30 ML UDC 30 GM PO ×2 (05:51→14:01)
--- NOTE | 2025-07-21 08:34 | PD.RESPRO ---
Documentation for date of: 07/21/25 Subjective Subjective Interval history: Patient was seen and examined at bedside. Patient appeared uncomfortable, confused, and his abdomen seems to be distended. His heart rate continued to increase and go up to 114 bpm, regular. Patient had multiple urinary retention primary team believes it is secondary to Reglan which was held. Patient yesterday had 2 bowel movement. His potassium today is 3.6, primary team repleted, magnesium is 2.2. Exam Vital Signs Temp Pulse Resp BP Pulse Ox O2 Del Method O2 Flow Rate 97.9 F 94 18 115/83 92 L Room Air 2 07/21/25 08:00 07/21/25 08:00 07/21/25 08:00 07/21/25 08:00 07/21/25 08:00 07/21/25 08:00 07/19/25 16:25 FiO2 30 07/19/25 16:25 Narrative Exam GEN: Alert, confused, was lying in bed however looks uncomfortable, noticed to be sweaty, answer simple questions however he is confused, on room air HEENT: NC/AC, oral mucosa dry, neck supple CVS: RRR, S1-S2, S3, no murmurs appreciated RESP: Good air entry bilaterally, no wheezing. GI: Severely distended, firm, mildly tender MSK: No extremity edema SKIN: warm and clammy OPERATIONS VOCATIONAL INSTRUCTOR: Able to move all extremeties, limited due to mental status Objective Labs 07/21/25 08:45 07/20/25 08:24 Labs: Laboratory Results - last 24 hr 07/20/25 08:24 WBC 8.2 RBC 3.33 L Hgb 9.3 L Hct 29.8 L MCV 90 MCH 27.9 MCHC 31.2 RDW Std Deviation 50.2 H Plt Count 367 D Neut % (Auto) 74 Lymph % (Auto) 17 [place] % (Auto) 7 Eos % (Auto) 1 Baso % (Auto) 1 Neut # (Auto) 6.0 Lymph # (Auto) 1.4 [place] # (Auto) 0.6 Eos # (Auto) 0.1 Baso # (Auto) 0.1 Immature Gran # (Auto) 0.08 H Absolute Nucleated RBC 0.00 Immature Gran % 1 H Nucleated RBC % 0 Sodium 143 Potassium 3.7 D Chloride 105 Carbon Dioxide 29.2 Anion Gap 9 BUN 13 Creatinine 1.0 Estim Creat Clear Calc 74.0 eGFR > 60 BUN/Creatinine Ratio 13 Glucose 139 H Calculated Osmolality 287 Calcium 8.7 Corrected Calcium 8.9 Phosphorus 3.5 Albumin 3.7 ABG Interpretation ABG results: 07/09/25 04:04 ABG pH 7.29 L ABG pCO2 57 H ABG pO2 86 ABG HCO3 28 H ABG O2 Saturation 96 ABG Base Excess 1 Quality Measures Quality Measures VTE prophylaxis (SCD) and none Assessment & Plan Assessment Current Active Medications: Generic Name Dose Route Start Last Admin Trade Name Freq PRN Reason Stop Dose Admin Acetaminophen 1,000 mg 07/07/25 15:20 Acetaminophen 500 Mg Tablet PO 08/05/25 15:39 Q6H PRN PAIN OR FEVER > 99.9 Albuterol/Ipratropium 3 ml 07/09/25 09:32 07/21/25 07:07 Albuterol/Ipratropium (Duoneb) Rt Flavia 3 Ml Nebu INH 08/08/25 09:31 3 ml Q4HRRT RHINA Administration Clonazepam 1 mg 07/16/25 09:40 Clonazepam 0.5 Mg Tablet PO 07/21/25 13:59 TID PRN Agitation Protocol Fluvoxamine 100 Mg 0 ea 07/06/25 21:00 07/20/25 21:12 Tablet PO 08/05/25 20:59 Not Given BID RHINA Dextrose 50 ml 07/06/25 15:47 Dextrose 50%-Water Inj 50 Ml Syringe IV 08/05/25 15:46 Q15MIN PRN BG <50 OR BG <70 & pt unresponsive Diclofenac Sodium 2 gm 07/14/25 14:00 07/21/25 05:57 Diclofenac 1% Top Gel 100 Gm Tube TOP 08/13/25 13:59 Not Given TID RHINA Protocol Glucagon 1 mg 07/06/25 15:47 Glucagon Inj 1 Mg Vial IM Q15MIN PRN BG <70, and no IV access Ampicillin Sodium/Sulbactam 50 mls @ 100 mls/hr 07/19/25 12:00 07/21/25 05:50 Sodium 1.5 gm/ Sodium Chloride IV 07/26/25 11:59 100 mls/hr Q6HR RHINA Administration Insulin Human Lispro 0 unit 07/06/25 18:00 07/21/25 05:50 Insulin Lispro (Admelog) 1 Unit/0.01 Ml Unit SC 08/05/25 17:59 Not Given Q6HR RHINA Protocol Iron Sucrose 200 mg 07/19/25 09:00 07/20/25 12:32 Iron Sucrose Cplx Inj 20 Mg/Ml Vial 5 Ml IVP 08/18/25 08:59 200 mg QDAY RHINA Administration Lactobacillus Rhamnosus 1 cap 07/19/25 09:00 07/20/25 21:11 Lactobacillus Rhamnosus 1 Cap PO 08/18/25 08:59 1 cap BID RHINA Administration Lactulose 30 gm 07/19/25 14:00 07/21/25 05:51 Lactulose Syrup 20 Gm/30 Ml Udc PO 08/18/25 13:59 30 gm Q8HR RHINA Administration Protocol Metoclopramide HCl 10 mg 07/16/25 14:00 07/20/25 05:23 Metoclopramide Inj 5 Mg/Ml Vial 2 Ml IVP 08/15/25 13:59 10 mg On Hold: 07/20/25 11:50 Q8HR RHINA Administration Protocol Metoprolol Succinate 25 mg 07/19/25 09:00 07/20/25 08:53 Metoprolol Succinate Xl 25 Mg Tabcr PO 08/18/25 08:59 25 mg QDAY RHINA Administration Ondansetron HCl 4 mg 07/06/25 15:40 07/18/25 18:02 Ondansetron Inj 2 Mg/Ml Inj 2 Ml IVP 08/05/25 15:39 4 mg Q6H PRN Administration NAUSEA OR VOMITING Protocol Pantoprazole Sodium 40 mg 07/06/25 21:00 07/20/25 21:10 Pantoprazole Inj 40 Mg Vial IVP 08/05/25 20:59 40 mg Q12HR RHINA Administration Risperidone 1 mg 07/06/25 21:00 07/20/25 21:11 Risperidone 1 Mg Tablet PO 08/05/25 20:59 1 mg BID RHINA Administration Simethicone 80 mg 07/19/25 07:58 Simethicone 80 Mg Chew PO 08/18/25 07:57 Q12H PRN distension/bloating Sodium Chloride 3 ml 07/10/25 13:18 Sodium Chloride Rt Flavia 0.9% 3 Ml Nebu INH 08/09/25 13:17 PRN PRN SOLN Tamsulosin HCl 0.4 mg 07/18/25 11:45 09/20/25 08:54 Tamsulosin Hcl 0.4 Mg Capsule PO 08/17/25 11:44 0.4 mg QDAY [facility] Administration Plan Summary: 60-year-old male patient known case of schizophrenia, hyperlipidemia, developmental delay, was brought from [facility] facility after he was started to experience abdominal pain few hours before presentation. Patient was unable to provide accurate history due to his chronic mental status, most of the history was taken from the caregiver Charu Jean. Cardiology team was consulted due to tachycardia #Sinus tachycardia likely 2/2 improving #Urinary retention #Abdomial pain #ACS ruled out Patient presented with acute abdominal pain, tachycardia, melena, patient was sweaty, pulse rate was 129, blood pressure was 119/65.on examination found to have S1-S2 and S3 He has trace lower edema, no elevated JVD Hemoglobin was 5.8. TSH was 5.8, Troponin was negative, chest x-ray showed left ventricular prominence, elevated right hemidiaphragm. EKG was done initially showed sinus tachycardia, repeat today during the rapid also showed sinus tachycardia with deep Q-wave on the leads, I, III and AVf. Patient most likely have secondary cause of his sinus tachycardia including but not limited to infection, pain, acute blood loss, less likely medication side effect such as serotonin syndrome 07/09/2025, patient had an episode of aspiration, he was intubated and upgraded to the ICU. BNP came back normal, telemonitoring was reviewed for the past 24-hour was negative for any arrhythmias and it only showed sinus tachycardia. 07/08/25 Echo: rate more than 115 bpm. Normal left ventricular size and function. Grade I diastolic dysfunction. EF estimated at 55-60%. The right ventricle is normal in size and systolic function. Normal RVSP. Mild MR and TR. No pericardial effusion Metoprolol attempted to be started however there was concern for rate control may mask possible deterioration of patient condition. 07/14/2025, patient remains on restraints, was started on TPN, telemonitoring over the past 24 hours showed increase in the heart rate to 152, sinus rhythm with some PVCs. No ST changes noted 07/15/2025, CT angio of the chest was done was negative for pulmonary embolism however there was artifact during imaging. Plus the patient has consultation for that reason patient is not eligible for VQ scan. Lower extremity Doppler ultrasound: negative for any DVT Plan ? Strict in and out ? Treat underlying cause urinary retention vs periodic abdominal pain/distension versus less likely malignancy ? Daily potassium and magnesium ? Replete electrolytes to keep potassium and magnesium above 4 and 2 respectively as patient is losing K through diarrhea #GIB s/p 4 pRBC #Acute post hemorrhagic anemia #Upper vs lower GIB Presented with melena. Hgb on admission 07/06 5.8, increased to 7.7, and subsequently decreased back to 6.3 on 07/10. 07/07 EGD showed few non bleeding erosions at GE junction, erythematous mucosa in antrum, normal duodenum. Patient aspirated on Golytely 07/09 and was intubated and upgraded to ICU, extubated 07/11. Gastrograffin enema study negative Plan - CTM Hgb - Colonoscopy outpatient per GI #Developmental delay #History of schizophrenia #Hyperglycemia #Depression #Acute blood loss Plan ? Follow-up with the primary team recommendation Thank you for your consultation please do not hesitate to reach out if you have any question or concern - Patient's plan and care discussed with my attending, Dr. Alison Santos MD Internal Medicine PGY-3 Attending Provider Attestation/Addendum I have personally seen and examined the patient separately on the above date of service and discussed the plan of care with the resident. I reviewed the resident Dr. Santos consultation progress note and agree with the resident findings and plan in the note above and have also edited the documentation to reflect my findings and plan. Diego Rosas M.D. Interventional Cardiology
[2025-07-21 09:17] LABS: Basophils # (Auto) 0.1 Thou/mm3 (0.0-0.2); Basophils % (Auto) 1 % (0-2.5); Eosinophils # (Auto) 0.2 Thou/mm3 (0.0-0.5); Eosinophils % (Auto) 2 % (0-10); Hematocrit 30.7 % (41.0-53.0); Hemoglobin 9.7 g/dL (13.5-16.0); Immature Granulocytes Auto 0.14 Thou/mm3 (0.00-0.00); Lymphocytes # (Auto) 1.5 Thou/mm3 (1.0-4.8); Lymphocytes % (Auto) 18 % (10-50); Mean Corpuscular HGB Conc 31.6 g/dl (31.0-37.0); Mean Corpuscular Hemoglobin 28.5 pg (25.0-35.0); Mean Corpuscular Volume 90 fL (80-100); Monocytes # (Auto) 0.7 Thou/mm3 (0.0-0.8); Monocytes % (Auto) 8 % (0-12); Neutrophils # (Auto) 5.8 Thou/mm3 (1.8-7.7); Neutrophils % (Auto) 70 % (37-80); Nucleated Red Blood Cell # 0.02 Thou/mm3 (0.00-0.00); Nucleated Red Blood Cell % 0 /100 WBC (0); Platelet Count 339 Thou/mm3 (140-440); RDW Standard Deviation 51.6 fL (35.1-43.9); Red Blood Count 3.40 Miln/mm3 (4.50-5.90); White Blood Count 8.4 Thou/mm3 (3.8-10.6)
[2025-07-21] MEDS: LACTOBACILLUS RHAMNOSUS 1 CAP PO ×2 (09:25→21:46)
[2025-07-21] MEDS: METOPROLOL SUCCINATE XL 25 MG TABCR PO (09:26)
[2025-07-21] MEDS: TAMSULOSIN HCL 0.4 MG CAPSULE PO (09:26)
[2025-07-21] MEDS: IRON SUCROSE CPLX INJ 20 MG/ML VIAL 5 ML 200 MG IVP (09:26)
--- NOTE | 2025-07-21 12:04 | PC.NURSE ---
Bladder scanned patient 936ml. Called doctors and received orders for a folley catheter drained 950 ml in to folley.
--- NOTE | 2025-07-21 12:55 | PC.SS ---
Rounding: Pt developed urinary retention, DC plan [employer]
--- NOTE | 2025-07-21 13:07 | XR_ITS ---
Examination: AP chest single view Technique one AP upright portable chest single view Date and time: July 21, 2025, 1335 hrs., Comparison 07/14/2025 Indications: Post orogastric tube placement Findings: Orogastric tube in the stomach satisfactory position Air distended colon No free air. Mild to moderate elevation right hemidiaphragm. Mild enlargement left ventricle with mild to moderate vascular congestion Impression: Orogastric tube in stomach satisfactory position
--- NOTE | 2025-07-21 13:59 | ESPR_ITS ---
<Statement entered by Florentino Nuñez MD - 07/21/25 14:45> No acute overnight events. However, patient was noted to have 900 cc on bladder scan. This a.m., patient noted to have 900 cc on bladder scan again and decision was made to place Mancuso. On exam, abdomen more firm and distended compared to yesterday. Patient endorses tenderness and nausea, so will place NG tube on LIS and monitor for improvement. Otherwise, will try enemas for relief as review of imaging reveals dilated colon that may be from Gastrografin study 5 days ago. Will touch base with GI for further recommendations. ----- Note reviewed and agree with care plan as documented. Please refer to the note below for further details. Plan discussed with attending physician Dr. Sedrick Nuñez MD PGY-2 Internal Medicine Documentation for date of: 07/21/25 Subjective Subjective Interval history: 60 year old male with past medical history of schizophrenia, developmental delay, Lomas's palsy and abdominal hernia, admitted for melena. S/P EGD, found non bleeding erosions at the gastroesophageal junction. Colonoscopy now to be done outpatient as HH is stable and no acute indication for colonoscopy. pending/postponed as the stay is currently complicated by ileus and acute respiratory failure on high flow oxygen. 07/15/25: No remarkable overnight events. Patient was seen at bedside today morning. He was awake, alert and resting comfortably in the bed. He was conversational and in no distress. Mentioned that his knee pain from yesterday is resolved. On clear liquid diet, pending rectal enema screen. 07/16/25: Overnight patient had BP at 158/109, was given labetalol 10 mg X1 and Olanzapine for agitation. Patient was seen at bedside, INSTITUTIONAL COOK was in the room helping patient with a sponge bath. His food tray was a bedside but he had only eaten about 10%, noting he doesn't feel like eating. He did drink his ensure protein shake. Still on high flow (20L, 25 Fi[address]). CT angio chest was done yesterday evening, PE ruled out. 07/17/25: No overnight events. Patient seen at bedside, alert, oriented, and resting comfortably. He had finished his whole breakfast. Had a bowel movement over night. He reported that he is felling well and ready to go home. Showed him how to use incentive spirometer and he was using good effort. He is currently only on 1-2L of Oxygen while resting but requires 3-4 when standing. Unable to arrange home oxygen will continue to wean off oxygen and then discharge. 07/18/25: Mancuso catheter was removed yesterday in preparation for discharge but patient did not void and required a straight cath overnight, draining 500cc and then again 800cc later in the day. Patient was seen 3-4 times today and the nuclear technologist was present in the room. Patient ate him full meal and had a BM earlier in the morning, but his abdomen was visually more distended then yesterday. Home oxygen has been secured but unable to discharge home as patient is unable to void without catheter. Patient was able to maintain oxygen saturation over 90% without supplemental oxygen. -Dr. Shelton (decision maker) was consulted over the phone. Patient's hospital course, reason for admission, and complications were discussed. Dr. Shelton agrees with current plan and management. 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 07/19/25: No overnight events. Hgb dropped from 10.1 to 8.7. Patient alert and oriented resting comfortably. Polymer Materials Consultant present in room. Pending voiding trial. 07/20/25: Patient was seen and examined at bedside. No acute events took place overnight. Abdomen is distended and patient complains of fullness. Last BM 2 days ago. According to nurse at bedside, patient urinated 400 cc at night and postvoid bladder scan showed 500 cc remaining. Straight cath removed nearly a liter of urine at noon. Given that symptoms began after starting Reglan, will discontinue and monitor for signs of improvement. Otherwise, he remains tachycardic but on room air. 07/21/2025: Patient was seen and examined at bedside. No acute events took place overnight. Patient did not void urine yesterday despite bladder training, and 900 cc was removed through straight cath at 3:30 AM. Patient had 2 sizable bowel movements yesterday. Patient only consumed few bites of food served to him according to the nurse. Nonetheless, he was able to tolerate intake well without nausea or vomiting. Will order enema washes and NGT decompression. Exam Vital Signs Temp Pulse Resp BP Pulse Ox O2 Del Method O2 Flow Rate 98.7 F 112 H 17 133/88 H 95 Room Air 2 07/21/25 12:00 07/21/25 12:00 07/21/25 12:00 07/21/25 12:00 07/21/25 12:00 07/21/25 12:00 07/19/25 16:25 FiO2 30 07/19/25 16:25 Narrative Exam General: Patient is alert and but not fully oriented (but at baseline, patient has developmental delay). In no distress. Cardio: Nomral rate, normal rhythm, no murmurs, gallops or rubs appreciated. Resp: Normal lung sounds, no rales or wheezing auscultated. MSK/ Extremities: No muscle or joint pain on any movement. No bruising or skin changes visible. No presence of trace or pitting edema in lower extremities bilaterally, dorsalis pedis pulses +2 bilaterally GI/Abdomen: Visual abdominal distention present. BS deminished in all four quadrant. Percussio dull. Abdomen tense and diffusely tender to palpation. Neuro: No focal motor or sensory deficits in the UE or LE bilat Psych: Judgment thought and behavior hindered due to developmental delay. Good affect. Cooperative Objective Labs 07/21/25 08:45 07/20/25 08:24 Labs: Laboratory Results - last 24 hr 07/21/25 08:45 WBC 8.4 RBC 3.40 L Hgb 9.7 L Hct 30.7 L MCV 90 MCH 28.5 MCHC 31.6 RDW Std Deviation 51.6 H Plt Count 339 Neut % (Auto) 70 Lymph % (Auto) 18 [place] % (Auto) 8 Eos % (Auto) 2 Baso % (Auto) 1 Neut # (Auto) 5.8 Lymph # (Auto) 1.5 [place] # (Auto) 0.7 Eos # (Auto) 0.2 Baso # (Auto) 0.1 Immature Gran # (Auto) 0.14 H Absolute Nucleated RBC 0.02 H Immature Gran % 2 H Nucleated RBC % 0 ABG Interpretation ABG results: 07/09/25 04:04 ABG pH 7.29 L ABG pCO2 57 H ABG pO2 86 ABG HCO3 28 H ABG O2 Saturation 96 ABG Base Excess 1 Quality Measures Quality Measures VTE prophylaxis (SCD) and none Assessment & Plan Assessment Current Active Medications: Generic Name Dose Route Start Last Admin Trade Name Freq PRN Reason Stop Dose Admin Acetaminophen 1,000 mg 07/07/25 15:20 Acetaminophen 500 Mg Tablet PO 08/05/25 15:39 Q6H PRN PAIN OR FEVER > 99.9 Albuterol/Ipratropium 3 ml 07/09/25 09:32 07/21/25 10:58 Albuterol/Ipratropium (Duoneb) Rt Flavia 3 Ml Nebu INH 08/08/25 09:31 3 ml Q4HRRT RHINA Administration Fluvoxamine 100 Mg 0 ea 07/06/25 21:00 07/21/25 09:26 Tablet PO 08/05/25 20:59 Not Given On Hold: 07/21/25 12:51 BID RHINA Comment: CALLED AND SPOKE WITH DR. PANTOJA, WE HAVE HAD TROUBLE BRING IN THIS MEDICATION FROM PATIENT'S HOME FACILITY. I RECOMMENDED TO DR Radha PANTOJA THAT WE HAVE OTHER SSRIs AVAILABLE THAT WE COULD RELIABLY ADMINISTER TO THE PATIENT DURING THE INPATIENT STAY. DR. PANTOJA WAS AGREEABLE TO THIS AND ASKED WHAT I RECOMMENDED. I RECOMMENDED SERTRALINE 100 MG PO QDAY, A LOWER DOSE THAN EQUIVALENT TO THE 200 MG DAILY DOSE OF FLUVOXIMINE DUE TO POTENTIAL IDIOSYNCRATIC SIDE EFFECTS, AND ADJUSTING THE DOSE BASED ON RESPONSE. OKAY PER DR. PANTOJA Dextrose 50 ml 07/06/25 15:47 Dextrose 50%-Water Inj 50 Ml Syringe IV 08/05/25 15:46 Q15MIN PRN BG <50 OR BG <70 & pt unresponsive Diclofenac Sodium 2 gm 07/14/25 14:00 07/21/25 05:57 Diclofenac 1% Top Gel 100 Gm Tube TOP 08/13/25 13:59 Not Given TID [facility] Protocol Glucagon 1 mg 07/06/25 15:47 Glucagon Inj 1 Mg Vial IM Q15MIN PRN BG <70, and no IV access Ampicillin Sodium/Sulbactam 50 mls @ 100 mls/hr 07/19/25 12:00 07/21/25 11:06 Sodium 1.5 gm/ Sodium Chloride IV 07/26/25 11:59 100 mls/hr Q6HR RHINA Administration Insulin Human Lispro 0 unit 07/06/25 18:00 07/21/25 11:03 Insulin Lispro (Admelog) 1 Unit/0.01 Ml Unit SC 08/05/25 17:59 Not Given Q6HR RHINA Protocol Iron Sucrose 200 mg 07/19/25 09:00 07/21/25 09:26 Iron Sucrose Cplx Inj 20 Mg/Ml Vial 5 Ml IVP 08/18/25 08:59 200 mg QDAY RHINA Administration Lactobacillus Rhamnosus 1 cap 07/19/25 09:00 07/21/25 09:25 Lactobacillus Rhamnosus 1 Cap PO 08/18/25 08:59 1 cap BID RHINA Administration Lactulose 30 gm 07/19/25 14:00 07/21/25 05:51 Lactulose Syrup 20 Gm/30 Ml Udc PO 08/18/25 13:59 30 gm Q8HR RHINA Administration Protocol Metoprolol Succinate 25 mg 07/19/25 09:00 07/21/25 09:26 Metoprolol Succinate Xl 25 Mg Tabcr PO 08/18/25 08:59 25 mg QDAY RHINA Administration Ondansetron HCl 4 mg 07/06/25 15:40 07/18/25 18:02 Ondansetron Inj 2 Mg/Ml Inj 2 Ml IVP 08/05/25 15:39 4 mg Q6H PRN Administration NAUSEA OR VOMITING Protocol Pantoprazole Sodium 40 mg 07/06/25 21:00 07/21/25 09:25 Pantoprazole Inj 40 Mg Vial IVP 08/05/25 20:59 40 mg Q12HR RHINA Administration Risperidone 1 mg 07/06/25 21:00 07/21/25 09:26 Risperidone 1 Mg Tablet PO 08/05/25 20:59 1 mg BID RHINA Administration Sertraline HCl 100 mg 07/21/25 13:00 Sertraline Hcl 25 Mg Tablet PO 08/20/25 12:59 QDAY RHINA Simethicone 80 mg 07/19/25 07:58 Simethicone 80 Mg Chew PO 08/18/25 07:57 Q12H PRN distension/bloating Sodium Chloride 3 ml 07/10/25 13:18 Sodium Chloride Rt Flavia 0.9% 3 Ml Nebu INH 08/09/25 13:17 PRN PRN SOLN Tamsulosin HCl 0.4 mg 07/18/25 11:45 07/21/25 09:26 Tamsulosin Hcl 0.4 Mg Capsule PO 08/17/25 11:44 0.4 mg QDAY RHINA Administration Plan 60 y/o male with Hx of Schizophrenia and Developmental Delay, presented with abdominal pain, constipation, and melena, admitted for acute blood loss anemia secondary to upper GI bleed. He was upgraded to the ICU after an aspiration event while undergoing prep for colonoscopy with Katie. He was downgraded to the floors on 07/11/2025, currently on nasal cannula 2-3L, ileus has resolved. Patient developed urinary retention after removing the catheter. #Urinary Retention On 07/17/25 mancuso was removed in preparation of discharge. Patient was unable to void, required straight cath as bladder scan showed volumes of 500cc and 800cc without patient being able to void each time. 07/20: Post voiding bladder scan revealed 500 cc of remaining urine, after patient had self urinated about 400cc. Straight cath performed a few hours later removed nearly a liter of accumulated urine. The onset of symptoms coincides with beginning Reglan, likely to be an anticholinergic side effect. - Discontinued Reglan (07/20) and will monitor for changes in symptoms - Encouraging ambulation - Urinary bladder exercises - Clamp Mancuso catheter and do a voiding trial. - Tamsulosin 0.4 mg Qday #Acute hypoxic respiratory failure secondary to #Aspirational pneumonia In the setting of #Severe abdominal distension #Colonic ileus #Right inguinal hernia #Gastrointestinal motility disorder with colonic inertia 07/16/25 CT angio chest: Opacification of distal pulmonary artery branches is poor secondary to patient breathing, no pulmonary artery filling defects noted, Right lung pneumonia, especially right upper lobe Gastrografin enema study shows no mechanical obstruction. Hypoxic respiratory failulure is significantly improving, currently on 2-3L, previously was on high flow. Abdominal distension and ileus has improved but distension was worse today then yesterday, patient is tolerating regular diet, having BM, had 2 episodes of vomiting today. 07/18/25: KUB remarkable for, Moderate dilatation small bowel loops and prominent colonic ileus 07/19/25: CT abdomen showed moderate air and stool distended colon without evidence of SBO Lactate 0.9 (07/21) and ordered CRP - Dysphagia choped diet - picky but tolerating - Increase assisted ambulation to help with gut motility and regain balance and stregnth - Continue INH Duonebs q4HR scheduled - Continue INH sodium chloride 3 mL nebulizer prn - Continue chest physiotherapy - 07/12/25 switched ceftriaxon to Unasyn to add anaerobic coverage as patient had aspirational event - Follow-up with ABG, CBC, and CMP - RT to titrate O2 and see if patient can be weaned off and discharged without oxygen and home oxygen was not approved. - Patient transferred to med surg from [facility] as he is stable and improving - Simethicone 80 mg PO daily - Lactulose 30g Q8h - NGT decompression with LIS - Mineral oil enema x1 #Symptomatic normocytic anemia secondary to #GI bleed, likely lower GI 07/07/25 EGD: A few non-bleeding erosions at the gastroesophageal junction, erythematous mucosa in the antrum H and H was stable fro past few days but dropped since yesterday from 10.1 to 8.7 GI wants to see outpatient as there is no acute indication for colonoscopy. - Continue IV Protonix q12HR for GI prophylaxis - Transfuse if Hgb<7 - Resumed diet, advancing as tolerated - Monitor daily CBC #Hypokalemia- stable K: 3.3 on 07/09, 3.3 on 07/10, 3.5 on 07/11, 4.2 on 07/12, 3.4 on 07/13, 3.4 on 07/15, 4.2 on 07/17 - Monitor and replete as needed - Keep Mg and K over 2 and 4 respectively #Hyperglycemia- Stable Today's finger stick BG 103, up trended to 124 - Continue to monitor - Patient on SSI #History of schizophrenia #History of depression #History of anxiety #Agitation - Restarted home meds as patient is back on diet (PO Risperdal 1 mg BID, PO fluvoxamine 100 mg BID) - Sertraline PO 100mg QD while inpatient instead of home SSRI - Clonazapan PRN #History of developmental delay #History of [place] Palsy #Lactic acidosis (resolved) Health Maintenance: Code Status: Full DVT Prophylaxis: SCDs, ambulation GI Prophylaxis: Protonix Diet: dysphagia 2 Mancuso: Mancuso catheter in place, clamped for voiding trial Lines: PIV Supplemental O2: 1-2 L NC Disposition: Med surg, bladder training, pending regain of bladder and bowel function This case was discussed with my attending physician, Dr. Dubose, and senior resident, Dr Savannah Aleman. Carmel Pantoja DO PGY I Attending Provider Attestation/Addendum I Wes Dubose MD reviewed the note and agree with the resident's assessment & plan with modifications/additions/exceptions as below. I have personally reviewed labs, imaging, home meds/prior records, examined the patient, formulated and discussed management plan with the IM team. Patient with developmental delay initially admitted for melena however EGD did not reveal any significant source of bleeding, subsequent hospital course complicated by aspiration pneumonia leading to acute hypoxemic respiratory failure during preparation for colonoscopy which was then subsequently canceled. Patient also developed ileus and urinary retention. Previously Gastrografin study did not reveal any small bowel obstruction however repeat CT abdomen revealed distended small bowel loops and significant contrast material presents in ascending transverse and descending colon since last Gastrografin study indicating potential large bowel obstruction. Will keep n.p.o., place NG tube for decompression of small bowel, will reconsult GI for potential colonoscopy and further evaluation of colonic lumen, will place Mancuso catheter for drainage of bladder, will administer enema to relieve any potential rectal fecalith. Will repeat lactate level, will start empirically on Rocephin 1 g daily to help prevent transmigration.
[2025-07-21] MEDS: SERTRALINE HCL 25 MG TABLET 100 MG PO (14:01)
--- NOTE | 2025-07-21 15:50 | PD.IMPROG ---
Documentation for date of: 07/21/25 Subjective Subjective Interval history: Had 2 bowel movements yesterday passing flatus Exam Vital Signs Temp Pulse Resp BP Pulse Ox O2 Del Method O2 Flow Rate 98.7 F 117 H 18 133/88 H 99 Room Air 2 07/21/25 12:00 07/21/25 14:43 07/21/25 14:43 07/21/25 12:00 07/21/25 14:43 07/21/25 12:00 07/19/25 16:25 FiO2 30 07/19/25 16:25 Objective Labs 07/21/25 08:45 07/20/25 08:24 Labs: Laboratory Results - last 24 hr 07/21/25 08:45 WBC 8.4 RBC 3.40 L Hgb 9.7 L Hct 30.7 L MCV 90 MCH 28.5 MCHC 31.6 RDW Std Deviation 51.6 H Plt Count 339 Neut % (Auto) 70 Lymph % (Auto) 18 [place] % (Auto) 8 Eos % (Auto) 2 Baso % (Auto) 1 Neut # (Auto) 5.8 Lymph # (Auto) 1.5 [place] # (Auto) 0.7 Eos # (Auto) 0.2 Baso # (Auto) 0.1 Immature Gran # (Auto) 0.14 H Absolute Nucleated RBC 0.02 H Immature Gran % 2 H Nucleated RBC % 0 Impressions Impression: Colonic pseudoobstruction gastrointestinal motility disorder Continue conservative management ABG Interpretation ABG results: 07/09/25 04:04 ABG pH 7.29 L ABG pCO2 57 H ABG pO2 86 ABG HCO3 28 H ABG O2 Saturation 96 ABG Base Excess 1 Assessment & Plan A&P Narrative Hematochezia Plan clear liquid diet n.p.o. at midnight tonight except p.o. meds Consent for fiberoptic esophagogastroduodenoscopy with possible biopsy possible therapeutic intervention under intravenous moderate sedation If EGD negative we will consider doing a fibrotic colonoscopy prior to discharge Serial CBC IV Protonix Thank you very much for the opportunity to participate in the care of this Time Spent With Patient Time: Total time spent is greater than 50% in coordination of care (as documented) at patient's floor/unit and/or counseling patient:
--- NOTE | 2025-07-21 15:51 | PC.NURSE ---
HAVE CALLED [employer]CTORS MULTIPLE TIMES THEY DO NOT ANSWER. I WANT TO NOTIFY THEM WE HAVE NO MINERAL OIL ENEMAS. WILL CONTINUE TO CALL STAFF.
[2025-07-21] MEDS: DEXTROSE 5%-LACTATED RINGERS 1,000 ML 70 ML IV (16:00)
[2025-07-21] MEDS: DICLOFENAC 1% TOP GEL 100 GM TUBE TOP ×2 (16:00→21:49)
[2025-07-21 16:59] LABS: Lactate (Lactic Acid) 0.9 mMol/L (0.4-2.0)
[2025-07-22] VITALS (11 sets, daily range): BP systolic 139–152; BP diastolic 88–98; PULSE 92–104; RESP 17–95; TEMP 36.1–36.5; O2SAT 91–100; BMI 27.5
[2025-07-22] MEDS: ALBUTEROL/IPRATROPIUM (Duoneb) RT SOL 3 ML NEBU INH ×5 (02:16→22:03)
--- NOTE | 2025-07-22 04:32 | PC.NURSE ---
Dr. Maurice and Dr. Phillips in to see patient due to abdominal distention and no BM for about 2 days despite interventions. to order KUB.
--- NOTE | 2025-07-22 04:35 | XR_ITS ---
Examination: Abdomen AP single view Technique: AP portable supine abdomen, single view Exam date and time: July 22, 2025, 0439 hrs. Indications: Abdominal distention today. Findings: Significant colonic air distention These films do not include the hemidiaphragm The osseous structures are intact Impression: Limited study Prominent colonic ileus
[2025-07-22] MEDS: AMPICILLIN/SULBAC INJ 1.5 GM in SODIUM CHLORIDE 0.9% (Popper) 50 ML IV ×4 (05:47→23:49)
[2025-07-22] MEDS: DICLOFENAC 1% TOP GEL 100 GM TUBE TOP ×3 (05:55→21:12)
[2025-07-22 06:07] LABS: Basophils # (Auto) 0.1 Thou/mm3 (0.0-0.2); Basophils % (Auto) 1 % (0-2.5); Eosinophils # (Auto) 0.2 Thou/mm3 (0.0-0.5); Eosinophils % (Auto) 2 % (0-10); Hematocrit 33.1 % (41.0-53.0); Hemoglobin 10.3 g/dL (13.5-16.0); Immature Granulocytes Auto 0.09 Thou/mm3 (0.00-0.00); Lymphocytes # (Auto) 1.5 Thou/mm3 (1.0-4.8); Lymphocytes % (Auto) 16 % (10-50); Mean Corpuscular HGB Conc 31.1 g/dl (31.0-37.0); Mean Corpuscular Hemoglobin 28.3 pg (25.0-35.0); Mean Corpuscular Volume 91 fL (80-100); Monocytes # (Auto) 0.8 Thou/mm3 (0.0-0.8); Monocytes % (Auto) 9 % (0-12); Neutrophils # (Auto) 6.4 Thou/mm3 (1.8-7.7); Neutrophils % (Auto) 71 % (37-80); Nucleated Red Blood Cell # 0.00 Thou/mm3 (0.00-0.00); Nucleated Red Blood Cell % 0 /100 WBC (0); Platelet Count 376 Thou/mm3 (140-440); RDW Standard Deviation 50.8 fL (35.1-43.9); Red Blood Count 3.64 Miln/mm3 (4.50-5.90); White Blood Count 9.1 Thou/mm3 (3.8-10.6)
[2025-07-22 06:36] LABS: Alanine Aminotransferase 38 U/L (10-49); Albumin, Serum 3.9 gm/dL (3.5-5.0); Albumin/Globulin Ratio 1.6 (1.2-2.2); Alkaline Phosphatase 52 U/L (46-116); Anion Gap 10 (7-16); Aspartate Amino Transferase 26 U/L (0-34); BUN/Creatinine Ratio 10 Ratio (12-20); Bilirubin,Total 0.4 mg/dL (0.3-1.2); Blood Urea Nitrogen 9 mg/dL (9-23); C-Reactive Protein < 0.5 mg/dL (0.0-0.9); Calcium 8.8 mg/dL (8.3-10.6); Calcium (Corrected) 8.9 mg/dL (8.5-10.1); Carbon Dioxide 28.0 mMol/L (20.0-31.0); Chloride 102 mMol/L (98-107); Creatinine (Component) 0.9 mg/dL (0.6-1.3); Estimated Creatinine Clearance 81.8 mL/min (>60); Globulin 2.4 gm/dL (2.3-3.5); Glucose 140 mg/dL (74-106); Magnesium 2.0 mg/dL (1.6-2.6); Osmolality,Calculated 280 (275-295); Phosphorous 2.8 mg/dL (2.4-5.1); Potassium 3.6 mMol/L (3.4-5.1); Sodium 140 mMol/L (136-145); Total Protein 6.3 gm/dL (5.7-8.2); eGFR > 60 See Note
[2025-07-22] MEDS: DEXTROSE 5%-LACTATED RINGERS 1,000 ML 70 ML IV (08:44)
[2025-07-22] MEDS: IRON SUCROSE CPLX INJ 20 MG/ML VIAL 5 ML 200 MG IVP (09:04)
[2025-07-22] MEDS: SERTRALINE HCL 25 MG TABLET 100 MG PO (09:04)
[2025-07-22] MEDS: LACTOBACILLUS RHAMNOSUS 1 CAP PO (09:05)
[2025-07-22] MEDS: METOPROLOL SUCCINATE XL 25 MG TABCR PO (09:05)
[2025-07-22] MEDS: TAMSULOSIN HCL 0.4 MG CAPSULE PO (09:05)
[2025-07-22] MEDS: PANTOPRAZOLE 40 MG TABLET PO (09:05)
--- NOTE | 2025-07-22 09:13 | PC.NURSE ---
COORDINATED CARE WITH PHARMACY TO TRANSITION PO MEDS TO NG TUBE ROUTE. MD AT BEDSIDE.
--- NOTE | 2025-07-22 11:38 | PD.RESPRO ---
Documentation for date of: 07/22/25 Subjective Subjective Interval history: Patient seen and examined at bedside. BP overnight 130-150/80-90s however during the day yesterday BP 99-120/60-80. Sinus tachycardia at HR ranging 90-low 110s. Patient reports feeling well. Abdominal pain improved however still distended. NG tube in place and actively draining. No new complaints, denies paliptations or SOB. Hgb stable low 10.3, K 3.6 (recommend to replete with 40 mEq), Cr 0.9 and Mg 2.0. Exam Vital Signs Temp Pulse Resp BP Pulse Ox O2 Del Method O2 Flow Rate 96.9 F 103 H 20 148/93 H 98 Room Air 2 07/22/25 04:00 07/22/25 09:05 07/22/25 07:00 07/22/25 09:05 07/22/25 07:00 07/22/25 04:00 07/21/25 16:00 FiO2 30 07/21/25 16:00 Narrative Exam GENERAL: Alert, talkative, answers simple questions, NG tube in place draining HEENT: NC/AT, mucous membranes dry, bilateral sclera anicteric CARDIOVASCULAR: regular rate and rhythm, S1/S2 present, S3, no murmurs appreciated PULMONARY: clear to auscultation bilaterally, no rales/rhonchi/wheezes ABDOMINAL: diffusely mildly tender, firm, distended, no rebound/guarding, decreased bowel sounds EXTREMITIES: no peripheral edema SKIN: warm and dry, intact, no rashes NEURO: CN II-XII grossly intact, no focal deficits, alert, following commands Objective Labs 07/23/25 04:48 07/23/25 04:48 Labs: Laboratory Results - last 24 hr 07/21/25 07/22/25 16:53 04:55 WBC 9.1 RBC 3.64 L Hgb 10.3 L Hct 33.1 L MCV 91 MCH 28.3 MCHC 31.1 RDW Std Deviation 50.8 H Plt Count 376 D Neut % (Auto) 71 Lymph % (Auto) 16 [place] % (Auto) 9 Eos % (Auto) 2 Baso % (Auto) 1 Neut # (Auto) 6.4 Lymph # (Auto) 1.5 Teller # (Auto) 0.8 Eos # (Auto) 0.2 Baso # (Auto) 0.1 Immature Gran # (Auto) 0.09 H Absolute Nucleated RBC 0.00 Immature Gran % 1 H Nucleated RBC % 0 Sodium 140 Potassium 3.6 Chloride 102 Carbon Dioxide 28.0 Anion Gap 10 BUN 9 Creatinine 0.9 Estim Creat Clear Calc 81.8 eGFR > 60 BUN/Creatinine Ratio 10 L Glucose 140 H Calculated Osmolality 280 Lactic Acid 0.9 Calcium 8.8 Corrected Calcium 8.9 Phosphorus 2.8 Magnesium 2.0 Total Bilirubin 0.4 AST 26 ALT 38 Alkaline Phosphatase 52 C-Reactive Prot, Quant < 0.5 Total Protein 6.3 Albumin 3.9 Globulin 2.4 Albumin/Globulin Ratio 1.6 ABG Interpretation ABG results: 07/09/25 04:04 ABG pH 7.29 L ABG pCO2 57 H ABG pO2 86 ABG HCO3 28 H ABG O2 Saturation 96 ABG Base Excess 1 Quality Measures Quality Measures VTE prophylaxis (SCD) and none Assessment & Plan Assessment Current Active Medications: Generic Name Dose Route Start Last Admin Trade Name Freq PRN Reason Stop Dose Admin Acetaminophen 1,000 mg 07/22/25 09:29 Acetaminophen 500 Mg Tablet NG 08/05/25 15:39 Q6H PRN PAIN OR FEVER > 99.9 Albuterol/Ipratropium 3 ml 07/09/25 09:32 07/22/25 11:31 Albuterol/Ipratropium (Duoneb) Rt Flavia 3 Ml Nebu INH 08/08/25 09:31 Not Given Q4HRRT RHINA Fluvoxamine 100 Mg 0 ea 07/06/25 21:00 07/21/25 09:26 Tablet PO 08/05/25 20:59 Not Given On Hold: 07/21/25 12:51 BID RHINA Comment: CALLED AND SPOKE WITH DR. COOL, WE HAVE HAD TROUBLE BRING IN THIS MEDICATION FROM PATIENT'S HOME FACILITY. I RECOMMENDED TO DR Radha COOL THAT WE HAVE OTHER SSRIs AVAILABLE THAT WE COULD RELIABLY ADMINISTER TO THE PATIENT DURING THE INPATIENT STAY. DR. COOL WAS AGREEABLE TO THIS AND ASKED WHAT I RECOMMENDED. I RECOMMENDED SERTRALINE 100 MG PO QDAY, A LOWER DOSE THAN EQUIVALENT TO THE 200 MG DAILY DOSE OF FLUVOXIMINE DUE TO POTENTIAL IDIOSYNCRATIC SIDE EFFECTS, AND ADJUSTING THE DOSE BASED ON RESPONSE. OKAY PER DR. HAGHVERDIAN Dextrose 50 ml 07/06/25 15:47 Dextrose 50%-Water Inj 50 Ml Syringe IV 08/05/25 15:46 Q15MIN PRN BG <50 OR BG <70 & pt unresponsive Diclofenac Sodium 2 gm 07/14/25 14:00 07/22/25 05:55 Diclofenac 1% Top Gel 100 Gm Tube TOP 08/13/25 13:59 2 gm TID RHINA Administration Protocol Glucagon 1 mg 07/06/25 15:47 Glucagon Inj 1 Mg Vial IM Q15MIN PRN BG <70, and no IV access Ampicillin Sodium/Sulbactam 50 mls @ 100 mls/hr 07/19/25 12:00 07/22/25 11:18 Sodium 1.5 gm/ Sodium Chloride IV 07/26/25 11:59 100 mls/hr Q6HR RHINA Administration Dextrose/Lactated Ringer's 1,000 mls @ 70 mls/hr 07/21/25 15:30 07/22/25 08:44 D5-Lr IV 07/23/25 15:29 70 mls/hr .[id number] RHINA Administration Insulin Human Lispro 0 unit 07/06/25 18:00 07/22/25 11:17 Insulin Lispro (Admelog) 1 Unit/0.01 Ml Unit SC 08/05/25 17:59 Not Given Q6HR RHINA Protocol Iron Sucrose 200 mg 07/19/25 09:00 07/22/25 09:04 Iron Sucrose Cplx Inj 20 Mg/Ml Vial 5 Ml IVP 08/18/25 08:59 200 mg QDAY RHINA Administration Lactobacillus Rhamnosus 1 cap 07/22/25 21:00 Lactobacillus Rhamnosus 1 Cap NG 08/21/25 20:59 BID RHINA Lactulose 30 gm 07/22/25 14:00 Lactulose Syrup 20 Gm/30 Ml Udc NG 08/21/25 13:59 Q8HR RHINA Protocol Metoprolol Succinate 25 mg 07/23/25 09:00 Metoprolol Succinate Xl 25 Mg Tabcr NG 08/22/25 08:59 QDAY RHINA Ondansetron HCl 4 mg 07/06/25 15:40 07/18/25 18:02 Ondansetron Inj 2 Mg/Ml Inj 2 Ml IVP 08/05/25 15:39 4 mg Q6H PRN Administration NAUSEA OR VOMITING Protocol Pantoprazole Sodium 40 mg 07/22/25 21:00 Pantoprazole Inj 40 Mg Vial IVP 08/21/25 20:59 Q12HR RHINA Risperidone 1 mg 07/22/25 21:00 Risperidone 1 Mg Tablet NG 08/21/25 20:59 BID RHINA Sertraline HCl 100 mg 07/23/25 09:00 Sertraline Hcl 25 Mg Tablet NG 08/22/25 08:59 QDAY RHINA Simethicone 80 mg 07/22/25 09:14 Simethicone 40 Mg/0.6 Ml Oral Syringe NG 08/18/25 07:57 Q12H PRN distension/bloating Sodium Chloride 3 ml 07/10/25 13:18 Sodium Chloride Rt Flavia 0.9% 3 Ml Nebu INH 08/09/25 13:17 PRN PRN SOLN Tamsulosin HCl 0.4 mg 07/23/25 09:00 Tamsulosin Hcl 0.4 Mg Capsule NG 08/22/25 08:59 QDAY [facility] Plan Summary: 60-year-old male patient known case of schizophrenia, hyperlipidemia, developmental delay, was brought from longterm facility after he was started to experience abdominal pain few hours before presentation. Patient was unable to provide accurate history due to his chronic mental status, most of the history was taken from the caregiver Charu Jean. Cardiology team was consulted due to tachycardia #Sinus tachycardia likely 2/2 improving #Urinary retention #Abdomial pain #ACS ruled out Patient presented with acute abdominal pain, tachycardia, melena, patient was sweaty, pulse rate was 129, blood pressure was 119/65.on examination found to have S1-S2 and S3 He has trace lower edema, no elevated JVD Hemoglobin was 5.8. TSH was 5.8, Troponin was negative, chest x-ray showed left ventricular prominence, elevated right hemidiaphragm. EKG was done initially showed sinus tachycardia, repeat today during the rapid also showed sinus tachycardia with deep Q-wave on the leads, I, III and AVf. Patient most likely have secondary cause of his sinus tachycardia including but not limited to infection, pain, acute blood loss, less likely medication side effect such as serotonin syndrome 07/09/2025, patient had an episode of aspiration, he was intubated and upgraded to the ICU. BNP came back normal, telemonitoring was reviewed for the past 24-hour was negative for any arrhythmias and it only showed sinus tachycardia. 07/08/25 Echo: rate more than 115 bpm. Normal left ventricular size and function. Grade I diastolic dysfunction. EF estimated at 55-60%. The right ventricle is normal in size and systolic function. Normal RVSP. Mild MR and TR. No pericardial effusion Metoprolol attempted to be started however there was concern for rate control may mask possible deterioration of patient condition. 07/14/2025, patient remains on restraints, was started on TPN, telemonitoring over the past 24 hours showed increase in the heart rate to 152, sinus rhythm with some PVCs. No ST changes noted 07/15/2025, CT angio of the chest was done was negative for pulmonary embolism however there was artifact during imaging. Plus the patient has consultation for that reason patient is not eligible for VQ scan. Lower extremity Doppler ultrasound: negative for any DVT Plan ? Strict in and out ? Treat underlying cause urinary retention vs periodic abdominal pain/distension versus less likely malignancy ? Daily potassium and magnesium ? Replete electrolytes to keep potassium and magnesium above 4 and 2 respectively as patient is losing K through diarrhea #GIB s/p 4 pRBC #Acute post hemorrhagic anemia #Upper vs lower GIB Presented with melena. Hgb on admission 07/06 5.8, increased to 7.7, and subsequently decreased back to 6.3 on 07/10. 07/07 EGD showed few non bleeding erosions at GE junction, erythematous mucosa in antrum, normal duodenum. Patient aspirated on Golytely 07/09 and was intubated and upgraded to ICU, extubated 07/11. Gastrograffin enema study negative Plan - CTM Hgb - Colonoscopy outpatient per GI #Developmental delay #History of schizophrenia #Hyperglycemia #Depression #Acute blood loss Plan ? Follow-up with the primary team recommendation Thank you for your consultation please do not hesitate to reach out if you have any question or concern - Patient's plan and care discussed with my attending, Dr. Alison Aleman, DO Internal Medicine PGY-1 Attending Provider Attestation/Addendum I have personally seen and examined the patient separately on the above date of service and discussed the plan of care with the resident. I reviewed the resident Dr. Faby Aleman consultation progress note and agree with the resident findings and plan in the note above and have also edited the documentation to reflect my findings and plan. Diego Rosas M.D. Interventional Cardiology
--- NOTE | 2025-07-22 13:24 | PD.ADDPROG ---
Addendum Progress Note Addendum Date of report being addended: 07/22/25 Narrative: I Wes Dubose MD reviewed the note and agree with the resident's assessment & plan with modifications/additions/exceptions as below. I have personally reviewed labs, imaging, home meds/prior records, examined the patient, formulated and discussed management plan with the IM team. Patient with developmental delay initially admitted for melena however EGD did not reveal any significant source of bleeding, subsequent hospital course complicated by aspiration pneumonia leading to acute hypoxemic respiratory failure during preparation for colonoscopy which was then subsequently canceled. Patient also developed ileus and urinary retention. Previously Gastrografin study did not reveal any small bowel obstruction however repeat CT abdomen revealed distended small bowel loops and significant contrast material presents in ascending transverse and descending colon since last Gastrografin study indicating potential large bowel obstruction. Will keep n.p.o., continue NG suction, continue enemas, discontinue further lactulose. Marinelli has been replaced, will continue maintenance IV fluid resuscitation at 100 mL an hour, will continue trending lactate and empirically Rocephin 1 g daily to help prevent transmigration. 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 Will continue metoclopramide, will get general surgery evaluation for further management. Will avoid putting rectal tube in the setting of severe colonic distention and confirm for colonic rupture.
--- NOTE | 2025-07-22 13:55 | PC.NURSE ---
coordinated care with dr. bautista
--- NOTE | 2025-07-22 15:08 | ESPR_ITS ---
<Statement entered by Florentino Nuñez MD - 07/22/25 15:16> No acute overnight events. Seen and examined at bedside and drawing instructor present. On exam, abdomen not as distended and less firm compared to prior. Per nurse, after receiving subsequent enema patient had large BM and significant gas. NG tube on low intermittent suction and drained approximately 700 cc of dark green fluid since yesterday afternoon. Given results of enema will continue daily enemas and monitor for improvement. Suspect that abdominal distention is affecting patient's ability to urinate and will attempt voiding trial after abdomen improves. Otherwise, vital signs stable, hemoglobin stable, CHEM panel unremarkable. ----- Note reviewed and agree with care plan as documented. Please refer to the note below for further details. Plan discussed with attending physician Dr. Sedrick Nuñez MD PGY-2 Internal Medicine Documentation for date of: 07/22/25 Subjective Subjective Interval history: Patient was seen and examined at bedside. No acute events took place overnight. NG tube bucket on wall shows 750 mL of suction fluid. Patient has not had BM yet and a lot of gas is trapped in abdomen as reported by patient. Nurse pointed out that soap enemas previously succeeded in generating bowel movements, additional administrations will be considered. Patient has a urinary catheter Mancuso which shows 600 mL of mary ann-colored urine. Nurse pointed out that urine was more tea colored before and has changed color. Patient is not a reliable historian, and is accompanied by caregiver in room. Exam Vital Signs Temp Pulse Resp BP Pulse Ox O2 Del Method O2 Flow Rate 96.9 F 100 20 148/93 H 99 Room Air 2 07/22/25 04:00 07/22/25 14:14 07/22/25 14:14 07/22/25 09:05 07/22/25 14:14 07/22/25 04:00 07/21/25 16:00 FiO2 30 07/21/25 16:00 Narrative Exam General: Patient is alert and but not fully oriented (but at baseline, patient has developmental delay). In no distress. Cardio: Nomral rate, normal rhythm, no murmurs, gallops or rubs appreciated. Resp: Normal lung sounds, no rales or wheezing auscultated. MSK/ Extremities: No muscle or joint pain on any movement. No bruising or skin changes visible. No presence of trace or pitting edema in lower extremities bilaterally, dorsalis pedis pulses +2 bilaterally GI/Abdomen: Visual abdominal distention present. BS deminished in all four quadrant. Percussio dull. Abdomen tense and diffusely tender to palpation. Neuro: No focal motor or sensory deficits in the UE or LE bilat Psych: Judgment thought and behavior hindered due to developmental delay. Good affect. Cooperative Objective Labs 07/22/25 04:55 07/22/25 04:55 Labs: Laboratory Results - last 24 hr 07/21/25 07/22/25 16:53 04:55 WBC 9.1 RBC 3.64 L Hgb 10.3 L Hct 33.1 L MCV 91 MCH 28.3 MCHC 31.1 RDW Std Deviation 50.8 H Plt Count 376 D Neut % (Auto) 71 Lymph % (Auto) 16 [place] % (Auto) 9 Eos % (Auto) 2 Baso % (Auto) 1 Neut # (Auto) 6.4 Lymph # (Auto) 1.5 [place] # (Auto) 0.8 Eos # (Auto) 0.2 Baso # (Auto) 0.1 Immature Gran # (Auto) 0.09 H Absolute Nucleated RBC 0.00 Immature Gran % 1 H Nucleated RBC % 0 Sodium 140 Potassium 3.6 Chloride 102 Carbon Dioxide 28.0 Anion Gap 10 BUN 9 Creatinine 0.9 Estim Creat Clear Calc 81.8 eGFR > 60 BUN/Creatinine Ratio 10 L Glucose 140 H Calculated Osmolality 280 Lactic Acid 0.9 Calcium 8.8 Corrected Calcium 8.9 Phosphorus 2.8 Magnesium 2.0 Total Bilirubin 0.4 AST 26 ALT 38 Alkaline Phosphatase 52 C-Reactive Prot, Quant < 0.5 Total Protein 6.3 Albumin 3.9 Globulin 2.4 Albumin/Globulin Ratio 1.6 ABG Interpretation ABG results: 07/09/25 04:04 ABG pH 7.29 L ABG pCO2 57 H ABG pO2 86 ABG HCO3 28 H ABG O2 Saturation 96 ABG Base Excess 1 Quality Measures Quality Measures VTE prophylaxis (SCD) and none Assessment & Plan Assessment Current Active Medications: Generic Name Dose Route Start Last Admin Trade Name Freq PRN Reason Stop Dose Admin Acetaminophen 1,000 mg 07/22/25 09:29 Acetaminophen 500 Mg Tablet NG 08/05/25 15:39 Q6H PRN PAIN OR FEVER > 99.9 Albuterol/Ipratropium 3 ml 07/09/25 09:32 07/22/25 14:12 Albuterol/Ipratropium (Duoneb) Rt Flvaia 3 Ml Nebu INH 08/08/25 09:31 3 ml Q4HRRT RHINA Administration Fluvoxamine 100 Mg 0 ea 07/06/25 21:00 07/21/25 09:26 Tablet PO 08/05/25 20:59 Not Given On Hold: 07/21/25 12:51 BID RHINA Comment: CALLED AND SPOKE WITH DR. PANTOJA, WE HAVE HAD TROUBLE BRING IN THIS MEDICATION FROM PATIENT'S HOME FACILITY. I RECOMMENDED TO DR Radha PANTOJA THAT WE HAVE OTHER SSRIs AVAILABLE THAT WE COULD RELIABLY ADMINISTER TO THE PATIENT DURING THE INPATIENT STAY. DR. PANTOJA WAS AGREEABLE TO THIS AND ASKED WHAT I RECOMMENDED. I RECOMMENDED SERTRALINE 100 MG PO QDAY, A LOWER DOSE THAN EQUIVALENT TO THE 200 MG DAILY DOSE OF FLUVOXIMINE DUE TO POTENTIAL IDIOSYNCRATIC SIDE EFFECTS, AND ADJUSTING THE DOSE BASED ON RESPONSE. OKAY PER DR. PANTOJA Dextrose 50 ml 07/06/25 15:47 Dextrose 50%-Water Inj 50 Ml Syringe IV 08/05/25 15:46 Q15MIN PRN BG <50 OR BG <70 & pt unresponsive Diclofenac Sodium 2 gm 07/14/25 14:00 07/22/25 14:41 Diclofenac 1% Top Gel 100 Gm Tube TOP 08/13/25 13:59 2 gm TID RHINA Administration Protocol Glucagon 1 mg 07/06/25 15:47 Glucagon Inj 1 Mg Vial IM Q15MIN PRN BG <70, and no IV access Ampicillin Sodium/Sulbactam 50 mls @ 100 mls/hr 07/19/25 12:00 07/22/25 11:18 Sodium 1.5 gm/ Sodium Chloride IV 07/26/25 11:59 100 mls/hr Q6HR RHINA Administration Dextrose/Lactated Ringer's 1,000 mls @ 70 mls/hr 07/21/25 15:30 07/22/25 08:44 D5-Lr IV 07/23/25 15:29 70 mls/hr .[id number] RHINA Administration Insulin Human Lispro 0 unit 07/06/25 18:00 07/22/25 11:17 Insulin Lispro (Admelog) 1 Unit/0.01 Ml Unit SC 08/05/25 17:59 Not Given Q6HR [facility] Protocol Iron Sucrose 200 mg 07/19/25 09:00 07/22/25 09:04 Iron Sucrose Cplx Inj 20 Mg/Ml Vial 5 Ml IVP 08/18/25 08:59 200 mg QDAY RHINA Administration Lactobacillus Rhamnosus 1 cap 07/22/25 21:00 Lactobacillus Rhamnosus 1 Cap NG 08/21/25 20:59 BID [facility] Lactulose 30 gm 07/22/25 14:00 07/22/25 14:40 Lactulose Syrup 20 Gm/30 Ml Udc NG 08/21/25 13:59 Not Given Q8HR [facility] Protocol Metoprolol Succinate 25 mg 07/23/25 09:00 Metoprolol Succinate Xl 25 Mg Tabcr NG 08/22/25 08:59 QDAY [facility] Ondansetron HCl 4 mg 07/06/25 15:40 07/18/25 18:02 Ondansetron Inj 2 Mg/Ml Inj 2 Ml IVP 08/05/25 15:39 4 mg Q6H PRN Administration NAUSEA OR VOMITING Protocol Pantoprazole Sodium 40 mg 07/22/25 21:00 Pantoprazole Inj 40 Mg Vial IVP 08/21/25 20:59 Q12HR [facility] Risperidone 1 mg 07/22/25 21:00 Risperidone 1 Mg Tablet NG 08/21/25 20:59 BID [facility] Sertraline HCl 100 mg 07/23/25 09:00 Sertraline Hcl 25 Mg Tablet NG 08/22/25 08:59 QDAY [facility] Simethicone 80 mg 07/22/25 09:14 Simethicone 40 Mg/0.6 Ml Oral Syringe NG 08/18/25 07:57 Q12H PRN distension/bloating Sodium Chloride 3 ml 07/10/25 13:18 Sodium Chloride Rt Flavia 0.9% 3 Ml Nebu INH 08/09/25 13:17 PRN PRN SOLN Tamsulosin HCl 0.4 mg 07/23/25 09:00 Tamsulosin Hcl 0.4 Mg Capsule NG 08/22/25 08:59 QDAY [facility] Plan 60 y/o male with Hx of Schizophrenia and Developmental Delay, presented with abdominal pain, constipation, and melena, admitted for acute blood loss anemia secondary to upper GI bleed. He was upgraded to the ICU after an aspiration event while undergoing prep for colonoscopy with Katie. He was downgraded to the floors on 07/11/2025, currently on nasal cannula 2-3L. Patient developed urinary retention after removing the catheter. #Urinary Retention On 07/17/25 mnacuso was removed in preparation of discharge. Patient was unable to void, required straight cath as bladder scan showed volumes of 500cc and 800cc without patient being able to void each time. 07/20: Post voiding bladder scan revealed 500 cc of remaining urine, after patient had self urinated about 400cc. Straight cath performed a few hours later removed nearly a liter of accumulated urine. The onset of symptoms coincides with beginning Reglan, likely to be an anticholinergic side effect. ? There is some possibility that bowel distention is obstructing the urinary tract and causing retention. - Discontinued Reglan (07/20) and will monitor for changes in symptoms. - Will attempt voiding trial after abdominal distention improves - Encouraging ambulation - Urinary bladder exercises - Urinary catheter mancuso inserted - Clamp Mancuso catheter and do a voiding trial. - Tamsulosin 0.4 mg Qday #Acute hypoxic respiratory failure secondary to #Aspirational pneumonia In the setting of #Severe abdominal distension #Colonic ileus #Right inguinal hernia #Gastrointestinal motility disorder with colonic inertia 07/16/25 CT angio chest: Opacification of distal pulmonary artery branches is poor secondary to patient breathing, no pulmonary artery filling defects noted, Right lung pneumonia, especially right upper lobe Gastrografin enema study shows no mechanical obstruction. Hypoxic respiratory failulure is significantly improving, currently on 2-3L, previously was on high flow. Abdominal distension and ileus has improved but distension was worse today then yesterday, patient is tolerating regular diet, having BM, had 2 episodes of vomiting today. 07/18/25: KUB remarkable for, Moderate dilatation small bowel loops and prominent colonic ileus 07/19/25: CT abdomen showed moderate air and stool distended colon without evidence of SBO Lactate 0.9 (07/21) and CRP <0.5 negative KUB (07/22) showed significant colonic air distention, and prominent colonic ileus Patient developed large BM and relieved of gas after soapsuds enema on 07/22. - Dysphagia choped diet - picky but tolerating - Increase assisted ambulation to help with gut motility and regain balance and stregnth - Continue INH Duonebs q4HR scheduled - Continue INH sodium chloride 3 mL nebulizer prn - Continue chest physiotherapy - 07/12/25 switched ceftriaxon to Unasyn to add anaerobic coverage as patient had aspirational event - Follow-up with ABG, CBC, and CMP - RT to titrate O2 and see if patient can be weaned off and discharged without oxygen and home oxygen was not approved. - Patient transferred to med surg from [facility] as he is stable and improving - Simethicone 80 mg PO daily - Lactulose 30g Q8h - NGT decompression with LIS - Mineral oil enema x1 - Soapsuds enema daily #Symptomatic normocytic anemia secondary to #GI bleed, likely lower GI 07/07/25 EGD: A few non-bleeding erosions at the gastroesophageal junction, erythematous mucosa in the antrum H and H was stable fro past few days but dropped since yesterday from 10.1 to 8.7 GI wants to see outpatient as there is no acute indication for colonoscopy. - Continue IV Protonix q12HR for GI prophylaxis - Transfuse if Hgb<7 - Resumed diet, advancing as tolerated - Monitor daily CBC #Hypokalemia- stable K: 3.3 on 07/09, 3.3 on 07/10, 3.5 on 07/11, 4.2 on 07/12, 3.4 on 07/13, 3.4 on 07/15, 4.2 on 07/17 - Monitor and replete as needed - Keep Mg and K over 2 and 4 respectively #Hyperglycemia- Stable Today's finger stick BG 103, up trended to 124 - Continue to monitor - Patient on SSI #History of schizophrenia #History of depression #History of anxiety #Agitation - Restarted home meds as patient is back on diet (PO Risperdal 1 mg BID, PO fluvoxamine 100 mg BID) - Sertraline PO 100mg QD while inpatient instead of home SSRI - Clonazapan PRN #History of developmental delay #History of [place] Palsy #Lactic acidosis (resolved) Health Maintenance: Code Status: Full DVT Prophylaxis: SCDs, ambulation GI Prophylaxis: Protonix Diet: NPO Mancuso: Mancuso catheter in place, clamped for voiding trial Lines: PIV Supplemental O2: 1-2 L NC Disposition: Med surg, bladder training, pending regain of bladder and bowel function This case was discussed with my attending physician, Dr. Dubose, and senior resident, Dr Savannah Aleman. Carmel Pantoja, DO PGY I
--- NOTE | 2025-07-22 19:20 | PD.IMPROG ---
Documentation for date of: 07/22/25 Subjective Subjective Interval history: Patient evaluated Abdominal distention has an NGT in place for intermittent Gomco suction X-ray shows colonic distention Exam Vital Signs Temp Pulse Resp BP Pulse Ox O2 Del Method O2 Flow Rate 96.9 F 104 H 19 148/93 H 98 Room Air 2 07/22/25 04:00 07/22/25 18:03 07/22/25 18:03 07/22/25 09:05 07/22/25 18:03 07/22/25 04:00 07/21/25 16:00 FiO2 30 07/21/25 16:00 Objective Labs 07/22/25 04:55 07/22/25 04:55 Labs: Laboratory Results - last 24 hr 07/22/25 04:55 WBC 9.1 RBC 3.64 L Hgb 10.3 L Hct 33.1 L MCV 91 MCH 28.3 MCHC 31.1 RDW Std Deviation 50.8 H Plt Count 376 D Neut % (Auto) 71 Lymph % (Auto) 16 [place] % (Auto) 9 Eos % (Auto) 2 Baso % (Auto) 1 Neut # (Auto) 6.4 Lymph # (Auto) 1.5 [place] # (Auto) 0.8 Eos # (Auto) 0.2 Baso # (Auto) 0.1 Immature Gran # (Auto) 0.09 H Absolute Nucleated RBC 0.00 Immature Gran % 1 H Nucleated RBC % 0 Sodium 140 Potassium 3.6 Chloride 102 Carbon Dioxide 28.0 Anion Gap 10 BUN 9 Creatinine 0.9 Estim Creat Clear Calc 81.8 eGFR > 60 BUN/Creatinine Ratio 10 L Glucose 140 H Calculated Osmolality 280 Calcium 8.8 Corrected Calcium 8.9 Phosphorus 2.8 Magnesium 2.0 Total Bilirubin 0.4 AST 26 ALT 38 Alkaline Phosphatase 52 C-Reactive Prot, Quant < 0.5 Total Protein 6.3 Albumin 3.9 Globulin 2.4 Albumin/Globulin Ratio 1.6 Impressions Impression: Abdominal distention due to colonic dilatation No contraindication to the rectal tube Will recommend to do so ABG Interpretation ABG results: 07/09/25 04:04 ABG pH 7.29 L ABG pCO2 57 H ABG pO2 86 ABG HCO3 28 H ABG O2 Saturation 96 ABG Base Excess 1 Assessment & Plan A&P Narrative Hematochezia Plan clear liquid diet n.p.o. at midnight tonight except p.o. meds Consent for fiberoptic esophagogastroduodenoscopy with possible biopsy possible therapeutic intervention under intravenous moderate sedation If EGD negative we will consider doing a fibrotic colonoscopy prior to discharge Serial CBC IV Protonix Thank you very much for the opportunity to participate in the care of this Time Spent With Patient Time: Total time spent is greater than 50% in coordination of care (as documented) at patient's floor/unit and/or counseling patient:
[2025-07-22] MEDS: LACTOBACILLUS RHAMNOSUS 1 CAP NG (21:11)
[2025-07-23] VITALS (10 sets, daily range): BP systolic 99–137; BP diastolic 67–94; PULSE 83–112; RESP 15–95; TEMP 36.2–36.8; O2SAT 93–100; BMI 27.5
[2025-07-23] MEDS: DEXTROSE 5%-LACTATED RINGERS 1,000 ML 70 ML IV (00:40)
[2025-07-23] MEDS: DICLOFENAC 1% TOP GEL 100 GM TUBE TOP ×3 (05:21→21:01)
[2025-07-23] MEDS: AMPICILLIN/SULBAC INJ 1.5 GM in SODIUM CHLORIDE 0.9% (Popper) 50 ML IV ×4 (05:21→23:33)
[2025-07-23 05:22] LABS: Basophils # (Auto) 0.1 Thou/mm3 (0.0-0.2); Basophils % (Auto) 1 % (0-2.5); Eosinophils # (Auto) 0.2 Thou/mm3 (0.0-0.5); Eosinophils % (Auto) 2 % (0-10); Hematocrit 32.8 % (41.0-53.0); Hemoglobin 10.5 g/dL (13.5-16.0); Immature Granulocytes Auto 0.05 Thou/mm3 (0.00-0.00); Lymphocytes # (Auto) 1.3 Thou/mm3 (1.0-4.8); Lymphocytes % (Auto) 17 % (10-50); Mean Corpuscular HGB Conc 32.0 g/dl (31.0-37.0); Mean Corpuscular Hemoglobin 29.1 pg (25.0-35.0); Mean Corpuscular Volume 91 fL (80-100); Monocytes # (Auto) 0.7 Thou/mm3 (0.0-0.8); Monocytes % (Auto) 9 % (0-12); Neutrophils # (Auto) 5.6 Thou/mm3 (1.8-7.7); Neutrophils % (Auto) 71 % (37-80); Nucleated Red Blood Cell # 0.00 Thou/mm3 (0.00-0.00); Nucleated Red Blood Cell % 0 /100 WBC (0); Platelet Count 367 Thou/mm3 (140-440); RDW Standard Deviation 50.7 fL (35.1-43.9); Red Blood Count 3.61 Miln/mm3 (4.50-5.90); White Blood Count 7.9 Thou/mm3 (3.8-10.6)
[2025-07-23 05:42] LABS: Alanine Aminotransferase 33 U/L (10-49); Albumin, Serum 3.8 gm/dL (3.5-5.0); Albumin/Globulin Ratio 1.7 (1.2-2.2); Alkaline Phosphatase 53 U/L (46-116); Anion Gap 10 (7-16); Aspartate Amino Transferase 24 U/L (0-34); BUN/Creatinine Ratio 8 Ratio (12-20); Bilirubin,Total 0.5 mg/dL (0.3-1.2); Blood Urea Nitrogen 7 mg/dL (9-23); Calcium 8.8 mg/dL (8.3-10.6); Calcium (Corrected) 9.0 mg/dL (8.5-10.1); Carbon Dioxide 26.4 mMol/L (20.0-31.0); Chloride 104 mMol/L (98-107); Creatinine (Component) 0.9 mg/dL (0.6-1.3); Estimated Creatinine Clearance 81.8 mL/min (>60); Globulin 2.3 gm/dL (2.3-3.5); Glucose 146 mg/dL (74-106); Magnesium 2.0 mg/dL (1.6-2.6); Osmolality,Calculated 280 (275-295); Phosphorous 2.7 mg/dL (2.4-5.1); Potassium 3.6 mMol/L (3.4-5.1); Sodium 140 mMol/L (136-145); Total Protein 6.1 gm/dL (5.7-8.2); eGFR > 60 See Note
[2025-07-23] MEDS: ALBUTEROL/IPRATROPIUM (Duoneb) RT SOL 3 ML NEBU INH ×2 (06:12→10:12)
[2025-07-23] MEDS: IRON SUCROSE CPLX INJ 20 MG/ML VIAL 5 ML 200 MG IVP (09:49)
[2025-07-23] MEDS: TAMSULOSIN HCL 0.4 MG CAPSULE NG (09:50)
[2025-07-23] MEDS: LACTOBACILLUS RHAMNOSUS 1 CAP NG (09:50)
[2025-07-23] MEDS: SERTRALINE HCL 25 MG TABLET 100 MG NG (09:50)
[2025-07-23] MEDS: METOPROLOL SUCCINATE XL 25 MG TABCR NG (09:51)
--- NOTE | 2025-07-23 11:43 | PC.NURSE ---
NG TUBE REMOVED. PT TOLERATED WELL. CATHETER INTACT. NO BLEEDING OR REDNESS NOTED.
[2025-07-23] MEDS: INSULIN LISPRO (AdmeLOG) 1 UNIT/0.01 ML UNIT SC (12:24)
--- NOTE | 2025-07-23 13:23 | PD.RESPRO ---
Documentation for date of: 07/23/25 Exam Vital Signs Temp Pulse Resp BP Pulse Ox O2 Del Method O2 Flow Rate 97.7 F 94 19 110/79 93 L Room Air 2 07/23/25 12:00 07/23/25 12:00 07/23/25 12:00 07/23/25 12:00 07/23/25 12:00 07/23/25 07:55 07/21/25 16:00 FiO2 30 07/21/25 16:00 Objective Labs 07/23/25 04:48 07/23/25 04:48 Labs: Laboratory Results - last 24 hr 07/23/25 04:48 WBC 7.9 RBC 3.61 L Hgb 10.5 L Hct 32.8 L MCV 91 MCH 29.1 MCHC 32.0 RDW Std Deviation 50.7 H Plt Count 367 Neut % (Auto) 71 Lymph % (Auto) 17 [place] % (Auto) 9 Eos % (Auto) 2 Baso % (Auto) 1 Neut # (Auto) 5.6 Lymph # (Auto) 1.3 [place] # (Auto) 0.7 Eos # (Auto) 0.2 Baso # (Auto) 0.1 Immature Gran # (Auto) 0.05 H Absolute Nucleated RBC 0.00 Immature Gran % 1 H Nucleated RBC % 0 Sodium 140 Potassium 3.6 Chloride 104 Carbon Dioxide 26.4 Anion Gap 10 BUN 7 L Creatinine 0.9 Estim Creat Clear Calc 81.8 eGFR > 60 BUN/Creatinine Ratio 8 L Glucose 146 H Calculated Osmolality 280 Calcium 8.8 Corrected Calcium 9.0 Phosphorus 2.7 Magnesium 2.0 Total Bilirubin 0.5 AST 24 ALT 33 Alkaline Phosphatase 53 Total Protein 6.1 Albumin 3.8 Globulin 2.3 Albumin/Globulin Ratio 1.7 ABG Interpretation ABG results: 07/09/25 04:04 ABG pH 7.29 L ABG pCO2 57 H ABG pO2 86 ABG HCO3 28 H ABG O2 Saturation 96 ABG Base Excess 1 Quality Measures Quality Measures VTE prophylaxis (SCD) and none Assessment & Plan Assessment Current Active Medications: Generic Name Dose Route Start Last Admin Trade Name Freq PRN Reason Stop Dose Admin Acetaminophen 1,000 mg 07/22/25 09:29 Acetaminophen 500 Mg Tablet NG 08/05/25 15:39 Q6H PRN PAIN OR FEVER > 99.9 Albuterol/Ipratropium 3 ml 07/23/25 11:37 Albuterol/Ipratropium (Duoneb) Rt Flavia 3 Ml Nebu INH 08/08/25 09:31 Q4HRRT PRN WHEEZING Fluvoxamine 100 Mg 0 ea 07/06/25 21:00 07/21/25 09:26 Tablet PO 08/05/25 20:59 Not Given On Hold: 07/21/25 12:51 BID RHINA Comment: CALLED AND SPOKE WITH DR. COOL, WE HAVE HAD TROUBLE BRING IN THIS MEDICATION FROM PATIENT'S HOME FACILITY. I RECOMMENDED TO DR Radha COOL THAT WE HAVE OTHER SSRIs AVAILABLE THAT WE COULD RELIABLY ADMINISTER TO THE PATIENT DURING THE INPATIENT STAY. DR. COOL WAS AGREEABLE TO THIS AND ASKED WHAT I RECOMMENDED. I RECOMMENDED SERTRALINE 100 MG PO QDAY, A LOWER DOSE THAN EQUIVALENT TO THE 200 MG DAILY DOSE OF FLUVOXIMINE DUE TO POTENTIAL IDIOSYNCRATIC SIDE EFFECTS, AND ADJUSTING THE DOSE BASED ON RESPONSE. OKAY PER DR. COOL Dextrose 50 ml 07/06/25 15:47 Dextrose 50%-Water Inj 50 Ml Syringe IV 08/05/25 15:46 Q15MIN PRN BG <50 OR BG <70 & pt unresponsive Diclofenac Sodium 2 gm 07/14/25 14:00 07/23/25 05:21 Diclofenac 1% Top Gel 100 Gm Tube TOP 08/13/25 13:59 2 gm TID RHINA Administration Protocol Glucagon 1 mg 07/06/25 15:47 Glucagon Inj 1 Mg Vial IM Q15MIN PRN BG <70, and no IV access Ampicillin Sodium/Sulbactam 50 mls @ 100 mls/hr 07/19/25 12:00 07/23/25 12:15 Sodium 1.5 gm/ Sodium Chloride IV 07/26/25 11:59 100 mls/hr Q6HR RHINA Administration Dextrose/Lactated Ringer's 1,000 mls @ 70 mls/hr 07/21/25 15:30 07/23/25 00:40 D5-Lr IV 07/23/25 15:29 70 mls/hr .[id number] RHINA Administration Insulin Human Lispro 0 unit 07/06/25 18:00 07/23/25 12:24 Insulin Lispro (Admelog) 1 Unit/0.01 Ml Unit SC 08/05/25 17:59 1 unit Q6HR RHINA Administration Protocol Iron Sucrose 200 mg 07/19/25 09:00 07/23/25 09:49 Iron Sucrose Cplx Inj 20 Mg/Ml Vial 5 Ml IVP 08/18/25 08:59 200 mg QDAY RHINA Administration Lactobacillus Rhamnosus 1 cap 07/22/25 21:00 07/23/25 09:50 Lactobacillus Rhamnosus 1 Cap NG 08/21/25 20:59 1 cap BID RHINA Administration Lactulose 30 gm 07/22/25 14:00 07/23/25 05:52 Lactulose Syrup 20 Gm/30 Ml Udc NG 08/21/25 13:59 Not Given Q8HR RHINA Protocol Metoprolol Succinate 25 mg 07/23/25 09:00 07/23/25 09:51 Metoprolol Succinate Xl 25 Mg Tabcr NG 08/22/25 08:59 25 mg QDAY RHINA Administration Ondansetron HCl 4 mg 07/06/25 15:40 07/18/25 18:02 Ondansetron Inj 2 Mg/Ml Inj 2 Ml IVP 08/05/25 15:39 4 mg Q6H PRN Administration NAUSEA OR VOMITING Protocol Pantoprazole Sodium 40 mg 07/22/25 21:00 07/23/25 09:50 Pantoprazole Inj 40 Mg Vial IVP 08/21/25 20:59 40 mg Q12HR RHINA Administration Risperidone 1 mg 07/22/25 21:00 07/23/25 09:50 Risperidone 1 Mg Tablet NG 08/21/25 20:59 1 mg BID RHINA Administration Sertraline HCl 100 mg 07/23/25 09:00 07/23/25 09:50 Sertraline Hcl 25 Mg Tablet NG 08/22/25 08:59 100 mg QDAY RHINA Administration Simethicone 80 mg 07/22/25 09:14 Simethicone 40 Mg/0.6 Ml Oral Syringe NG 08/18/25 07:57 Q12H PRN distension/bloating Sodium Chloride 3 ml 07/10/25 13:18 Sodium Chloride Rt Flavia 0.9% 3 Ml Nebu INH 08/09/25 13:17 PRN PRN SOLN Tamsulosin HCl 0.4 mg 07/23/25 09:00 07/23/25 09:50 Tamsulosin Hcl 0.4 Mg Capsule NG 08/22/25 08:59 0.4 mg QDAY RHINA Administration
--- NOTE | 2025-07-23 14:20 | PD.RESPRO ---
Documentation for date of: 07/23/25 Subjective Subjective Interval history: Patient seen and examined at bedside. In room, telemetry showed heart rate between 80s to 90s, sinus tachycardia. Blood pressure 120-140s over 80s to 90s. Patient is feeling well today, reports abdominal pain is essentially resolved and the distention has greatly improved. Belly now feels soft. No new complaints, denies chest pain, chest pressure, shortness of breath or palpitations. Hemoglobin stable at 10.5, potassium 3.6 recommend repletion, creatinine 0.8, magnesium 2.0. Exam Vital Signs Temp Pulse Resp BP Pulse Ox O2 Del Method O2 Flow Rate 97.7 F 94 19 110/79 93 L Room Air 2 07/23/25 12:00 07/23/25 12:00 07/23/25 12:00 07/23/25 12:00 07/23/25 12:00 07/23/25 07:55 07/21/25 16:00 FiO2 30 07/21/25 16:00 Narrative Exam GENERAL: Alert, talkative, answers simple questions, NG tube in place draining HEENT: NC/AT, mucous membranes dry, bilateral sclera anicteric CARDIOVASCULAR: regular rate and rhythm, S1/S2 present, S3, no murmurs appreciated PULMONARY: clear to auscultation bilaterally, no rales/rhonchi/wheezes ABDOMINAL: minimally tender, soft, distended, no rebound/guarding, present bowel sounds EXTREMITIES: no peripheral edema SKIN: warm and dry, intact, no rashes NEURO: CN II-XII grossly intact, no focal deficits, alert, following commands Objective Labs 07/23/25 04:48 07/23/25 04:48 Labs: Laboratory Results - last 24 hr 07/23/25 04:48 WBC 7.9 RBC 3.61 L Hgb 10.5 L Hct 32.8 L MCV 91 MCH 29.1 MCHC 32.0 RDW Std Deviation 50.7 H Plt Count 367 Neut % (Auto) 71 Lymph % (Auto) 17 [place] % (Auto) 9 Eos % (Auto) 2 Baso % (Auto) 1 Neut # (Auto) 5.6 Lymph # (Auto) 1.3 [place] # (Auto) 0.7 Eos # (Auto) 0.2 Baso # (Auto) 0.1 Immature Gran # (Auto) 0.05 H Absolute Nucleated RBC 0.00 Immature Gran % 1 H Nucleated RBC % 0 Sodium 140 Potassium 3.6 Chloride 104 Carbon Dioxide 26.4 Anion Gap 10 BUN 7 L Creatinine 0.9 Estim Creat Clear Calc 81.8 eGFR > 60 BUN/Creatinine Ratio 8 L Glucose 146 H Calculated Osmolality 280 Calcium 8.8 Corrected Calcium 9.0 Phosphorus 2.7 Magnesium 2.0 Total Bilirubin 0.5 AST 24 ALT 33 Alkaline Phosphatase 53 Total Protein 6.1 Albumin 3.8 Globulin 2.3 Albumin/Globulin Ratio 1.7 ABG Interpretation ABG results: 07/09/25 04:04 ABG pH 7.29 L ABG pCO2 57 H ABG pO2 86 ABG HCO3 28 H ABG O2 Saturation 96 ABG Base Excess 1 Quality Measures Quality Measures VTE prophylaxis (SCD) and none Assessment & Plan Assessment Current Active Medications: Generic Name Dose Route Start Last Admin Trade Name Freq PRN Reason Stop Dose Admin Acetaminophen 1,000 mg 07/22/25 09:29 Acetaminophen 500 Mg Tablet NG 08/05/25 15:39 Q6H PRN PAIN OR FEVER > 99.9 Albuterol/Ipratropium 3 ml 07/23/25 11:37 Albuterol/Ipratropium (Duoneb) Rt Flavia 3 Ml Nebu INH 08/08/25 09:31 Q4HRRT PRN WHEEZING Fluvoxamine 100 Mg 0 ea 07/06/25 21:00 07/21/25 09:26 Tablet PO 08/05/25 20:59 Not Given On Hold: 07/21/25 12:51 BID RHINA Comment: CALLED AND SPOKE WITH DR. COOL, WE HAVE HAD TROUBLE BRING IN THIS MEDICATION FROM PATIENT'S HOME FACILITY. I RECOMMENDED TO DR Radha COOL THAT WE HAVE OTHER SSRIs AVAILABLE THAT WE COULD RELIABLY ADMINISTER TO THE PATIENT DURING THE INPATIENT STAY. DR. COOL WAS AGREEABLE TO THIS AND ASKED WHAT I RECOMMENDED. I RECOMMENDED SERTRALINE 100 MG PO QDAY, A LOWER DOSE THAN EQUIVALENT TO THE 200 MG DAILY DOSE OF FLUVOXIMINE DUE TO POTENTIAL IDIOSYNCRATIC SIDE EFFECTS, AND ADJUSTING THE DOSE BASED ON RESPONSE. OKAY PER DR. COOL Dextrose 50 ml 07/06/25 15:47 Dextrose 50%-Water Inj 50 Ml Syringe IV 08/05/25 15:46 Q15MIN PRN BG <50 OR BG <70 & pt unresponsive Diclofenac Sodium 2 gm 07/14/25 14:00 07/23/25 05:21 Diclofenac 1% Top Gel 100 Gm Tube TOP 08/13/25 13:59 2 gm TID RHINA Administration Protocol Glucagon 1 mg 07/06/25 15:47 Glucagon Inj 1 Mg Vial IM Q15MIN PRN BG <70, and no IV access Ampicillin Sodium/Sulbactam 50 mls @ 100 mls/hr 07/19/25 12:00 07/23/25 12:15 Sodium 1.5 gm/ Sodium Chloride IV 07/26/25 11:59 100 mls/hr Q6HR RHINA Administration Dextrose/Lactated Ringer's 1,000 mls @ 70 mls/hr 07/21/25 15:30 07/23/25 00:40 D5-Lr IV 07/23/25 15:29 70 mls/hr .[id number] RHINA Administration Insulin Human Lispro 0 unit 07/06/25 18:00 07/23/25 12:24 Insulin Lispro (Admelog) 1 Unit/0.01 Ml Unit SC 08/05/25 17:59 1 unit Q6HR RHINA Administration Protocol Iron Sucrose 200 mg 07/19/25 09:00 07/23/25 09:49 Iron Sucrose Cplx Inj 20 Mg/Ml Vial 5 Ml IVP 08/18/25 08:59 200 mg QDAY RHINA Administration Lactobacillus Rhamnosus 1 cap 07/22/25 21:00 07/23/25 09:50 Lactobacillus Rhamnosus 1 Cap NG 08/21/25 20:59 1 cap BID RHINA Administration Lactulose 30 gm 07/22/25 14:00 07/23/25 05:52 Lactulose Syrup 20 Gm/30 Ml Udc NG 08/21/25 13:59 Not Given Q8HR RHINA Protocol Metoprolol Succinate 25 mg 07/23/25 09:00 07/23/25 09:51 Metoprolol Succinate Xl 25 Mg Tabcr NG 08/22/25 08:59 25 mg QDAY RHINA Administration Ondansetron HCl 4 mg 07/06/25 15:40 07/18/25 18:02 Ondansetron Inj 2 Mg/Ml Inj 2 Ml IVP 08/05/25 15:39 4 mg Q6H PRN Administration NAUSEA OR VOMITING Protocol Pantoprazole Sodium 40 mg 07/22/25 21:00 07/23/25 09:50 Pantoprazole Inj 40 Mg Vial IVP 08/21/25 20:59 40 mg Q12HR RHINA Administration Risperidone 1 mg 07/22/25 21:00 07/23/25 09:50 Risperidone 1 Mg Tablet NG 08/21/25 20:59 1 mg BID RHINA Administration Sertraline HCl 100 mg 07/23/25 09:00 07/23/25 09:50 Sertraline Hcl 25 Mg Tablet NG 08/22/25 08:59 100 mg QDAY RHINA Administration Simethicone 80 mg 07/22/25 09:14 Simethicone 40 Mg/0.6 Ml Oral Syringe NG 08/18/25 07:57 Q12H PRN distension/bloating Sodium Chloride 3 ml 07/10/25 13:18 Sodium Chloride Rt Flavia 0.9% 3 Ml Nebu INH 08/09/25 13:17 PRN PRN SOLN Tamsulosin HCl 0.4 mg 07/23/25 09:00 07/23/25 09:50 Tamsulosin Hcl 0.4 Mg Capsule NG 08/22/25 08:59 0.4 mg QDAY RHINA Administration Plan Summary: 60-year-old male patient known case of schizophrenia, hyperlipidemia, developmental delay, [facility] after he was started to experience abdominal pain few hours before presentation. Patient was unable to provide accurate history due to his chronic mental status, most of the history was taken from the caregiver Charu Jean. Cardiology team was consulted due to tachycardia #Sinus tachycardia likely 2/2, resolved #Urinary retention #Abdomial pain, improving #ACS ruled out Patient presented with acute abdominal pain, tachycardia, melena, patient was sweaty, pulse rate was 129, blood pressure was 119/65.on examination found to have S1-S2 and S3 He has trace lower edema, no elevated JVD Hemoglobin was 5.8. TSH was 5.8, Troponin was negative, chest x-ray showed left ventricular prominence, elevated right hemidiaphragm. EKG was done initially showed sinus tachycardia, repeat today during the rapid also showed sinus tachycardia with deep Q-wave on the leads, I, III and AVf. Patient most likely have secondary cause of his sinus tachycardia including but not limited to infection, pain, acute blood loss, less likely medication side effect such as serotonin syndrome 07/09/2025, patient had an episode of aspiration, he was intubated and upgraded to the ICU. BNP came back normal, telemonitoring was reviewed for the past 24-hour was negative for any arrhythmias and it only showed sinus tachycardia. 07/08/25 Echo: rate more than 115 bpm. Normal left ventricular size and function. Grade I diastolic dysfunction. EF estimated at 55-60%. The right ventricle is normal in size and systolic function. Normal RVSP. Mild MR and TR. No pericardial effusion Metoprolol attempted to be started however there was concern for rate control may mask possible deterioration of patient condition. 07/14/2025, patient remains on restraints, was started on TPN, telemonitoring over the past 24 hours showed increase in the heart rate to 152, sinus rhythm with some PVCs. No ST changes noted 07/15/2025, CT angio of the chest was done was negative for pulmonary embolism however there was artifact during imaging. Plus the patient has consultation for that reason patient is not eligible for VQ scan. Lower extremity Doppler ultrasound: negative for any DVT Plan ? Strict in and out ? Treat underlying cause urinary retention vs periodic abdominal pain/distension versus less likely malignancy ? Daily potassium and magnesium ? Replete electrolytes to keep potassium and magnesium above 4 and 2 respectively as patient is losing K through diarrhea #GIB s/p 4 pRBC #Acute post hemorrhagic anemia #Upper vs lower GIB Presented with melena. Hgb on admission 07/06 5.8, increased to 7.7, and subsequently decreased back to 6.3 on 07/10. 07/07 EGD showed few non bleeding erosions at GE junction, erythematous mucosa in antrum, normal duodenum. Patient aspirated on Golytely 07/09 and was intubated and upgraded to ICU, extubated 07/11. Gastrograffin enema study negative Plan - CTM Hgb - Colonoscopy outpatient per GI #Developmental delay #History of schizophrenia #Hyperglycemia #Depression #Acute blood loss Plan ? Follow-up with the primary team recommendation Thank you for your consultation please do not hesitate to reach out if you have any question or concern - Patient's plan and care discussed with my attending, Dr. Alison Aleman, DO Internal Medicine PGY-1 Attending Provider Attestation/Addendum I have personally seen and examined the patient separately on the above date of service and discussed the plan of care with the resident. I reviewed the resident Dr. Aleman consultation progress note and agree with the resident findings and plan in the note above and have also edited the documentation to reflect my findings and plan. Diego Rosas M.D. Interventional Cardiology
[2025-07-23] MEDS: LACTULOSE SYRUP 20 GM/30 ML UDC 30 GM NG (15:17)
--- NOTE | 2025-07-23 16:52 | PD.RESDS ---
Planned Discharge Date 07/23/25 DS: Providers Provider Date of admission: 07/06/25 15:01 Primary care physician: Delon Herman PA-C Admitting Provider: Kaylee Starks MD Attending Provider on Admission: Deonte Whittaker MD Consults: 07/06/25 14:26 Consult to Gastroenterology Stat Comment: Consulting Provider: Delores Benavides 07/08/25 18:14 Consult to Cardiology Routine Comment: Consulting Provider: Diego Rosas 07/11/25 10:54 Referral Physical Therapy Routine Comment: Physician Instructions: Instructions: Sit to chair please 07/12/25 16:26 Consult to General Surgery Urgent Comment: Consulting Provider: Richard Jolley Instructions: SBO 2/2 incarcerated small bowel in right inguinal hernia 07/13/25 10:21 Referral Registered Dietitian Routine Comment: PPN Attending Provider on DC: Florentino Nuñez MD Discharging Provider: Florentino Nuñez MD Hospital Course Hospital Course Hospital course: Patient seen and examined at bedside. In room, telemetry showed heart rate between 80s to 90s, sinus tachycardia. Blood pressure 120-140s over 80s to 90s. Patient is feeling well today, reports abdominal pain is essentially resolved and the distention has greatly improved. Belly now feels soft. No new complaints, denies chest pain, chest pressure, shortness of breath or palpitations. Hemoglobin stable at 10.5, potassium 3.6 recommend repletion, creatinine 0.8, magnesium 2.0. Time Spent with Patient Time attestation: Total time spent providing and/or coordinating discharge services: 34 min Exam Vital Signs Temp Pulse Resp BP Pulse Ox O2 Del Method O2 Flow Rate 97.2 F 90 19 99/67 94 L Room Air 2 07/23/25 16:00 07/23/25 16:00 07/23/25 16:00 07/23/25 16:00 07/23/25 16:00 07/23/25 16:00 07/21/25 16:00 FiO2 30 07/21/25 16:00 Discharge Plan Plan Patient Disposition: HOME (Self Care) Disposition Comment: [facility] Patient condition on transfer: Stable Care Plan Goals: ? Continue taking all other home medications as prescribed ? Follow-up with PCP within 1-2 weeks of discharge - You are being prescribed Benefiber which helps with constipation and gut microbiome, take it anai morning. - You are also being prescribed another medication called metoclopramide which helps with gut motility, take it as needed if you have not had a bowel movement in 48 hours. - Take metoprolol 25mg every day to help with your high blood pressure and fast heart rate. ? Follow-up with general surgery within 1-2 weeks of discharge to consider options for inguinal hernia ? If you do not have a PCP, you can follow-up at the [facility] (you can call [phone] to make an appointment) ? Return to ED if symptoms worsen or recur Prescriptions/Referrals Prescriptions/Med Rec: New senna 8.6 mg capsule 8.6 mg PO QDAY PRN (Reason: constipation) Qty: 10 0RF Benefiber Sugar Free (dextrin) 3 gram/4 gram powder 1.9 g PO HS 30 Days Qty: 57 1RF Rx Instructions: mix into at least 4 oz water at night daily metoclopramide HCl 5 mg tablet 5 mg PO Q48H 20 Days Qty: 10 0RF metoprolol succinate 25 mg tablet extended release 24 hr 25 mg PO QDAY Qty: 30 0RF Lactobacillus acidoph-L. bifid 1 billion cell wafer 1 tab PO QDAY 30 Days Qty: 30 0RF Rx Instructions: administer (preferably) with milk Continued docusate sodium 250 mg capsule 250 mg PO DAILY Patient Comments: taken daily clonazepam 1 mg tablet 1 mg PO TID fluvoxamine 100 mg tablet 100 mg PO BID loratadine [Allergy Relief (loratadine)] 10 mg tablet 10 mg PO DAILY risperidone [Risperdal] 1 mg/mL solution 1 mg PO BID simvastatin 10 mg tablet 10 mg PO QPM Referrals: Delon Herman PA-C [Primary Care Provider] Richard Jolley MD [Physician, General Surgery] Patient/Caregiver Discharge Instructions Education Materials: Ileus, Anatomy of the Digestive System, Obstruction Intestinal Print Language: Yi Activity Restrictions/Additional Instructions: Patient is here for follow-up appointment in my office next Tuesday at July 24. Call [phone] for an appointment time. My office is located at [address] Stand Alone Forms: Michelle Award Info., Patient Portal Info Letter Discharge Order Discharge Orders: Discharge (Routine); Ordered 07/23/25 Ordered By: Florentino Nuñez MD Attestestation MD Attestation I attest that I was physically present for the evaluation, physical examination, lab and imaging review of the patient with the residents. I discussed the case with the residents and agree with the findings and plans of care as documented above. Deonte Whittaker MD
--- NOTE | 2025-07-23 19:20 | PC.NURSE ---
UPDATE GIVEN TO SARKIS PTS CAREGIVER, SARKIS STATES PATIENT CAN BE DISCHARGE HOME WITH [facility]. HER STAFF WILL NEED TO BE TRAIN. DR. BALDWIN MADE AWARE.
--- NOTE | 2025-07-23 20:32 | ESPR_ITS ---
<Statement entered by Florentino Nuñez MD - 07/24/25 06:55> Note reviewed and agree with care plan as documented. Please refer to the note below for further details. Plan discussed with attending physician Dr. Remedios Nuñez MD PGY-2 Internal Medicine Documentation for date of: 07/23/25 Subjective Subjective Interval history: Patient was seen and examined at bedside. No acute events took place overnight. Patoent states that his abdominal pain is gone . NG tube bucket on wall shows 750 mL of suction fluid. Patient generated a very large bowel movement after treatment with soapsuds enema. Additional treatment given today. NG bucket on wall had collected 800mL of suctioned fluids. Although Pt underwent urinary bladder training, but was unable to urinate after removal of the mancuso catheter, and could not be discharged. Exam Vital Signs Temp Pulse Resp BP Pulse Ox O2 Del Method O2 Flow Rate 97.2 F 87 15 99/67 93 L Room Air 2 07/23/25 16:00 07/23/25 18:59 07/23/25 18:59 07/23/25 16:00 07/23/25 18:59 07/23/25 16:00 07/21/25 16:00 FiO2 30 07/21/25 16:00 Narrative Exam General: Patient is alert and but not fully oriented (but at baseline, patient has developmental delay). In no distress. Cardio: Nomral rate, normal rhythm, no murmurs, gallops or rubs appreciated. Resp: Normal lung sounds, no rales or wheezing auscultated. MSK/ Extremities: No muscle or joint pain on any movement. No bruising or skin changes visible. No presence of trace or pitting edema in lower extremities bilaterally, dorsalis pedis pulses +2 bilaterally GI/Abdomen: Visual abdominal distention present. BS present in all four quadrant. Percussion dull. Abdomen less firm than before. No organomegaly noted. Neuro: No focal motor or sensory deficits in the UE or LE bilat Psych: Judgment thought and behavior hindered due to developmental delay. Good affect. Cooperative Objective Labs 07/24/25 04:51 07/24/25 04:51 Labs: Laboratory Results - last 24 hr 07/23/25 04:48 WBC 7.9 RBC 3.61 L Hgb 10.5 L Hct 32.8 L MCV 91 MCH 29.1 MCHC 32.0 RDW Std Deviation 50.7 H Plt Count 367 Neut % (Auto) 71 Lymph % (Auto) 17 [place] % (Auto) 9 Eos % (Auto) 2 Baso % (Auto) 1 Neut # (Auto) 5.6 Lymph # (Auto) 1.3 [place] # (Auto) 0.7 Eos # (Auto) 0.2 Baso # (Auto) 0.1 Immature Gran # (Auto) 0.05 H Absolute Nucleated RBC 0.00 Immature Gran % 1 H Nucleated RBC % 0 Sodium 140 Potassium 3.6 Chloride 104 Carbon Dioxide 26.4 Anion Gap 10 BUN 7 L Creatinine 0.9 Estim Creat Clear Calc 81.8 eGFR > 60 BUN/Creatinine Ratio 8 L Glucose 146 H Calculated Osmolality 280 Calcium 8.8 Corrected Calcium 9.0 Phosphorus 2.7 Magnesium 2.0 Total Bilirubin 0.5 AST 24 ALT 33 Alkaline Phosphatase 53 Total Protein 6.1 Albumin 3.8 Globulin 2.3 Albumin/Globulin Ratio 1.7 ABG Interpretation ABG results: 07/09/25 04:04 ABG pH 7.29 L ABG pCO2 57 H ABG pO2 86 ABG HCO3 28 H ABG O2 Saturation 96 ABG Base Excess 1 Quality Measures Quality Measures VTE prophylaxis (SCD) and none Assessment & Plan Assessment Current Active Medications: Generic Name Dose Route Start Last Admin Trade Name Freq PRN Reason Stop Dose Admin Acetaminophen 1,000 mg 07/22/25 09:29 Acetaminophen 500 Mg Tablet NG 08/05/25 15:39 Q6H PRN PAIN OR FEVER > 99.9 Albuterol/Ipratropium 3 ml 07/23/25 11:37 Albuterol/Ipratropium (Duoneb) Rt Flavia 3 Ml Nebu INH 08/08/25 09:31 Q4HRRT PRN WHEEZING Fluvoxamine 100 Mg 0 ea 07/06/25 21:00 07/21/25 09:26 Tablet PO 08/05/25 20:59 Not Given On Hold: 07/21/25 12:51 BID RHINA Comment: CALLED AND SPOKE WITH DR. PANTOJA, WE HAVE HAD TROUBLE BRING IN THIS MEDICATION FROM PATIENT'S HOME FACILITY. I RECOMMENDED TO DR Radha PANTOJA THAT WE HAVE OTHER SSRIs AVAILABLE THAT WE COULD RELIABLY ADMINISTER TO THE PATIENT DURING THE INPATIENT STAY. DR. PANTOJA WAS AGREEABLE TO THIS AND ASKED WHAT I RECOMMENDED. I RECOMMENDED SERTRALINE 100 MG PO QDAY, A LOWER DOSE THAN EQUIVALENT TO THE 200 MG DAILY DOSE OF FLUVOXIMINE DUE TO POTENTIAL IDIOSYNCRATIC SIDE EFFECTS, AND ADJUSTING THE DOSE BASED ON RESPONSE. OKAY PER DR. PANTOJA Dextrose 50 ml 07/06/25 15:47 Dextrose 50%-Water Inj 50 Ml Syringe IV 08/05/25 15:46 Q15MIN PRN BG <50 OR BG <70 & pt unresponsive Diclofenac Sodium 2 gm 07/14/25 14:00 07/23/25 15:17 Diclofenac 1% Top Gel 100 Gm Tube TOP 08/13/25 13:59 2 gm TID RHINA Administration Protocol Glucagon 1 mg 07/06/25 15:47 Glucagon Inj 1 Mg Vial IM Q15MIN PRN BG <70, and no IV access Ampicillin Sodium/Sulbactam 50 mls @ 100 mls/hr 07/19/25 12:00 07/23/25 17:37 Sodium 1.5 gm/ Sodium Chloride IV 07/26/25 11:59 100 mls/hr Q6HR RHINA Administration Insulin Human Lispro 0 unit 07/06/25 18:00 07/23/25 18:50 Insulin Lispro (Admelog) 1 Unit/0.01 Ml Unit SC 08/05/25 17:59 Not Given Q6HR RHINA Protocol Iron Sucrose 200 mg 07/19/25 09:00 07/23/25 09:49 Iron Sucrose Cplx Inj 20 Mg/Ml Vial 5 Ml IVP 08/18/25 08:59 200 mg QDAY RHINA Administration Lactobacillus Rhamnosus 1 cap 07/23/25 19:58 Lactobacillus Rhamnosus 1 Cap PO 08/21/25 20:59 BID RHINA Lactulose 30 gm 07/23/25 19:58 Lactulose Syrup 20 Gm/30 Ml Udc PO 08/21/25 13:59 Q8HR RHINA Protocol Metoprolol Succinate 25 mg 07/23/25 09:00 07/23/25 09:51 Metoprolol Succinate Xl 25 Mg Tabcr NG 08/22/25 08:59 25 mg QDAY RHINA Administration Ondansetron HCl 4 mg 07/06/25 15:40 07/18/25 18:02 Ondansetron Inj 2 Mg/Ml Inj 2 Ml IVP 08/05/25 15:39 4 mg Q6H PRN Administration NAUSEA OR VOMITING Protocol Pantoprazole Sodium 40 mg 07/22/25 21:00 07/23/25 09:50 Pantoprazole Inj 40 Mg Vial IVP 08/21/25 20:59 40 mg Q12HR RHINA Administration Risperidone 1 mg 07/23/25 19:57 Risperidone 1 Mg Tablet PO 08/21/25 20:59 BID RHINA Sertraline HCl 100 mg 07/23/25 09:00 07/23/25 09:50 Sertraline Hcl 25 Mg Tablet NG 08/22/25 08:59 100 mg QDAY RHINA Administration Simethicone 80 mg 07/22/25 09:14 Simethicone 40 Mg/0.6 Ml Oral Syringe NG 08/18/25 07:57 Q12H PRN distension/bloating Sodium Chloride 3 ml 07/10/25 13:18 Sodium Chloride Rt Flavia 0.9% 3 Ml Nebu INH 08/09/25 13:17 PRN PRN SOLN Tamsulosin HCl 0.4 mg 07/23/25 09:00 07/23/25 09:50 Tamsulosin Hcl 0.4 Mg Capsule NG 08/22/25 08:59 0.4 mg QDAY RHINA Administration Plan 60 y/o male with Hx of Schizophrenia and Developmental Delay, presented with abdominal pain, constipation, and melena, admitted for acute blood loss anemia secondary to upper GI bleed. He was upgraded to the ICU after an aspiration event while undergoing prep for colonoscopy with Katie. He was downgraded to the floors on 07/11/2025, currently on nasal cannula 2-3L. Patient developed urinary retention after removing the catheter. #Urinary Retention On 07/17/25 mancuso was removed in preparation of discharge. Patient was unable to void, required straight cath as bladder scan showed volumes of 500cc and 800cc without patient being able to void each time. 07/20: Post voiding bladder scan revealed 500 cc of remaining urine, after patient had self urinated about 400cc. Straight cath performed a few hours later removed nearly a liter of accumulated urine. The onset of symptoms coincides with beginning Reglan, likely to be an anticholinergic side effect. ? There is some possibility that bowel distention is obstructing the urinary tract and causing retention. On 07/23, after bladder training and removal of the urinary mancuso catheter, patient was unable to void again. Pt could not be discharged safely. - Discontinued Reglan (07/20) and will monitor for changes in symptoms. - Will attempt voiding trial after abdominal distention improves - Encouraging ambulation - Urinary bladder exercises - Urinary catheter mancuso inserted - Clamp Mancuso catheter and do a voiding trial. - Tamsulosin 0.4 mg Qday #Acute hypoxic respiratory failure secondary to #Aspirational pneumonia In the setting of #Severe abdominal distension #Colonic ileus #Right inguinal hernia #Gastrointestinal motility disorder with colonic inertia 07/16/25 CT angio chest: Opacification of distal pulmonary artery branches is poor secondary to patient breathing, no pulmonary artery filling defects noted, Right lung pneumonia, especially right upper lobe Gastrografin enema study shows no mechanical obstruction. Hypoxic respiratory failulure is significantly improving, currently on 2-3L, previously was on high flow. Abdominal distension and ileus has improved but distension was worse today then yesterday, patient is tolerating regular diet, having BM, had 2 episodes of vomiting today. 07/18/25: KUB remarkable for, Moderate dilatation small bowel loops and prominent colonic ileus 07/19/25: CT abdomen showed moderate air and stool distended colon without evidence of SBO Lactate 0.9 (07/21) and CRP <0.5 negative KUB (07/22) showed significant colonic air distention, and prominent colonic ileus Patient developed large BM and relieved of gas after soapsuds enema on 07/22. - Dysphagia choped diet - picky but tolerating - Increase assisted ambulation to help with gut motility and regain balance and stregnth - Continue INH Duonebs q4HR scheduled - Continue INH sodium chloride 3 mL nebulizer prn - Continue chest physiotherapy - 07/12/25 switched ceftriaxon to Unasyn to add anaerobic coverage as patient had aspirational event - Follow-up with ABG, CBC, and CMP - RT to titrate O2 and see if patient can be weaned off and discharged without oxygen and home oxygen was not approved. - [facility] and improving - Simethicone 80 mg PO daily - Lactulose 30g Q8h - NGT decompression with LIS -DCed - Mineral oil enema x1 - Soapsuds enema daily - Lacticaseibacillus rhamnosus PO 1cap daily #Essential hypertension, stage II BP maintained in 142-152/ 79-93 -metoprolol succinate 25mg daily through NG tube #Symptomatic normocytic anemia secondary to #GI bleed, likely lower GI 07/07/25 EGD: A few non-bleeding erosions at the gastroesophageal junction, erythematous mucosa in the antrum H and H was stable fro past few days but dropped since yesterday from 10.1 to 8.7 GI wants to see outpatient as there is no acute indication for colonoscopy. - Continue IV Protonix q12HR for GI prophylaxis - Transfuse if Hgb<7 - Resumed diet, advancing as tolerated - Monitor daily CBC #Hypokalemia- stable K: 3.3 on 07/09, 3.3 on 07/10, 3.5 on 07/11, 4.2 on 07/12, 3.4 on 07/13, 3.4 on 07/15, 4.2 on 07/17 - Monitor and replete as needed - Keep Mg and K over 2 and 4 respectively #Hyperglycemia- Stable Today's finger stick BG 103, up trended to 124 - Continue to monitor - Patient on SSI #History of schizophrenia #History of depression #History of anxiety #Agitation - Restarted home meds as patient is back on diet (PO Risperdal 1 mg BID, PO fluvoxamine 100 mg BID) - Sertraline PO 100mg QD while inpatient instead of home SSRI - Clonazepam PRN #History of developmental delay #History of [place] Palsy #Lactic acidosis (resolved) Health Maintenance: Code Status: Full DVT Prophylaxis: SCDs, ambulation GI Prophylaxis: Protonix IV 40mg bid Diet: NPO Mancuso: Mancuso catheter in place, clamped for voiding trial Lines: PIV Supplemental O2: 1-2 L NC Disposition: Med surg, bladder training, pending regain of bladder and bowel function This case was discussed with my attending physician, Dr. Whittaker, and senior resident, Dr Savannah Aleman. Carmel Pantoja, DO PGY I Attending Provider Attestation/Addendum I attest that I was physically present for the evaluation, physical examination, lab and imaging review of the patient with the residents. I discussed the case with the residents and agree with the findings and plans of care as documented above. Deonte Whittaker MD
--- NOTE | 2025-07-23 21:00 | PD.IMPROG ---
Documentation for date of: 07/23/25 Subjective Subjective Interval history: Patient evaluated Abdomen soft nontender nondistended Had a large bowel movement NGT had copious amounts of secretions Exam Vital Signs Temp Pulse Resp BP Pulse Ox O2 Del Method O2 Flow Rate 97.2 F 87 15 99/67 93 L Room Air 2 07/23/25 16:00 07/23/25 18:59 07/23/25 18:59 07/23/25 16:00 07/23/25 18:59 07/23/25 16:00 07/21/25 16:00 FiO2 30 07/21/25 16:00 Objective Labs 07/23/25 04:48 07/23/25 04:48 Labs: Laboratory Results - last 24 hr 07/23/25 04:48 WBC 7.9 RBC 3.61 L Hgb 10.5 L Hct 32.8 L MCV 91 MCH 29.1 MCHC 32.0 RDW Std Deviation 50.7 H Plt Count 367 Neut % (Auto) 71 Lymph % (Auto) 17 [place] % (Auto) 9 Eos % (Auto) 2 Baso % (Auto) 1 Neut # (Auto) 5.6 Lymph # (Auto) 1.3 [place] # (Auto) 0.7 Eos # (Auto) 0.2 Baso # (Auto) 0.1 Immature Gran # (Auto) 0.05 H Absolute Nucleated RBC 0.00 Immature Gran % 1 H Nucleated RBC % 0 Sodium 140 Potassium 3.6 Chloride 104 Carbon Dioxide 26.4 Anion Gap 10 BUN 7 L Creatinine 0.9 Estim Creat Clear Calc 81.8 eGFR > 60 BUN/Creatinine Ratio 8 L Glucose 146 H Calculated Osmolality 280 Calcium 8.8 Corrected Calcium 9.0 Phosphorus 2.7 Magnesium 2.0 Total Bilirubin 0.5 AST 24 ALT 33 Alkaline Phosphatase 53 Total Protein 6.1 Albumin 3.8 Globulin 2.3 Albumin/Globulin Ratio 1.7 Impressions Impression: Improved colonic distention Difficulty with urination Continue current management Agree with discharge planning ABG Interpretation ABG results: 07/09/25 04:04 ABG pH 7.29 L ABG pCO2 57 H ABG pO2 86 ABG HCO3 28 H ABG O2 Saturation 96 ABG Base Excess 1 Assessment & Plan A&P Narrative Hematochezia Plan clear liquid diet n.p.o. at midnight tonight except p.o. meds Consent for fiberoptic esophagogastroduodenoscopy with possible biopsy possible therapeutic intervention under intravenous moderate sedation If EGD negative we will consider doing a fibrotic colonoscopy prior to discharge Serial CBC IV Protonix Thank you very much for the opportunity to participate in the care of this Time Spent With Patient Time: Total time spent is greater than 50% in coordination of care (as documented) at patient's floor/unit and/or counseling patient:
[2025-07-23] MEDS: LACTOBACILLUS RHAMNOSUS 1 CAP PO (21:01)
[2025-07-23] MEDS: LACTULOSE SYRUP 20 GM/30 ML UDC 30 GM PO (21:01)
[2025-07-24] VITALS (7 sets, daily range): BP systolic 94–107; BP diastolic 55–80; PULSE 74–105; RESP 16–18; TEMP 36.1–36.8; O2SAT 95–99; BMI 27.5
[2025-07-24] MEDS: AMPICILLIN/SULBAC INJ 1.5 GM in SODIUM CHLORIDE 0.9% (Popper) 50 ML IV ×2 (05:12→11:54)
[2025-07-24] MEDS: LACTULOSE SYRUP 20 GM/30 ML UDC 30 GM PO ×2 (05:13→14:35)
[2025-07-24] MEDS: DICLOFENAC 1% TOP GEL 100 GM TUBE TOP ×2 (05:13→14:35)
[2025-07-24 05:48] LABS: Basophils # (Auto) 0.0 Thou/mm3 (0.0-0.2); Basophils % (Auto) 1 % (0-2.5); Eosinophils # (Auto) 0.2 Thou/mm3 (0.0-0.5); Eosinophils % (Auto) 2 % (0-10); Hematocrit 34.0 % (41.0-53.0); Hemoglobin 10.8 g/dL (13.5-16.0); Immature Granulocytes Auto 0.06 Thou/mm3 (0.00-0.00); Lymphocytes # (Auto) 1.4 Thou/mm3 (1.0-4.8); Lymphocytes % (Auto) 18 % (10-50); Mean Corpuscular HGB Conc 31.8 g/dl (31.0-37.0); Mean Corpuscular Hemoglobin 29.0 pg (25.0-35.0); Mean Corpuscular Volume 91 fL (80-100); Monocytes # (Auto) 0.8 Thou/mm3 (0.0-0.8); Monocytes % (Auto) 11 % (0-12); Neutrophils # (Auto) 5.4 Thou/mm3 (1.8-7.7); Neutrophils % (Auto) 68 % (37-80); Nucleated Red Blood Cell # 0.00 Thou/mm3 (0.00-0.00); Nucleated Red Blood Cell % 0 /100 WBC (0); Platelet Count 412 Thou/mm3 (140-440); RDW Standard Deviation 53.1 fL (35.1-43.9); Red Blood Count 3.72 Miln/mm3 (4.50-5.90); White Blood Count 7.9 Thou/mm3 (3.8-10.6)
[2025-07-24 06:19] LABS: Alanine Aminotransferase 46 U/L (10-49); Albumin, Serum 3.9 gm/dL (3.5-5.0); Albumin/Globulin Ratio 1.8 (1.2-2.2); Alkaline Phosphatase 54 U/L (46-116); Anion Gap 11 (7-16); Aspartate Amino Transferase 36 U/L (0-34); BUN/Creatinine Ratio 11 Ratio (12-20); Bilirubin,Total 0.4 mg/dL (0.3-1.2); Blood Urea Nitrogen 11 mg/dL (9-23); Calcium 9.2 mg/dL (8.3-10.6); Calcium (Corrected) 9.3 mg/dL (8.5-10.1); Carbon Dioxide 25.1 mMol/L (20.0-31.0); Chloride 103 mMol/L (98-107); Creatinine (Component) 1.0 mg/dL (0.6-1.3); Estimated Creatinine Clearance 73.7 mL/min (>60); Globulin 2.2 gm/dL (2.3-3.5); Glucose 117 mg/dL (74-106); Magnesium 2.1 mg/dL (1.6-2.6); Osmolality,Calculated 277 (275-295); Phosphorous 4.1 mg/dL (2.4-5.1); Potassium 3.4 mMol/L (3.4-5.1); Sodium 139 mMol/L (136-145); Total Protein 6.1 gm/dL (5.7-8.2); eGFR > 60 See Note
[2025-07-24] MEDS: IRON SUCROSE CPLX INJ 20 MG/ML VIAL 5 ML 200 MG IVP (08:48)
[2025-07-24] MEDS: METOPROLOL SUCCINATE XL 25 MG TABCR NG (08:49)
[2025-07-24] MEDS: SERTRALINE HCL 25 MG TABLET 100 MG NG (08:49)
[2025-07-24] MEDS: TAMSULOSIN HCL 0.4 MG CAPSULE NG (08:49)
[2025-07-24] MEDS: LACTOBACILLUS RHAMNOSUS 1 CAP PO (08:49)
--- NOTE | 2025-07-24 09:37 | PC.SS ---
Follow up note: Patient is medically ready for discharge. Patient will d/c with a mancuso cath. ANTONY contacted [facility] and spoke to Celia. She states they can take patient with mancuso but need their staff to be trained. Alyson would like nursing to train her and another staff member today if patient's being discharged. She would also like services. D/c scheduled for today. [facility] will transport patient home. Already has new 02.
--- NOTE | 2025-07-24 13:01 | PD.RESPRO ---
Documentation for date of: 07/24/25 Exam Vital Signs Temp Pulse Resp BP Pulse Ox O2 Del Method O2 Flow Rate 97.2 F 84 17 107/80 99 Room Air 2 07/24/25 08:00 07/24/25 08:49 07/24/25 08:00 07/24/25 08:49 07/24/25 08:00 07/24/25 08:00 07/21/25 16:00 FiO2 30 07/21/25 16:00 Objective Labs 07/24/25 04:51 07/24/25 04:51 Labs: Laboratory Results - last 24 hr 07/24/25 04:51 WBC 7.9 RBC 3.72 L Hgb 10.8 L Hct 34.0 L MCV 91 MCH 29.0 MCHC 31.8 RDW Std Deviation 53.1 H Plt Count 412 D Neut % (Auto) 68 Lymph % (Auto) 18 [place] % (Auto) 11 Eos % (Auto) 2 Baso % (Auto) 1 Neut # (Auto) 5.4 Lymph # (Auto) 1.4 [place] # (Auto) 0.8 Eos # (Auto) 0.2 Baso # (Auto) 0.0 Immature Gran # (Auto) 0.06 H Absolute Nucleated RBC 0.00 Immature Gran % 1 H Nucleated RBC % 0 Sodium 139 Potassium 3.4 Chloride 103 Carbon Dioxide 25.1 Anion Gap 11 BUN 11 Creatinine 1.0 Estim Creat Clear Calc 73.7 eGFR > 60 BUN/Creatinine Ratio 11 L Glucose 117 H Calculated Osmolality 277 Calcium 9.2 Corrected Calcium 9.3 Phosphorus 4.1 Magnesium 2.1 Total Bilirubin 0.4 AST 36 H ALT 46 Alkaline Phosphatase 54 Total Protein 6.1 Albumin 3.9 Globulin 2.2 L Albumin/Globulin Ratio 1.8 ABG Interpretation ABG results: 07/09/25 04:04 ABG pH 7.29 L ABG pCO2 57 H ABG pO2 86 ABG HCO3 28 H ABG O2 Saturation 96 ABG Base Excess 1 Quality Measures Quality Measures VTE prophylaxis (SCD) and none Assessment & Plan Assessment Current Active Medications: Generic Name Dose Route Start Last Admin Trade Name Freq PRN Reason Stop Dose Admin Acetaminophen 1,000 mg 07/22/25 09:29 Acetaminophen 500 Mg Tablet NG 08/05/25 15:39 Q6H PRN PAIN OR FEVER > 99.9 Albuterol/Ipratropium 3 ml 07/23/25 11:37 Albuterol/Ipratropium (Duoneb) Rt Flavia 3 Ml Nebu INH 08/08/25 09:31 Q4HRRT PRN WHEEZING Fluvoxamine 100 Mg 0 ea 07/06/25 21:00 07/21/25 09:26 Tablet PO 08/05/25 20:59 Not Given On Hold: 07/21/25 12:51 BID RHINA Comment: CALLED AND SPOKE WITH DR. COOL, WE HAVE HAD TROUBLE BRING IN THIS MEDICATION FROM PATIENT'S HOME FACILITY. I RECOMMENDED TO DR Radha COOL THAT WE HAVE OTHER SSRIs AVAILABLE THAT WE COULD RELIABLY ADMINISTER TO THE PATIENT DURING THE INPATIENT STAY. DR. COOL WAS AGREEABLE TO THIS AND ASKED WHAT I RECOMMENDED. I RECOMMENDED SERTRALINE 100 MG PO QDAY, A LOWER DOSE THAN EQUIVALENT TO THE 200 MG DAILY DOSE OF FLUVOXIMINE DUE TO POTENTIAL IDIOSYNCRATIC SIDE EFFECTS, AND ADJUSTING THE DOSE BASED ON RESPONSE. OKAY PER DR. COOL Dextrose 50 ml 07/06/25 15:47 Dextrose 50%-Water Inj 50 Ml Syringe IV 08/05/25 15:46 Q15MIN PRN BG <50 OR BG <70 & pt unresponsive Diclofenac Sodium 2 gm 07/14/25 14:00 07/24/25 05:13 Diclofenac 1% Top Gel 100 Gm Tube TOP 08/13/25 13:59 2 gm TID RHINA Administration Protocol Glucagon 1 mg 07/06/25 15:47 Glucagon Inj 1 Mg Vial IM Q15MIN PRN BG <70, and no IV access Ampicillin Sodium/Sulbactam 50 mls @ 100 mls/hr 07/19/25 12:00 07/24/25 11:54 Sodium 1.5 gm/ Sodium Chloride IV 07/26/25 11:59 100 mls/hr Q6HR RHINA Administration Insulin Human Lispro 0 unit 07/23/25 21:00 07/24/25 11:36 Insulin Lispro (Admelog) 1 Unit/0.01 Ml Unit SC 08/22/25 20:59 Not Given ACHS RHINA Protocol Iron Sucrose 200 mg 07/19/25 09:00 07/24/25 08:48 Iron Sucrose Cplx Inj 20 Mg/Ml Vial 5 Ml IVP 08/18/25 08:59 200 mg QDAY RHINA Administration Lactobacillus Rhamnosus 1 cap 07/23/25 19:58 07/24/25 08:49 Lactobacillus Rhamnosus 1 Cap PO 08/21/25 20:59 1 cap BID RHINA Administration Lactulose 30 gm 07/23/25 19:58 07/24/25 05:13 Lactulose Syrup 20 Gm/30 Ml Udc PO 08/21/25 13:59 30 gm Q8HR RHINA Administration Protocol Metoprolol Succinate 25 mg 07/23/25 09:00 07/24/25 08:49 Metoprolol Succinate Xl 25 Mg Tabcr NG 08/22/25 08:59 25 mg QDAY RHINA Administration Ondansetron HCl 4 mg 07/06/25 15:40 07/18/25 18:02 Ondansetron Inj 2 Mg/Ml Inj 2 Ml IVP 08/05/25 15:39 4 mg Q6H PRN Administration NAUSEA OR VOMITING Protocol Pantoprazole Sodium 40 mg 07/22/25 21:00 07/24/25 08:48 Pantoprazole Inj 40 Mg Vial IVP 08/21/25 20:59 40 mg Q12HR RHINA Administration Risperidone 1 mg 07/23/25 19:57 07/24/25 08:49 Risperidone 1 Mg Tablet PO 08/21/25 20:59 1 mg BID RHINA Administration Sertraline HCl 100 mg 07/23/25 09:00 07/24/25 08:49 Sertraline Hcl 25 Mg Tablet NG 08/22/25 08:59 100 mg QDAY RHINA Administration Simethicone 80 mg 07/22/25 09:14 Simethicone 40 Mg/0.6 Ml Oral Syringe NG 08/18/25 07:57 Q12H PRN distension/bloating Sodium Chloride 3 ml 07/10/25 13:18 Sodium Chloride Rt Flavia 0.9% 3 Ml Nebu INH 08/09/25 13:17 PRN PRN SOLN Tamsulosin HCl 0.4 mg 07/23/25 09:00 07/24/25 08:49 Tamsulosin Hcl 0.4 Mg Capsule NG 08/22/25 08:59 0.4 mg QDAY RHINA Administration
--- NOTE | 2025-07-24 17:22 | ESDS_ITS ---
<Statement entered by Florentino Nuñez MD - 07/24/25 17:22> Note reviewed and agree with care plan as documented. Please refer to the note below for further details. Plan discussed with attending physician Dr. Remedios Nuñez MD PGY-2 Internal Medicine Planned Discharge Date 07/24/25 DS: Providers Provider Date of admission: 07/06/25 15:01 Primary care physician: Delon Herman PA-C Admitting Provider: Kaylee Starks MD Attending Provider on Admission: Deonte Whittaker MD Consults: 07/06/25 14:26 Consult to Gastroenterology Stat Comment: Consulting Provider: Delores Benavides 07/08/25 18:14 Consult to Cardiology Routine Comment: Consulting Provider: Diego Rosas 07/11/25 10:54 Referral Physical Therapy Routine Comment: Physician Instructions: Instructions: Sit to chair please 07/12/25 16:26 Consult to General Surgery Urgent Comment: Consulting Provider: Richard Jolley Instructions: SBO 2/2 incarcerated small bowel in right inguinal hernia 07/13/25 10:21 Referral Registered Dietitian Routine Comment: PPN Attending Provider on DC: Deonte Whittaker MD Discharging Provider: Connor Loco DO PGY-1 DS: Diagnosis Discharge Diagnosis (1) Acidosis, lactic: Status: Acute Problem List Completed Was Problem List Reviewed/Reconciled?: Yes Hospital Course Hospital Course Hospital course: Hospital Course: 60 y/o male with Hx of Schizophrenia and Developmental Delay, presented with abdominal pain, constipation, and melena who was admitted originally for workup of upper GI bleed. An endoscopy was performed that showed a few nonbleeding erosions in the gastroesophageal junction and erythematous mucosa in the antrum. The patient's hemoglobin trended downwards and a colonoscopy was planned and prep was initiated. An NG tube was placed due to suspicion of SBO. During the prep, the patient experienced an aspiration event and was upgraded to the ICU where he was intubated and mechanically ventilated and received blood transfusions for hemoglobin below 7. He was extubated and downgraded to the floors where his colonic ileus was treated with daily enemas and NG tube decompression. His hemoglobin stabilized. GI no longer recommended a colonoscopy during this hospital visit. A Gastrografin enema study was performed and was negative. A CT of the abdomen and pelvis was negative for small bowel obstruction. A venous Doppler ultrasound of the lower extremities was negative for any deep vein thromboses. The patient experienced urinary retention and was straight-cathed multiple times after being downgraded from the ICU despite bladder training exercises. A Marinelli catheter was placed to drain urine continuously while he was on the hospital floor. The patient's condition improved to the point where his abdominal distention resolved and the patient was no longer in pain. He will follow-up with ou [facility] for colonoscopy. Hemoglobin is stable and blood chemistry is stable. He will be discharged on Benefiber to help with constipation and metoclopramide for gut motility. Problem List: #Urinary retention #Acute hypoxic respiratory failure secondary to #Aspiration pneumonia #Severe abdominal distention #Colonic ileus #Right inguinal hernia #Gastrointestinal motility disorder with colonic inertia #Stage II essential hypertension #Symptomatic normocytic anemia #GI bleed #Hypokalemia stable #Hyperglycemia stable #History of schizophrenia #History of depression #History of anxiety #Agitation #History of developmental delay #History of [place] Palsy #Lactic acidosis (resolved) Discharge Instructions: ? Continue taking all other home medications as prescribed ? Follow-up with PCP within 1-2 weeks of discharge - You are being prescribed Benefiber which helps with constipation and gut microbiome, take it anai morning. - You are also being prescribed another medication called metoclopramide which helps with gut motility, take it as needed if you have not had a bowel movement in 48 hours. - Take metoprolol 25mg every day to help with your high blood pressure and fast heart rate. ? Follow-up with general surgery within 1-2 weeks of discharge to consider options for inguinal hernia ? If you do not have a PCP, you can follow-up at the [facility] (you can call [phone] to make an appointment) - Seek referral from your PCP for a consultation from a advertising sales consultant for outpatinet colonoscopy. Watch for regular bowel movements, and if you should develop abdomenal distention, constipation, bloating, or inability to pass stool seek medical attention. ? Return to ED if symptoms worsen or recur The patient was seen and discussed with my attending physician Dr. Remedios BUTCHER and my senior resident Dr. Savannah BUTCHER PGY-2. Connor Loco DO PGY-1 Time Spent with Patient Time attestation: Total time spent providing and/or coordinating discharge services: 39 min Time spent: Greater than 30 minutes Home Health Home Health Referral Orders: 07/24/25 09:14 Home Health Referral Routine Reason For Exam: Urinary retension Home-Bound The patient must either because of illness or injury, need the aid of supportive devices such as crutches, canes, wheelchairs, and walkers; the use of special transportation; or the assistance of another person in order to leave their place of residence; OR have a condition such that leaving his or her home is medically contraindicated. In addition, the patient also meets the following criteria: patient is normally unable to leave the home and leaving home requires considerable taxing effort. Addendum to Home Health Certification Practitioner's Certification: I certify that the patient has been under my care in the hospital and the care of attending physician (see below). We had a rcqb-[id number] encounter on (see date below). My clinical findings indicate that the patient is home bound per the above criteria and the Home Health Services noted in these orders are medically necessary. The primary reason for the [id number] encounter is related to the fact that the patient requires home health services. Date Certifying [id number] Physician Encounter: 07/06/25 Physician's Name who will Assume Oversight for Services: Delon Herman Physician's Phone No.who will Assume Oversight for Service: [employer]OF[employer] PROSTHETICS DENTIST - Community Resources: No PT to Evaluate: Yes PT to evaluate and provide a treatmnet plan to increase patient's mobility and strength. Wound Care: No IV Therapy: No RN Safety Evaluation: Yes RN to evaluate and create a plan of care that will produce positive outcomes. Palliative Treatment: No Palliative treatment and evaluate the need for hospice. Home Health Aide - Personal Care: Yes Home Health Aide to assist with any ADL's. Exam Vital Signs Temp Pulse Resp BP Pulse Ox O2 Del Method O2 Flow Rate 97.9 F 105 H 17 94/65 97 Room Air 2 07/24/25 16:00 07/24/25 16:00 07/24/25 16:07/24/25 16:00 07/24/25 16:07/24/25 16:00 07/21/25 16:00 FiO2 30 07/21/25 16:00 Narrative Exam General: Awake and in no acute distress. Conversational and non-toxic appearing. Neurologic: GCS 15. Alert and oriented x3, no gross neurological deficit, and patient able to move all 4 extremities. HEENT: Normocephalic, atraumatic, mucous membranes moist. Pupils reactive to light. Heart: Regular rate and rhythm, normal S1 and S2, no murmurs. Lungs: Clear to auscultation bilaterally with no wheezing or crackles. Abdomen: Soft, distended, nontender, positive bowel sounds. No guarding or rebound tenderness. Extremities: No edema. 2+ radial and dorsalis pedis pulses bilaterally. Skin: Warm. Dry. No rash or ecchymoses. Discharge Plan Plan Patient Disposition: Home w/HOME HEALTH Disposition Comment: DC to halfway Patient condition on transfer: Stable Care Plan Goals: ? Continue taking all other home medications as prescribed ? Follow-up with PCP within 1-2 weeks of discharge - You are being prescribed Benefiber which helps with constipation and gut microbiome, take it anai morning. - You are also being prescribed another medication called metoclopramide which helps with gut motility, take it as needed if you have not had a bowel movement in 48 hours. - Take metoprolol 25mg every day to help with your high blood pressure and fast heart rate. ? Follow-up with general surgery within 1-2 weeks of discharge to consider options for inguinal hernia ? If you do not have a PCP, you can follow-up at the [facility] (you can call [phone] to make an appointment) - Seek referral from your PCP for a consultation from a advertising sales consultant for outpatinet colonoscopy. Watch for regular bowel movements, and if you should develop abdomenal distention, constipation, bloating, or inability to pass stool seek medical attention. ? Return to ED if symptoms worsen or recur Prescriptions/Referrals Prescriptions/Med Rec: New senna 8.6 mg capsule 8.6 mg PO QDAY PRN (Reason: constipation) Qty: 10 0RF Benefiber Sugar Free (dextrin) 3 gram/4 gram powder 1.9 g PO HS 30 Days Qty: 57 1RF Rx Instructions: mix into at least 4 oz water at night daily metoclopramide HCl 5 mg tablet 5 mg PO Q48H 20 Days Qty: 10 0RF metoprolol succinate 25 mg tablet extended release 24 hr 25 mg PO QDAY Qty: 30 0RF Lactobacillus acidoph-L. bifid 1 billion cell wafer 1 tab PO QDAY 30 Days Qty: 30 0RF Rx Instructions: administer (preferably) with milk Continued docusate sodium 250 mg capsule 250 mg PO DAILY Patient Comments: taken daily clonazepam 1 mg tablet 1 mg PO TID fluvoxamine 100 mg tablet 100 mg PO BID loratadine [Allergy Relief (loratadine)] 10 mg tablet 10 mg PO DAILY risperidone [Risperdal] 1 mg/mL solution 1 mg PO BID simvastatin 10 mg tablet 10 mg PO QPM Referrals: Delon Herman PA-C [Primary Care Provider] Richard Jolley MD [Physician, General Surgery] Patient/Caregiver Discharge Instructions Other Discharge Activity Instructions:: Continue taking all other home medications as prescribed ? Follow-up with PCP within 1-2 weeks of discharge - You are being prescribed Benefiber which helps with constipation and gut microbiome, take it anai morning. - You are also being prescribed another medication called metoclopramide which helps with gut motility, take it as needed if you have not had a bowel movement in 48 hours. - Take metoprolol 25mg every day to help with your high blood pressure and fast heart rate. ? Follow-up with general surgery within 1-2 weeks of discharge to consider options for inguinal hernia ? If you do not have a PCP, you can follow-up at the [facility] (you can call [phone] to make an appointment) - Seek referral from your PCP for a consultation from a advertising sales consultant for outpatinet colonoscopy. Watch for regular bowel movements, and if you should develop abdomenal distention, constipation, bloating, or inability to pass stool seek medical attention. ? Return to ED if symptoms worsen or recur Education Materials: Ileus, Catheter-Linked Urinary Tract ..., Anatomy of the Digestive System, Discharge Instructions Caring ..., Obstruction Intestinal, ED Marinelli Catheter, Care Print Language: Armenian Activity Restrictions/Additional Instructions: Patient is here for follow-up appointment in my office next Tuesday at July 24. Call [phone] for an appointment time. My office is located at [address] Stand Alone Forms: Michelle Award Info., Patient Portal Info Letter Discharge Order Discharge Orders: Discharge (Routine); Ordered 07/24/25 Ordered By: Florentino Nuñez Quality Discharge Quality Measures none MD Attestestation MD Attestation I attest that I was physically present for the evaluation, physical examination, lab and imaging review of the patient with the residents. I discussed the case with the residents and agree with the findings and plans of care as documented above. Deonte Whittaker MD
--- NOTE | 2025-07-24 18:02 | ESPR_ITS ---
Documentation for date of: 07/24/25 Subjective Subjective Interval history: Patient was seen and examined at bedside. Patient failed voiding yesterday, has been having voiding training. His heart rate has improved significantly with metoprolol at rate between 90 and 70s. Telemonitoring for the past 4 hours was negative for any arrhythmias. Patient had 2 bowel movements for the past 24 hours Exam Vital Signs Temp Pulse Resp BP Pulse Ox O2 Del Method O2 Flow Rate 97.9 F 105 H 17 94/65 97 Room Air 2 07/24/25 16:00 07/24/25 16:00 07/24/25 16:00 07/24/25 16:00 07/24/25 16:00 07/24/25 16:00 07/21/25 16:00 FiO2 30 07/21/25 16:00 Narrative Exam GENERAL: Alert, talkative, answers simple questions HEENT: NC/AT, mucous membranes dry, bilateral sclera anicteric CARDIOVASCULAR: regular rate and rhythm, S1/S2 present, S3, no murmurs appreciated PULMONARY: clear to auscultation bilaterally, no rales/rhonchi/wheezes ABDOMINAL: Abdomen is soft, nontender, no rebound/guarding EXTREMITIES: no peripheral edema SKIN: warm and dry, intact, no rashes NEURO: CN II-XII grossly intact, no focal deficits, alert, following commands Objective Labs 07/24/25 04:51 07/24/25 04:51 Labs: Laboratory Results - last 24 hr 07/24/25 04:51 WBC 7.9 RBC 3.72 L Hgb 10.8 L Hct 34.0 L MCV 91 MCH 29.0 MCHC 31.8 RDW Std Deviation 53.1 H Plt Count 412 D Neut % (Auto) 68 Lymph % (Auto) 18 [place] % (Auto) 11 Eos % (Auto) 2 Baso % (Auto) 1 Neut # (Auto) 5.4 Lymph # (Auto) 1.4 [place] # (Auto) 0.8 Eos # (Auto) 0.2 Baso # (Auto) 0.0 Immature Gran # (Auto) 0.06 H Absolute Nucleated RBC 0.00 Immature Gran % 1 H Nucleated RBC % 0 Sodium 139 Potassium 3.4 Chloride 103 Carbon Dioxide 25.1 Anion Gap 11 BUN 11 Creatinine 1.0 Estim Creat Clear Calc 73.7 eGFR > 60 BUN/Creatinine Ratio 11 L Glucose 117 H Calculated Osmolality 277 Calcium 9.2 Corrected Calcium 9.3 Phosphorus 4.1 Magnesium 2.1 Total Bilirubin 0.4 AST 36 H ALT 46 Alkaline Phosphatase 54 Total Protein 6.1 Albumin 3.9 Globulin 2.2 L Albumin/Globulin Ratio 1.8 ABG Interpretation ABG results: 07/09/25 04:04 ABG pH 7.29 L ABG pCO2 57 H ABG pO2 86 ABG HCO3 28 H ABG O2 Saturation 96 ABG Base Excess 1 Quality Measures Quality Measures VTE prophylaxis (SCD) and none Assessment & Plan Assessment Current Active Medications: Generic Name Dose Route Start Last Admin Trade Name Freq PRN Reason Stop Dose Admin Acetaminophen 1,000 mg 07/22/25 09:29 Acetaminophen 500 Mg Tablet NG 08/05/25 15:39 Q6H PRN PAIN OR FEVER > 99.9 Albuterol/Ipratropium 3 ml 07/23/25 11:37 Albuterol/Ipratropium (Duoneb) Rt Flavia 3 Ml Nebu INH 08/08/25 09:31 Q4HRRT PRN WHEEZING Fluvoxamine 100 Mg 0 ea 07/06/25 21:00 07/21/25 09:26 Tablet PO 08/05/25 20:59 Not Given On Hold: 07/21/25 12:51 BID [facility] Comment: CALLED AND SPOKE WITH DR. COOL, WE HAVE HAD TROUBLE BRING IN THIS MEDICATION FROM PATIENT'S HOME FACILITY. I RECOMMENDED TO DR Radha COOL THAT WE HAVE OTHER SSRIs AVAILABLE THAT WE COULD RELIABLY ADMINISTER TO THE PATIENT DURING THE INPATIENT STAY. DR. COOL WAS AGREEABLE TO THIS AND ASKED WHAT I RECOMMENDED. I RECOMMENDED SERTRALINE 100 MG PO QDAY, A LOWER DOSE THAN EQUIVALENT TO THE 200 MG DAILY DOSE OF FLUVOXIMINE DUE TO POTENTIAL IDIOSYNCRATIC SIDE EFFECTS, AND ADJUSTING THE DOSE BASED ON RESPONSE. OKAY PER DR. COOL Dextrose 50 ml 07/06/25 15:47 Dextrose 50%-Water Inj 50 Ml Syringe IV 08/05/25 15:46 Q15MIN PRN BG <50 OR BG <70 & pt unresponsive Diclofenac Sodium 2 gm 07/14/25 14:00 07/23/25 05:21 Diclofenac 1% Top Gel 100 Gm Tube TOP 08/13/25 13:59 2 gm TID RHINA Administration Protocol Glucagon 1 mg 07/06/25 15:47 Glucagon Inj 1 Mg Vial IM Q15MIN PRN BG <70, and no IV access Ampicillin Sodium/Sulbactam 50 mls @ 100 mls/hr 07/19/25 12:00 07/23/25 12:15 Sodium 1.5 gm/ Sodium Chloride IV 07/26/25 11:59 100 mls/hr Q6HR RHINA Administration Dextrose/Lactated Ringer's 1,000 mls @ 70 mls/hr 07/21/25 15:30 07/23/25 00:40 D5-Lr IV 07/23/25 15:29 70 mls/hr .[id number] RHINA Administration Insulin Human Lispro 0 unit 07/06/25 18:00 07/23/25 12:24 Insulin Lispro (Admelog) 1 Unit/0.01 Ml Unit SC 08/05/25 17:59 1 unit Q6HR RHINA Administration Protocol Iron Sucrose 200 mg 07/19/25 09:00 07/23/25 09:49 Iron Sucrose Cplx Inj 20 Mg/Ml Vial 5 Ml IVP 08/18/25 08:59 200 mg QDAY RHINA Administration Lactobacillus Rhamnosus 1 cap 07/22/25 21:00 07/23/25 09:50 Lactobacillus Rhamnosus 1 Cap NG 08/21/25 20:59 1 cap BID RHINA Administration Lactulose 30 gm 07/22/25 14:00 07/23/25 05:52 Lactulose Syrup 20 Gm/30 Ml Udc NG 08/21/25 13:59 Not Given Q8HR RHINA Protocol Metoprolol Succinate 25 mg 07/23/25 09:00 07/23/25 09:51 Metoprolol Succinate Xl 25 Mg Tabcr NG 08/22/25 08:59 25 mg QDAY RHINA Administration Ondansetron HCl 4 mg 07/06/25 15:40 07/18/25 18:02 Ondansetron Inj 2 Mg/Ml Inj 2 Ml IVP 08/05/25 15:39 4 mg Q6H PRN Administration NAUSEA OR VOMITING Protocol Pantoprazole Sodium 40 mg 07/22/25 21:00 07/23/25 09:50 Pantoprazole Inj 40 Mg Vial IVP 08/21/25 20:59 40 mg Q12HR RHINA Administration Risperidone 1 mg 07/22/25 21:00 07/23/25 09:50 Risperidone 1 Mg Tablet NG 08/21/25 20:59 1 mg BID RHINA Administration Sertraline HCl 100 mg 07/23/25 09:00 07/23/25 09:50 Sertraline Hcl 25 Mg Tablet NG 08/22/25 08:59 100 mg QDAY RHINA Administration Simethicone 80 mg 07/22/25 09:14 Simethicone 40 Mg/0.6 Ml Oral Syringe NG 08/18/25 07:57 Q12H PRN distension/bloating Sodium Chloride 3 ml 07/10/25 13:18 Sodium Chloride Rt Flavia 0.9% 3 Ml Nebu INH 08/09/25 13:17 PRN PRN SOLN Tamsulosin HCl 0.4 mg 07/23/25 09:00 07/23/25 09:50 Tamsulosin Hcl 0.4 Mg Capsule NG 08/22/25 08:59 0.4 mg QDAY RHINA Administration Plan Summary: 60-year-old male patient known case of schizophrenia, hyperlipidemia, developmental delay, was brought from longterm facility after he was started to experience abdominal pain few hours before presentation. Patient was unable to provide accurate history due to his chronic mental status, most of the history was taken from the caregiver Charu Jean. Cardiology team was consulted due to tachycardia #Sinus tachycardia likely 2/, resolved #Urinary retention #Abdomial pain, improving #ACS ruled out Patient presented with acute abdominal pain, tachycardia, melena, patient was sweaty, pulse rate was 129, blood pressure was 119/65.on examination found to have S1-S2 and S3 He has trace lower edema, no elevated JVD Hemoglobin was 5.8. TSH was 5.8, Troponin was negative, chest x-ray showed left ventricular prominence, elevated right hemidiaphragm. EKG was done initially showed sinus tachycardia, repeat today during the rapid also showed sinus tachycardia with deep Q-wave on the leads, I, III and AVf. Patient most likely have secondary cause of his sinus tachycardia including but not limited to infection, pain, acute blood loss, less likely medication side effect such as serotonin syndrome 07/09/2025, patient had an episode of aspiration, he was intubated and upgraded to the ICU. BNP came back normal, telemonitoring was reviewed for the past 24- hour was negative for any arrhythmias and it only showed sinus tachycardia. 07/08/25 Echo: rate more than 115 bpm. Normal left ventricular size and function. Grade I diastolic dysfunction. EF estimated at 55-60%. The right ventricle is normal in size and systolic function. Normal RVSP. Mild MR and TR. No pericardial effusion Metoprolol attempted to be started however there was concern for rate control may mask possible deterioration of patient condition. 07/14/2025, patient remains on restraints, was started on TPN, telemonitoring over the past 24 hours showed increase in the heart rate to 152, sinus rhythm with some PVCs. No ST changes noted 07/15/2025, CT angio of the chest was done was negative for pulmonary embolism however there was artifact during imaging. Plus the patient has consultation for that reason patient is not eligible for VQ scan. Lower extremity Doppler ultrasound: negative for any DVT Plan - Continue metoprolol 25mg PO Qday ? Strict in and out ? Treat underlying cause urinary retention vs periodic abdominal pain/distension versus less likely malignancy ? Daily potassium and magnesium ? Replete electrolytes to keep potassium and magnesium above 4 and 2 respectively as patient is losing K through diarrhea #GIB s/p 4 pRBC #Acute post hemorrhagic anemia #Upper vs lower GIB Presented with melena. Hgb on admission 07/06 5.8, increased to 7.7, and subsequently decreased back to 6.3 on 07/10. 07/07 EGD showed few non bleeding erosions at GE junction, erythematous mucosa in antrum, normal duodenum. Patient aspirated on Golytely 07/09 and was intubated and upgraded to ICU, extubated 07/11. Gastrograffin enema study negative Plan - CTM Hgb - Colonoscopy outpatient per GI #Developmental delay #History of schizophrenia #Hyperglycemia #Depression #Acute blood loss Plan ? Follow-up with the primary team recommendation Thank you for your consultation please do not hesitate to reach out if you have any question or concern - Patient's plan and care discussed with my attending, Dr. Alison Santos MD Internal Medicine PGY-3 Attending Provider Attestation/Addendum I have personally seen and examined the patient separately on the above date of service and discussed the plan of care with the resident. I reviewed the resident Dr. Santos consultation progress note and agree with the resident findings and plan in the note above and have also edited the documentation to reflect my findings and plan. Diego Rosas M.D. Interventional Cardiology
--- NOTE | 2025-07-24 18:56 | PC.CC ---
hh ref sent out, waiting for response
--- NOTE | 2025-07-24 23:26 | ESPR_ITS ---
Documentation for date of: 07/24/25 Subjective Subjective Interval history: Late entry for the note Patient being discharged He had 2 bowel movements abdomen is less distended Exam Vital Signs Temp Pulse Resp BP Pulse Ox O2 Del Method O2 Flow Rate 97.9 F 105 H 17 94/65 97 Room Air 2 07/24/25 16:00 07/24/25 16:00 07/24/25 16:00 07/24/25 16:00 07/24/25 16:00 07/24/25 16:00 07/21/25 16:00 FiO2 30 07/21/25 16:00 Objective Labs 07/24/25 04:51 07/24/25 04:51 Labs: Laboratory Results - last 24 hr 07/24/25 04:51 WBC 7.9 RBC 3.72 L Hgb 10.8 L Hct 34.0 L MCV 91 MCH 29.0 MCHC 31.8 RDW Std Deviation 53.1 H Plt Count 412 D Neut % (Auto) 68 Lymph % (Auto) 18 [place] % (Auto) 11 Eos % (Auto) 2 Baso % (Auto) 1 Neut # (Auto) 5.4 Lymph # (Auto) 1.4 [place] # (Auto) 0.8 Eos # (Auto) 0.2 Baso # (Auto) 0.0 Immature Gran # (Auto) 0.06 H Absolute Nucleated RBC 0.00 Immature Gran % 1 H Nucleated RBC % 0 Sodium 139 Potassium 3.4 Chloride 103 Carbon Dioxide 25.1 Anion Gap 11 BUN 11 Creatinine 1.0 Estim Creat Clear Calc 73.7 eGFR > 60 BUN/Creatinine Ratio 11 L Glucose 117 H Calculated Osmolality 277 Calcium 9.2 Corrected Calcium 9.3 Phosphorus 4.1 Magnesium 2.1 Total Bilirubin 0.4 AST 36 H ALT 46 Alkaline Phosphatase 54 Total Protein 6.1 Albumin 3.9 Globulin 2.2 L Albumin/Globulin Ratio 1.8 Impressions Impression: Motility disorder of the GI tract Agree with discharge planning to be followed by the PCP ABG Interpretation ABG results: 07/09/25 04:04 ABG pH 7.29 L ABG pCO2 57 H ABG pO2 86 ABG HCO3 28 H ABG O2 Saturation 96 ABG Base Excess 1 Assessment & Plan A&P Narrative Hematochezia Plan clear liquid diet n.p.o. at midnight tonight except p.o. meds Consent for fiberoptic esophagogastroduodenoscopy with possible biopsy possible therapeutic intervention under intravenous moderate sedation If EGD negative we will consider doing a fibrotic colonoscopy prior to discharge Serial CBC IV Protonix Thank you very much for the opportunity to participate in the care of this Time Spent With Patient Time: Total time spent is greater than 50% in coordination of care (as documented) at patient's floor/unit and/or counseling patient:
--- NOTE | 2025-07-25 08:05 | PC.CC ---
Donell PATEL accepted and booked, soc 07/26
== END 2025-07-24 17:20 | disposition home health service (06) | DRG 377 ==
LOC: SERX 14:29 → SERHOLD 15:16 → S2NX 18:46 → S2SX 07-09 09:13 → S2NX 07-12 13:14 → S3SX 07-17 20:14
PROVIDERS: Internal Medicine Critical Care Medicine; Specialist; Student in an Organized Health Care Education/Training Program; Admitting Provider Internal Medicine; Emergency Provider Emergency Medicine; PCP Physician Assistant; Visit Provider Student in an Organized Health Care Education/Training Program
PROC: 0DJ08ZZ Inspection of Upper Intestinal Tract, Via Natural or Artificial Opening Endoscopic (ICD-10-PCS; CPT 43239; principal; 2025-07-07 15:00)
DX: K28.4 Chronic or unspecified gastrojejunal ulcer with hemorrhage (principal); J18.9 Pneumonia, unspecified organism; J69.0 Pneumonitis due to inhalation of food and vomit; J96.01 Acute respiratory failure with hypoxia; J96.02 Acute respiratory failure with hypercapnia; D62 Acute posthemorrhagic anemia; E87.20 Acidosis, unspecified; K40.30 Unilateral inguinal hernia, with obstruction, without gangrene, not specified as recurrent; K56.0 Paralytic ileus; F20.9 Schizophrenia, unspecified; K59.00 Constipation, unspecified; R73.9 Hyperglycemia, unspecified; F32.A Depression, unspecified; F41.9 Anxiety disorder, unspecified; E03.8 Other specified hypothyroidism; E78.5 Hyperlipidemia, unspecified; E83.39 Other disorders of phosphorus metabolism; E87.6 Hypokalemia; F79 Unspecified intellectual disabilities; I10 Essential (primary) hypertension; G51.0 Bell's palsy; I49.3 Ventricular premature depolarization; R33.9 Retention of urine, unspecified; N32.89 Other specified disorders of bladder; J98.4 Other disorders of lung; Z79.899 Other long term (current) drug therapy; Z78.1 Physical restraint status; R62.50 Unspecified lack of expected normal physiological development in childhood; B96.20 Unspecified Escherichia coli [E. coli] as the cause of diseases classified elsewhere
CPT/HCPCS: 36415; 36430; 36600; 71045; 71275; 74018; 74019; 74150; 74174; 74176; 74270; 80048; 80053; 80069; 80307; 81001; 82803; 83036; 83605; 83690; 83735; 83880; 84100; 84145; 84439; 84443; 84478; 84484; 85014; 85018; 85025; 85379; 85610; 85730; 86140; 86850; 86900; 86901; 86923; 87040; 87077; 87081; 87186; 87205; 87493; 93005; 93225; 93306; 93970; 94002; 94003; 94640; 94667; 96361; 96365; 96375; 97162; 99285; A4216; A4649; A9270; J0131; J0295; J0612; J0696; J1200; J1630; J1756; J1815; J2250; J2358; J2405; J2470; J2543; J2704; J2765; J3010; J3360; J3475; J3480; J3490; J7050; J7120; J7121; P9016; Q9963; Q9967; J1920; J2359

== ENCOUNTER 2025-08-21 19:51 | Emergency (ER) | payer MEDICARE, MEDICAID, SELFPAY ==
[2025-08-21 19:53] VITALS: BMI 24.8
[2025-08-21 20:36] VITALS: BP 179/95; PULSE 108; RESP 20; TEMP 36.8; O2SAT 95
[2025-08-21 21:29] LABS: Collection Type, Urine Clean Catch
--- NOTE | 2025-08-21 21:31 | PD.EDMALE ---
ED Male Genitalurinary RME/HPI General Chief complaint: General Adult/Misc Complain Stated complaint: BLOOD IN URINE LAWLER CATH Time Seen by Provider: 08/21/25 20:26 Arrival date/time: 08/21/25 19:51 60M with history of developmental disorder and recent admission for GI bleed, presents to ED with caregiver for some blood in urine. Patient has had a Lawler cath since discharge and no outpatient void trial was done. Possible fevers/chills. Limitations: no limitations Related Data Home Medications ?Medication ?Instructions ?Recorded ?Confirmed clonazepam 1 mg tablet 1 mg PO TID 07/06/25 07/06/25 docusate sodium 250 mg capsule 250 mg PO DAILY 07/06/25 07/06/25 fluvoxamine 100 mg tablet 100 mg PO BID 07/06/25 07/06/25 loratadine 10 mg tablet (Allergy 10 mg PO DAILY 07/06/25 07/07/25 Relief (loratadine)) risperidone 1 mg/mL oral solution 1 mg PO BID 07/06/25 07/06/25 (Risperdal) simvastatin 10 mg tablet 10 mg PO QPM 07/06/25 07/06/25 Previous Rx's ?Medication ?Instructions ?Recorded metoprolol succinate 25 mg 25 mg PO QDAY #30 tabs 07/17/25 tablet,extended release 24 hr sennosides 8.6 mg capsule (senna) 8.6 mg PO QDAY PRN constipation 07/17/25 #10 caps wheat dextrin 3 gram/4 gram oral 1.9 g PO HS 1 month #57 grams 07/17/25 powder (Benefiber Sugar Free (dextrin)) cefuroxime axetil 500 mg tablet 500 mg PO BID 7 days #14 tabs 08/21/25 Allergies Allergy/AdvReac Type Severity Reaction Status Date / Time No Known Allergies Allergy Verified 08/21/25 19:57 Review of Systems Review of Systems Systems Reviewed: All systems reviewed, normal except as documented Genitourinary Genitourinary: Reports as per HPI and Reports hematuria Past Medical History Past Medical History NEUROLOGIC: Positive Lomas's Palsy; Negative Neurological Disorders, Cerebrovascular Accident, Transient Ischemic Attacks (TIA), Dementia, Alzheimer's Disease, Parkinson's Disease, Brain Tumor, Meningitis, Seizures, Epilepsy, Multiple Sclerosis, Cerebral Palsy, Amyotrophic Lateral Sclerosis (ALS/Jessica Gehrig's), Guillain-Carlisle Syndrome, Spina Bifida, Paralysis, Peripheral Neuropathy, Subdural Hematoma, Migraine, Head Trauma, Spinal Cord Injury or Traumatic Brain Injury CARDIAC: Negative Cardiac Disorders, Myocardial Infarction, Cardiac Arrhythmia, Atrial Fibrillation, Angina, Heart Murmur, Coronary Artery Disease, Atherosclerotic Heart Disease, Hypercholesterolemia, Aneurysm, Congestive Heart Failure, Congenital Heart Disease, Valvular Heart Disease, Rheumatic Fever, Cardiomyopathy, Cellulitis, Deep Vein Thrombosis, Hypertension, Hypotension or Varicose Veins RESPIRATORY: Negative Chronic Obstructive Pulmonary Disease (COPD), Asthma, Bronchitis, Emphysema, Pneumonia, Pulmonary Fibrosis, Cystic Fibrosis, Tuberculosis, Pulmonary Embolism, Pulmonary Edema or Sleep Apnea GASTROINTESTINAL: Positive Hemorrhoids; Negative Gastrointestinal Disorders, Cirrhosis, Pancreatitis, Celiac Disease, Gall Bladder Disease, Gastrointestinal Bleed, Esophageal Varices, Persaud's Esophagus, Colitis, Ulcerative Colitis, Diverticulitis, Diverticulosis, Ulcer, Irritable Bowel, Crohn's Disease, Obstructive Bowel, Hiatal Hernia, Gastroesophageal Reflux Disease or Obesity GENITOURINARY: Positive Inguinal Hernia; Negative Genitourinary Disorders, Renal Disease, Kidney Stones, Polycystic Kidney Disease, Dialysis or Benign Prostatic Hyperplasia REPRODUCTIVE: Negative Fibroids, Genital Herpes, Gonorrhea, Syphilis or Testicular Cancer MUSCULOSKELETAL: Negative Musculoskeletal Disorders, Muscular Dystrophy, Myasthenia Gravis, Marfan's Syndrome, Arthritis, Rheumatoid Arthritis, Osteoporosis, Degenerative Disk Disease, Gout, Scoliosis, Carpal Tunnel Syndrome, Fibromyalgia, Fractures, Degenerative Joint Disease, Osteomyelitis or Poliovirus ENT: Negative Cataracts, Glaucoma, Blind, Retinal Detachment, Macular Degeneration, Ear Infection, Deafness, Head Trauma or Eye Prosthesis ENDOCRINE: Negative Endocrine Disorders, Diabetes Mellitus Type 1, Diabetes Mellitus Type 2, Hypoglycemia, Chas's Syndrome, [place]'s Disease, Hyperthyroidism, Hypothyroidism, Parathyroid Disease, Pituitary Disease, Systemic Lupus Erythematosus, Syndrome of Inappropriate Antidiuretic Hormone (SIADH), Adrenal Disease or Graves' Disease HEMATOLOGIC: Negative Blood Disorders, Anemia, Leukemia, Hemophilia, Thalassemia, Sickle Cell Disease or Clotting Problems PSYCHO/SOCIAL: Positive Schizophrenia and Anxiety; Negative Psychiatric Problems, Recreational Drug Use, Bipolar Disorder, Depression, Behavior Problems, Self-Mutilation, Attention Deficit Disorder, Attention Deficit Hyperactivity Disorder, Depression, Post Traumatic Stress Disorder or Eating Disorder OTHER HISTORY: Positive Developmental Delay and Blood Transfusions; Negative Hospitalization, Autoimmune Disease, Down Syndrome, Autism, Shingles, Falls, Blood Transfusion Reaction, Anesthesia Reactions, Organ Transplant, Chemotherapy, Radiation Therapy, Hyperbaric Therapy, MRSA, VRSA, Vancomycin-Resistant Enterococci, Clostridium Difficile or Testicular Cancer Family History FAMILY HISTORY: Negative Family Cardiac Disorders Surgical History SURGICAL: Negative Cardiac Surgery, Open Heart Surgery, Coronary Artery Bypass Graft, Valve Replacement, Vascular Surgery, Coronary Stent, Cardiac Catheterization, Pacemaker, Angiogram, Auto Implanted Cardiovert Defib, Carotid Endarterectomy, Endocrine Surgery, Thyroidectomy, Ear Surgery, Tympanostomy Tube, Eye Surgery, Nose Surgery, Oral Surgery, Tonsillectomy, Adenoidectomy, Cochlear Implant, Corneal Transplant, Throat Surgery, Abdominal Surgery, Tracheostomy, Gastric Bypass Surgery, Gastrostomy, Bowel Surgery, Nephrectomy, Transurethral Resection, Joint Replacement, Amputation, Open Reduction Internal Fixation, Arthroscopy, Neurologic Surgery, Brain Shunt, Vasectomy or Organ Transplant Social History SMOKING STATUS: Never smoker ED Exam General Limitations: Present no limitations General appearance: Present alert and in no apparent distress Head Head exam: Present atraumatic Neck Neck exam: Present normal inspection, full ROM and trachea midline Chest Chest inspection: Present normal inspection and symmetric chest wall rise Neurological Exam Neurological exam: Present alert, oriented X3 and CN II-XII intact Psychiatric Psychiatric exam: Present normal affect and normal mood Skin Skin exam: Present warm, dry, intact and normal color Course Quality Measures none Orders Category Date Time Status Catheter [Urinary Catheter, Remove] ONCE Care 08/21/25 20:58 Active Urinalysis, C/S if Indicated Stat Lab 08/21/25 21:24 Completed Urine Culture Stat Lab 08/21/25 21:24 Received cefuroxime axetiL [cefUROXime axetil] Med 08/21/25 21:36 Once 500 mg PO X1 ONE Vital Signs Vital signs: Vital Signs Temperature 98.3 F 08/21/25 20:36 Pulse Rate 108 H 08/21/25 20:36 Respiratory Rate 20 08/21/25 20:36 Blood Pressure 179/95 H 08/21/25 20:36 Pulse Oximetry (%) 95 08/21/25 20:36 Oxygen Delivery Method Room Air 08/21/25 20:36 O2 at 95% on RA and WNLs Urogenital - Male MDM Narrative MDM Narrative:: 60M with history of developmental disorder and recent admission for GI bleed, presents to ED with caregiver for some blood in urine. Patient has had a Lawler cath since discharge and no outpatient void trial was done. Possible fevers/chills. Physical exam reveals well-appearing male. Patient is afebrile, calm, and alert. Lawler cath removed and patient passed void trial. UA suggests UTI. Meds and claims counsel given. Patient data External records reviewed:: [facility] previous records Clinical information provided by:: patient Social determinants that could affect healthcare access:: mental health (developmental disorder) Patient has the following chronic illnesses:: developmental disorder How is presenting disease/condition affected by chronic disease/condition?: exacerbated by Evaluation data The following diagnostics were reviewed and interpreted by me:: lab results Lab and/or radiology exams considered but not ordered:: ordered Interpretation Summary: above Medications / Prescriptions Medications or Prescriptions considered but not ordered:: ordered Medication administrations:: Medication Administration History Cefuroxime Axetil (Cefuroxime Axetil 250 Mg Tablet) 500 mg PO X1 ONE Stop: 08/21/25 21:37 above Consultations Consultation(s) initiated? (list below): No Diagnosis Urogenital Male Differential Diagnosis: urinary tract infection, priapism, urethritis, epididymitis, genital herpes simplex, prostatitis, acute retention of urine and inguinal hernia Most likely diagnosis given after review of the tests above:: UTI Admission Indicated Admission indicated?: not indicated Admission Request Was there a request for admission?: No Disposition Plan Disposition Plan: Discharge Discharge Attestation Discharge Attestation: The patient and all family members were given an opportunity to ask questions and understood the discharge instructions. Discharge instructions specifically effects, indications for sooner follow up or return to the emergency department, and the expected course of current diagnosis. Patient condition: Stable Discharge Plan Plan Patient Disposition: HOME (Self Care) Discharge Disposition comment: Stable Prescriptions/Referrals Prescriptions/Med Rec: New cefuroxime axetil 500 mg tablet 500 mg PO BID 7 Days Qty: 14 0RF No Action docusate sodium 250 mg capsule 250 mg PO DAILY Patient Comments: taken daily clonazepam 1 mg tablet 1 mg PO TID fluvoxamine 100 mg tablet 100 mg PO BID loratadine [Allergy Relief (loratadine)] 10 mg tablet 10 mg PO DAILY risperidone [Risperdal] 1 mg/mL solution 1 mg PO BID simvastatin 10 mg tablet 10 mg PO QPM senna 8.6 mg capsule 8.6 mg PO QDAY PRN (Reason: constipation) Qty: 10 0RF Benefiber Sugar Free (dextrin) 3 gram/4 gram powder 1.9 g PO HS 30 Days Qty: 57 1RF Rx Instructions: mix into at least 4 oz water at night daily metoprolol succinate 25 mg tablet extended release 24 hr 25 mg PO QDAY Qty: 30 0RF Problem List Clinical Impression: UTI (urinary tract infection) Patient/Caregiver Discharge Instructions Education Materials: ED Bladder Infection, Male (Adult) Additional Instructions: Please follow-up with PCP within 24-48 hours and return immediately if symptoms worsen. Print Language: Turkmen Stand Alone Forms: Patient Portal Info Letter PA/QUALITY CONTROL LAB TECH Supervising Physician PA/QUALITY CONTROL LAB TECH Supervising Physician: Dr. Singh
[2025-08-21 21:34] LABS: Bacteria,Urine 2+; Bilirubin,Urine Negative (Negative); Blood,Urine 3+ (Negative); Clarity,Urine Bloody (Clear/Hazy); Color,Urine Lt-Brown (Lt Yel-Yel); Culture Indicated,Urine Yes; Glucose, Urine Negative (Negative); Ketones,Urine Negative (Negative); Leukocyte Esterase,Urine Positive (Negative); Nitrite,Urine Negative (Negative); PH,Urine 7.0 (5.0-7.0); Protein,Urine 1+ (Neg - Trace); RBC,Urine 6 /hpf (0-3); Specific Gravity,Urine 1.002 (1.001-1.035); Squamous Epithelial Cell,Urine 1 /hpf (0-5); Urobilinogen,Urine Negative mg/dL (0.0-1.0); WBC,Urine 86 /hpf (0-5)
== END 2025-08-21 21:49 | disposition home or self-care (01) ==
LOC: SERX 21:54
PROVIDERS: Physician Assistant; Emergency Provider Emergency Medicine; PCP Family Medicine
DX: N30.91 Cystitis, unspecified with hematuria (principal)
CPT/HCPCS: 81001; 87086; 99282; A9270